=== PATIENT | male | born 1965 | race Caucasian/White ===

== ENCOUNTER → 2016-10-06 | Outpatient (CLI) | payer OTHER ==
--- NOTE | 2016-10-06 14:36 | XR ---
EXAMINATION TYPE: XR chest 2V DATE OF EXAM: 10/06/2016 CLINICAL HISTORY: COPD TECHNIQUE: Frontal and lateral views of the chest are obtained. COMPARISON: None FINDINGS: There is no focal air space opacity, pleural effusion, or pneumothorax seen. The cardiac silhouette size is within normal limits. The osseous structures are intact. IMPRESSION: No acute cardiopulmonary process.
== END ==
LOC: RADXRMAIN 14:15
PROVIDERS: ATTEND Family Medicine
DX: J44.9 Chronic obstructive pulmonary disease, unspecified (principal)
CPT/HCPCS: 71020

== ENCOUNTER 2018-01-30 17:56 | Emergency (ER) | payer OTHER ==
[2018-01-30 18:06] VITALS: BP 134/88; PULSE 89; RESP 18; TEMP 97.8
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
== END 2018-01-30 18:25 | disposition left against medical advice (07) ==
LOC: EC 17:56
DX: S00.81XA Abrasion of other part of head, initial encounter (principal); R40.2410 Glasgow coma scale score 13-15, unspecified time; M25.512 Pain in left shoulder; M25.552 Pain in left hip; Z53.29 Procedure and treatment not carried out because of patient's decision for other reasons; M19.90 Unspecified osteoarthritis, unspecified site; F17.200 Nicotine dependence, unspecified, uncomplicated; Z88.8 Allergy status to other drugs, medicaments and biological substances; V23.4XXA Motorcycle driver injured in collision with car, pick-up truck or van in traffic accident, initial encounter; Y92.410 Unspecified street and highway as the place of occurrence of the external cause
CPT/HCPCS: 99284

== ENCOUNTER 2018-02-13 13:22 | Observation (INO) | payer OTHER ==
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
[2018-02-13] MEDS ORDERED: SODIUM CHLORIDE 0.9% 1,000 ML with MVI, ADULT NO.4 WITH VIT K 10 ML, THIAMINE 100 MG, F... IV ONE ×4 (14:00)
[2018-02-13 14:04] LABS: Glucose,Whole Blood 188 mg/dL (75-99)
[2018-02-13 14:19] LABS: Basophils # (A) 0.1 k/uL (0-0.2); Basophils % (A) 1 %; Eosinophils # (A) 0.3 k/uL (0-0.7); Eosinophils % (A) 3 %; HCT 47.4 % (39.0-53.0); HGB 14.8 gm/dL (13.0-17.5); Lymphocytes # (A) 3.6 k/uL (1.0-4.8); Lymphocytes % (A) 33 %; MCH 30.2 pg (25.0-35.0); MCHC 31.3 g/dL (31.0-37.0); MCV 96.5 fL (80.0-100.0); Mean Platelet Volume 6.4; Monocytes # (A) 0.5 k/uL (0-1.0); Monocytes % (A) 5 %; Neutrophils # (A) 6.1 k/uL (1.3-7.7); Neutrophils % (A) 56 %; Platelet Count 533 k/uL (150-450); RBC 4.91 m/uL (4.30-5.90); RDW 13.1 % (11.5-15.5); WBC 10.9 k/uL (3.8-10.6)
[2018-02-13 14:33] LABS: ALT 22 U/L (21-72); AST 19 U/L (17-59); Alkaline Phosphatase 104 U/L (38-126); Amylase 34 U/L (30-110); Anion Gap 13 mmol/L; Blood Urea Nitrogen 6 mg/dL (9-20); Calcium 9.2 mg/dL (8.4-10.2); Carbon Dioxide 21 mmol/L (22-30); Chloride 108 mmol/L (98-107); Glucose 184 mg/dL (74-99); Lipase 60 U/L (23-300); Potassium 4.4 mmol/L (3.5-5.1); Sodium 142 mmol/L (137-145); Total Bilirubin 0.2 mg/dL (0.2-1.3); Total Protein 6.9 g/dL (6.3-8.2)
[2018-02-13 14:44] LABS: Alcohol 333 mg/dL
[2018-02-13] MEDS ORDERED: NALOXONE 0.4 MG/ML 1 ML VIAL IV PRN (15:01)
[2018-02-13] MEDS ORDERED: hydrALAZINE HCL 20 MG/ML 1 ML VIAL IVP PRN (16:23)
[2018-02-13] MEDS ORDERED: LORazepam 2 MG/ML INJ IV PRN ×6 (16:53→17:16)
[2018-02-13] MEDS ORDERED: THIAMINE 100 MG/ML 2 ML VIAL IM STA ×2 (16:53→17:16)
[2018-02-13] MEDS ORDERED: THIAMINE 100 MG TAB PO SCH (17:00)
[2018-02-13 17:13] VITALS: BMI 23.3
[2018-02-13 17:13] LABS: Glucose,Whole Blood 182 mg/dL (75-99)
[2018-02-13] MEDS: SODIUM CHLORIDE 0.9% 1,000 ML IV SCH (17:13)
[2018-02-13] MEDS: INSULIN ASPART 100 UNIT/ML 1 ML 10 ML VIAL SQ SCH ×2 (17:34→21:33)
[2018-02-13 20:45] LABS: Glucose,Whole Blood 194 mg/dL (75-99)
[2018-02-14 07:52] LABS: Glucose,Whole Blood 147 mg/dL (75-99)
[2018-02-14] MEDS: INSULIN ASPART 100 UNIT/ML 1 ML 10 ML VIAL SQ SCH ×4 (08:38→21:53)
[2018-02-14 09:04] LABS: Basophils # (A) 0.1 k/uL (0-0.2); Basophils % (A) 0 %; Eosinophils # (A) 0.3 k/uL (0-0.7); Eosinophils % (A) 2 %; HCT 45.6 % (39.0-53.0); HGB 14.5 gm/dL (13.0-17.5); Lymphocytes # (A) 2.2 k/uL (1.0-4.8); Lymphocytes % (A) 18 %; MCH 30.6 pg (25.0-35.0); MCHC 31.8 g/dL (31.0-37.0); MCV 96.5 fL (80.0-100.0); Mean Platelet Volume 6.6; Monocytes # (A) 0.7 k/uL (0-1.0); Monocytes % (A) 6 %; Neutrophils # (A) 8.6 k/uL (1.3-7.7); Neutrophils % (A) 72 %; Platelet Count 489 k/uL (150-450); RBC 4.73 m/uL (4.30-5.90); WBC 11.9 k/uL (3.8-10.6)
[2018-02-14 09:22] LABS: Anion Gap 9 mmol/L; Blood Urea Nitrogen 11 mg/dL (9-20); Calcium 9.3 mg/dL (8.4-10.2); Carbon Dioxide 24 mmol/L (22-30); Chloride 102 mmol/L (98-107); Glucose 270 mg/dL (74-99); Potassium 4.7 mmol/L (3.5-5.1); Sodium 135 mmol/L (137-145)
[2018-02-14 12:31] LABS: Glucose,Whole Blood 174 mg/dL (75-99)
[2018-02-14] MEDS: THIAMINE 100 MG TAB PO SCH ×2 (12:43→16:53)
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
[2018-02-14] MEDS: SODIUM CHLORIDE 0.9% 1,000 ML IV SCH (14:28)
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
[2018-02-14 17:46] LABS: Glucose,Whole Blood 176 mg/dL (75-99)
[2018-02-14 21:33] LABS: Glucose,Whole Blood 161 mg/dL (75-99)
[2018-02-15 07:19] LABS: Glucose,Whole Blood 157 mg/dL (75-99)
[2018-02-15] MEDS: INSULIN ASPART 100 UNIT/ML 1 ML 10 ML VIAL SQ SCH ×2 (08:34→13:48)
[2018-02-15 08:38] VITALS: BP 134/79; PULSE 67; RESP 16; TEMP 97.7
[2018-02-15 10:14] LABS: Basophils % (A) 0 %; Eosinophils # (A) 0.2 k/uL (0-0.7); Eosinophils % (A) 2 %; HCT 44.4 % (39.0-53.0); HGB 14.7 gm/dL (13.0-17.5); Lymphocytes # (A) 2.1 k/uL (1.0-4.8); Lymphocytes % (A) 19 %; MCH 31.1 pg (25.0-35.0); MCHC 33.2 g/dL (31.0-37.0); MCV 93.8 fL (80.0-100.0); Mean Platelet Volume 6.9; Monocytes # (A) 0.6 k/uL (0-1.0); Monocytes % (A) 6 %; Neutrophils # (A) 7.9 k/uL (1.3-7.7); Neutrophils % (A) 72 %; Platelet Count 448 k/uL (150-450); RBC 4.73 m/uL (4.30-5.90); RDW 12.9 % (11.5-15.5); WBC 11.1 k/uL (3.8-10.6)
[2018-02-15 10:46] LABS: Anion Gap 9 mmol/L; Blood Urea Nitrogen 9 mg/dL (9-20); Calcium 9.6 mg/dL (8.4-10.2); Carbon Dioxide 24 mmol/L (22-30); Chloride 101 mmol/L (98-107); Glucose 272 mg/dL (74-99); Potassium 4.7 mmol/L (3.5-5.1); Sodium 134 mmol/L (137-145)
[2018-02-15 10:51] LABS: Hemoglobin A1C 8.7 % (4.0-6.0)
[2018-02-15 13:15] LABS: Glucose,Whole Blood 209 mg/dL (75-99)
[2018-02-15] MEDS: THIAMINE 100 MG TAB PO SCH (13:49)
--- NOTE | 2018-02-15 16:54 | P.DS ---
Providers Date of admission: 02/13/18 15:02 Expected date of discharge: 02/15/18 Attending physician: MD Dr. New Reeder Primary care physician: Stated None Hospital Course: Final Diagnoses: -Alcohol intoxication -Hyponatremia, secondary to the above -Diabetes mellitus, uncontrolled-has been off of his meds, hemoglobin A1c 8.7 - Hospital course:This is a 53-year-old male with known history of alcoholism was brought in by police and EMS personnel after being found intoxicated. Patient is not actively withdrawing but remains very sleepy so most of the history is obtained from the chart. No trauma reported no fevers chills nausea vomiting sweats or other symptoms. Patient states he drank 33 beers today. He denies any street drugs or other complaints this time no trauma no fevers chills nausea vomiting sweats. Maintained on IV fluids-banana bag,CIWA protocol. No DTs. Significant clinical improvement. Repeat reports he has been off of his meds and dismissed from his prior PCP. Metformin resumed and patient has been set up with new PCP. Patient is being discharged home in a stable condition with guarded prognosis. EXAM: GENERAL: Alert and oriented 3, no acute distress CARDIOVASCULAR: S1, S2 muffled. No murmur RESPIRATION: Breath sounds diminished in the bases. No rhonchi or crackles. No bronchial breathing. ABDOMEN: Soft, nontender . No guarding. no masses palpable.no ascites Bowel sounds heard. NERVOUS SYSTEM: Cranial N 2-12 grossly normal. Moves all 4 limbs. No focal deficits. The impression and plan of care has been dictated as directed. : I performed a history and examination of this patient, discussed the same with the dictator. I agree with the dictator's note ,documented as a scribe. Any additional findings or plans will be noted. Time taken: 35 minutes Patient Condition at Discharge: Stable Plan - Discharge Summary New Discharge Prescriptions: New Folic Acid 1 mg PO DAILY #30 tablet Multivitamins, Thera [Multivitamin (formulary)] 1 tab PO DAILY #30 tablet Thiamine [Vitamin B-1] 100 mg PO DAILY #30 tab Omeprazole Magnesium [PriLOSEC OTC] 20 mg PO BID #60 tablet. metFORMIN HCL 1,000 mg PO BID #60 tab Continue Acetaminophen Tab [Tylenol] 1,000 mg PO Q6HR PRN PRN Reason: Pain Ibuprofen [Motrin Ib] 400 mg PO DAILY Discharge Medication List Acetaminophen Tab [Tylenol] 1,000 mg PO Q6HR PRN 01/30/18 [History] Ibuprofen [Motrin Ib] 400 mg PO DAILY 02/14/18 [History] Folic Acid 1 mg PO DAILY #30 tablet 02/15/18 [Rx] Multivitamins, Thera [Multivitamin (formulary)] 1 tab PO DAILY #30 tablet [Rx] Omeprazole Magnesium [PriLOSEC OTC] 20 mg PO BID #60 tablet. 02/15/18 [Rx] Thiamine [Vitamin B-1] 100 mg PO DAILY #30 tab 02/15/18 [Rx] metFORMIN HCL 1,000 mg PO BID #60 tab 02/15/18 [Rx] Follow up Appointment(s)/Referral(s): Yadi Gaytan MD [STAFF PHYSICIAN] - 02/23/18 1:30 pm (Please call office this week 02/15/18 to speak with medical office receptionist assistant about insurance coverage/ cost of visit.) Ambulatory/Diagnostic Orders: Basic Metabolic Panel [LAB.AMB] Time Frame: 3 Days, Location: None Selected Patient Instructions/Handouts: Type 2 Diabetes in Adults: New Diagnosis (DC) Activity/Diet/Wound Care/Special Instructions: HGBA1C 8.7 Diet: consist. carb OP DM education CLasses Ensure glucmeter, supplies Maintain log of accucheks achs, take to F/U visit with primary for further rec. no ETOH Discharge Disposition: HOME SELF-CARE
== END 2018-02-15 14:36 | disposition home or self-care (01) ==
LOC: EC 13:22 → 4MS4W 15:02
PROVIDERS: ADMIT Internal Medicine; ATTEND Internal Medicine
DX: F10.229 Alcohol dependence with intoxication, unspecified (principal); E87.1 Hypo-osmolality and hyponatremia; E11.65 Type 2 diabetes mellitus with hyperglycemia; I10 Essential (primary) hypertension; D72.829 Elevated white blood cell count, unspecified; D47.3 Essential (hemorrhagic) thrombocythemia; M19.90 Unspecified osteoarthritis, unspecified site; L40.9 Psoriasis, unspecified; F32.9 Major depressive disorder, single episode, unspecified; F17.200 Nicotine dependence, unspecified, uncomplicated; Z88.8 Allergy status to other drugs, medicaments and biological substances; Z80.1 Family history of malignant neoplasm of trachea, bronchus and lung; Z91.14 Patient's other noncompliance with medication regimen
CPT/HCPCS: 96366 ×2; 82075; 96365; 99285; 36415; 80053; 80048 ×2; 82140; 82150; 83690; 85025 ×3; 80320; 83036; G0378 ×3; J3411

== ENCOUNTER 2018-02-28 23:01 | Emergency (ER) | payer OTHER ==
[2018-02-28 23:24] VITALS: BP 172/92; PULSE 84; RESP 20; TEMP 98.2
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
== END 2018-03-01 00:05 | disposition home or self-care (01) ==
LOC: EC 23:01
DX: Z04.1 Encounter for examination and observation following transport accident (principal); Z02.83 Encounter for blood-alcohol and blood-drug test; F17.200 Nicotine dependence, unspecified, uncomplicated; Z88.8 Allergy status to other drugs, medicaments and biological substances; V89.2XXA Person injured in unspecified motor-vehicle accident, traffic, initial encounter; Y92.69 Other specified industrial and construction area as the place of occurrence of the external cause; Y99.0 Civilian activity done for income or pay
CPT/HCPCS: 99281

== ENCOUNTER 2018-06-14 10:09 | Emergency (ER) | payer OTHER ==
[2018-06-14] MEDS ORDERED: SODIUM CHLORIDE 0.9% 1,000 ML IV STA (10:45)
[2018-06-14] MEDS ORDERED: IPRATROPIUM-ALBUTEROL 3 ML NEB INHALATION STA (10:45)
--- NOTE | 2018-06-14 10:58 | ED ---
General Adult HPI - General Chief complaint: Upper Respiratory Infection Stated complaint: cough, congestion, vomiting Time Seen by Provider: 06/14/18 10:25 Source: patient, RN notes reviewed, old records reviewed Mode of arrival: ambulatory Limitations: no limitations - History of Present Illness Initial comments: 53-year-old male patient past medical history of prior alcohol abuse, Currently in remission, type 2 diabetes presents to ED with approximately 4 days of nonproductive cough. Patient has additionally had some rhinitis, sneezing. Patient complains waxing and waning fevers and chills. Patient has had some nausea without emesis. Patient has multiple sick contacts, states "everyone in my house has been sick since thursday". Patient is a tobacco user. Patient denies any chest pain or shortness of breath. Patient denies any abdominal pain. Systemic: Pt denies fatigue, myalgia, rash. Pt denies weakness, night sweats, weight loss. Neuro: Pt denies headache, visual disturbances, syncope or pre-syncope. HEENT: Pt denies ocular discharge or irritation, otalgia, rhinorrhea, pharyngitis or notable lymphadenopathy. Cardiopulmonary: Pt denies chest pain, SOB, heart palpitations, dyspnea on exertion. Abdominal/GI: Pt denies abdominal pain, n/v/d. : Pt denies dysuria, burning w/ urination, frequency/urgency. Denies new onset urinary or bowel incontinence. MSK: Pt denies myalgia, loss of strength or function in extremities. Neuro: Pt denies new onset weakness, paresthesias. - Related Data Home Medications Medication Instructions Recorded Confirmed Losartan [Cozaar] 50 mg PO DAILY 06/14/18 06/14/18 Previous Rx's Medication Instructions Recorded metFORMIN HCL 1,000 mg PO BID #60 tab 02/15/18 Oseltamivir [Tamiflu] 75 mg PO Q12HR 5 Days cap 06/14/18 Allergies Allergy/AdvReac Type Severity Reaction Status Date / Time lisinopril AdvReac Unknown Cough Verified 06/14/18 10:58 Review of Systems ROS Statement: Those systems with pertinent positive or pertinent negative responses have been documented in the HPI. ROS Other: All systems not noted in ROS Statement are negative. Past Medical History Past Medical History: Diabetes Mellitus, Hypertension, Osteoarthritis (OA), Skin Disorder Additional Past Medical History / Comment(s): PSORIASIS, BACK & NECK PAIN. History of Any Multi-Drug Resistant Organisms: None Reported Additional Past Surgical History / Comment(s): HAND SURGERY AND NERVE GRAFT TO THUMB, CORTISONE INJECTIONS HIP. Past Anesthesia/Blood Transfusion Reactions: No Reported Reaction Past Psychological History: Unable to Obtain, Depression Smoking Status: Current every day smoker Past Alcohol Use History: Abuse Past Drug Use History: None Reported - Past Family History Father Family Medical History: Cancer Additional Family Medical History / Comment(s): LUNG CANCER General Exam - General Exam Comments Initial Comments: Constitutional: NAD, AOX3, Pt has pleasant affect. HEENT: NC/AT, trachea midline, neck supple, no lymphadenopathy. Posterior pharynx non erythematous, without exudates. External ears appear normal, without discharge. Mucous membranes moist. Eyes PERRLA, EOM intact. There is no scleral icterus. No pallor noted. Cardiopulmonary: RRR, no murmurs, rubs or gallops, no JVD noted. Mild wheezing noted in RLL, other lung quintero clear. Lungs CTAB after breathing treatment. No peripheral edema. Abdominal exam: Abdomen soft and non-distended. Abdomen non-tender to palpation in all 4 quadrants. Bowel sounds active in LLQ. No hepatosplenomegaly. No ecchymosis Neuro: CN II-XII grossly intact. No nuchal rigidity. MSK: No posterior calf tenderness bilaterally, homans sign negative bilaterally. Posterior tibialis and radial pulse +2 bilaterally. Sensation intact in upper and lower extremities. Full active ROM in upper and lower extremities, 5/5 stregnth. Limitations: no limitations Course Vital Signs 06/14/18 06/14/18 06/14/18 10:16 11:30 11:40 Temperature 98.3 F Pulse Rate 103 H 100 101 H Respiratory 18 Rate Blood Pressure 151/90 O2 Sat by Pulse 97 Oximetry 06/14/18 12:30 Temperature 98.5 F Pulse Rate 80 Respiratory 19 Rate Blood Pressure 148/94 O2 Sat by Pulse 100 Oximetry Medical Decision Making - Medical Decision Making 53-year-old male patient past medical history of prior alcohol abuse, Currently in remission, type 2 diabetes presents to ED with approximately 4 days of nonproductive cough. Patient has additionally had some rhinitis, sneezing. Patient complains waxing and waning fevers and chills. Patient has had some nausea without emesis. Patient has multiple sick contacts, states "everyone in my house has been sick since thursday". Patient is a tobacco user. Patient denies any chest pain or shortness of breath. Patient denies any abdominal pain. Pt VSS, afebrile. Physical exam displayed Mild wheezing noted in RLL, other lung quintero clear. Lungs CTAB after breathing treatment. Laboratory investigations are non-impressive CBC. CMP revealed mild hyperglycemia, patient has a history of type 2 diabetes. Patient will monitor symptoms and take medication at home. Influenza A was positive. Chest x-ray displayed no acute cardiopulmonary process. Patient diagnosed with influenza. Discussion with patient, patient would like prescription for Tamiflu. Patient to follow up with primary care provider in 1-2 days. Patient to return immediately signs symptoms develop or if condition worsens in any way. Case discussed with Dr. Ruiz. - Lab Data Result diagrams: 06/14/18 11:26 06/14/18 11:26 Lab Results 06/14/18 06/14/18 06/14/18 Range/Units 11:26 11:26 11:26 WBC 7.2 (3.8-10.6) k/uL RBC 4.83 (4.30-5.90) m/uL Hgb 14.8 (13.0-17.5) gm/dL Hct 45.5 (39.0-53.0) % MCV 94.1 (80.0-100.0) fL MCH 30.7 (25.0-35.0) pg MCHC 32.6 (31.0-37.0) g/dL RDW 13.1 (11.5-15.5) % Plt Count 302 (150-450) k/uL Neutrophils % 55 % Lymphocytes % 31 % Monocytes % 8 % Eosinophils % 3 % Basophils % 1 % Neutrophils # 3.9 (1.3-7.7) k/uL Lymphocytes # 2.3 (1.0-4.8) k/uL Monocytes # 0.6 (0-1.0) k/uL Eosinophils # 0.2 (0-0.7) k/uL Basophils # 0.1 (0-0.2) k/uL Sodium 136 L (137-145) mmol/L Potassium 4.5 (3.5-5.1) mmol/L Chloride 107 (98-107) mmol/L Carbon Dioxide 23 (22-30) mmol/L Anion Gap 6 mmol/L BUN 7 L (9-20) mg/dL Creatinine 0.55 L (0.66-1.25) mg/dL Est GFR (CKD-EPI)AfAm >90 (>60 ml/min/1.73 sqM) Est GFR (CKD-EPI)NonAf >90 (>60 ml/min/1.73 sqM) Glucose 244 H (74-99) mg/dL Calcium 8.6 (8.4-10.2) mg/dL Influenza Type A RNA Detected H (Not Detectd) Influenza Type B (PCR) Not Detected (Not Detectd) Disposition Clinical Impression: Influenza A Disposition: HOME SELF-CARE Condition: Stable Instructions (If sedation given, give patient instructions): Influenza (ED) Additional Instructions: Patient to adhere to previously discussed treatment plan and will take medication(s) as directed. Patient to follow up with PCP in 1-2 days. Patient to return to ED if symptoms do not improve. Please take medications are prescribed. Please follow up with PCP in 1-2 days. Return to ED if symptoms worsen. Prescriptions: Oseltamivir [Tamiflu] 75 mg PO Q12HR 5 Days cap Is patient prescribed a controlled substance at d/c from ED?: No Referrals: Yadi Gaytan MD [Primary Care Provider] - 1-2 days
--- NOTE | 2018-06-14 11:36 | XR ---
EXAMINATION TYPE: XR chest 2V DATE OF EXAM: 06/14/2018 COMPARISON: 10/06/2016 HISTORY: Cough, congestion and vomiting TECHNIQUE: Frontal and lateral views of the chest are obtained. FINDINGS: There is no focal air space opacity, pleural effusion, or pneumothorax seen. Curvilinear density overlying the left medial hemithorax is unchanged from the prior 10/06/2016 and could represen t an accessory fissure. This is not well appreciated on the lateral view. The cardiac silhouette size is within normal limits. The osseous structures are intact. IMPRESSION: No acute cardiopulmonary process.
[2018-06-14 11:42] LABS: Basophils # (A) 0.1 k/uL (0-0.2); Basophils % (A) 1 %; Eosinophils # (A) 0.2 k/uL (0-0.7); Eosinophils % (A) 3 %; HCT 45.5 % (39.0-53.0); HGB 14.8 gm/dL (13.0-17.5); Lymphocytes # (A) 2.3 k/uL (1.0-4.8); Lymphocytes % (A) 31 %; MCH 30.7 pg (25.0-35.0); MCHC 32.6 g/dL (31.0-37.0); MCV 94.1 fL (80.0-100.0); Mean Platelet Volume 7.3; Monocytes # (A) 0.6 k/uL (0-1.0); Monocytes % (A) 8 %; Neutrophils # (A) 3.9 k/uL (1.3-7.7); Neutrophils % (A) 55 %; Platelet Count 302 k/uL (150-450); RBC 4.83 m/uL (4.30-5.90); RDW 13.1 % (11.5-15.5); WBC 7.2 k/uL (3.8-10.6)
[2018-06-14 12:01] LABS: Anion Gap 6 mmol/L; Blood Urea Nitrogen 7 mg/dL (9-20); Calcium 8.6 mg/dL (8.4-10.2); Carbon Dioxide 23 mmol/L (22-30); Chloride 107 mmol/L (98-107); Glucose 244 mg/dL (74-99); Potassium 4.5 mmol/L (3.5-5.1); Sodium 136 mmol/L (137-145)
[2018-06-14 12:30] VITALS: BP 148/94; PULSE 80; RESP 19; TEMP 98.5
== END 2018-06-14 12:49 | disposition home or self-care (01) ==
LOC: EC 10:09
DX: J10.1 Influenza due to other identified influenza virus with other respiratory manifestations (principal); F10.11 Alcohol abuse, in remission; E11.65 Type 2 diabetes mellitus with hyperglycemia; I10 Essential (primary) hypertension; F17.200 Nicotine dependence, unspecified, uncomplicated; Z88.8 Allergy status to other drugs, medicaments and biological substances; Z79.899 Other long term (current) drug therapy; Z80.1 Family history of malignant neoplasm of trachea, bronchus and lung
CPT/HCPCS: 36415; 71046; 80048; 85025; 87502; 94640; 99284

== ENCOUNTER 2019-03-20 21:36 | Emergency (ER) | payer OTHER ==
[2019-03-20 21:48] VITALS: TEMP 98.1
[2019-03-20 22:00] LABS: Glucose,Whole Blood 272 mg/dL (75-99)
[2019-03-20] MEDS ORDERED: MECLIZINE 25 MG TAB PO STA (22:00)
--- NOTE | 2019-03-20 22:03 | ED ---
General Adult HPI - General Chief complaint: Dizziness Stated complaint: dizziness, visual disturbance Time Seen by Provider: 03/20/19 22:00 Source: patient, RN notes reviewed Mode of arrival: ambulatory Limitations: no limitations - History of Present Illness Initial comments: This a 54-year-old male who presents emergency Department with a past medical history significant for diabetes and high blood pressure. Patient also is a smoker. Patient states starting yesterday he had a few episodes of dizziness which lasts between 3 and 4 seconds each time. Patient states that it occurred 5 times and he states he feels like he is to follow-up referrals for seconds and then it kind of subsides. Patient denies any chest pain difficult breathing shortness of breath per patient denies any palpitations. Patient denies any headache patient denies any numbness or weakness. Patient denies any coordination problems. Patient denies any recent fever chills or cough. Patient denies any abdominal pain patient denies nausea vomiting diarrhea. Patient states currently he is having no symptoms whatsoever patient did state earlier moving his head seemed to bring and on occasion. - Related Data Home Medications Medication Instructions Recorded Confirmed Losartan [Cozaar] 50 mg PO DAILY 06/14/18 06/14/18 Previous Rx's Medication Instructions Recorded metFORMIN HCL 1,000 mg PO BID #60 tab 02/15/18 Oseltamivir [Tamiflu] 75 mg PO Q12HR 5 Days cap 06/14/18 Meclizine [Antivert] 25 mg PO TID #20 tab 03/20/19 Allergies Allergy/AdvReac Type Severity Reaction Status Date / Time lisinopril AdvReac Unknown Cough Verified 03/20/19 21:48 Review of Systems ROS Statement: Those systems with pertinent positive or pertinent negative responses have been documented in the HPI. ROS Other: All systems not noted in ROS Statement are negative. Past Medical History Past Medical History: Diabetes Mellitus, Hypertension, Osteoarthritis (OA), Skin Disorder Additional Past Medical History / Comment(s): PSORIASIS, BACK & NECK PAIN. History of Any Multi-Drug Resistant Organisms: None Reported Additional Past Surgical History / Comment(s): HAND SURGERY AND NERVE GRAFT TO THUMB, CORTISONE INJECTIONS HIP. Past Anesthesia/Blood Transfusion Reactions: No Reported Reaction Past Psychological History: Unable to Obtain, Depression Smoking Status: Current every day smoker Past Alcohol Use History: Abuse Past Drug Use History: Marijuana - Past Family History Father Family Medical History: Cancer Additional Family Medical History / Comment(s): LUNG CANCER General Exam - General Exam Comments Initial Comments: GENERAL: Patient is well-developed and well-nourished. Patient is nontoxic and well- hydrated and is in no acute distress. ENT: Neck is soft and supple. No significant lymphadenopathy is noted. Oropharynx is clear. Moist mucous membranes. Neck has full range of motion without el iciting any pain. EYES: The sclera were anicteric and conjunctiva were pink and moist. Extraocular movements were intact and pupils were equal round and reactive to light. Eyelids were unremarkable. PULMONARY: Unlabored respirations. Good breath sounds bilaterally. No audible rales rhonchi or wheezing was noted. CARDIOVASCULAR: There is a regular rate and rhythm without any murmurs gallops or rubs. ABDOMEN: Soft and nontender with normal bowel sounds. No palpable organomegaly was no daniela. There is no palpable pulsatile mass. SKIN: Skin is clear with no lesions or rashes and otherwise unremarkable. NEUROLOGIC: Patient is alert and oriented x3. Cranial nerves II through XII are grossly intact. Motor and sensory are also intact. Normal speech, volume and content. Symmetrical smile. Finger to nose testing is normal bilaterally MUSCULOSKELETAL: Normal extremities with adequate strength and full range of motion. No lower extremity swelling or edema. No calf tenderness. LYMPHATICS: No significant lymphadenopathy is noted PSYCHIATRIC: Normal psychiatric evaluation. Limitations: no limitations Course Vital Signs 03/20/19 21:43 Temperature 98.1 F Pulse Rate 96 Respiratory 20 Rate Blood Pressure 167/90 O2 Sat by Pulse 97 Oximetry Medical Decision Making - Medical Decision Making EKG shows normal sinus rhythm at a rate of 94 bpm AZ interval 242 QRS is 88 QT interval 358 QTC is 447. Patient's EKG shows no ST segment elevation or depression. I went back into the room to reexamine the patient. Patient stated he was not dizzy and has not been dizzy since she's been emergency department. - Lab Data Result diagrams: 03/20/19 21:58 03/20/19 21:58 Lab Results 03/20/19 03/20/19 03/20/19 Range/Units 21:58 21:58 21:58 WBC 14.5 H (3.8-10.6) k/uL RBC 4.57 (4.30-5.90) m/uL Hgb 14.2 (13.0-17.5) gm/dL Hct 41.9 (39.0-53.0) % MCV 91.8 (80.0-100.0) fL MCH 31.1 (25.0-35.0) pg MCHC 33.8 (31.0-37.0) g/dL RDW 12.6 (11.5-15.5) % Plt Count 357 (150-450) k/uL Neutrophils % 60 % Lymphocytes % 30 % Monocytes % 5 % Eosinophils % 2 % Basophils % 0 % Neutrophils # 8.7 H (1.3-7.7) k/uL Lymphocytes # 4.4 (1.0-4.8) k/uL Monocytes # 0.8 (0-1.0) k/uL Eosinophils # 0.3 (0-0.7) k/uL Basophils # 0.1 (0-0.2) k/uL PT (9.0-12.0) sec INR (<1.2) APTT (22.0-30.0) sec Sodium 134 L (137-145) mmol/L Potassium 3.9 (3.5-5.1) mmol/L Chloride 101 (98-107) mmol/L Carbon Dioxide 26 (22-30) mmol/L Anion Gap 7 mmol/L BUN 11 (9-20) mg/dL Creatinine 0.65 L (0.66-1.25) mg/dL Est GFR (CKD-EPI)AfAm >90 (>60 ml/min/1.73 sqM) Est GFR (CKD-EPI)NonAf >90 (>60 ml/min/1.73 sqM) Glucose 278 H (74-99) mg/dL POC Glucose (mg/dL) 272 H (75-99) mg/dL POC Glu Roll Grinder Operator Román Daniel Calcium 8.6 (8.4-10.2) mg/dL Magnesium 1.8 (1.6-2.3) mg/dL Total Bilirubin 0.3 (0.2-1.3) mg/dL AST 23 (17-59) U/L ALT 21 (21-72) U/L Alkaline Phosphatase 74 (38-126) U/L Troponin I (0.000-0.034) ng/mL Total Protein 6.3 (6.3-8.2) g/dL Albumin 3.8 (3.5-5.0) g/dL 03/20/19 03/20/19 Range/Units 21:58 21:58 WBC (3.8-10.6) k/uL RBC (4.30-5.90) m/uL Hgb (13.0-17.5) gm/dL Hct (39.0-53.0) % MCV (80.0-100.0) fL MCH (25.0-35.0) pg MCHC (31.0-37.0) g/dL RDW (11.5-15.5) % Plt Count (150-450) k/uL Neutrophils % % Lymphocytes % % Monocytes % % Eosinophils % % Basophils % % Neutrophils # (1.3-7.7) k/uL Lymphocytes # (1.0-4.8) k/uL Monocytes # (0-1.0) k/uL Eosinophils # (0-0.7) k/uL Basophils # (0-0.2) k/uL PT 9.4 (9.0-12.0) sec INR 0.9 (<1.2) APTT 23.7 (22.0-30.0) sec Sodium (137-145) mmol/L Potassium (3.5-5.1) mmol/L Chloride (98-107) mmol/L Carbon Dioxide (22-30) mmol/L Anion Gap mmol/L BUN (9-20) mg/dL Creatinine (0.66-1.25) mg/dL Est GFR (CKD-EPI)AfAm (>60 ml/min/1.73 sqM) Est GFR (CKD-EPI)NonAf (>60 ml/min/1.73 sqM) Glucose (74-99) mg/dL POC Glucose (mg/dL) (75-99) mg/dL POC Glu Roll Grinder Operator ID Calcium (8.4-10.2) mg/dL Magnesium (1.6-2.3) mg/dL Total Bilirubin (0.2-1.3) mg/dL AST (17-59) U/L ALT (21-72) U/L Alkaline Phosphatase (38-126) U/L Troponin I <0.012 (0.000-0.034) ng/mL Total Protein (6.3-8.2) g/dL Albumin (3.5-5.0) g/dL Disposition Clinical Impression: Vertigo Disposition: HOME SELF-CARE Condition: Good Instructions (If sedation given, give patient instructions): Vertigo (ED) Prescriptions: Meclizine [Antivert] 25 mg PO TID #20 tab Is patient prescribed a controlled substance at d/c from ED?: No Referrals: Yadi Gaytan MD [Primary Care Provider] - 1-2 days Time of Disposition: 23:23
[2019-03-20 22:14] LABS: Basophils # (A) 0.1 k/uL (0-0.2); Basophils % (A) 0 %; Eosinophils # (A) 0.3 k/uL (0-0.7); Eosinophils % (A) 2 %; HCT 41.9 % (39.0-53.0); HGB 14.2 gm/dL (13.0-17.5); Lymphocytes # (A) 4.4 k/uL (1.0-4.8); Lymphocytes % (A) 30 %; MCH 31.1 pg (25.0-35.0); MCHC 33.8 g/dL (31.0-37.0); MCV 91.8 fL (80.0-100.0); Mean Platelet Volume 6.7; Monocytes # (A) 0.8 k/uL (0-1.0); Monocytes % (A) 5 %; Neutrophils # (A) 8.7 k/uL (1.3-7.7); Neutrophils % (A) 60 %; Platelet Count 357 k/uL (150-450); RBC 4.57 m/uL (4.30-5.90); RDW 12.6 % (11.5-15.5); WBC 14.5 k/uL (3.8-10.6)
[2019-03-20 22:22] LABS: ALT 21 U/L (21-72); AST 23 U/L (17-59); African American GFR (CKD) >90 (>60 ml/min/1.73 sqM); Albumin 3.8 g/dL (3.5-5.0); Alkaline Phosphatase 74 U/L (38-126); Anion Gap 7 mmol/L; Blood Urea Nitrogen 11 mg/dL (9-20); Calcium 8.6 mg/dL (8.4-10.2); Carbon Dioxide 26 mmol/L (22-30); Chloride 101 mmol/L (98-107); Glucose 278 mg/dL (74-99); INR 0.9 (<1.2); Magnesium 1.8 mg/dL (1.6-2.3); Non-African American GFR(CKD) >90 (>60 ml/min/1.73 sqM); Partial Thromboplastin Time 23.7 sec (22.0-30.0); Potassium 3.9 mmol/L (3.5-5.1); Prothrombin Time 9.4 sec (9.0-12.0); Sodium 134 mmol/L (137-145); Total Bilirubin 0.3 mg/dL (0.2-1.3); Total Protein 6.3 g/dL (6.3-8.2)
--- NOTE | 2019-03-20 22:27 | XR ---
EXAMINATION TYPE: XR chest 2V DATE OF EXAM: 03/20/2019 COMPARISON: 06/14/2018 HISTORY: Dizziness TECHNIQUE: Frontal and lateral views of the chest are obtained. FINDINGS: Heart and mediastinum are normal. Lungs are clear. Diaphragm is normal. Bony thorax appear s normal. Pulmonary vascularity is normal. IMPRESSION: Normal chest. No change.
[2019-03-20 23:43] VITALS: BP 155/86; PULSE 80; RESP 18
== END 2019-03-20 23:51 | disposition home or self-care (01) ==
LOC: EC 21:36
DX: R42 Dizziness and giddiness (principal); H53.9 Unspecified visual disturbance; I10 Essential (primary) hypertension; E11.9 Type 2 diabetes mellitus without complications; F17.200 Nicotine dependence, unspecified, uncomplicated; Z79.899 Other long term (current) drug therapy; Z88.8 Allergy status to other drugs, medicaments and biological substances
CPT/HCPCS: 36415; 71046; 80053; 83735; 84484; 85025; 85610; 85730; 93005; 99284

== ENCOUNTER 2019-04-03 18:21 | Inpatient (IN) | payer MEDICAID, OTHER ==
[2019-04-03 18:50] LABS: Glucose,Whole Blood 263 mg/dL (75-99)
[2019-04-03] MEDS ORDERED: metFORMIN 500 MG TAB PO STA (18:54)
--- NOTE | 2019-04-03 19:01 | ED ---
Psych HPI - General Chief Complaint: Psychiatric Symptoms Stated Complaint: suicidal Time Seen by Provider: 04/03/19 18:30 Source: patient Mode of arrival: ambulatory - History of Present Illness Initial Comments: 54-year-old male patient presents to the emergency department today for evaluation of suicidal ideation. Patient states that he has been having increasing thoughts of suicide over the last 2-3 days. Patient states he is very close to killing himself last night and was planning on cutting himself this evening until his friend was informed by his significant other and made him come to the hospital. Patient states he has a few plans that he would use to take his life. The patient denies history of suicide attempt. Patient states that he feels that he is self-destructive and constantly ruminating good things only happened to him and this makes him very upset. Patient states he does frequently drink alcohol. He denies any alcohol use today. Denies any use of street drugs. Patient states he recently lost his job. His significant other is in rehab for drug addiction and they will be unable to spend the holiday together. States that he previously was on depression medication about 4-5 years ago but stopped taking it. States he occasionally takes trazodone to help him sleep due to insomnia. Denies hallucinations. He does have a history of type 2 diabetes and has not been taking any medication for this. He denies any current physical symptoms or concerns. Patient denies any recent rash, fever, chills, shortness breath, chest pain, abdominal pain, nausea, vomiting, diarrhea, constipation, back pain, numbness, tingling, dizziness, weakness, hematuria, dysuria, urinary urgency, urinary frequency, headache, visual changes, or any other complaints. - Related Data Home Medications Medication Instructions Recorded Confirmed Losartan [Cozaar] 50 mg PO DAILY 06/14/18 06/14/18 Previous Rx's Medication Instructions Recorded metFORMIN HCL 1,000 mg PO BID #60 tab 02/15/18 Oseltamivir [Tamiflu] 75 mg PO Q12HR 5 Days cap 06/14/18 Meclizine [Antivert] 25 mg PO TID #20 tab 03/20/19 Allergies Allergy/AdvReac Type Severity Reaction Status Date / Time lisinopril AdvReac Unknown Cough Verified 04/03/19 18:29 Review of Systems ROS Statement: Those systems with pertinent positive or pertinent negative responses have been documented in the HPI. ROS Other: All systems not noted in ROS Statement are negative. Past Medical History Past Medical History: Diabetes Mellitus, Hypertension, Osteoarthritis (OA), Skin Disorder Additional Past Medical History / Comment(s): PSORIASIS, BACK & NECK PAIN. History of Any Multi-Drug Resistant Organisms: None Reported Additional Past Surgical History / Comment(s): HAND SURGERY AND NERVE GRAFT TO THUMB, CORTISONE INJECTIONS HIP. Past Anesthesia/Blood Transfusion Reactions: No Reported Reaction Past Psychological History: Unable to Obtain, Depression Smoking Status: Current every day smoker Past Alcohol Use History: Abuse Past Drug Use History: Marijuana - Past Family History Father Family Medical History: Cancer Additional Family Medical History / Comment(s): LUNG CANCER General Exam Limitations: no limitations General appearance: alert, in no apparent distress, other (This is a well- developed, well-nourished adult male patient in no acute distress. Vital signs upon presentation are temperature 98.1F, pulse 1:15, respirations 18, blood pressure 168/94, pulse ox 98% on room air.) Eye exam: Present: normal appearance, PERRL, EOMI. Absent: scleral icterus, conjunctival injection, periorbital swelling ENT exam: Present: normal exam, normal oropharynx, mucous membranes moist Respiratory exam: Present: normal lung sounds bilaterally. Absent: respiratory distress, wheezes, rales, rhonchi, stridor Cardiovascular Exam: Present: regular rate, normal rhythm, normal heart sounds. Absent: systolic murmur, diastolic murmur, rubs, gallop, clicks GI/Abdominal exam: Present: soft, normal bowel sounds. Absent: distended, tenderness, guarding, rebound, rigid Neurological exam: Present: alert, oriented X3, CN II-XII intact Psychiatric exam: Present: depressed, suicidal ideation. Absent: homicidal ideation Skin exam: Present: warm, dry, intact, normal color. Absent: rash Course Vital Signs 04/03/19 18:26 Temperature 98.1 F Pulse Rate 115 H Respiratory 18 Rate Blood Pressure 168/94 O2 Sat by Pulse 98 Oximetry Medical Decision Making - Medical Decision Making 54-year-old male patient presented to the emergency department today for evaluation of suicidal ideation. Physical examination is unremarkable. He was seen and evaluated by emergency psychiatric services. He'll be admitted to the hospital for mental health treatment. - Lab Data Lab Results 04/03/19 04/03/19 Range/Units 18:48 19:45 POC Glucose (mg/dL) 263 H (75-99) mg/dL POC Glu [employer] ID Rosanna Ko Urine Opiates Screen Not Detected (NotDetected) Ur Oxycodone Screen Not Detected (NotDetected) Urine Methadone Screen Not Detected (NotDetected) Ur Propoxyphene Screen Not Detected (NotDetected) Ur Barbiturates Screen Not Detected (NotDetected) U Tricyclic Antidepress Not Detected (NotDetected) Ur Phencyclidine Scrn Not Detected (NotDetected) Ur Amphetamines Screen Not Detected (NotDetected) U Methamphetamines Scrn Not Detected (NotDetected) U Benzodiazepines Scrn Not Detected (NotDetected) Urine Cocaine Screen Not Detected (NotDetected) U Marijuana (THC) Screen Not Detected (NotDetected) Disposition Clinical Impression: Suicidal ideation Disposition: TRANSFER TO PSYCH HOSP/UNIT Condition: Serious Referrals: Yadi Gaytan MD [Primary Care Provider] - 1-2 days - Out of Hospital Transfer - Req. Specs Out of Hospital Transfer - Requested Specifics: Psychiatric Non-ICU ([facility])
[2019-04-03] MEDS ORDERED: LORazepam 1 MG TAB PO STA (19:43)
[2019-04-03 20:13] LABS: Amphetamine Screen,Urine Not Detected (NotDetected); Barbiturate Screen,Urine Not Detected (NotDetected); Benzodiazepines Screen,Urine Not Detected (NotDetected); Cocaine Screen,Urine Not Detected (NotDetected); Methadone Screen, Urine Not Detected (NotDetected); Opiate Screen,Urine Not Detected (NotDetected); Oxycodone Screen, Urine Not Detected (NotDetected); Phencyclidine Screen,Urine Not Detected (NotDetected); Tricyclic Antidepressant,Urine Not Detected (NotDetected); Urn Cannabinoid Scrn Not Detected (NotDetected)
[2019-04-03] MEDS ORDERED: MAGNESIUM HYDROXIDE 2,400 MG/10 ML CUP PO PRN (20:33)
[2019-04-03] MEDS ORDERED: MAG HYDROX/AL HYDROX/SIMETH 30 ML CUP PO PRN (20:33)
[2019-04-03] MEDS ORDERED: ACETAMINOPHEN TAB 325 MG TAB PO PRN (20:33)
[2019-04-03] MEDS ORDERED: LORazepam 1 MG TAB PO PRN (20:33)
[2019-04-03] MEDS ORDERED: ZIPRASIDONE 20 MG VIAL IM PRN (20:33)
[2019-04-04 07:50] LABS: Glucose,Whole Blood 180 mg/dL (75-99)
[2019-04-04 07:53] LABS: Basophils # (A) 0.1 k/uL (0-0.2); Basophils % (A) 1 %; Eosinophils # (A) 0.2 k/uL (0-0.7); Eosinophils % (A) 2 %; HCT 43.1 % (39.0-53.0); HGB 14.3 gm/dL (13.0-17.5); Lymphocytes # (A) 2.7 k/uL (1.0-4.8); Lymphocytes % (A) 25 %; MCH 31.6 pg (25.0-35.0); MCHC 33.1 g/dL (31.0-37.0); MCV 95.3 fL (80.0-100.0); Mean Platelet Volume 7.9; Monocytes # (A) 0.6 k/uL (0-1.0); Monocytes % (A) 6 %; Neutrophils % (A) 65 %; Platelet Count 332 k/uL (150-450); RBC 4.52 m/uL (4.30-5.90); RDW 12.9 % (11.5-15.5); WBC 10.7 k/uL (3.8-10.6)
[2019-04-04 08:06] LABS: ALT 15 U/L (4-49); AST 21 U/L (17-59); African American GFR (CKD) >90 (>60 ml/min/1.73 sqM); Albumin 3.1 g/dL (3.5-5.0); Alkaline Phosphatase 55 U/L (38-126); Anion Gap 4 mmol/L; Bilirubin, Delta 0.1 mg/dL (0.0-0.2); Bilirubin,Unconjugated 0.4 mg/dL (0.0-1.1); Blood Urea Nitrogen 11 mg/dL (9-20); Calcium 8.8 mg/dL (8.4-10.2); Carbon Dioxide 28 mmol/L (22-30); Chloride 106 mmol/L (98-107); Cholesterol 154 mg/dL (<200); Glucose 182 mg/dL (74-99); HDL Cholesterol 81 mg/dL (40-60); LDL Cholesterol,Calculated 59 mg/dL (0-99); Non-African American GFR(CKD) >90 (>60 ml/min/1.73 sqM); Potassium 4.3 mmol/L (3.5-5.1); Sodium 138 mmol/L (137-145); Total Bilirubin 0.5 mg/dL (0.2-1.3); Total Protein 5.5 g/dL (6.3-8.2); Triglycerides 70 mg/dL (<150)
[2019-04-04] MEDS: NICOTINE 14MG/24HR PATCH TRANSDERM SCH (10:38)
[2019-04-04] MEDS: SERTRALINE 25 MG TAB PO SCH (11:27)
[2019-04-04] MEDS: GABAPENTIN 100 MG CAP PO SCH ×3 (11:27→22:27)
[2019-04-04 12:21] LABS: Hemoglobin A1C 9.2 % (4.0-6.0)
[2019-04-04 12:43] LABS: Glucose,Whole Blood 238 mg/dL (75-99)
--- NOTE | 2019-04-04 14:49 | P.CONS ---
History of Present Illness - History of Present Illness this is a pleasant 54 years old male with past medical history of diabetes m ellitus, hypertension, osteoarthritis, chronic neck and back pain, psoriasis, and adherence to therapy. Cigarette smoker,patient presents to the emergency room with signs symptoms of depression and suicidal ideation. Patient was admitted to the mental health units and medical consult was requested for medical management. She complains from chronic mild neck and back pain, he was mobile with no d ifficulty. He does not seem in distress. He denies chest pain or dyspnea. No change in urine or bowel habits. No nausea vomiting. No fever. He is tolerating diet well. Patient says that his diabetic but he stopped going to see his PCP because he did not get his trazodone dose he wanted of 150 mg and she gave him 100 mg at bedtime only, to help him sleep. Currently he is not on trazodone and he is on [place] instead patient says that he was taking metformin 1000 twice a day however he suffered that a few months ago because his doctor told him is not workingSo it was stopped as per patient,on admission his hemoglobin A1c is 9.2%.rest of labs including CBC, BMP and liver enzymes were unremarkable except for mild increase in the leukocytes increased at 10.7 K. Vitas looks stable also patient says that she supposed to take losartan 50 mg daily but not anymore. His blood pressure was 168/94 and currently 131/77 Review of Systems CONSTITUTIONAL: No fever, no malaise, no fatigue. HEENT: No recent visual problems or hearing problems. Denied any sore throat. CARDIOVASCULAR: No orthopnea, PND, no palpitations, no syncope. PULMONARY: No shortness of breath, no cough, no hemoptysis. GASTROINTESTINAL: No diarrhea, no nausea, no vomiting, no abdominal pain. Normoactive bowel sounds. NEUROLOGICAL: No headaches, no weakness, no numbness. HEMATOLOGICAL: Denies any bleeding or petechiae. GENITOURINARY: Denies any burning micturition, frequency, or urgency. MUSCULOSKELETAL/RHEUMATOLOGICAL: Denies any joint pain, swelling, or any muscle pain. ENDOCRINE: Denies any polyuria or polydipsia. Past Medical History Past Medical History: Diabetes Mellitus, Hypertension, Osteoarthritis (OA), Skin Disorder Additional Past Medical History / Comment(s): PSORIASIS, BACK & NECK PAIN. History of Any Multi-Drug Resistant Organisms: None Reported Additional Past Surgical History / Comment(s): HAND SURGERY AND NERVE GRAFT TO THUMB, CORTISONE INJECTIONS HIP. Past Anesthesia/Blood Transfusion Reactions: No Reported Reaction Past Psychological History: Unable to Obtain, Depression Smoking Status: Current every day smoker Past Alcohol Use History: Abuse Additional Past Alcohol Use History / Comment(s): SMOKES <1PPD, SMOKING FOR 35 YEARS. Patient states he binge drinks alcohol, he does not drink daily. Past Drug Use History: Marijuana - Past Family History Father Family Medical History: Cancer Additional Family Medical History / Comment(s): LUNG CANCER Medications and Allergies Home Medications Medication Instructions Recorded Confirmed Type Meclizine [Antivert] 25 mg PO TID #20 tab 03/20/19 04/04/19 Rx Allergies Allergy/AdvReac Type Severity Reaction Status Date / Time lisinopril AdvReac Unknown Cough Verified 04/03/19 18:29 Physical Exam Vitals: Vital Signs Temp Pulse Pulse Resp BP BP Pulse Ox 04/04/19 06:50 97.9 F 82 16 131/77 04/03/19 21:45 98 F 88 18 134/76 04/03/19 18:26 98.1 F 115 H 18 168/94 98 Intake and Output 04/03/19 04/04/19 04/04/19 22:59 06:59 14:59 Other: Weight 72.575 kg 72.5 kg GENERAL: The patient is alert and oriented x3, not in any acute distress. Well developed, well nourished. HEENT: Pupils are round and equally reacting to light. EOMI. No scleral icterus. No conjunctival pallor. Normocephalic, atraumatic. No pharyngeal erythema. No thyromegaly. CARDIOVASCULAR: S1 and S2 present. No murmurs, rubs, or gallops. PULMONARY: Chest is clear to auscultation, no wheezing or crackles. ABDOMEN: Soft, nontender, nondistended, normoactive bowel sounds. No palpable organomegaly. MUSCULOSKELETAL: No joint swelling or deformity. EXTREMITIES: No cyanosis, clubbing, or pedal edema. NEUROLOGICAL: Gross neurological examination did not reveal any focal deficits. SKIN: No rashes. No petechiae Results CBC & Chem 7: 04/04/19 07:24 04/04/19 07:24 Labs: Abnormal Lab Results - Last 24 Hours (Table) 04/03/19 04/04/19 04/04/19 Range/Units 18:48 07:24 07:24 WBC 10.7 H (3.8-10.6) k/uL Creatinine (0.66-1.25) mg/dL Glucose (74-99) mg/dL POC Glucose (mg/dL) 263 H (75-99) mg/dL Hemoglobin A1c 9.2 H (4.0-6.0) % Total Protein (6.3-8.2) g/dL Albumin (3.5-5.0) g/dL HDL Cholesterol (40-60) mg/dL 04/04/19 04/04/19 04/04/19 Range/Units 07:24 07:49 12:41 WBC (3.8-10.6) k/uL Creatinine 0.58 L (0.66-1.25) mg/dL Glucose 182 H (74-99) mg/dL POC Glucose (mg/dL) 180 H 238 H (75-99) mg/dL Hemoglobin A1c (4.0-6.0) % Total Protein 5.5 L (6.3-8.2) g/dL Albumin 3.1 L (3.5-5.0) g/dL HDL Cholesterol 81 H (40-60) mg/dL Assessment and Plan Assessment: diabetes mellitus, type II. With hyperglycemia Hypertension Nonadherence to therapy primary osteoarthritis with chronic neck and back pain, controlled History of psoriasis Nicotine dependence Plan: this is a pleasant 54 years old male who presented with depression and suicidal symptoms which are managed as per primary psychiatric team. We'll start the patient on metformin 1000 twice a day and continue with insulin sliding scale. Start Norvasc 5 mg daily. Her blood pressure and sugar. Continue with nicotine patch Labs and medication were reviewed.. Continue same treatment. Continue with symptomatic treatment. Resume home medication. Monitor lytes and vitals. DVT and GI prophylaxis. Further recommendations of the clinical course of the patient patient was instructed to follow up with his PCP in one week after discharge and he agrees Thank you for consulting us
--- NOTE | 2019-04-04 15:28 | P.HP ---
Psychiatric H&P - . 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 The patient has been admitted to our inpatient psychiatric services after been transferred from [facility] emergency room. Patient was initially brought to emergency department by his friend because the patient became suicidal and not feeling safe. The patient has been admitted on voluntary basis to our service. CHIEF COMPLAINT: "I cannot take it anymore." HISTORY OF PRESENT ILLNESS: Patient reports his depression started "long time ago", but the depression symptoms have been worsening over the last 2-3 month including feeling depressed for most of the time and most of the days, lost motivation and interests in doing any activities, feeling anxious most of the time, problem to go to sleep and maintaining sleep for most of the nights, and feeling hopeless, helpless, useless and worthless. Patient reports suicidal thoughts started 7-10 days ago and yesterday he wasn't feeling safe and is started to have plan to get himself to drunk and walk in front of traffic to end his life. Patient reports feeling distressed because he couldn't maintain his job, relapse it on drinking alcohol after 7 month of sobriety, cannot see his girlfriend, and this month is the anniversary of his father who 14 years ago. Patient explained that he cannot see his girlfriend because she is on probation and her forest fire control officer wouldn't allow her to stay with him because he has failed and is in his record, and her forest fire control officer mandated her to go for substance use disorder treatment in [place]. Patient reports his friend brought him to the hospital after he spoke to his girlfriend over the phone and told her about his suicidal thoughts so she called his friend who brought him to the ER. Patient denies psychotic symptoms including auditory/visual hallucinations, paranoid ideation, and no delusions could be elicited, but he reports history of paranoid ideation "sometimes feeling paranoid", and sometimes he hears his mother's voice talking to him not to do bad things as per his report. He denies any current or history of manic symptoms including a euphoric mood, grandiosity, lack need to sleep due to increased activities, bouts of severe unusual increased energy, or irrational behavior. Patient reports sometimes having nightmares but he couldn't relate that to any previous psychological trauma. He reports anxiety symptoms but not all the time and usually related to his feeling of hopelessness. Patient denies any history of suicidal attempts or self-injurious behavior. PAST PSYCHIATRIC HISTORY: Previous diagnoses: Depression Previous psychiatric hospitalizations: Denies previous hospitalizations. Previous suicide attempts: Denies any previous suicidal attempt but reports sometimes was drinking heavily wishing that he would drink himself to . Previous outpatient psychiatric treatment: Previous psychiatric treatment at [facility] to 5 years ago when he used to see psychiatrist and attend group therapy, and he was a started on psychiatric medication at that time but he didn't continue the medication because of side effects "caused me severe diarrhea". Patient reports he didn't receive any psychiatric medication for the last 4 years and he couldn't recall the name of his previous medication trials. SUBSTANCE ABUSE HISTORY: Nicotine: Smokes half-pack per day for more than 20 years. Alcohol: Reports history of heavy alcohol drinking, started at age 14. Patient was able to achieve sobriety for about 7 months but he relapses 2-3 months ago and since he relapsed he has been drinking 2-3 times weekly with average one fifth at the time. Reported last drink was 2 days ago. Reports history of multiple DUIs and severe alcohol intoxication. Denies history of alcohol withdrawal seizures or DTs. Admitted for severe negative impact of drinking alcohol on his life and his relationships. Reports previous experimental use of different drugs during his high school years including heroin, cocaine, and hallucinogens. Denies any history of IV drug use, and he reports last use of any street drugs was during high school. Reports history of regular use of marijuana but he completed 20 years ago except one relapse 2 weeks ago when he smoked "little bit". Social History: Patient was born in [facility] and raised up by his mother and stepfather. Reports no connection was his biological father. Housing: Currently is homeless, living in a usp. The patient is currently unemployed after he lost his shop few days ago. 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 Education: Patient reports attaining an educational level of high school, and he was planning to sign up for college classes. Children: Patient reports having 1 daughter who is 23-year-old. Legal history: Previous arrests and incarcerated because of drunk driving History of psychological trauma: Reports feeling psychologically traumatized when he found his mother on the floor 2- 3 years ago, but denies any history of abuse. FAMILY HISTORY: Psychiatric Illness: His mother and one of his aunts suffered from depression. Substance abuse: His uncle was alcoholic and his father side of the family have very extensive alcohol problems. Completed Suicides: one of his paternal uncle probably killed himself by been drunk and walked in front of traffic. Medical History: Diabetes Hypertension MENTAL STATUS EVALUATION: Appearance: Appears stated age, poorly groomed, average body built, and no specific features. Gait/ posture: Steady gait, normal arm swinging, no abnormal movements, with rel axed posture. Attitude and Behavior: cooperative, related to the interviewer in socially accepted manner, fair eye contact during course of interview. Motor Activity: Normal psychomotor activity. Speech: spontaneous, Normal rate, rhythm, and articulation. Normal volume. Not pressured. Language: Articulating, naming objects and repeat phrases. Mood: Depressed, anxious Affect: Restricted. Thought process: Linear. Association: Intact. Thought content: No delusions, Reports suicidal thoughts, Denies homicidal thoughts, Denies intentions, or plans. Perception: Denies auditory or visual hallucinations Alertness: No impairment. Concentration: Impaired Orientation: Alert and fully oriented to time, person, place and situation. Insight regarding psychiatric condition: fair Judgment regarding daily activities and social situation: fair Impulse control: fair Strengths: Stable general medical condition Support by his girlfriend Challenges: Poor social support Homeless unemployed limited access to psychiatric treatment Allergies Allergy/AdvReac Type Severity Reaction Status Date / Time lisinopril AdvReac Unknown Cough Verified 04/03/19 18:29 Vital Signs Temp 97.9 F 04/04/19 06:50 Pulse 82 04/04/19 06:50 Resp 16 04/04/19 06:50 BP 131/77 04/04/19 06:50 Pulse Ox 98 04/03/19 18:26 Intake & Output 04/03/19 04/04/19 04/04/19 18:59 06:59 18:59 Weight 72.575 kg 72.5 kg Review of Lab results: Laboratory Last Values WBC 10.7 k/uL (3.8-10.6) H 04/04/19 07:24 RBC 4.52 m/uL (4.30-5.90) 04/04/19 07:24 Hgb 14.3 gm/dL (13.0-17.5) 04/04/19 07:24 Hct 43.1 % (39.0-53.0) 04/04/19 07:24 MCV 95.3 fL (80.0-100.0) 04/04/19 07:24 MCH 31.6 pg (25.0-35.0) 04/04/19 07:24 MCHC 33.1 g/dL (31.0-37.0) 04/04/19 07:24 RDW 12.9 % (11.5-15.5) 04/04/19 07:24 Plt Count 332 k/uL (150-450) 04/04/19 07:24 Neutrophils % 65 % 04/04/19 07:24 Lymphocytes % 25 % 04/04/19 07:24 Monocytes % 6 % 04/04/19 07:24 Eosinophils % 2 % 04/04/19 07:24 Basophils % 1 % 04/04/19 07:24 Neutrophils # 7.0 k/uL (1.3-7.7) 04/04/19 07:24 Lymphocytes # 2.7 k/uL (1.0-4.8) 04/04/19 07:24 Monocytes # 0.6 k/uL (0-1.0) 04/04/19 07:24 Eosinophils # 0.2 k/uL (0-0.7) 04/04/19 07:24 Basophils # 0.1 k/uL (0-0.2) 04/04/19 07:24 Sodium 138 mmol/L (137-145) 04/04/19 07:24 Potassium 4.3 mmol/L (3.5-5.1) 04/04/19 07:24 Chloride 106 mmol/L (98-107) 04/04/19 07:24 Carbon Dioxide 28 mmol/L (22-30) 04/04/19 07:24 Anion Gap 4 mmol/L 04/04/19 07:24 BUN 11 mg/dL (9-20) 04/04/19 07:24 Creatinine 0.58 mg/dL (0.66-1.25) L 04/04/19 07:24 Est GFR (CKD-EPI)AfAm >90 (>60 ml/min/1.73 sqM) 04/04/19 07:24 Est GFR (CKD-EPI)NonAf >90 (>60 ml/min/1.73 sqM) 04/04/19 07:24 Glucose 182 mg/dL (74-99) H 04/04/19 07:24 POC Glucose (mg/dL) 238 mg/dL (75-99) H 04/04/19 12:41 POC Glu Offc Spec ID Elise Zelaya 04/04/19 12:[address] Glu mg/dL 217 04/04/19 07:24 Hemoglobin A1c 9.2 % (4.0-6.0) H 04/04/19 07:24 Calcium 8.8 mg/dL (8.4-10.2) 04/04/19 07:24 Total Bilirubin 0.5 mg/dL (0.2-1.3) 04/04/19 07:24 Conjugated Bilirubin 0.0 mg/dL (0.0-0.3) 04/04/19 07:24 Unconjugated Bilirubin 0.4 mg/dL (0.0-1.1) 04/04/19 07:24 Delta Bilirubin 0.1 mg/dL (0.0-0.2) 04/04/19 07:24 AST 21 U/L (17-59) 04/04/19 07:24 ALT 15 U/L (4-49) 04/04/19 07:24 Alkaline Phosphatase 55 U/L (38-126) 04/04/19 07:24 Total Protein 5.5 g/dL (6.3-8.2) L 04/04/19 07:24 Albumin 3.1 g/dL (3.5-5.0) L 04/04/19 07:24 Triglycerides 70 mg/dL (<150) 04/04/19 07:24 Cholesterol 154 mg/dL (<200) 04/04/19 07:24 LDL Cholesterol, Calc 59 mg/dL (0-99) 04/04/19 07:24 HDL Cholesterol 81 mg/dL (40-60) H 04/04/19 07:24 TSH 1.910 mIU/L (0.465-4.680) 04/04/19 07:24 Urine Opiates Screen Not Detected (NotDetected) 04/03/19 19:45 Ur Oxycodone Screen Not Detected (NotDetected) 04/03/19 19:45 Urine Methadone Screen Not Detected (NotDetected) 04/03/19 19:45 Ur Propoxyphene Screen Not Detected (NotDetected) 04/03/19 19:45 Ur Barbiturates Screen Not Detected (NotDetected) 04/03/19 19:45 U Tricyclic Antidepress Not Detected (NotDetected) 04/03/19 19:45 Ur Phencyclidine Scrn Not Detected (NotDetected) 04/03/19 19:45 Ur Amphetamines Screen Not Detected (NotDetected) 04/03/19 19:45 U Methamphetamines Scrn Not Detected (NotDetected) 04/03/19 19:45 U Benzodiazepines Scrn Not Detected (NotDetected) 04/03/19 19:45 Urine Cocaine Screen Not Detected (NotDetected) 04/03/19 19:45 U Marijuana (THC) Screen Not Detected (NotDetected) 04/03/19 19:45 Formulation/Summary: The patient has family history of mental illness and probably genetically predisposed to his psychiatric problem, considering positive family history of depression and alcohol use disorder. Other predisposing biological factors to current presentation could be relapsed on alcohol drinking. Current precipitating factors include: Not taking psychiatric medications , no access to treatment , and social stress as addressed in HPI. Perpetuating factors: Not able to see his girlfriend, lost his job Protective biological factors: Relationship with his girlfriend, willing to get better. Assessment: Major depressive disorder, recurrent, severe with anxious distress. Alcohol use disorder, severe in early partial remission TREATMENT PLAN/RECOMMENDATIONS: Medical Decision making: The patient presented with severe suicidal ideation and plan to end his life. The patient at high risk to hurt himself if he is not in the inpatient setting. The patient has psychiatric symptoms are not stable and he needs further management of psychiatric medications and further planning for discharge. Therefore, inpatient level of care is needed. Continue the patient inpatient for safety. Continue the patient under 15 minutes safe check for safety. Continue treatment of depression and monitor for alcohol withdrawal. Psych education regarding his diagnosis, and treatment option. The patient will also be provided with individual therapy, group therapy, substance abuse counseling, gain insight, and coping skills. Consider medical consultation if any acute medical issue arise. Medications: Start Zoloft 25 mg daily for depression and anxiety symptoms. Start Neurontin 200 mg 3 times a day for anxiety and post acute withdrawal syndrome. Start Remeron 15 mg at bedtime for depression/anxiety and Was insomnia. The patient will be assessed on daily basis for his depression, suicidal ideatio n, and will be discharged back to his outpatient mental health provider upon stabilization. EXPECTED LENGTH OF STAY: 5-7 days. 04/04/19 14:53
[2019-04-04] MEDS: LORazepam 1 MG TAB PO SCH ×2 (16:15→22:28)
[2019-04-04] MEDS: metFORMIN 500 MG TAB PO SCH (16:56)
[2019-04-04 18:08] LABS: Glucose,Whole Blood 309 mg/dL (75-99)
[2019-04-04] MEDS: INSULIN ASPART (NovoLOG) 100 UNIT/ML VIAL SQ SCH ×2 (18:14→22:25)
[2019-04-04 20:07] LABS: Glucose,Whole Blood 212 mg/dL (75-99)
[2019-04-04] MEDS ORDERED: MIRTAZAPINE 15 MG TAB PO SCH (21:00)
[2019-04-05 07:56] LABS: Glucose,Whole Blood 226 mg/dL (75-99)
[2019-04-05] MEDS: INSULIN ASPART (NovoLOG) 100 UNIT/ML VIAL SQ SCH ×4 (08:54→20:13)
[2019-04-05] MEDS: NICOTINE 14MG/24HR PATCH TRANSDERM SCH (08:55)
[2019-04-05] MEDS: GABAPENTIN 100 MG CAP PO SCH ×3 (08:56→21:24)
[2019-04-05] MEDS: SERTRALINE 25 MG TAB PO SCH (08:56)
[2019-04-05] MEDS: amLODIPine 5 MG TAB PO SCH (08:56)
[2019-04-05] MEDS: metFORMIN 500 MG TAB PO SCH ×2 (08:56→17:42)
[2019-04-05] MEDS: LORazepam 1 MG TAB PO SCH ×3 (08:57→21:25)
[2019-04-05 12:49] LABS: Glucose,Whole Blood 117 mg/dL (75-99)
[2019-04-05 13:19] VITALS: BMI 23.6
--- NOTE | 2019-04-05 14:25 | P.PN ---
Progress Note - Text Progress Note Date: 04/05/19 Chief complaint: "My sleep is not the best and still feel depressed" Subjective: The patient has been seen today as follow-up, chart reviewed, case discussed with the treatment team. Patient slept about 4 hours last night and still interrupted, but according to nursing report he slept 6 hours. Patient has been going to groups and other unit activities. Patient reports fair appetite. Patient reports his depression is slightly better and minimizes feeling suicidal but reports still has times feeling hopeless. He denies any alcohol withdrawal symptoms besides mild tremors and very mild GI upset. He denies any seizures, severe tremors or confusion. The patient is compliant with his medications and denies any adverse reactions. The patient denies any manic symptoms including sustained period of time with elevated or irritable mood, impulsive or irrational behavior, inflated self-esteem, or absence need to sleep due to increases goal-directed activities. The patient denies any auditory or visual hallucinations. Also the patient denies any paranoid ideation. Objective: Vitals has been reviewed. MENTAL STATUS EVALUATION: Appearance: Appears stated age, poorly groomed, average body built, and no specific features. Gait/ posture: Steady gait, normal arm swinging, no abnormal movements, with relaxed posture. Attitude and Behavior: cooperative, related to the interviewer in socially accepted manner, fair eye contact during course of interview. Motor Activity: Normal psychomotor activity. Speech: spontaneous, Normal rate, rhythm, and articulation. Normal volume. Not pressured. Language: Articulating, naming objects and repeat phrases. Mood: Depressed, anxious Affect: Restricted. Thought process: Linear. Association: Intact. Thought content: No delusions, Reports intermittent suicidal thoughts, Denies homicidal thoughts, Denies intentions, or plans. Perception: Denies auditory or visual hallucinations Alertness: No impairment. Concentration: Impaired Orientation: Alert and fully oriented to time, person, place and situation. Insight regarding psychiatric condition: fair Judgment regarding daily activities and social situation: fair Impulse control: fair Assessment: Major depressive disorder, recurrent, severe with anxious distress. Alcohol use disorder, severe in early partial remission Plan: Continue inpatient level of care due to need for further stabilization. Continue treatment of depression and monitor for Alcohol withdrawal symptoms. provide psychiatric education regarding his diagnosis Precautions: Continue 15 minutes check for safety. Consider medical consultation if any acute medical issues arise. Provide the patient individual, group therapy, substance use disorder counseling to give better insight and learn coping skills. Continue follow-up with the patient daily to monitor progress of his depression symptoms including suicidal thoughts. Medications: Increase Zoloft 50 mg daily for depression and anxiety symptoms. Continue Neurontin 200 mg 3 times a day for anxiety and post acute withdrawal syndrome. Increase Remeron 22.5 mg at bedtime for depression/anxiety and insomnia. Discharge patient to OUTPATIENT services upon a stabilization Prognosis: slight improvement Expected LOS: 3-5 days
[2019-04-05 17:53] LABS: Glucose,Whole Blood 254 mg/dL (75-99)
[2019-04-05 20:06] LABS: Glucose,Whole Blood 133 mg/dL (75-99)
[2019-04-05] MEDS: MIRTAZAPINE 15 MG TAB PO SCH (21:25)
[2019-04-06 07:58] LABS: Glucose,Whole Blood 171 mg/dL (75-99)
[2019-04-06] MEDS: metFORMIN 500 MG TAB PO SCH ×2 (08:05→18:01)
[2019-04-06] MEDS: INSULIN ASPART (NovoLOG) 100 UNIT/ML VIAL SQ SCH ×4 (08:26→20:39)
[2019-04-06] MEDS ORDERED: SERTRALINE 50 MG TAB PO SCH (09:00)
[2019-04-06] MEDS: GABAPENTIN 100 MG CAP PO SCH (09:29)
[2019-04-06] MEDS: amLODIPine 5 MG TAB PO SCH (09:29)
[2019-04-06] MEDS: LORazepam 1 MG TAB PO SCH ×3 (09:31→21:00)
[2019-04-06] MEDS: NICOTINE 14MG/24HR PATCH TRANSDERM SCH (10:29)
--- NOTE | 2019-04-06 12:23 | P.PN ---
Progress Note - Text Progress Note Date: 04/06/19 Chief complaint: "I feel more anxious today" Subjective: The patient has been seen today as follow-up, chart reviewed, case discussed with the treatment team. Patient slept about 6 hours last night and reports feeling better sleep last night. Patient has been going to groups and other unit activities. Patient reports fair appetite. Patient reports feeling more anxious with racing thoughts and always worried about his future. He reports still feeling depressed but anxiety is more overwhelming. Denies any current SI or feeling hopeless. He denies any withdrawal symptoms. Patient is taking his psychiatric medications and denies SEs. He denies any manic or psychotic symptoms. Objective: Vitals has been reviewed. MENTAL STATUS EVALUATION: Appearance: Appears stated age, poorly groomed, average body built, and no specific features. Gait/ posture: Steady gait, normal arm swinging, no abnormal movements, with relaxed posture. Attitude and Behavior: cooperative, related to the interviewer in socially accepted manner, fair eye contact during course of interview. Motor Activity: Normal psychomotor activity. Speech: spontaneous, Normal rate, rhythm, and articulation. Normal volume. Not pressured. Mood: Depressed, anxious Affect: Restricted. Thought process: Linear, goal-directed. Association: Intact. Thought content: No delusions, Denies suicidal thoughts, Denies homicidal thoughts, Denies intentions, or plans. Perception: Denies auditory or visual hallucinations Alertness: No impairment. Concentration: Impaired Orientation: Alert and fully oriented to time, person, place and situation. Insight regarding psychiatric condition: fair Judgment regarding daily activities and social situation: fair Impulse control: fair Assessment: Major depressive disorder, recurrent, severe with anxious distress. Alcohol use disorder, severe in early partial remission Plan: Continue inpatient level of care due to need for further stabilization. Continue treatment of depression and monitor for Alcohol withdrawal symptoms. provide psychiatric education regarding his diagnosis Precautions: Continue 15 minutes check for safety. Consider medical consultation if any acute medical issues arise. Provide the patient individual, group therapy, substance use disorder counseling to give better insight and learn coping skills. Continue follow-up with the patient daily to monitor progress of his depression symptoms including suicidal thoughts. Medications: Increase Zoloft 100 mg daily for depression and anxiety symptoms. Increase Neurontin 300 mg 3 times a day for anxiety and post acute withdrawal syndrome. Continue Remeron 22.5 mg at bedtime for depression/anxiety and insomnia. Start Melatonin 5 mg HS for insomnia Discharge patient to OUTPATIENT services upon a stabilization Prognosis: continued to feel depressed with increased anxiety. Expected LOS: 3-5 days
[2019-04-06 12:53] LABS: Glucose,Whole Blood 178 mg/dL (75-99)
[2019-04-06] MEDS: GABAPENTIN 300 MG CAP PO SCH ×2 (17:30→21:00)
[2019-04-06 17:37] LABS: Glucose,Whole Blood 223 mg/dL (75-99)
[2019-04-06 20:16] LABS: Glucose,Whole Blood 192 mg/dL (75-99)
[2019-04-06] MEDS: MIRTAZAPINE 15 MG TAB PO SCH (20:35)
[2019-04-06] MEDS: MELATONIN 5 MG TABLET PO SCH (20:35)
[2019-04-07 07:46] LABS: Glucose,Whole Blood 182 mg/dL (75-99)
[2019-04-07] MEDS: amLODIPine 5 MG TAB PO SCH (08:08)
[2019-04-07] MEDS: metFORMIN 500 MG TAB PO SCH ×2 (08:08→18:01)
[2019-04-07] MEDS: NICOTINE 14MG/24HR PATCH TRANSDERM SCH (08:08)
[2019-04-07] MEDS: GABAPENTIN 300 MG CAP PO SCH (08:08)
[2019-04-07] MEDS: LORazepam 1 MG TAB PO SCH ×3 (08:08→20:06)
[2019-04-07] MEDS: SERTRALINE 100 MG TAB PO SCH (08:09)
[2019-04-07] MEDS: INSULIN ASPART (NovoLOG) 100 UNIT/ML VIAL SQ SCH ×4 (08:09→20:07)
[2019-04-07 12:43] LABS: Glucose,Whole Blood 143 mg/dL (75-99)
--- NOTE | 2019-04-07 13:21 | P.PN ---
Progress Note - Text Progress Note Date: 04/07/19 Chief complaint: "My anxiety still high" Subjective: The patient has been seen today as follow-up, chart reviewed, case discussed with the treatment team. Patient slept continued to sleep about 6 hours last night, but reports interruption due to frequent urination which he attributes to prostate problem. He denies any appetite problems. Patient has been going to groups and other unit activities. He reports feeling improvement of depression and he denies feeling hopeless, worthless or suicidal. Reports is still have bouts of severe anxiety and still feeling tense with racing thoughts. He denies any severe mood swings, agitation, or homicidal ideation. He denies any manic or psychotic symptoms. Reports itching and the skin rashes over his elbows and knees which is related to psoriasis. Medical team evaluated the patient yesterday and they told the patient will prescribe the topical cortisone for his a skin rash. Objective: Vitals has been reviewed. MENTAL STATUS EVALUATION: Appearance: Appears stated age, poorly groomed, average body built, and no specific features. Gait/ posture: Steady gait, normal arm swinging, no abnormal movements, with relaxed posture. Attitude and Behavior: cooperative, related to the interviewer in socially accepted manner, fair eye contact during course of interview. Motor Activity: Normal psychomotor activity. Speech: spontaneous, Normal rate, rhythm, and articulation. Normal volume. Not pressured. Mood: Anxious Affect: Appropriate. Thought process: Linear, goal-directed. Association: Intact. Thought content: No delusions, Denies suicidal thoughts, Denies homicidal thoughts, Denies intentions, or plans. Perception: Denies auditory or visual hallucinations Alertness and Orientation: Alert and fully oriented to time, person, place and situation. Insight regarding psychiatric condition: fair Judgment regarding daily activities and social situation: fair Impulse control: fair Assessment: Major depressive disorder, recurrent, severe with anxious distress. Alcohol use disorder, severe in early partial remission Plan: Continue inpatient level of care due to need for further stabilization and discharge planning. Patient has been accepted to inpatient alcohol use disorder treatment-[place]- with intake scheduled tomorrow. provide psychiatric education regarding his diagnosis Precautions: Continue 15 minutes check for safety. Consider medical consultation if any acute medical issues arise. Discussed with nursing staff to call medical team regarding prescription for skin rash. Provide the patient individual, group therapy, substance use disorder counseling to give better insight and learn coping skills. Medications: Continue Zoloft 100 mg daily for depression and anxiety symptoms. Increase Neurontin 400 mg 3 times a day for anxiety and post acute withdrawal syndrome. Continue Remeron 22.5 mg at bedtime for depression/anxiety and insomnia. Continue Melatonin 5 mg HS for insomnia Discharge patient to OUTPATIENT services upon a stabilization Prognosis: Improving Expected LOS: 1-2 days
[2019-04-07] MEDS: GABAPENTIN 400 MG CAP PO SCH ×2 (15:13→20:06)
[2019-04-07] MEDS: HYDROCORTISONE 1% CREAM 30 GM TUBE TOPICAL SCH ×2 (16:27→20:06)
[2019-04-07] MEDS: TRIAMCINOLONE 0.1% CREAM 80 GM TUBE TOPICAL SCH ×2 (16:28→20:07)
[2019-04-07 17:35] LABS: Glucose,Whole Blood 268 mg/dL (75-99)
[2019-04-07 19:51] LABS: Glucose,Whole Blood 157 mg/dL (75-99)
[2019-04-07] MEDS: MELATONIN 5 MG TABLET PO SCH (20:06)
[2019-04-07] MEDS: MIRTAZAPINE 15 MG TAB PO SCH (20:07)
[2019-04-08 06:29] VITALS: BP 133/69; PULSE 69; RESP 16; TEMP 96.9
[2019-04-08 07:54] LABS: Glucose,Whole Blood 180 mg/dL (75-99)
[2019-04-08] MEDS: amLODIPine 5 MG TAB PO SCH (08:04)
[2019-04-08] MEDS: SERTRALINE 100 MG TAB PO SCH (08:04)
[2019-04-08] MEDS: NICOTINE 14MG/24HR PATCH TRANSDERM SCH (08:04)
[2019-04-08] MEDS: metFORMIN 500 MG TAB PO SCH (08:04)
[2019-04-08] MEDS: GABAPENTIN 400 MG CAP PO SCH (08:04)
[2019-04-08] MEDS: LORazepam 1 MG TAB PO SCH (08:04)
[2019-04-08] MEDS: INSULIN ASPART (NovoLOG) 100 UNIT/ML VIAL SQ SCH (08:05)
[2019-04-08] MEDS: HYDROCORTISONE 1% CREAM 30 GM TUBE TOPICAL SCH (08:05)
[2019-04-08] MEDS: TRIAMCINOLONE 0.1% CREAM 80 GM TUBE TOPICAL SCH (08:08)
--- NOTE | 2019-04-08 10:17 | P.DS ---
Providers Date of admission: 04/03/19 20:29 Expected date of discharge: 04/08/19 Attending physician: Reid Fitzgerald MD Consults: 04/03/19 20:33 Consult Physician Routine Consulting Provider: Julio Gupta Consult Reason/Comments: H & P and medical care, Diabetic medication Do you want consulting provider notified?: Yes Primary care physician: [facility] Course: Brief HPI: As per the HPI from initial psychiatric evaluation during this hospital stay: " Patient reports his depression started "long time ago", but the depression symptoms have been worsening over the last 2-3 month including feeling depressed for most of the time and most of the days, lost motivation and interests in doing any activities, feeling anxious most of the time, problem to go to sleep and maintaining sleep for most of the nights, and feeling hopeless, helpless, useless and worthless. Patient reports suicidal thoughts started 7-10 days ago and yesterday he wasn't feeling safe and is started to have plan to get himself to drunk and walk in front of traffic to end his life. Patient reports feeling distressed because he couldn't maintain his job, relapse it on drinking alcohol after 7 month of sobriety, cannot see his girlfriend, and this month is the anniversary of his father who 14 years ago. Patient explained that he cannot see his girlfriend because she is on probation and her youth probation officer wouldn't allow her to stay with him because he has failed and is in his record, and her youth probation officer mandated her to go for substance use disorder treatment in [place]. Patient reports his friend brought him to the hospital after he spoke to his girlfriend over the phone and told her about his suicidal thoughts so she called his friend who brought him to the ER. Patient denies psychotic symptoms including auditory/visual hallucinations, paranoid ideation, and no delusions could be elicited, but he reports history of paranoid ideation "sometimes feeling paranoid", and sometimes he hears his mother's voice talking to him not to do bad things as per his report. He denies any current or history of manic symptoms including a euphoric mood, grandiosity, lack need to sleep due to increased activities, bouts of severe unusual increased energy, or irrational behavior. Patient reports sometimes having nightmares but he couldn't relate that to any previous psychological trauma. He reports anxiety symptoms but not all the time and usually related to his feeling of hopelessness. Patient denies any history of suicidal attempts or self-injurious behavior. " Hospital Course: Patient didn't receive any psychiatric medications for at least 2 years prior to this admission. The patient was initiated on psychotropic medication Zoloft for depression and anxiety symptoms, Neurontin for anxiety and to help with neuropathic pain, and Remeron for depression/anxiety and to help with insomnia. Melatonin was added later to help with the sleep disturbances. The medication doses has been adjusted to optimize the stability of the psychiatric symptoms, and to avoid side effects. Patient tolerated the above medication/s very well, without side effects. The patient was admitted for a safe and supportive environment. A psychiatric, medical, and psychosocial evaluations were done on admission. The patient's hospital stay is unremarkable. Patient did not exhibit any aggression towards himself or others during this hospitalization, and there was no requirements for emergency medications or restraints. The patient attended groups to obtain coping skills and process stress. Patient was compliant with his medications. Patient got along with other peers and with staff. The objective signs of depression and anxiety have been improved. Patient denies any suicidal ideation, not made any hopelessness/helplessness statements for more than 3 days prior to discharge. Maximum hospitalization benefit was reached and subsequently discharge was planned, and patient is appropriate to continue treatment on an outpatient basis. On the day of discharge the patient was able to create an appropriate safety plan and denies any side effect of medications. Discussion was held about need to stop use of alcohol, including its effects on mood, interaction with psychiatric medications, and its role in events leading up to admission. Patient is in the contemplative stage of a change. Patient continued the medical management of his medical conditions. Non- psychiatric medications including Norvasc and metformin was maintained to manage hypertension and diabetes respectively. Also patient received topical cortisone for treatment ofpsoriatic skin rash. Patient was educated about smoking cessation and a prescription for nicotine replacement therapy was given at time of discharge. Assessment: Assessment at the day of discharge: The patient was seen at the day of discharge. Patient denies any sleep or appetite disturbances, denies feeling hopeless, worthless or helpless. Also, patient denies any other depressive or manic symptoms. Patient denies any psycho tic symptoms. Patient denies suicidal or homicidal thoughts, intention or plans. Nurses and therapist reported patient is psychiatrically stable, and agreed to discharge plan. Mental status examination on discharge: Appearance: The patient appears stated age, adequately groomed and dressed, no specific features. Gait/posture: Normal gait, Normal arm swinging: No abnormal movements. Attitude and behavior: engaged, cooperative, eye contact. Motor activity: Normal psychomotor activity Speech: Normal rate, tone. Mood: "anxious" Affect: Constricted Thought form: goal-directed, linear, coherent. Thought content: Non-delusional, denies suicidal thoughts, denies homicidal thoughts, denies intentions or plans. Perception: Denies any auditory or visual hallucinations Attention: No impairment. Patient was able to repeat serial 5. Orientation: Patient patient was fully oriented to time place person and situation. Insight: Patient has fair insight about his psychiatric disorder. Judgment: Patient has fair judgment about his psychiatric treatment. Discharge diagnoses: Major depressive disorder, recurrent, severe with anxious distress. Alcohol use disorder, severe in early partial remission Rule out generalized anxiety disorder. Rule out cannabis use disorder Health Concerns: Activity: As tolerated Diet: Diabetic Special Instructions: Labs to be completed after discharge: As clinically indicated by his outpatient psychiatrist and PCP. Discharge checklist for suicide and violence to determine stability: Safety plan was discussed with the patient. Patient denies any current suicidal/ homicidal or violent ideation/plan/ intent. Patient has ability to address stressors/emotions. Patient understands and is comfortable with discharge plan. Outpatient appointments is near [facility] Emergency number (911, crisis number) provided to the patient. Avoid the use of street drugs and alcohol. Take all medications as prescribed. When you are in need of refills please contact your medical provider and/or outpatient psychiatrist to have this done. Please go to scheduled outpatient appointment for aftercare. If symptoms return or become worse call the crisis line at and/or go to the nearest emergency room for an evaluation. Pertinent Studies: Laboratory Tests Range/Units 04/03/19 04/03/19 04/04/19 18:48 19:45 07:24 WBC (3.8-10.6) k/uL RBC (4.30-5.90) m/uL Hgb (13.0-17.5) gm/dL Hct (39.0-53.0) % MCV (80.0-100.0) fL MCH (25.0-35.0) pg MCHC (31.0-37.0) g/dL RDW (11.5-15.5) % Plt Count (150-450) k/uL Neutrophils % % Lymphocytes % % Monocytes % % Eosinophils % % Basophils % % Neutrophils # (1.3-7.7) k/uL Lymphocytes # (1.0-4.8) k/uL Monocytes # (0-1.0) k/uL Eosinophils # (0-0.7) k/uL Basophils # (0-0.2) k/uL Sodium (137-145) mmol/L Potassium (3.5-5.1) mmol/L Chloride (98-107) mmol/L Carbon Dioxide (22-30) mmol/L Anion Gap mmol/L BUN (9-20) mg/dL Creatinine (0.66-1.25) mg/dL Est GFR (CKD-EPI)AfAm (>60 ml/min/1.73 sqM) Est GFR (CKD-EPI)NonAf (>60 ml/min/1.73 sqM) Glucose (74-99) mg/dL POC Glucose (mg/dL) (75-99) mg/dL 263 H POC Glu Lead Etl Developer ANU Rosanna Ko Estimated Ave Glu mg/dL 217 Hemoglobin A1c (4.0-6.0) % 9.2 H Calcium (8.4-10.2) mg/dL Total Bilirubin (0.2-1.3) mg/dL Conjugated Bilirubin (0.0-0.3) mg/dL Unconjugated Bilirubin (0.0-1.1) mg/dL Delta Bilirubin (0.0-0.2) mg/dL AST (17-59) U/L ALT (4-49) U/L Alkaline Phosphatase (38-126) U/L Total Protein (6.3-8.2) g/dL Albumin (3.5-5.0) g/dL Triglycerides (<150) mg/dL Cholesterol (<200) mg/dL LDL Cholesterol, Calc (0-99) mg/dL HDL Cholesterol (40-60) mg/dL TSH (0.465-4.680) mIU/L Urine Opiates Screen (NotDetected) Not Detected Ur Oxycodone Screen (NotDetected) Not Detected Urine Methadone Screen (NotDetected) Not Detected Ur Propoxyphene Screen (NotDetected) Not Detected Ur Barbiturates Screen (NotDetected) Not Detected U Tricyclic Antidepress (NotDetected) Not Detected Ur Phencyclidine Scrn (NotDetected) Not Detected Ur Amphetamines Screen (NotDetected) Not Detected U Methamphetamines Scrn (NotDetected) Not Detected U Benzodiazepines Scrn (NotDetected) Not Detected Urine Cocaine Screen (NotDetected) Not Detected U Marijuana (THC) Screen (NotDetected) Not Detected Range/Units 04/04/19 04/04/19 04/04/19 07:24 07:24 07:49 WBC (3.8-10.6) k/uL 10.7 H RBC (4.30-5.90) m/uL 4.52 Hgb (13.0-17.5) gm/dL 14.3 Hct (39.0-53.0) % 43.1 MCV (80.0-100.0) fL 95.3 MCH (25.0-35.0) pg 31.6 MCHC (31.0-37.0) g/dL 33.1 RDW (11.5-15.5) % 12.9 Plt Count (150-450) k/uL 332 Neutrophils % % 65 Lymphocytes % % 25 Monocytes % % 6 Eosinophils % % 2 Basophils % % 1 Neutrophils # (1.3-7.7) k/uL 7.0 Lymphocytes # (1.0-4.8) k/uL 2.7 Monocytes # (0-1.0) k/uL 0.6 Eosinophils # (0-0.7) k/uL 0.2 Basophils # (0-0.2) k/uL 0.1 Sodium (137-145) mmol/L 138 Potassium (3.5-5.1) mmol/L 4.3 Chloride (98-107) mmol/L 106 Carbon Dioxide (22-30) mmol/L 28 Anion Gap mmol/L 4 BUN (9-20) mg/dL 11 Creatinine (0.66-1.25) mg/dL 0.58 L Est GFR (CKD-EPI)AfAm (>60 ml/min/1.73 sqM) >90 Est GFR (CKD-EPI)NonAf (>60 ml/min/1.73 sqM) >90 Glucose (74-99) mg/dL 182 H POC Glucose (mg/dL) (75-99) mg/dL 180 H POC Glu Lead Etl Developer ID Elise Zelaya Estimated [address] Glu mg/dL Hemoglobin A1c (4.0-6.0) % Calcium (8.4-10.2) mg/dL 8.8 Total Bilirubin (0.2-1.3) mg/dL 0.5 Conjugated Bilirubin (0.0-0.3) mg/dL 0.0 Unconjugated Bilirubin (0.0-1.1) mg/dL 0.4 Delta Bilirubin (0.0-0.2) mg/dL 0.1 AST (17-59) U/L 21 ALT (4-49) U/L 15 Alkaline Phosphatase (38-126) U/L 55 Total Protein (6.3-8.2) g/dL 5.5 L Albumin (3.5-5.0) g/dL 3.1 L Triglycerides (<150) mg/dL 70 Cholesterol (<200) mg/dL 154 LDL Cholesterol, Calc (0-99) mg/dL 59 HDL Cholesterol (40-60) mg/dL 81 H TSH (0.465-4.680) mIU/L 1.910 Urine Opiates Screen (NotDetected) Ur Oxycodone Screen (NotDetected) Urine Methadone Screen (NotDetected) Ur Propoxyphene Screen (NotDetected) Ur Barbiturates Screen (NotDetected) U Tricyclic Antidepress (NotDetected) Ur Phencyclidine Scrn (NotDetected) Ur Amphetamines Screen (NotDetected) U Methamphetamines Scrn (NotDetected) U Benzodiazepines Scrn (NotDetected) Urine Cocaine Screen (NotDetected) U Marijuana (THC) Screen (NotDetected) Range/Units 04/04/19 04/04/19 04/04/19 12:41 18:04 20:06 WBC (3.8-10.6) k/uL RBC (4.30-5.90) m/uL Hgb (13.0-17.5) gm/dL Hct (39.0-53.0) % MCV (80.0-100.0) fL MCH (25.0-35.0) pg MCHC (31.0-37.0) g/dL RDW (11.5-15.5) % Plt Count (150-450) k/uL Neutrophils % % Lymphocytes % % Monocytes % % Eosinophils % % Basophils % % Neutrophils # (1.3-7.7) k/uL Lymphocytes # (1.0-4.8) k/uL Monocytes # (0-1.0) k/uL Eosinophils # (0-0.7) k/uL Basophils # (0-0.2) k/uL Sodium (137-145) mmol/L Potassium (3.5-5.1) mmol/L Chloride (98-107) mmol/L Carbon Dioxide (22-30) mmol/L Anion Gap mmol/L BUN (9-20) mg/dL Creatinine (0.66-1.25) mg/dL Est GFR (CKD-EPI)AfAm (>60 ml/min/1.73 sqM) Est GFR (CKD-EPI)NonAf (>60 ml/min/1.73 sqM) Glucose (74-99) mg/dL POC Glucose (mg/dL) (75-99) mg/dL 238 H 309 H 212 H POC Glu Lead Etl Developer Elise Collins Joy [place], Linda [address]imated [address] Glu mg/dL Hemoglobin A1c (4.0-6.0) % Calcium (8.4-10.2) mg/dL Total Bilirubin (0.2-1.3) mg/dL Conjugated Bilirubin (0.0-0.3) mg/dL Unconjugated Bilirubin (0.0-1.1) mg/dL Delta Bilirubin (0.0-0.2) mg/dL AST (17-59) U/L ALT (4-49) U/L Alkaline Phosphatase (38-126) U/L Total Protein (6.3-8.2) g/dL Albumin (3.5-5.0) g/dL Triglycerides (<150) mg/dL Cholesterol (<200) mg/dL LDL Cholesterol, Calc (0-99) mg/dL HDL Cholesterol (40-60) mg/dL TSH (0.465-4.680) mIU/L Urine Opiates Screen (NotDetected) Ur Oxycodone Screen (NotDetected) Urine Methadone Screen (NotDetected) Ur Propoxyphene Screen (NotDetected) Ur Barbiturates Screen (NotDetected) U Tricyclic Antidepress (NotDetected) Ur Phencyclidine Scrn (NotDetected) Ur Amphetamines Screen (NotDetected) U Methamphetamines Scrn (NotDetected) U Benzodiazepines Scrn (NotDetected) Urine Cocaine Screen (NotDetected) U Marijuana (THC) Screen (NotDetected) Range/Units 04/05/19 04/05/19 04/05/19 07:49 12:47 17:38 WBC (3.8-10.6) k/uL RBC (4.30-5.90) m/uL Hgb (13.0-17.5) gm/dL Hct (39.0-53.0) % MCV (80.0-100.0) fL MCH (25.0-35.0) pg MCHC (31.0-37.0) g/dL RDW (11.5-15.5) % Plt Count (150-450) k/uL Neutrophils % % Lymphocytes % % Monocytes % % Eosinophils % % Basophils % % Neutrophils # (1.3-7.7) k/uL Lymphocytes # (1.0-4.8) k/uL Monocytes # (0-1.0) k/uL Eosinophils # (0-0.7) k/uL Basophils # (0-0.2) k/uL Sodium (137-145) mmol/L Potassium (3.5-5.1) mmol/L Chloride (98-107) mmol/L Carbon Dioxide (22-30) mmol/L Anion Gap mmol/L BUN (9-20) mg/dL Creatinine (0.66-1.25) mg/dL Est GFR (CKD-EPI)AfAm (>60 ml/min/1.73 sqM) Est GFR (CKD-EPI)NonAf (>60 ml/min/1.73 sqM) Glucose (74-99) mg/dL POC Glucose (mg/dL) (75-99) mg/dL 226 H 117 H 254 H POC Glu Lead Etl Developer ID Regine Bingham Roselyn, Regine Arnold [address] Glu mg/dL Hemoglobin A1c (4.0-6.0) % Calcium (8.4-10.2) mg/dL Total Bilirubin (0.2-1.3) mg/dL Conjugated Bilirubin (0.0-0.3) mg/dL Unconjugated Bilirubin (0.0-1.1) mg/dL Delta Bilirubin (0.0-0.2) mg/dL AST (17-59) U/L ALT (4-49) U/L Alkaline Phosphatase (38-126) U/L Total Protein (6.3-8.2) g/dL Albumin (3.5-5.0) g/dL Triglycerides (<150) mg/dL Cholesterol (<200) mg/dL LDL Cholesterol, Calc (0-99) mg/dL HDL Cholesterol (40-60) mg/dL TSH (0.465-4.680) mIU/L Urine Opiates Screen (NotDetected) Ur Oxycodone Screen (NotDetected) Urine Methadone Screen (NotDetected) Ur Propoxyphene Screen (NotDetected) Ur Barbiturates Screen (NotDetected) U Tricyclic Antidepress (NotDetected) Ur Phencyclidine Scrn (NotDetected) Ur Amphetamines Screen (NotDetected) U Methamphetamines Scrn (NotDetected) U Benzodiazepines Scrn (NotDetected) Urine Cocaine Screen (NotDetected) U Marijuana (THC) Screen (NotDetected) Range/Units 04/05/19 04/06/19 04/06/19 20:05 07:57 12:49 WBC (3.8-10.6) k/uL RBC (4.30-5.90) m/uL Hgb (13.0-17.5) gm/dL Hct (39.0-53.0) % MCV (80.0-100.0) fL MCH (25.0-35.0) pg MCHC (31.0-37.0) g/dL RDW (11.5-15.5) % Plt Count (150-450) k/uL Neutrophils % % Lymphocytes % % Monocytes % % Eosinophils % % Basophils % % Neutrophils # (1.3-7.7) k/uL Lymphocytes # (1.0-4.8) k/uL Monocytes # (0-1.0) k/uL Eosinophils # (0-0.7) k/uL Basophils # (0-0.2) k/uL Sodium (137-145) mmol/L Potassium (3.5-5.1) mmol/L Chloride (98-107) mmol/L Carbon Dioxide (22-30) mmol/L Anion Gap mmol/L BUN (9-20) mg/dL Creatinine (0.66-1.25) mg/dL Est GFR (CKD-EPI)AfAm (>60 ml/min/1.73 sqM) Est GFR (CKD-EPI)NonAf (>60 ml/min/1.73 sqM) Glucose (74-99) mg/dL POC Glucose (mg/dL) (75-99) mg/dL 133 H 171 H 178 H POC Glu Lead Etl Developer ANU Padilla, Leighton Lynn, Andree Ribera [address] Glu mg/dL Hemoglobin A1c (4.0-6.0) % Calcium (8.4-10.2) mg/dL Total Bilirubin (0.2-1.3) mg/dL Conjugated Bilirubin (0.0-0.3) mg/dL Unconjugated Bilirubin (0.0-1.1) mg/dL Delta Bilirubin (0.0-0.2) mg/dL AST (17-59) U/L ALT (4-49) U/L Alkaline Phosphatase (38-126) U/L Total Protein (6.3-8.2) g/dL Albumin (3.5-5.0) g/dL Triglycerides (<150) mg/dL Cholesterol (<200) mg/dL LDL Cholesterol, Calc (0-99) mg/dL HDL Cholesterol (40-60) mg/dL TSH (0.465-4.680) mIU/L Urine Opiates Screen (NotDetected) Ur Oxycodone Screen (NotDetected) Urine Methadone Screen (NotDetected) Ur Propoxyphene Screen (NotDetected) Ur Barbiturates Screen (NotDetected) U Tricyclic Antidepress (NotDetected) Ur Phencyclidine Scrn (NotDetected) Ur Amphetamines Screen (NotDetected) U Methamphetamines Scrn (NotDetected) U Benzodiazepines Scrn (NotDetected) Urine Cocaine Screen (NotDetected) U Marijuana (THC) Screen (NotDetected) Range/Units 04/06/19 04/06/19 04/07/19 17:34 20:15 07:44 WBC (3.8-10.6) k/uL RBC (4.30-5.90) m/uL Hgb (13.0-17.5) gm/dL Hct (39.0-53.0) % MCV (80.0-100.0) fL MCH (25.0-35.0) pg MCHC (31.0-37.0) g/dL RDW (11.5-15.5) % Plt Count (150-450) k/uL Neutrophils % % Lymphocytes % % Monocytes % % Eosinophils % % Basophils % % Neutrophils # (1.3-7.7) k/uL Lymphocytes # (1.0-4.8) k/uL Monocytes # (0-1.0) k/uL Eosinophils # (0-0.7) k/uL Basophils # (0-0.2) k/uL Sodium (137-145) mmol/L Potassium (3.5-5.1) mmol/L Chloride (98-107) mmol/L Carbon Dioxide (22-30) mmol/L Anion Gap mmol/L BUN (9-20) mg/dL Creatinine (0.66-1.25) mg/dL Est GFR (CKD-EPI)AfAm (>60 ml/min/1.73 sqM) Est GFR (CKD-EPI)NonAf (>60 ml/min/1.73 sqM) Glucose (74-99) mg/dL POC Glucose (mg/dL) (75-99) mg/dL 223 H 192 H 182 H POC Glu Lead Etl Developer Jennifer Fernandez Alynne Handley, [place] [address] Glu mg/dL Hemoglobin A1c (4.0-6.0) % Calcium (8.4-10.2) mg/dL Total Bilirubin (0.2-1.3) mg/dL Conjugated Bilirubin (0.0-0.3) mg/dL Unconjugated Bilirubin (0.0-1.1) mg/dL Delta Bilirubin (0.0-0.2) mg/dL AST (17-59) U/L ALT (4-49) U/L Alkaline Phosphatase (38-126) U/L Total Protein (6.3-8.2) g/dL Albumin (3.5-5.0) g/dL Triglycerides (<150) mg/dL Cholesterol (<200) mg/dL LDL Cholesterol, Calc (0-99) mg/dL HDL Cholesterol (40-60) mg/dL TSH (0.465-4.680) mIU/L Urine Opiates Screen (NotDetected) Ur Oxycodone Screen (NotDetected) Urine Methadone Screen (NotDetected) Ur Propoxyphene Screen (NotDetected) Ur Barbiturates Screen (NotDetected) U Tricyclic Antidepress (NotDetected) Ur Phencyclidine Scrn (NotDetected) Ur Amphetamines Screen (NotDetected) U Methamphetamines Scrn (NotDetected) U Benzodiazepines Scrn (NotDetected) Urine Cocaine Screen (NotDetected) U Marijuana (THC) Screen (NotDetected) Range/Units 04/07/19 04/07/19 04/07/19 12:41 17:31 19:49 WBC (3.8-10.6) k/uL RBC (4.30-5.90) m/uL Hgb (13.0-17.5) gm/dL Hct (39.0-53.0) % MCV (80.0-100.0) fL MCH (25.0-35.0) pg MCHC (31.0-37.0) g/dL RDW (11.5-15.5) % Plt Count (150-450) k/uL Neutrophils % % Lymphocytes % % Monocytes % % Eosinophils % % Basophils % % Neutrophils # (1.3-7.7) k/uL Lymphocytes # (1.0-4.8) k/uL Monocytes # (0-1.0) k/uL Eosinophils # (0-0.7) k/uL Basophils # (0-0.2) k/uL Sodium (137-145) mmol/L Potassium (3.5-5.1) mmol/L Chloride (98-107) mmol/L Carbon Dioxide (22-30) mmol/L Anion Gap mmol/L BUN (9-20) mg/dL Creatinine (0.66-1.25) mg/dL Est GFR (CKD-EPI)AfAm (>60 ml/min/1.73 sqM) Est GFR (CKD-EPI)NonAf (>60 ml/min/1.73 sqM) Glucose (74-99) mg/dL POC Glucose (mg/dL) (75-99) mg/dL 143 H 268 H 157 H POC Glu Lead Etl Developer Pily Love Cassidy Biland, Mercedes [address]imated [address] Glu mg/dL Hemoglobin A1c (4.0-6.0) % Calcium (8.4-10.2) mg/dL Total Bilirubin (0.2-1.3) mg/dL Conjugated Bilirubin (0.0-0.3) mg/dL Unconjugated Bilirubin (0.0-1.1) mg/dL Delta Bilirubin (0.0-0.2) mg/dL AST (17-59) U/L ALT (4-49) U/L Alkaline Phosphatase (38-126) U/L Total Protein (6.3-8.2) g/dL Albumin (3.5-5.0) g/dL Triglycerides (<150) mg/dL Cholesterol (<200) mg/dL LDL Cholesterol, Calc (0-99) mg/dL HDL Cholesterol (40-60) mg/dL TSH (0.465-4.680) mIU/L Urine Opiates Screen (NotDetected) Ur Oxycodone Screen (NotDetected) Urine Methadone Screen (NotDetected) Ur Propoxyphene Screen (NotDetected) Ur Barbiturates Screen (NotDetected) U Tricyclic Antidepress (NotDetected) Ur Phencyclidine Scrn (NotDetected) Ur Amphetamines Screen (NotDetected) U Methamphetamines Scrn (NotDetected) U Benzodiazepines Scrn (NotDetected) Urine Cocaine Screen (NotDetected) U Marijuana (THC) Screen (NotDetected) Range/Units 04/08/19 07:53 WBC (3.8-10.6) k/uL RBC (4.30-5.90) m/uL Hgb (13.0-17.5) gm/dL Hct (39.0-53.0) % MCV (80.0-100.0) fL MCH (25.0-35.0) pg MCHC (31.0-37.0) g/dL RDW (11.5-15.5) % Plt Count (150-450) k/uL Neutrophils % % Lymphocytes % % Monocytes % % Eosinophils % % Basophils % % Neutrophils # (1.3-7.7) k/uL Lymphocytes # (1.0-4.8) k/uL Monocytes # (0-1.0) k/uL Eosinophils # (0-0.7) k/uL Basophils # (0-0.2) k/uL Sodium (137-145) mmol/L Potassium (3.5-5.1) mmol/L Chloride (98-107) mmol/L Carbon Dioxide (22-30) mmol/L Anion Gap mmol/L BUN (9-20) mg/dL Creatinine (0.66-1.25) mg/dL Est GFR (CKD-EPI)AfAm (>60 ml/min/1.73 sqM) Est GFR (CKD-EPI)NonAf (>60 ml/min/1.73 sqM) Glucose (74-99) mg/dL POC Glucose (mg/dL) (75-99) mg/dL 180 H POC Glu Lead Etl Developer ID Aleyda Dempsey Estimated [address] Glu mg/dL Hemoglobin A1c (4.0-6.0) % Calcium (8.4-10.2) mg/dL Total Bilirubin (0.2-1.3) mg/dL Conjugated Bilirubin (0.0-0.3) mg/dL Unconjugated Bilirubin (0.0-1.1) mg/dL Delta Bilirubin (0.0-0.2) mg/dL AST (17-59) U/L ALT (4-49) U/L Alkaline Phosphatase (38-126) U/L Total Protein (6.3-8.2) g/dL Albumin (3.5-5.0) g/dL Triglycerides (<150) mg/dL Cholesterol (<200) mg/dL LDL Cholesterol, Calc (0-99) mg/dL HDL Cholesterol (40-60) mg/dL TSH (0.465-4.680) mIU/L Urine Opiates Screen (NotDetected) Ur Oxycodone Screen (NotDetected) Urine Methadone Screen (NotDetected) Ur Propoxyphene Screen (NotDetected) Ur Barbiturates Screen (NotDetected) U Tricyclic Antidepress (NotDetected) Ur Phencyclidine Scrn (NotDetected) Ur Amphetamines Screen (NotDetected) U Methamphetamines Scrn (NotDetected) U Benzodiazepines Scrn (NotDetected) Urine Cocaine Screen (NotDetected) U Marijuana (THC) Screen (NotDetected) Procedures: Plan: Patient will continue follow-up at-. As per discharge plan Continue the following medications: As per discharge plan Patient Condition at Discharge: Stable Patient will be discharge to inpatient substance use disorder treatment facility Patient Condition at Discharge: Stable Plan - Discharge Summary Discharge Rx Participant: No New Discharge Prescriptions: New metFORMIN HCL [Glucophage] 1,000 mg PO BID-W/MEALS 30 Days tab Nicotine 14Mg/24Hr Patch [Habitrol] 1 patch TRANSDERM DAILY 30 Days patch Hydrocortisone Cream [Hydrocortisone 1% Cream] 1 applic TOPICAL BID 30 Days applic Triamcinolone 0.1% Cream [Kenalog 0.1% Cream] 1 applic TOPICAL BID 30 Days applic Melatonin 5 mg PO HS #30 tablet Gabapentin [Neurontin] 400 mg PO TID 30 Days cap amLODIPine [Norvasc] 5 mg PO DAILY 30 Days tab Mirtazapine [Remeron] 22.5 mg PO HS 30 Days tab Sertraline [Zoloft] 100 mg PO DAILY 30 Days tab Discontinued Meclizine [Antivert] 25 mg PO TID #20 tab Discharge Medication List Gabapentin [Neurontin] 400 mg PO TID 30 Days cap 04/08/19 [Rx] Hydrocortisone Cream [Hydrocortisone 1% Cream] 1 applic TOPICAL BID 30 Days applic 04/08/19 [Rx] Melatonin 5 mg PO HS #30 tablet 04/08/19 [Rx] Mirtazapine [Remeron] 22.5 mg PO HS 30 Days tab 04/08/19 [Rx] Nicotine 14Mg/24Hr Patch [Habitrol] 1 patch TRANSDERM DAILY 30 Days patch 04/08/19 [Rx] Sertraline [Zoloft] 100 mg PO DAILY 30 Days tab 04/08/19 [Rx] Triamcinolone 0.1% Cream [Kenalog 0.1% Cream] 1 applic TOPICAL BID 30 Days applic 04/08/19 [Rx] amLODIPine [Norvasc] 5 mg PO DAILY 30 Days tab 04/08/19 [Rx] metFORMIN HCL [Glucophage] 1,000 mg PO BID-W/MEALS 30 Days tab 04/08/19 [Rx] Follow up Appointment(s)/Referral(s): [facility] [Outside] - 04/08/19 11:00 am (Intake) Yadi Gaytan MD [Primary Care Provider] - 1-2 days Patient Instructions/Handouts: How to Stop Smoking (DC), Alcohol Intoxication (DC), Help Prevent Suicide (DC) Activity/Diet/Wound Care/Special Instructions: Activity and diet as tolerated. Avoid the use of street drugs and alcohol. Take all medications as prescribed. When you are in need of refills on your medications please contact your medical provider and/or outpatient psychiatrist to have this done. Please go to scheduled outpatient appointment for aftercare treatment. If symptoms return or become worse, call the crisis line at and/or go to the nearest emergency room for evaluation. Discharge Disposition: DC/[facility]NS INTERMEDIATE CARE FAC
== END 2019-04-08 10:26 | DRG 885 ==
LOC: EC 18:21 → 3MHU 20:29
PROVIDERS: ADMIT Psychiatry & Neurology Psychiatry; ATTEND Psychiatry & Neurology Psychiatry
DX: F33.2 Major depressive disorder, recurrent severe without psychotic features (principal); R45.851 Suicidal ideations; E11.65 Type 2 diabetes mellitus with hyperglycemia; F10.20 Alcohol dependence, uncomplicated; F17.210 Nicotine dependence, cigarettes, uncomplicated; F41.9 Anxiety disorder, unspecified; F60.0 Paranoid personality disorder; G47.00 Insomnia, unspecified; G89.29 Other chronic pain; I10 Essential (primary) hypertension; L40.9 Psoriasis, unspecified; M19.91 Primary osteoarthritis, unspecified site; Z59.0 Homelessness; Z79.899 Other long term (current) drug therapy; Z80.1 Family history of malignant neoplasm of trachea, bronchus and lung; Z81.8 Family history of other mental and behavioral disorders; Z82.49 Family history of ischemic heart disease and other diseases of the circulatory system; Z83.3 Family history of diabetes mellitus
CPT/HCPCS: 36415; 80053; 80061; 80306; 82075; 82248; 83036; 84443; 85025; 99285

== ENCOUNTER 2019-05-08 10:36 | Inpatient (IN) | payer MEDICAID, OTHER ==
--- NOTE | 2019-05-08 11:04 | ED ---
General Adult HPI - General Chief complaint: Psychiatric Symptoms Stated complaint: Mental Health Time Seen by Provider: 05/08/19 10:41 Source: patient, RN notes reviewed Mode of arrival: ambulatory Limitations: no limitations - History of Present Illness Initial comments: 54-year-old male with a past medical history of hypertension, diabetes mellitus, heavy alcohol abuse, anxiety and depression presents to the emergency department for chief complaint of suicidal thoughts. Patient states he has had suicidal thoughts on and off for about one month with a worsened yesterday. Patient states he was admitted to the mental health unit about one month ago and was released from rehab about 9 days ago for alcohol. Patient states that he relapsed last night and drink $40 worth a liquor. Patient states he was feeling very suicidal and wanted to walk in front of traffic. Patient states this was all triggered about a month ago when he found out his brother was stating his ex-girlfriend. Patient currently taking Vivitrol and trying to quit drinking. Patient is noted to be slightly shaky. He denies symptoms of withdrawal. States he never has had symptoms of alcohol withdrawal before and that he is shaking because he is anxious. Patient has no other complaints at this time including shortness of breath, chest pain, abdominal pain, nausea or vomiting, headache, or visual changes. - Related Data Home Medications Medication Instructions Recorded Confirmed Mirtazapine [Remeron] 15 mg PO HS 05/08/19 05/08/19 metFORMIN HCL 1,000 mg PO BID 05/08/19 05/08/19 Previous Rx's Medication Instructions Recorded Gabapentin [Neurontin] 400 mg PO TID 30 Days cap 04/08/19 Hydrocortisone Cream 1 applic TOPICAL BID 30 Days 04/08/19 [Hydrocortisone 1% Cream] applic Nicotine 14Mg/24Hr Patch [Habitrol] 1 patch TRANSDERM DAILY 30 Days 04/08/19 patch Sertraline [Zoloft] 100 mg PO DAILY 30 Days tab 04/08/19 Triamcinolone 0.1% Cream [Kenalog 1 applic TOPICAL BID 30 Days 04/08/19 0.1% Cream] applic amLODIPine [Norvasc] 5 mg PO DAILY 30 Days tab 04/08/19 Allergies Allergy/AdvReac Type Severity Reaction Status Date / Time lisinopril AdvReac Unknown Cough Verified 05/08/19 15:10 Review of Systems ROS Statement: Those systems with pertinent positive or pertinent negative responses have been documented in the HPI. ROS Other: All systems not noted in ROS Statement are negative. Past Medical History Past Medical History: Diabetes Mellitus, Hypertension, Osteoarthritis (OA), Skin Disorder Additional Past Medical History / Comment(s): PSORIASIS, BACK & NECK PAIN. History of Any Multi-Drug Resistant Organisms: None Reported Additional Past Surgical History / Comment(s): HAND SURGERY AND NERVE GRAFT TO THUMB, CORTISONE INJECTIONS HIP. Past Anesthesia/Blood Transfusion Reactions: No Reported Reaction Past Psychological History: Anxiety, Depression Smoking Status: Current every day smoker Past Alcohol Use History: Abuse, Heavy Past Drug Use History: Marijuana - Past Family History Father Family Medical History: Cancer Additional Family Medical History / Comment(s): LUNG CANCER General Exam Limitations: no limitations General appearance: alert, in no apparent distress Head exam: Present: atraumatic, normocephalic, normal inspection Eye exam: Present: normal appearance, PERRL, EOMI. Absent: scleral icterus, c onjunctival injection, periorbital swelling ENT exam: Present: normal exam, mucous membranes moist Neck exam: Present: normal inspection, full ROM. Absent: tenderness, meningismus, lymphadenopathy Respiratory exam: Present: normal lung sounds bilaterally. Absent: respiratory distress, wheezes, rales, rhonchi, stridor Cardiovascular Exam: Present: regular rate, normal rhythm, normal heart sounds. Absent: systolic murmur, diastolic murmur, rubs, gallop, clicks Neurological exam: Present: alert, oriented X3, CN II-XII intact Psychiatric exam: Present: anxious Course Vital Signs 05/08/19 10:37 Temperature 98.3 F Pulse Rate 119 H Respiratory 20 Rate Blood Pressure 141/82 O2 Sat by Pulse 98 Oximetry Medical Decision Making - Medical Decision Making Patient was evaluated by EPS, recommending inpatient treatment. Patient did sign himself in. - Lab Data Lab Results 05/08/19 Range/Units 11:10 Urine Opiates Screen Not Detected (NotDetected) Ur Oxycodone Screen Not Detected (NotDetected) Urine Methadone Screen Not Detected (NotDetected) Ur Propoxyphene Screen Not Detected (NotDetected) Ur Barbiturates Screen Not Detected (NotDetected) U Tricyclic Antidepress Not Detected (NotDetected) Ur Phencyclidine Scrn Not Detected (NotDetected) Ur Amphetamines Screen Not Detected (NotDetected) U Methamphetamines Scrn Not Detected (NotDetected) U Benzodiazepines Scrn Not Detected (NotDetected) Urine Cocaine Screen Not Detected (NotDetected) U Marijuana (THC) Screen Not Detected (NotDetected) Disposition Clinical Impression: Suicidal thoughts Disposition: TRANSFER TO PSYCH HOSP/UNIT Condition: Fair Is patient prescribed a controlled substance at d/c from ED?: No
[2019-05-08 11:39] LABS: Amphetamine Screen,Urine Not Detected (NotDetected); Barbiturate Screen,Urine Not Detected (NotDetected); Benzodiazepines Screen,Urine Not Detected (NotDetected); Cocaine Screen,Urine Not Detected (NotDetected); Methadone Screen, Urine Not Detected (NotDetected); Opiate Screen,Urine Not Detected (NotDetected); Oxycodone Screen, Urine Not Detected (NotDetected); Phencyclidine Screen,Urine Not Detected (NotDetected); Tricyclic Antidepressant,Urine Not Detected (NotDetected); Urn Cannabinoid Scrn Not Detected (NotDetected)
[2019-05-08] MEDS ORDERED: LORazepam 1 MG TAB PO STA (13:11)
[2019-05-08] MEDS ORDERED: MAG HYDROX/AL HYDROX/SIMETH 30 ML CUP PO PRN (14:04)
[2019-05-08] MEDS ORDERED: ACETAMINOPHEN TAB 325 MG TAB PO PRN (14:04)
[2019-05-08] MEDS ORDERED: MAGNESIUM HYDROXIDE 2,400 MG/10 ML CUP PO PRN (14:04)
[2019-05-08 17:34] LABS: Glucose,Whole Blood 272 mg/dL (75-99)
[2019-05-08] MEDS: metFORMIN 500 MG TAB PO SCH (18:51)
[2019-05-08 20:09] LABS: Glucose,Whole Blood 244 mg/dL (75-99)
[2019-05-08] MEDS ORDERED: metFORMIN 500 MG TAB PO SCH (21:00)
[2019-05-08 23:08] LABS: Glucose,Whole Blood 207 mg/dL (75-99)
[2019-05-08] MEDS: INSULIN ASPART (NovoLOG) 100 UNIT/ML VIAL SQ SCH (23:08)
[2019-05-09] MEDS ORDERED: metFORMIN 500 MG TAB PO SCH (07:30)
[2019-05-09 08:03] LABS: Glucose,Whole Blood 248 mg/dL (75-99)
[2019-05-09] MEDS: metFORMIN 500 MG TAB PO SCH (08:16)
[2019-05-09] MEDS: INSULIN ASPART (NovoLOG) 100 UNIT/ML VIAL SQ SCH ×4 (08:16→20:20)
[2019-05-09] MEDS: NICOTINE 14MG/24HR PATCH TRANSDERM SCH (08:16)
[2019-05-09 08:20] LABS: Basophils # (A) 0.1 k/uL (0-0.2); Basophils % (A) 1 %; Eosinophils # (A) 0.5 k/uL (0-0.7); Eosinophils % (A) 4 %; HCT 45.7 % (39.0-53.0); HGB 14.6 gm/dL (13.0-17.5); Lymphocytes # (A) 3.7 k/uL (1.0-4.8); Lymphocytes % (A) 32 %; MCH 29.9 pg (25.0-35.0); MCV 93.5 fL (80.0-100.0); Mean Platelet Volume 7.7; Monocytes # (A) 0.6 k/uL (0-1.0); Monocytes % (A) 5 %; Neutrophils # (A) 6.6 k/uL (1.3-7.7); Neutrophils % (A) 57 %; Platelet Count 347 k/uL (150-450); RBC 4.89 m/uL (4.30-5.90); RDW 12.6 % (11.5-15.5); WBC 11.6 k/uL (3.8-10.6)
[2019-05-09 08:41] LABS: ALT 18 U/L (4-49); AST 25 U/L (17-59); African American GFR (CKD) >90 (>60 ml/min/1.73 sqM); Albumin 3.4 g/dL (3.5-5.0); Alkaline Phosphatase 60 U/L (38-126); Anion Gap 6 mmol/L; Blood Urea Nitrogen 11 mg/dL (9-20); Calcium 8.8 mg/dL (8.4-10.2); Carbon Dioxide 28 mmol/L (22-30); Chloride 102 mmol/L (98-107); Cholesterol 166 mg/dL (<200); Glucose 191 mg/dL (74-99); HDL Cholesterol 57 mg/dL (40-60); LDL Cholesterol,Calculated 88 mg/dL (0-99); Non-African American GFR(CKD) >90 (>60 ml/min/1.73 sqM); Potassium 4.5 mmol/L (3.5-5.1); Sodium 136 mmol/L (137-145); Total Bilirubin 0.7 mg/dL (0.2-1.3); Total Protein 5.8 g/dL (6.3-8.2); Triglycerides 107 mg/dL (<150)
[2019-05-09 12:49] LABS: Glucose,Whole Blood 165 mg/dL (75-99)
--- NOTE | 2019-05-09 14:21 | P.HP ---
Psychiatric H&P - . H&P Date: 05/09/19 History & Physical: Allergies Allergy/AdvReac Type Severity Reaction Status Date / Time lisinopril AdvReac Unknown Cough Verified 05/08/19 15:10 Vital Signs Temp 98.1 F 05/09/19 06:45 Pulse 75 05/09/19 06:45 Resp 18 05/09/19 06:45 BP 136/72 05/09/19 06:45 Pulse Ox 95 05/09/19 06:45 Intake & Output 05/08/19 05/09/19 05/09/19 18:59 06:59 18:59 Weight 73.8 kg Laboratory Last Values WBC 11.6 k/uL (3.8-10.6) H 05/09/19 07:21 RBC 4.89 m/uL (4.30-5.90) 05/09/19 07:21 Hgb 14.6 gm/dL (13.0-17.5) 05/09/19 07:21 Hct 45.7 % (39.0-53.0) 05/09/19 07:21 MCV 93.5 fL (80.0-100.0) 05/09/19 07:21 MCH 29.9 pg (25.0-35.0) 05/09/19 07:21 MCHC 32.0 g/dL (31.0-37.0) 05/09/19 07:21 RDW 12.6 % (11.5-15.5) 05/09/19 07:21 Plt Count 347 k/uL (150-450) 05/09/19 07:21 Neutrophils % 57 % 05/09/19 07:21 Lymphocytes % 32 % 05/09/19 07:21 Monocytes % 5 % 05/09/19 07:21 Eosinophils % 4 % 05/09/19 07:21 Basophils % 1 % 05/09/19 07:21 Neutrophils # 6.6 k/uL (1.3-7.7) 05/09/19 07:21 Lymphocytes # 3.7 k/uL (1.0-4.8) 05/09/19 07:21 Monocytes # 0.6 k/uL (0-1.0) 05/09/19 07:21 Eosinophils # 0.5 k/uL (0-0.7) 05/09/19 07:21 Basophils # 0.1 k/uL (0-0.2) 05/09/19 07:21 Sodium 136 mmol/L (137-145) L 05/09/19 07:21 Potassium 4.5 mmol/L (3.5-5.1) 05/09/19 07:21 Chloride 102 mmol/L (98-107) 05/09/19 07:21 Carbon Dioxide 28 mmol/L (22-30) 05/09/19 07:21 Anion Gap 6 mmol/L 05/09/19 07:21 BUN 11 mg/dL (9-20) 05/09/19 07:21 Creatinine 0.58 mg/dL (0.66-1.25) L 05/09/19 07:21 Est GFR (CKD-EPI)AfAm >90 (>60 ml/min/1.73 sqM) 05/09/19 07:21 Est GFR (CKD-EPI)NonAf >90 (>60 ml/min/1.73 sqM) 05/09/19 07:21 Glucose 191 mg/dL (74-99) H 05/09/19 07:21 POC Glucose (mg/dL) 165 mg/dL (75-99) H 05/09/19 12:46 POC Glu Tabber Pily Love 05/09/19 12:46 Calcium 8.8 mg/dL (8.4-10.2) 05/09/19 07:21 Total Bilirubin 0.7 mg/dL (0.2-1.3) 05/09/19 07:21 AST 25 U/L (17-59) 05/09/19 07:21 ALT 18 U/L (4-49) 05/09/19 07:21 Alkaline Phosphatase 60 U/L (38-126) 05/09/19 07:21 Total Protein 5.8 g/dL (6.3-8.2) L 05/09/19 07:21 Albumin 3.4 g/dL (3.5-5.0) L 05/09/19 07:21 Triglycerides 107 mg/dL (<150) 05/09/19 07:21 Cholesterol 166 mg/dL (<200) 05/09/19 07:21 LDL Cholesterol, Calc 88 mg/dL (0-99) 05/09/19 07:21 HDL Cholesterol 57 mg/dL (40-60) 05/09/19 07:21 TSH 1.710 mIU/L (0.465-4.680) 05/09/19 07:21 Urine Opiates Screen Not Detected (NotDetected) 05/08/19 11:10 Ur Oxycodone Screen Not Detected (NotDetected) 05/08/19 11:10 Urine Methadone Screen Not Detected (NotDetected) 05/08/19 11:10 Ur Propoxyphene Screen Not Detected (NotDetected) 05/08/19 11:10 Ur Barbiturates Screen Not Detected (NotDetected) 05/08/19 11:10 U Tricyclic Antidepress Not Detected (NotDetected) 05/08/19 11:10 Ur Phencyclidine Scrn Not Detected (NotDetected) 05/08/19 11:10 Ur Amphetamines Screen Not Detected (NotDetected) 05/08/19 11:10 U Methamphetamines Scrn Not Detected (NotDetected) 05/08/19 11:10 U Benzodiazepines Scrn Not Detected (NotDetected) 05/08/19 11:10 Urine Cocaine Screen Not Detected (NotDetected) 05/08/19 11:10 U Marijuana (THC) Screen Not Detected (NotDetected) 05/08/19 11:10 05/09/19 13:50 IDENTIFYING DATA: Patient is a 54-year-old male with a history of depression, single, has 1 daughter and is currently homeless HPI: Patient presented to the hospital with depression and suicidal ideations for the past month. Patient was recently discharged from the mental health unit approximately one month ago and was treated for depression. Patient went to rehab at [place] and was released approximately 9 days ago. He states that in his last week at rehab he began feeling more anxious and he thought it was because he was leaving rehab at that time however patient became more anxious after he left and also depressed. Patient was fixated on his brother being with his ex- and how he found out about it. He states that he partially relapsed back on alcohol prior to coming in the hospital and drank $40 worth of liquor and felt suicidal as he wanted to walk into traffic. Patient claims that he does not have any withdrawal symptoms at this time and denies ever having seizures or DTs in the past. Patient states that his anxiety has been progressive along with his depression. He states that the medications were not helping him including Zoloft and Remeron. He states that he has poor sleep and has been feeling irritable and frustrated. Patient denies any current suicidal or homicidal ideations intent or plan. At this time patient denies any auditory or visual hallucinations. Patient denies any flight of ideas racing thoughts and increased in goal directed behavior. Patient admits to using alcohol most recently drinking $40 worth of liquor prior to coming in the hospital and has been struggling with alcohol for several years and recently was released from rehab. He states that he does not use any other substances at this time. He claims to be a daily smoker. PAST PSYCHIATRIC HISTORY: Patient states that he has a history of depression and was previously on Remeron and Zoloft. Patient was recently discharged from the mental health unit one month ago. Patient claims that he was not able to follow-up with his outpatient psychiatrist. He denies any history of suicide attempts. PMH: Hypertension, diabetes mellitus, osteoarthritis, psoriasis ALLERGIES: as per EMR CHEMICAL DEPENDENCY HISTORY: as per HPI FAMILY PSYCHIATRIC/SUBSTANCE USE HISTORY: He states that on his mother's side there is significant mental health issues including one suicide in his distant relative. SOCIAL HISTORY: Patient is currently single has one daughter is currently homeless. 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 He states that he completed high school. MENTAL STATUS EXAM: General Appearance: Patient appears to be older than stated age is alert, irritable yet attempts to cooperate. Poor hygiene and grooming. Behavior: Patient is seated without any agitated behavior. Irritable at times. Speech: Patient's speech is fluent and nonpressured. Mood/Affect: Patient reports their mood is depressed and anxious, affect is congruent and constricted. Suicidality/Homicidality: Patient denies having any suicidal or homicidal ideation intent or plan. Perceptions: Patient denies any visual hallucinations and denies any auditory hallucinations Though content/process: There is no evidence of any delusional thought content and thought process is linear and goal-directed. Focused on his stressors Memory and concentration: AOX3, grossly intact for the purposes of this session. Can spell "WORLD" backwards Judgment and insight: poor STRENGTHS/WEAKNESSES: strength is that patient is resilient, weaknesses that patient is impulsive with poor insight. INTELLECT: average IMPRESSIONS: Major depressive disorder, recurrent, severe without psychotic features Anxiety disorder unspecified Alcohol abuse Nicotine dependence PLAN: -Patient is admitted under voluntary status to MHU for stabilization of psychiatric symptoms and safety. Patient signed adult voluntary form and medication consent and is placed in patient's chart. -Medications : Will start patient on Lexapro 5 mg daily for mood/anxiety. We'll also start patient on doxepin 10 mg daily at bedtime for sleep/mood. We'll start melatonin daily at bedtime for sleep. Vistaril every 6 hours when necessary for anxiety -Patient has received his vivitrol injection on 04/28/2019 and is due monthly. -Ativan PRN for agitation/aggression. -CIWA for alcohol withdrawal monitoring. -Patient was counselled on substance abuse and desired to cut back on use -Patient was informed of the risks, benefits and side effects of the medication and patient verbally consented to taking the medications. Patient signed med consent form and was placed in chart. -NRT - nicotine patch - on board for discharge planning 05/09/19 14:13 05/09/19 14:20
--- NOTE | 2019-05-09 14:43 | P.CONS ---
History of Present Illness - History of Present Illness This is a pleasant 53 years old male with past medical history of diabetes me llitus, psoriasis, depression and anxiety. Patient was admitted with signs symptoms of depression and anxiety to the mental health unit. Medical consult has been requested for medical management. Patient denies chest pain or dyspnea or nausea vomiting. He is tolerating diet well, he has some loose bowel movement. Patient says that his sugar was not controlled on metformin 1000 twice a day and at that rehab one time he was taking Amaryl and he wanted back, patient is counseled to increase the dose of metformin before starting mL and he agrees to proceed to 850 mg 3 times a day. Also was complaining from services at rash and both knees and elbows Review of Systems CONSTITUTIONAL: No fever, no malaise, no fatigue. HEENT: No recent visual problems or hearing problems. Denied any sore throat. CARDIOVASCULAR: No orthopnea, PND, no palpitations, no syncope. PULMONARY: No shortness of breath, no cough, no hemoptysis. GASTROINTESTINAL: No diarrhea, no nausea, no vomiting, no abdominal pain. Normoactive bowel sounds. NEUROLOGICAL: No headaches, no weakness, no numbness. HEMATOLOGICAL: Denies any bleeding or petechiae. GENITOURINARY: Denies any burning micturition, frequency, or urgency. MUSCULOSKELETAL/RHEUMATOLOGICAL: Denies any joint pain, swelling, or any muscle pain. ENDOCRINE: Denies any polyuria or polydipsia. Past Medical History Past Medical History: Diabetes Mellitus, Hypertension, Osteoarthritis (OA), Skin Disorder Additional Past Medical History / Comment(s): PSORIASIS, BACK & NECK PAIN. History of Any Multi-Drug Resistant Organisms: None Reported Additional Past Surgical History / Comment(s): HAND SURGERY AND NERVE GRAFT TO THUMB, CORTISONE INJECTIONS HIP. Past Anesthesia/Blood Transfusion Reactions: No Reported Reaction Past Psychological History: Anxiety, Depression Smoking Status: Current every day smoker Past Alcohol Use History: Abuse, Heavy Past Drug Use History: Marijuana - Past Family History Father Family Medical History: Cancer Additional Family Medical History / Comment(s): LUNG CANCER Medications and Allergies Home Medications Medication Instructions Recorded Confirmed Type Gabapentin [Neurontin] 400 mg PO TID 30 Days cap 04/08/19 05/08/19 Rx Hydrocortisone Cream 1 applic TOPICAL BID 30 Days 04/08/19 05/08/19 Rx [Hydrocortisone 1% Cream] applic Nicotine 14Mg/24Hr Patch [Habitrol] 1 patch TRANSDERM DAILY 30 Days 04/08/19 05/08/19 Rx patch Sertraline [Zoloft] 100 mg PO DAILY 30 Days tab 04/08/19 05/08/19 Rx Triamcinolone 0.1% Cream [Kenalog 1 applic TOPICAL BID 30 Days 04/08/19 05/08/19 Rx 0.1% Cream] applic amLODIPine [Norvasc] 5 mg PO DAILY 30 Days tab 04/08/19 05/08/19 Rx Mirtazapine [Remeron] 15 mg PO HS 05/08/19 05/08/19 History metFORMIN HCL 1,000 mg PO BID 05/08/19 05/08/19 History Allergies Allergy/AdvReac Type Severity Reaction Status Date / Time lisinopril AdvReac Unknown Cough Verified 05/08/19 15:10 Physical Exam Vitals: Vital Signs Temp Pulse Resp BP Pulse Ox 05/09/19 06:45 98.1 F 75 18 136/72 95 Intake and Output 05/08/19 05/09/19 05/09/19 22:59 06:59 14:59 Other: Weight 73.8 kg GENERAL: The patient is alert and oriented x3, not in any acute distress. Well developed, well nourished. HEENT: Pupils are round and equally reacting to light. EOMI. No scleral icterus. No conjunctival pallor. Normocephalic, atraumatic. No pharyngeal erythema. No thyromegaly. CARDIOVASCULAR: S1 and S2 present. No murmurs, rubs, or gallops. PULMONARY: Chest is clear to auscultation, no wheezing or crackles. ABDOMEN: Soft, nontender, nondistended, normoactive bowel sounds. No palpable organomegaly. MUSCULOSKELETAL: No joint swelling or deformity. EXTREMITIES: No cyanosis, clubbing, or pedal edema. Elbows and knees psoriasis rash NEUROLOGICAL: Gross neurological examination did not reveal any focal deficits. SKIN: No rashes. No petechiae Results CBC & Chem 7: 05/09/19 07:21 05/09/19 07:21 Labs: Abnormal Lab Results - Last 24 Hours (Table) 05/08/19 05/08/19 05/08/19 Range/Units 17:32 20:07 23:03 WBC (3.8-10.6) k/uL Sodium (137-145) mmol/L Creatinine (0.66-1.25) mg/dL Glucose (74-99) mg/dL POC Glucose (mg/dL) 272 H 244 H 207 H (75-99) mg/dL Total Protein (6.3-8.2) g/dL Albumin (3.5-5.0) g/dL 05/09/19 05/09/19 05/09/19 Range/Units 07:21 07:21 07:51 WBC 11.6 H (3.8-10.6) k/uL Sodium 136 L (137-145) mmol/L Creatinine 0.58 L (0.66-1.25) mg/dL Glucose 191 H (74-99) mg/dL POC Glucose (mg/dL) 248 H (75-99) mg/dL Total Protein 5.8 L (6.3-8.2) g/dL Albumin 3.4 L (3.5-5.0) g/dL 05/09/19 Range/Units 12:46 WBC (3.8-10.6) k/uL Sodium (137-145) mmol/L Creatinine (0.66-1.25) mg/dL Glucose (74-99) mg/dL POC Glucose (mg/dL) 165 H (75-99) mg/dL Total Protein (6.3-8.2) g/dL Albumin (3.5-5.0) g/dL Assessment and Plan Assessment: Diabetes mellitus, increase metformin 850 milligrams 3 times a day Psoriasis use triamcinolone cream Nicotine dependence, continue with nicotine patch Alcohol abuse, continue with Ativan as needed,thiamine Anxiety and depression, management as per primary psych team Patient was instructed to follow up with PCP Dr. neal in one week Thank you for consulting us
[2019-05-09] MEDS: metFORMIN 850 MG TAB PO SCH (15:49)
[2019-05-09] MEDS: TRIAMCINOLONE 0.1% CREAM 80 GM TUBE TOPICAL SCH ×2 (15:49→22:35)
[2019-05-09] MEDS: THIAMINE 100 MG TAB PO SCH (15:49)
[2019-05-09] MEDS: ESCITALOPRAM 5 MG TAB PO SCH (15:49)
[2019-05-09 17:08] LABS: Hemoglobin A1C 10.4 % (4.0-6.0)
[2019-05-09 17:22] LABS: Glucose,Whole Blood 307 mg/dL (75-99)
[2019-05-09 20:10] LABS: Glucose,Whole Blood 132 mg/dL (75-99)
[2019-05-09] MEDS ORDERED: DOXEPIN 10 MG CAP PO SCH (21:00)
[2019-05-09] MEDS ORDERED: MELATONIN 3 MG TABLET PO SCH (21:00)
[2019-05-09] MEDS ORDERED: INSULIN ASPART (NovoLOG) 100 UNIT/ML VIAL SQ SCH (22:30)
[2019-05-10 07:59] LABS: Glucose,Whole Blood 211 mg/dL (75-99)
[2019-05-10] MEDS: INSULIN ASPART (NovoLOG) 100 UNIT/ML VIAL SQ SCH ×4 (08:13→20:17)
[2019-05-10] MEDS: NICOTINE 14MG/24HR PATCH TRANSDERM SCH (08:37)
[2019-05-10] MEDS: ESCITALOPRAM 5 MG TAB PO SCH (08:37)
[2019-05-10] MEDS: metFORMIN 850 MG TAB PO SCH ×3 (08:37→18:05)
[2019-05-10] MEDS: THIAMINE 100 MG TAB PO SCH (08:37)
[2019-05-10] MEDS: TRIAMCINOLONE 0.1% CREAM 80 GM TUBE TOPICAL SCH ×3 (08:38→20:19)
--- NOTE | 2019-05-10 11:32 | P.PN ---
Progress Note - Text Progress Note Date: 05/10/19 Interval History: Patient was seen laying down on his bed in his room and was agreeable directable streets right in the office. Patient states that when he feels less irritable today however claims that he feels "exhausted" as she states that he did not get much sleep last night. Patient states that he went to sleep very late and was awoken to take his vitals early in the morning. Patient claims that he feels minor improvement in his mood however continues to feeling anxious during the da y. Patient states that he did not know the name of the medication task for for his anxiety and patient was reminded that he has Vistaril as a when necessary. Patient states that he did go to 2 groups yesterday and enjoyed them however has not content any groups today and was encouraged to do so. He states that his energy level today is poor. At this time patient denies any suicidal or homical ideations, intent or plan. Patient denies any auditory, visual hallucinations and denies any paranoia or delusions. Patient denies any side effects from the medications and has been compliant with meds. Mental Status Exam: General Appearance: Patient appears to be older than stated age is alert, irritability improving. Mildly improving hygiene and grooming. Behavior: Patient is seated without any agitated behavior. Less irritable today. Speech: Patient's speech is fluent and nonpressured. Mood/Affect: Patient reports their mood is depressed and anxious, mildly improving, affect is congruent and constricted. Suicidality/Homicidality: Patient denies having any suicidal or homicidal ideation intent or plan. Perceptions: Patient denies any visual hallucinations and denies any auditory hallucinations Though content/process: There is no evidence of any delusional thought content and thought process is linear and goal-directed. Focused on his poor sleep. Memory and concentration: AOX3, grossly intact for the purposes of this session. Judgment and insight: poor, mild improving Assessment Major depressive disorder, recurrent, severe without psychotic features Anxiety disorder unspecified Alcohol abuse Nicotine dependence Plan: -Patient continues to meet criteria for inpatient psychiatric admission for symptom stabilization and safety. Patient has signed adult voluntary form and medication consent and was placed in patient's chart. -Medications: Will increase Lexapro to 10 mg daily for mood/anxiety. We'll also increase doxepin to 20 mg daily at bedtime for sleep/mood. Will increase melatonin to 10 mg nightly for sleep. Vistaril every 6 hours when necessary for anxiety. -When necessary Ativan for agitation/aggression. Continue with CIWA for alcohol withdrawal monitoring. Vital signs reviewed. -Patient has received his vivitrol injection on 04/28/2019 and is due monthly. -NRT - nicotine patch -SW on board for discharge planning. Patient is currently homeless and states that he cannot go back to the alf where he was at.
[2019-05-10 12:52] LABS: Glucose,Whole Blood 151 mg/dL (75-99)
[2019-05-10] MEDS: LORazepam 1 MG TAB PO PRN (12:58)
[2019-05-10 16:01] VITALS: BMI 24.0
[2019-05-10 17:38] LABS: Glucose,Whole Blood 235 mg/dL (75-99)
[2019-05-10 19:54] LABS: Glucose,Whole Blood 129 mg/dL (75-99)
[2019-05-10] MEDS: DOXEPIN 10 MG CAP PO SCH (21:48)
[2019-05-10] MEDS: MELATONIN 5 MG TABLET PO SCH (21:48)
[2019-05-11 07:48] LABS: Glucose,Whole Blood 183 mg/dL (75-99)
[2019-05-11] MEDS: INSULIN ASPART (NovoLOG) 100 UNIT/ML VIAL SQ SCH ×4 (08:02→21:16)
[2019-05-11] MEDS: metFORMIN 850 MG TAB PO SCH ×3 (08:25→17:55)
[2019-05-11] MEDS: ESCITALOPRAM 10 MG TAB PO SCH (08:25)
[2019-05-11] MEDS: TRIAMCINOLONE 0.1% CREAM 80 GM TUBE TOPICAL SCH ×3 (08:25→21:19)
[2019-05-11] MEDS: NICOTINE 14MG/24HR PATCH TRANSDERM SCH (08:25)
[2019-05-11] MEDS: THIAMINE 100 MG TAB PO SCH (08:26)
[2019-05-11] MEDS: LORazepam 1 MG TAB PO PRN ×2 (08:28→17:59)
--- NOTE | 2019-05-11 11:24 | P.PN ---
Progress Note - Text Progress Note Date: 05/11/19 Interval History: Patient was seen wandering the hallways and was agreeable directable to speak to television script writer in the office. Patient states that he slept better last night and claims that he was reading a book and felt tired afterwards however keeps getting woken up for vitals. He states that he would like to continue the same medications at this time. He also claimed that he has been going to groups and trying to work on his coping skills and claims that "I even helped about other people in group". Patient spoke about having a positive experience at a sober house [facility] in the past and would like to go there and said of the half-way. He states that his mood has been gradually improving along with his anxiety. He claims to have improved energy today. He states that he needed to take Ativan yesterday for anxiety. At this time patient denies any suicidal or homical ideations, intent or plan. Patient denies any auditory, visual hallucinations and denies any paranoia or delusions. Patient denies any side effects from the medications and has been compliant with meds. Mental Status Exam: General Appearance: Patient appears to be older than stated age is alert, irritability improving. Mildly improving hygiene and grooming. Behavior: Patient is seated without any agitated behavior. Less irritable today. Speech: Patient's speech is fluent and nonpressured. Talkative. Mood/Affect: Patient reports their mood is mildly improving, affect is congruent and constricted. Suicidality/Homicidality: Patient denies having any suicidal or homicidal ideation intent or plan. Perceptions: Patient denies any visual hallucinations and denies any auditory hallucinations Though content/process: There is no evidence of any delusional thought content. Talkative/tangential Memory and concentration: AOX3, grossly intact for the purposes of this session. Judgment and insight: poor, mild improving Assessment Major depressive disorder, recurrent, severe without psychotic features Anxiety disorder unspecified Alcohol abuse Nicotine dependence Plan: -Patient continues to meet criteria for inpatient psychiatric admission for symptom stabilization and safety. Patient has signed adult voluntary form and medication consent and was placed in patient's chart. -Medications: Will continue with Lexapro to 10 mg daily for mood/anxiety. We'll also continue with doxepin to 20 mg daily at bedtime for sleep/mood. Will continue with melatonin to 10 mg nightly for sleep. Vistaril every 6 hours when necessary for anxiety. -When necessary Ativan for agitation/aggression. Vital signs reviewed. -Patient has received his vivitrol injection on 04/28/2019 and is due monthly. -NRT - nicotine patch -SW on board for discharge planning. Patient is currently homeless and claims that he would like to go to a sober house upon discharge.
[2019-05-11 12:45] LABS: Glucose,Whole Blood 124 mg/dL (75-99)
[2019-05-11 17:49] LABS: Glucose,Whole Blood 193 mg/dL (75-99)
[2019-05-11 20:12] LABS: Glucose,Whole Blood 167 mg/dL (75-99)
[2019-05-11] MEDS: MELATONIN 5 MG TABLET PO SCH (21:18)
[2019-05-11] MEDS: hydrOXYzine PAMOATE 25 MG CAP PO PRN (21:18)
[2019-05-11] MEDS: DOXEPIN 10 MG CAP PO SCH (21:19)
[2019-05-12 07:49] LABS: Glucose,Whole Blood 194 mg/dL (75-99)
[2019-05-12] MEDS: INSULIN ASPART (NovoLOG) 100 UNIT/ML VIAL SQ SCH ×4 (07:51→20:38)
[2019-05-12] MEDS: metFORMIN 850 MG TAB PO SCH ×3 (07:54→18:06)
[2019-05-12] MEDS: THIAMINE 100 MG TAB PO SCH (07:54)
[2019-05-12] MEDS: ESCITALOPRAM 10 MG TAB PO SCH (07:54)
[2019-05-12] MEDS: NICOTINE 14MG/24HR PATCH TRANSDERM SCH (09:00)
[2019-05-12] MEDS: TRIAMCINOLONE 0.1% CREAM 80 GM TUBE TOPICAL SCH ×3 (09:00→20:37)
[2019-05-12] MEDS: hydrOXYzine PAMOATE 25 MG CAP PO PRN (11:20)
--- NOTE | 2019-05-12 11:44 | P.PN ---
Progress Note - Text Progress Note Date: 05/12/19 Interval History: Patient was seen wandering the hallways after participating in group and was a greeable directable to speak to public relations writer in the office. Patient was more communicative with brighter today and states that his mood has been mildly improving. He also claimed that he slept "better last night" however continues to claim that he gets around 5-6 hours a night. He states that he keeps on getting woken up for vitals which she does not like however understand that he is in the hospital. He claims that the Lexapro and doxepin are helping him. He denies any side effects at this time. Patient claims that he is willing to go to the sober house after discharge and continue to work on his sobriety. He states that his anxiety is been mildly improving. He claims to have improving today energy. He states that he needed to take Ativan yesterday for anxiety. At this time patient denies any suicidal or homical ideations, intent or plan. Patient denies any auditory, visual hallucinations and denies any paranoia or delusions. Mental Status Exam: General Appearance: Patient appears to be older than stated age is alert, irritability improving. Mildly improving hygiene and grooming. Behavior: Patient is seated without any agitated behavior. Less irritable today, more cooperative. Speech: Patient's speech is fluent and nonpressured. Talkative. Mood/Affect: Patient reports their mood is mildly improving, affect is congruent Suicidality/Homicidality: Patient denies having any suicidal or homicidal ideation intent or plan. Perceptions: Patient denies any visual hallucinations and denies any auditory hallucinations Though content/process: There is no evidence of any delusional thought content. Talkative/tangential Memory and concentration: AOX3, grossly intact for the purposes of this session. Judgment and insight: poor, mild improving Assessment Major depressive disorder, recurrent, severe without psychotic features Anxiety disorder unspecified Alcohol abuse Nicotine dependence Plan: -Patient continues to meet criteria for inpatient psychiatric admission for symptom stabilization and safety. Patient has signed adult voluntary form and medication consent and was placed in patient's chart. -Medications: Will continue with Lexapro to 10 mg daily for mood/anxiety. We'll increase doxepin to 25 mg daily at bedtime for sleep/mood. Will continue with melatonin to 10 mg nightly for sleep. Vistaril every 6 hours when necessary for anxiety. -When necessary Ativan for agitation/aggression. Vital signs reviewed. -Patient has received his vivitrol injection on 04/28/2019 and is due monthly. -NRT - nicotine patch - on board for discharge planning. Patient is currently homeless and claims that he would like to go to a sober house upon discharge. marble worker arranging for discharge tomorrow to sober house or group home in the meantime before going to sober house. Patient is established with [facility].
[2019-05-12 12:37] LABS: Glucose,Whole Blood 181 mg/dL (75-99)
[2019-05-12 17:36] LABS: Glucose,Whole Blood 165 mg/dL (75-99)
[2019-05-12] MEDS: LORazepam 1 MG TAB PO PRN (18:59)
[2019-05-12 19:50] LABS: Glucose,Whole Blood 222 mg/dL (75-99)
[2019-05-12] MEDS ORDERED: DOXEPIN 25 MG CAP PO SCH (21:00)
[2019-05-12] MEDS: MELATONIN 5 MG TABLET PO SCH (22:00)
[2019-05-13 06:37] VITALS: BP 108/62; PULSE 68; RESP 14; TEMP 98.8
[2019-05-13 07:56] LABS: Glucose,Whole Blood 196 mg/dL (75-99)
[2019-05-13] MEDS: THIAMINE 100 MG TAB PO SCH (08:05)
[2019-05-13] MEDS: ESCITALOPRAM 10 MG TAB PO SCH (08:05)
[2019-05-13] MEDS: NICOTINE 14MG/24HR PATCH TRANSDERM SCH (08:06)
[2019-05-13] MEDS: metFORMIN 850 MG TAB PO SCH ×2 (08:06→13:01)
[2019-05-13] MEDS: TRIAMCINOLONE 0.1% CREAM 80 GM TUBE TOPICAL SCH (08:06)
[2019-05-13] MEDS: INSULIN ASPART (NovoLOG) 100 UNIT/ML VIAL SQ SCH ×2 (08:07→13:01)
[2019-05-13] MEDS: LORazepam 1 MG TAB PO PRN (09:38)
--- NOTE | 2019-05-13 10:14 | P.DS ---
Providers Date of admission: 05/08/19 14:01 Expected date of discharge: 05/13/19 Attending physician: Román Fofana MD Consults: 05/08/19 14:04 Consult Physician Routine Consulting Provider: Julio Gupta Consult Reason/Comments: medical management Do you want consulting provider notified?: Yes Primary care physician: Yadi Gaytan - Discharge Diagnosis(es) (1) Major depressive disorder, recurrent severe without psychotic features Current Visit: Yes Status: Acute Priority: High (2) Anxiety disorder Current Visit: Yes Status: Acute Priority: Medium (3) Alcohol abuse Current Visit: Yes Status: Acute Priority: Medium (4) Nicotine dependence Current Visit: Yes Status: Acute Priority: Low Hospital Course: Admission HPI: Patient is a 54-year-old male with a history of depression, single, has 1 daughter and is currently homeless. Patient presented to the hospital with depression and suicidal ideations for the past month. Patient was recently discharged from the mental health unit approximately one month ago and was treated for depression. Patient went to rehab at [place] and was released approximately 9 days ago. He states that in his last week at rehab he began feeling more anxious and he thought it was because he was leaving rehab at that time however patient became more anxious after he left and also depressed. Patient was fixated on his brother being with his ex- and how he found out about it. He states that he partially relapsed back on alcohol prior to coming in the hospital and drank $40 worth of liquor and felt suicidal as he wanted to walk into traffic. Patient claims that he does not have any withdrawal symptoms at this time and denies ever having seizures or DTs in the past. Patient states that his anxiety has been progressive along with his depression. He states that the medications were not helping him including Zoloft and Remeron. He states that he has poor sleep and has been feeling irritable and frustrated. Patient denies any current suicidal or homicidal ideations intent or plan. At this time patient denies any auditory or visual hallucinations. Patient denies any flight of ideas racing thoughts and increased in goal directed behavior. Patient admits to using alcohol most recently drinking $40 worth of liquor prior to coming in the hospital and has been struggling with alcohol for several years and recently was released from rehab. He states that he does not use any other substances at this time. He claims to be a daily smoker. Hospital course: Upon admission to the unit patient was initially depressed, anxious and suicidal. Patient was however directable and agreeable to commence treatment. Patient got along well with other patients on the unit and followed unit protocol. Patient was compliant with the medications and denied any side effects throughout hospital course. Patient was placed on CIDE protocol for alcohol withdrawal. Patient was started on Lexapro and titrated up to a dose of 10 mg daily for mood/anxiety. Patient was also started on doxepin and titrated up to a dose of 25 mg daily at bedtime for sleep/mood. Patient was also started on melatonin 10 mg nightly for sleep. Vistaril was also given patient when necessary for anxiety. Patient spoke of his stressors and engaged in therapy both group and individual. Patient was also seen by medical team for history and physical exam. Throughout the course of the hospitalization patient gradually improved with regards to mood, anxiety, irritability, sleep and became future oriented with improved insight and judgment. On the day of discharge patient denied any suicidal or homicidal ideations intent or plan denied any auditory or visual hallucinations. Patient endorsed wanting to live for his future and his family. The patient denied any access to guns or weapons. Patient denied any paranoia and did not endorse any delusions. Patient does have a significant history of substance abuse and was counseled on abstaining from all substances including alcohol and marijuana. Patient states that he is going to avoid alcohol and will be in the process of going to a sober house upon discharge. Patient was also counseled on the medications and need for regular compliance and was encouraged to follow-up with their outpatient appointment for mental health and also for primary care. Mental status exam: General Appearance: Patient appears to be stated age is alert, pleasant, and cooperative. Patient is in no acute distress and has improved hygiene and grooming. Improved eye contact. Behavior: Patient is calmly seated without any agitated behavior. Speech: Patient's speech is fluent and nonpressured. Mood/Affect: Patient reports their mood is "much better", affect is congruent and euthymic. Suicidality/Homicidality: Patient denies having any suicidal or homicidal ideation intent or plan. Perceptions: Patient denies any auditory or visual hallucinations. Though content/process: There is no evidence of any delusional thought content and thought process is linear and goal-directed. Focused on his sobriety and housing. Memory and concentration: AOX3, grossly intact for the purposes of this session. Can spell "WORLD" backwards correctly. Judgment and insight: improved, guarded prognosis Impression: Major depressive disorder, recurrent, severe, without psychotic features Anxiety disorder unspecified Alcohol abuse Nicotine dependence Plan: -Continue with discharge today as patient has improved and stabilized psychiatrically and is not currently an imminent threat to himself and/or others. -Continue medications: Lexapro 10 mg daily for mood/anxiety, doxepin 25 mg daily at bedtime for sleep/mood, melatonin 10 mg nightly for sleep and Vistaril twice a day when necessary for anxiety. -Patient is currently on vivitrol injection monthly and was last given his dose on 04/28/2019 and will be due next month for his Next dose. -Patient was counseled on the need for medication compliance and appropriate follow-up at mental health and also primary care for medical issues. Patient verbalized understanding and agreed. -Social work arranging for patient to go to a sober house in the near future and in the meantime patient is agreeable to go to a [facility]. Social work also to arrange for patients follow up appointments with [facility] for psychiatric care along with follow up with primary care provider. Patient claims that he will need a new primary care provider and will need to be set up with this prior to discharge. -Patient counseled on abstaining from recreational drugs and marijuana and alcohol. Was informed/educated on the adverse effects on their physical and mental health. Patient verbally agreed and understood. Patient was offered substance abuse treatment and elected to go back to living at a sober house in the near future. -Patient was instructed to return to the hospital or seek immediate medical care if their psychiatric or medical symptoms do worsen or reoccur. Allergies Allergy/AdvReac Type Severity Reaction Status Date / Time lisinopril AdvReac Unknown Cough Verified 05/08/19 15:10 Laboratory Results WBC 11.6 k/uL (3.8-10.6) H 05/09/19 07:21 RBC 4.89 m/uL (4.30-5.90) 05/09/19 07:21 Hgb 14.6 gm/dL (13.0-17.5) 05/09/19 07:21 Hct 45.7 % (39.0-53.0) 05/09/19 07:21 MCV 93.5 fL (80.0-100.0) 05/09/19 07:21 MCH 29.9 pg (25.0-35.0) 05/09/19 07:21 MCHC 32.0 g/dL (31.0-37.0) 05/09/19 07:21 RDW 12.6 % (11.5-15.5) 05/09/19 07:21 Plt Count 347 k/uL (150-450) 05/09/19 07:21 Neutrophils % 57 % 05/09/19 07:21 Lymphocytes % 32 % 05/09/19 07:21 Monocytes % 5 % 05/09/19 07:21 Eosinophils % 4 % 05/09/19 07:21 Basophils % 1 % 05/09/19 07:21 Neutrophils # 6.6 k/uL (1.3-7.7) 05/09/19 07:21 Lymphocytes # 3.7 k/uL (1.0-4.8) 05/09/19 07:21 Monocytes # 0.6 k/uL (0-1.0) 05/09/19 07:21 Eosinophils # 0.5 k/uL (0-0.7) 05/09/19 07:21 Basophils # 0.1 k/uL (0-0.2) 05/09/19 07:21 Sodium 136 mmol/L (137-145) L 05/09/19 07:21 Potassium 4.5 mmol/L (3.5-5.1) 05/09/19 07:21 Chloride 102 mmol/L (98-107) 05/09/19 07:21 Carbon Dioxide 28 mmol/L (22-30) 05/09/19 07:21 Anion Gap 6 mmol/L 05/09/19 07:21 BUN 11 mg/dL (9-20) 05/09/19 07:21 Creatinine 0.58 mg/dL (0.66-1.25) L 05/09/19 07:21 Est GFR (CKD-EPI)AfAm >90 (>60 ml/min/1.73 sqM) 05/09/19 07:21 Est GFR (CKD-EPI)NonAf >90 (>60 ml/min/1.73 sqM) 05/09/19 07:21 Glucose 191 mg/dL (74-99) H 05/09/19 07:21 POC Glucose (mg/dL) 196 mg/dL (75-99) H 05/13/19 07:53 POC Glu Photograph Editor ID Jamar Moreno 05/13/19 07:[address] Glu mg/dL 252 05/09/19 07:21 Hemoglobin A1c 10.4 % (4.0-6.0) H 05/09/19 07:21 Calcium 8.8 mg/dL (8.4-10.2) 05/09/19 07:21 Total Bilirubin 0.7 mg/dL (0.2-1.3) 05/09/19 07:21 AST 25 U/L (17-59) 05/09/19 07:21 ALT 18 U/L (4-49) 05/09/19 07:21 Alkaline Phosphatase 60 U/L (38-126) 05/09/19 07:21 Total Protein 5.8 g/dL (6.3-8.2) L 05/09/19 07:21 Albumin 3.4 g/dL (3.5-5.0) L 05/09/19 07:21 Triglycerides 107 mg/dL (<150) 05/09/19 07:21 Cholesterol 166 mg/dL (<200) 05/09/19 07:21 LDL Cholesterol, Calc 88 mg/dL (0-99) 05/09/19 07:21 HDL Cholesterol 57 mg/dL (40-60) 05/09/19 07:21 TSH 1.710 mIU/L (0.465-4.680) 05/09/19 07:21 Urine Opiates Screen Not Detected (NotDetected) 05/08/19 11:10 Ur Oxycodone Screen Not Detected (NotDetected) 05/08/19 11:10 Urine Methadone Screen Not Detected (NotDetected) 05/08/19 11:10 Ur Propoxyphene Screen Not Detected (NotDetected) 05/08/19 11:10 Ur Barbiturates Screen Not Detected (NotDetected) 05/08/19 11:10 U Tricyclic Antidepress Not Detected (NotDetected) 05/08/19 11:10 Ur Phencyclidine Scrn Not Detected (NotDetected) 05/08/19 11:10 Ur Amphetamines Screen Not Detected (NotDetected) 05/08/19 11:10 U Methamphetamines Scrn Not Detected (NotDetected) 05/08/19 11:10 U Benzodiazepines Scrn Not Detected (NotDetected) 05/08/19 11:10 Urine Cocaine Screen Not Detected (NotDetected) 05/08/19 11:10 U Marijuana (THC) Screen Not Detected (NotDetected) 05/08/19 11:10 Vital Signs Temp 98.8 F 05/13/19 06:12 Pulse 68 05/13/19 06:12 Resp 14 05/13/19 06:12 BP 108/62 05/13/19 06:12 Pulse Ox 96 05/12/19 06:59 Patient Condition at Discharge: Stable Plan - Discharge Summary Discharge Rx Participant: No New Discharge Prescriptions: New metFORMIN HCL [Glucophage] 850 mg PO AC-TID 28 Days tab Nicotine 14Mg/24Hr Patch [Habitrol] 1 patch TRANSDERM DAILY 14 Days patch Triamcinolone 0.1% Cream [Kenalog 0.1% Cream] 1 applic TOPICAL TID #2 applic Escitalopram [Lexapro] 10 mg PO DAILY 28 Days tab Melatonin 10 mg PO HS 28 Days tablet INSULIN ASPART (NovoLOG) [NovoLOG (formulary)] 0 unit SQ ACHS vial Doxepin [SINEquan] 25 mg PO HS 28 Days cap hydrOXYzine PAMOATE [Vistaril] 25 mg PO BID PRN 28 Days cap PRN Reason: Anxiety Thiamine [Vitamin B-1] 100 mg PO DAILY 28 Days tab Continue Hydrocortisone Cream [Hydrocortisone 1% Cream] 1 applic TOPICAL BID 30 Days applic Discontinued Nicotine 14Mg/24Hr Patch [Habitrol] 1 patch TRANSDERM DAILY 30 Days patch Triamcinolone 0.1% Cream [Kenalog 0.1% Cream] 1 applic TOPICAL BID 30 Days applic Gabapentin [Neurontin] 400 mg PO TID 30 Days cap amLODIPine [Norvasc] 5 mg PO DAILY 30 Days tab Sertraline [Zoloft] 100 mg PO DAILY 30 Days tab metFORMIN HCL 1,000 mg PO BID Mirtazapine [Remeron] 15 mg PO HS Discharge Medication List Hydrocortisone Cream [Hydrocortisone 1% Cream] 1 applic TOPICAL BID 30 Days applic 04/08/19 [Rx] Doxepin [SINEquan] 25 mg PO HS 28 Days cap 05/13/19 [Rx] Escitalopram [Lexapro] 10 mg PO DAILY 28 Days tab 05/13/19 [Rx] INSULIN ASPART (NovoLOG) [NovoLOG (formulary)] 0 unit SQ ACHS vial 05/13/19 [Rx] Melatonin 10 mg PO HS 28 Days tablet 05/13/19 [Rx] Nicotine 14Mg/24Hr Patch [Habitrol] 1 patch TRANSDERM DAILY 14 Days patch 05/13/19 [Rx] Thiamine [Vitamin B-1] 100 mg PO DAILY 28 Days tab 05/13/19 [Rx] Triamcinolone 0.1% Cream [Kenalog 0.1% Cream] 1 applic TOPICAL TID #2 applic 05/13/19 [Rx] hydrOXYzine PAMOATE [Vistaril] 25 mg PO BID PRN 28 Days cap 05/13/19 [Rx] metFORMIN HCL [Glucophage] 850 mg PO AC-TID 28 Days tab 05/13/19 [Rx] Follow up Appointment(s)/Referral(s): Yadi Gaytan MD [Primary Care Provider] - 1-2 days Patient Instructions/Handouts: Alcohol Intoxication (DC), Help Prevent Suicide (DC) Activity/Diet/Wound Care/Special Instructions: Activity and diet as tolerated. Avoid the use of street drugs and alcohol. Take all medications as prescribed. When you are in need of refills on your medications please contact your medical provider and/or outpatient psychiatrist to have this done. Please go to scheduled outpatient appointment for aftercare treatment. If symptoms return or become worse, call the crisis line at and/or go to the nearest emergency room for evaluation. Discharge Disposition: HOME SELF-CARE
[2019-05-13 12:48] LABS: Glucose,Whole Blood 145 mg/dL (75-99)
[2019-05-13] MEDS: hydrOXYzine PAMOATE 25 MG CAP PO PRN (13:01)
== END 2019-05-13 13:53 | disposition home or self-care (01) | DRG 885 ==
LOC: EC 10:36 → 3MHU 14:01
PROVIDERS: ADMIT Psychiatry & Neurology Psychiatry; ATTEND Psychiatry & Neurology Psychiatry
DX: F33.2 Major depressive disorder, recurrent severe without psychotic features (principal); R45.851 Suicidal ideations; F10.239 Alcohol dependence with withdrawal, unspecified; E11.9 Type 2 diabetes mellitus without complications; F41.9 Anxiety disorder, unspecified; I10 Essential (primary) hypertension; M19.90 Unspecified osteoarthritis, unspecified site; L40.9 Psoriasis, unspecified; F17.210 Nicotine dependence, cigarettes, uncomplicated; Z71.6 Tobacco abuse counseling; Z79.84 Long term (current) use of oral hypoglycemic drugs; Z79.899 Other long term (current) drug therapy; Z98.890 Other specified postprocedural states; Z88.8 Allergy status to other drugs, medicaments and biological substances; Z80.1 Family history of malignant neoplasm of trachea, bronchus and lung
CPT/HCPCS: 80053; 80061; 80306; 82075; 83036; 84443; 85025; 99285

== ENCOUNTER → 2020-06-18 | Outpatient (CLI) | payer OTHER | END | disposition home or self-care (01) | LOC: LABWHC1 09:40 | DX: Z53.9 Procedure and treatment not carried out, unspecified reason (principal) ==

== ENCOUNTER → 2021-01-15 | Outpatient (CLI) | payer OTHER ==
--- NOTE | 2021-01-15 15:42 | XR ---
EXAMINATION TYPE: XR cervical spine comp, XR lumbar spine 2 or 3V, XR thoracic spine 2V DATE OF EXAM: 01/15/2021 COMPARISON: Cervical and lumbar spine x-ray June 25, 2015. MRI cervical and lumbar spine July 15. Two-view chest x-ray March 20, 2019. HISTORY: Neck and back pain. TECHNIQUE: Frontal and lateral views of entire spine along with oblique and open mouth view cervical spine and crosstable lateral view of cervicothoracic junction are all performed. FINDINGS: There is stable slight grade 1 anterolisthesis C4 on C5. There is moderate to severe disc s pace narrowing and anterior spurring at C6-C7 level which is more prominent from prior. Oblique image s show uncovertebral facet spurring causing right-sided neural foraminal narrowing at C4-C5 level sim ilar to prior. There is mild/moderate calcified plaque right carotid bulb level redemonstrated. C1-C2 articulation satisfactory on the frontal view. Thoracic spine shows satisfactory alignment without evidence of acute fracture or dislocation. Verteb ral body heights and disc space heights are fairly well maintained. Visualized ribs are intact bilate rally. There are 5 lumbar type vertebra are redemonstrated with stable slight levoconvex curvature centered at L3 level. Vertebral body heights and disc space heights are maintained. Mild to moderate multileve l anterior and lateral spurring is redemonstrated. Overlying soft tissue is unremarkable. IMPRESSION: As above.
== END | disposition home or self-care (01) ==
LOC: RADXRMAIN 11:05
PROVIDERS: ATTEND Physician Assistant
DX: M43.12 Spondylolisthesis, cervical region (principal); M50.323 Other cervical disc degeneration at C6-C7 level; M99.71 Connective tissue and disc stenosis of intervertebral foramina of cervical region; M43.8X6 Other specified deforming dorsopathies, lumbar region
CPT/HCPCS: 72050; 72070; 72100

== ENCOUNTER 2022-05-07 14:55 | Inpatient (IN) | payer MEDICAID, OTHER ==
--- NOTE | 2022-05-07 15:50 | ED ---
General Adult HPI - General Chief complaint: Psychiatric Symptoms Stated complaint: EPS eval Time Seen by Provider: 05/07/22 15:16 Source: patient Mode of arrival: ambulatory - History of Present Illness Initial comments: Dictation was produced using [employer] dictation software. please excuse any grammatical, word or spelling errors. Chief Complaint: 57-year-old male presents to the emergency department requesting evaluation for depression and anxiety. History of Present Illness: Patient 57-year-old male who states he's been admitted to psych floor in the past. He states that for the last several days that he's been suffering from depression and anxiety. Patient denies any suicidal or homicidal ideation. No visual or auditory hallucinations. Patient of the medical place today. States that he is recently homeless. The ROS documented in this emergency department record has been reviewed and confirmed by me. Those systems with pertinent positive or negative responses have been documented in the HPI. All other systems are other negative and/or noncontributory. PHYSICAL EXAM: General Impression: Alert and oriented x3, not in acute distress HEENT: Normocephalic atraumatic, extra-ocular movements intact, pupils equal and reactive to light bilaterally, mucous membranes moist. Cardiovascular: Heart regular rate and rhythm Chest: Able to complete full sentences, no retractions, no tachypnea Musculoskeletal: no peripheral edema Motor: no focal deficits noted Neurological: CN II-XII grossly intact, no focal motor or sensory deficits noted Skin: Intact with no visualized rashes Psych: Normal affect and mood ED course: 57-year-old male presents emergency department requesting evaluation for depression and anxiety. As upon arrival are within acceptable limits. Physical examination is unremarkable. Patient clear for emergency psych service evaluation. Nursing notes and chart review was performed Patient evaluated by EPS was admitted patient to psych unit. Was pt. sent in by a medical professional or institution (, PA, FORENSIC ECONOMIST, urgent care, hospital, or retirement...) When possible be specific @ -No Did you speak to anyone other than the patient for history (EMS, parent, family, police, friend...)? What history was obtained from this source @ -No Did you review nursing and triage notes (agree or disagree)? Why? @ -I reviewed and agree with nursing and triage notes Were old charts reviewed (outside hosp., previous admission, EMS record, old EKG, old radiological studies, urgent care reports/EKG's, retirement records)? Report findings @ -No old charts were reviewed Differential Diagnosis (chest pain, altered mental status, abdominal pain women, abdominal pain men, vaginal bleeding, weakness, fever, dyspnea, syncope, headache, dizziness, GI bleed, back pain, seizure, CVA, palpatations, mental health)? @ -not applicable EKG interpreted by me (3pts min.). @ -None done X-rays interpreted by me (1pt min.). @ -None done CT interpreted by me (1pt min.). @ -None done U/S interpreted by me (1pt. min.). @ -None done What testing was considered but not performed or refused? (CT, X-rays, U/S, labs)? Why? @ -none What meds were considered but not given or refused? Why? @ -None Did you discuss the management of the patient with other professionals (professionals i.e. , PA, FORENSIC ECONOMIST, lab, RT, psych nurse, manager social services, anthropology and archeology instructor, teacher, hydrographical technical officer, housing case manager)? Give summary @ -EPS nurse Was smoking cessation discussed for >3mins.? @ -No Was critical care preformed (if so, how long)? @ -No Were there social determinants of health that impacted care today? How? (Homelessness, low income, unemployed, alcoholism, drug addiction, transportation, low edu. Level, literacy, decrease access to med. care, usp, rehab)? @ -Homeless Was there de-escalation of care discussed even if they declined (Discuss DNR or withdrawal of care, Hospice)? DNR status @ -No What co-morbidities impacted this encounter? (DM, HTN, Smoking, COPD, CAD, Cancer, CVA, ARF, Chemo, Hep., AIDS, mental health diagnosis, sleep apnea, morbid obesity)? @ -None Was patient admitted / discharged? Hospital course, mention meds given and route, prescriptions, significant lab abnormalities, going to OR and other pertinent info. @ -See above Undiagnosed new problem with uncertain prognosis? @ -No Drug Therapy requiring intensive monitoring for toxicity (Heparin, Nitro, Insulin, Cardizem)? @ -No Were any procedures done? @ -No Diagnosis/symptom? @ -Acute depression Acute, or Chronic, or Acute on Chronic? @ -See above Uncomplicated (without systemic symptoms) or Complicated (systemic symptoms)? @ -Uncomplicated Side effects of treatment? @ -No Exacerbation, Progression, or Severe Exacerbation? @ -No Poses a threat to life or bodily function? How? (Chest pain, USA, NV, pneumonia, PE, COPD, DKA, ARF, appy, cholecystitis, CVA, Diverticulitis, Homicidal, Suicidal, threat to staff... and all critical care pts) @ -No - Related Data Home Medications Medication Instructions Recorded Confirmed Atorvastatin [Lipitor] 10 mg PO HS 04/19/21 05/07/22 Cyclobenzaprine [Flexeril] 10 mg PO DAILY PRN 04/19/21 05/07/22 glipiZIDE [Glucotrol] 10 mg PO BID 04/19/21 05/07/22 traZODone HCL 150 mg PO HS 04/19/21 05/07/22 Albuterol Inhaler [Ventolin Hfa 1 puff INHALATION RT-Q4H PRN 05/07/22 05/07/22 Inhaler] Cholecalciferol [Vitamin D3 (125 125 mcg PO DAILY 05/07/22 05/07/22 Mcg = 5000 Iu)] Clobetasol Propionate [Temovate 1 applic TOPICAL BID 05/07/22 05/07/22 0.05% Cream] Losartan Potassium 100 mg PO DAILY 05/07/22 05/07/22 Meloxicam [Mobic] 7.5 mg PO DAILY 05/07/22 05/07/22 hydroCHLOROthiazide [Hydrodiuril] 12.5 mg PO DAILY 05/07/22 05/07/22 Allergies Allergy/AdvReac Type Severity Reaction Status Date / Time lisinopril AdvReac Unknown Cough Verified 05/07/22 16:45 Review of Systems ROS Statement: Those systems with pertinent positive or pertinent negative responses have been documented in the HPI. ROS Other: All systems not noted in ROS Statement are negative. Past Medical History Past Medical History: Diabetes Mellitus, Hypertension, Osteoarthritis (OA), Skin Disorder Additional Past Medical History / Comment(s): PSORIASIS, BACK & NECK PAIN. History of Any Multi-Drug Resistant Organisms: None Reported Additional Past Surgical History / Comment(s): HAND SURGERY AND NERVE GRAFT TO THUMB, CORTISONE INJECTIONS HIP. Past Anesthesia/Blood Transfusion Reactions: No Reported Reaction Past Psychological History: Anxiety, Depression Past Alcohol Use History: Abuse, Heavy Past Drug Use History: Marijuana - Past Family History Father Family Medical History: Cancer Additional Family Medical History / Comment(s): LUNG CANCER Course Vital Signs 05/07/22 15:03 Temperature 98.3 F Pulse Rate 106 H Respiratory 20 Rate Blood Pressure 161/98 O2 Sat by Pulse 97 Oximetry Disposition Clinical Impression: Depression Disposition: ADMITTED IP TO THIS HOSP Condition: Fair Referrals: [facility] [Primary Care Provider] - 1-2 days Decision Time: 17:27
[2022-05-07] MEDS ORDERED: HALOPERIDOL LACTATE 5 MG/ML 1 ML VIAL IM PRN (18:23)
[2022-05-07] MEDS ORDERED: MAG HYDROX/AL HYDROX/SIMETH 30 ML CUP PO PRN (18:23)
[2022-05-07] MEDS ORDERED: ACETAMINOPHEN TAB 325 MG TAB PO PRN (18:23)
[2022-05-07] MEDS ORDERED: LORazepam 1 MG TAB PO PRN (18:23)
[2022-05-07] MEDS ORDERED: LORazepam 2 MG/ML INJ IM PRN (18:28)
[2022-05-07] MEDS ORDERED: CYCLOBENZAPRINE 10 MG TAB PO PRN (18:29)
[2022-05-07] MEDS: CLOBETASOL PROP 0.05% CR 15GM TOPICAL SCH (20:10)
[2022-05-07] MEDS: glipiZIDE 10 MG TAB PO SCH (20:12)
[2022-05-07] MEDS: ATORVASTATIN 10 MG TAB PO SCH (20:12)
[2022-05-07 20:17] LABS: Glucose,Whole Blood 309 mg/dL (70-110)
[2022-05-07] MEDS: INSULIN ASPART (NovoLOG) 100 UNIT/ML VIAL SQ SCH (20:35)
[2022-05-07] MEDS: haloperidoL 5 MG TAB PO SCH (21:59)
[2022-05-07] MEDS: traZODone HCL 50 MG TAB PO SCH (21:59)
--- NOTE | 2022-05-08 03:32 | P.MDCNMH ---
History of Present Illness H&P Date: 05/07/22 Chief Complaint: medical eval 57 year old male with DM , hypertension patient coming in for evaluation due to depression and suicidal ideation patient denies any medical concerns , denies any fever, chills, chest pain , trouble breathing, nausea or vomiting, denies abd pain , changes in bowel or urinary habits admits to smoking , denies any alcohol or illicit drugs Review of Systems Pertinent positives as noted in HPI. All other systems were reviewed and are negative Past Medical History Past Medical History: Diabetes Mellitus, Hypertension, Osteoarthritis (OA), Skin Disorder Additional Past Medical History / Comment(s): PSORIASIS, BACK & NECK PAIN. History of Any Multi-Drug Resistant Organisms: None Reported Additional Past Surgical History / Comment(s): HAND SURGERY AND NERVE GRAFT TO THUMB, CORTISONE INJECTIONS HIP. Past Anesthesia/Blood Transfusion Reactions: No Reported Reaction Smoking Status: Current every day smoker - Past Family History Father Family Medical History: Cancer Additional Family Medical History / Comment(s): LUNG CANCER Medications and Allergies Home Medications Medication Instructions Recorded Confirmed Type Atorvastatin [Lipitor] 10 mg PO HS 04/19/21 05/07/22 History Cyclobenzaprine [Flexeril] 10 mg PO DAILY PRN 04/19/21 05/07/22 History glipiZIDE [Glucotrol] 10 mg PO BID 04/19/21 05/07/22 History traZODone HCL 150 mg PO HS 04/19/21 05/07/22 History Albuterol Inhaler [Ventolin Hfa 1 puff INHALATION RT-Q4H PRN 05/07/22 05/07/22 History Inhaler] Cholecalciferol [Vitamin D3 (125 125 mcg PO DAILY 05/07/22 05/07/22 History Mcg = 5000 Iu)] Clobetasol Propionate [Temovate 1 applic TOPICAL BID 05/07/22 05/07/22 History 0.05% Cream] Losartan Potassium 100 mg PO DAILY 05/07/22 05/07/22 History Meloxicam [Mobic] 7.5 mg PO DAILY 05/07/22 05/07/22 History hydroCHLOROthiazide [Hydrodiuril] 12.5 mg PO DAILY 05/07/22 05/07/22 History Allergies Allergy/AdvReac Type Severity Reaction Status Date / Time lisinopril AdvReac Unknown Cough Verified 05/07/22 19:04 Physical Exam Vitals: Vital Signs Temp Pulse Pulse Resp BP BP Pulse Ox 05/07/22 19:17 98.7 F 87 17 146/82 05/07/22 15:03 98.3 F 106 H 20 161/98 97 Intake and Output 05/07/22 05/07/22 05/08/22 14:59 22:59 06:59 Other: Weight 77.111 kg Constitutional: No acute distress, conversant, pleasant Eyes: Anicteric sclerae, moist conjunctiva, Pupils equal round reactive to light ENMT: NC/AT Oropharynx clear, no erythema, or exudates Neck: Supple, no masses, or JVD No carotid bruits No thyromegaly Lungs: Clear to auscultation Clear to percussion Normal respiratory effort, no accessory muscle use Cardiovascular: Heart regular in rate and rhythm, No murmurs, gallops, or rubs No peripheral edema Abdominal: Soft Nontender, no guarding, rebound or rigidity Abdomen moving with respiration Normoactive bowel sounds Skin: psoriasis over neck elbows , scalp Extremities: No digital cyanosis No clubbing Pedal pulses intact and symmetrical Radial pulses intact and symmetrical No calf tenderness Psychiatric: Alert and oriented to person, place and time Neuro Muscles Strength 5/5 in all 4 extremities Sensation to light touch grossly present throughout Cranial nerves II-XII grossly intact Cranial Nerve Examination - Cranial Nerves Cranial Nerve II- Optic: Intact Cranial Nerve III- Oculomotor: Intact Cranial Nerve IV- Trochlear: Intact Cranial Nerve V- Trigeminal: Intact Cranial Nerve - Abducens: Intact Cranial Nerve VII- Facial: Intact Cranial Nerve VIII- Auditory: Intact Cranial Nerve IX- Glossopharyngeal: Intact Cranial Nerve X- Vagus: Intact Cranial Nerve XI- Accessory: Intact Cranial Nerve XII- Hypoglossal: Intact Results Labs: Abnormal Lab Results - Last 24 Hours (Table) 05/07/22 Range/Units 20:14 POC Glucose (mg/dL) 309 H (70-110) mg/dL Assessment and Plan Assessment: depression , suicidal ideation management per psych DM , resume glipizide hypertension , resume lisinopril , HCTz stable from medical stand point tobacco smoking nicotine replacement therapy thank you for this consult
[2022-05-08 06:53] LABS: Basophils % (A) 1 %; Eosinophils # (A) 0.2 k/uL (0-0.7); Eosinophils % (A) 3 %; HCT 41.2 % (39.0-53.0); HGB 13.7 gm/dL (13.0-17.5); Lymphocytes # (A) 2.5 k/uL (1.0-4.8); Lymphocytes % (A) 34 %; MCH 31.8 pg (25.0-35.0); MCHC 33.2 g/dL (31.0-37.0); MCV 95.8 fL (80.0-100.0); Monocytes # (A) 0.5 k/uL (0-1.0); Monocytes % (A) 7 %; Neutrophils # (A) 3.8 k/uL (1.3-7.7); Neutrophils % (A) 54 %; Platelet Count 312 k/uL (150-450); RBC 4.31 m/uL (4.30-5.90); RDW 12.8 % (11.5-15.5); WBC 7.1 k/uL (3.8-10.6)
[2022-05-08 07:08] LABS: ALT 34 U/L (4-49); AST 47 U/L (17-59); African American GFR (CKD) >90 (>60 ml/min/1.73 sqM); Albumin 4.2 g/dL (3.5-5.0); Alkaline Phosphatase 65 U/L (38-126); Anion Gap 5 mmol/L; Blood Urea Nitrogen 8 mg/dL (9-20); Calcium 8.8 mg/dL (8.4-10.2); Carbon Dioxide 29 mmol/L (22-30); Chloride 100 mmol/L (98-107); Glucose 99 mg/dL (74-99); Non-African American GFR(CKD) >90 (>60 ml/min/1.73 sqM); Potassium 3.9 mmol/L (3.5-5.1); Sodium 134 mmol/L (137-145); Total Protein 6.8 g/dL (6.3-8.2)
[2022-05-08 07:49] LABS: Glucose,Whole Blood 121 mg/dL (70-110)
[2022-05-08] MEDS: hydroCHLOROthiazide 12.5 MG CAP PO SCH (08:32)
[2022-05-08] MEDS: glipiZIDE 10 MG TAB PO SCH ×2 (08:32→20:09)
[2022-05-08] MEDS: haloperidoL 5 MG TAB PO SCH (08:32)
[2022-05-08] MEDS: LOSARTAN 50 MG TAB PO SCH (08:32)
[2022-05-08] MEDS: CHOLECALCIFEROL 125 MCG (5000 IU) TABLET PO SCH (08:32)
[2022-05-08] MEDS: MELOXICAM 7.5 MG TAB PO SCH (08:32)
[2022-05-08] MEDS: INSULIN ASPART (NovoLOG) 100 UNIT/ML VIAL SQ SCH ×4 (08:34→20:16)
[2022-05-08 09:08] VITALS: BMI 25.1
[2022-05-08] MEDS ORDERED: haloperidoL 5 MG TAB PO PRN (10:35)
[2022-05-08] MEDS ORDERED: OLANZapine 2.5 MG TAB PO STA (10:43)
[2022-05-08] MEDS ORDERED: VENLAFAXINE HCL ER 75 MG CAP PO STA (10:44)
[2022-05-08] MEDS: NICOTINE 14MG/24HR PATCH TRANSDERM SCH (11:44)
[2022-05-08] MEDS: CLOBETASOL PROP 0.05% CR 15GM TOPICAL SCH ×2 (11:46→20:09)
--- NOTE | 2022-05-08 12:39 | P.HP ---
Psychiatric H&P - . H&P Date: 05/08/22 History & Physical: Allergies Allergy/AdvReac Type Severity Reaction Status Date / Time lisinopril AdvReac Unknown Cough Verified 05/07/22 19:04 Vital Signs Temp 98.7 F 05/08/22 06:45 Pulse 82 05/08/22 06:45 Resp 14 05/08/22 06:45 BP 136/70 05/08/22 06:45 Pulse Ox 97 05/07/22 15:03 FiO2 Intake & Output 05/07/22 05/08/22 05/08/22 18:59 06:59 18:59 Weight 77.111 kg 77.111 kg 77.111 kg Laboratory Last Values WBC 7.1 k/uL (3.8-10.6) 05/08/22 06:06 RBC 4.31 m/uL (4.30-5.90) 05/08/22 06:06 Hgb 13.7 gm/dL (13.0-17.5) 05/08/22 06:06 Hct 41.2 % (39.0-53.0) 05/08/22 06:06 MCV 95.8 fL (80.0-100.0) 05/08/22 06:06 MCH 31.8 pg (25.0-35.0) 05/08/22 06:06 MCHC 33.2 g/dL (31.0-37.0) 05/08/22 06:06 RDW 12.8 % (11.5-15.5) 05/08/22 06:06 Plt Count 312 k/uL (150-450) 05/08/22 06:06 MPV 8.0 05/08/22 06:06 Neutrophils % 54 % 05/08/22 06:06 Lymphocytes % 34 % 05/08/22 06:06 Monocytes % 7 % 05/08/22 06:06 Eosinophils % 3 % 05/08/22 06:06 Basophils % 1 % 05/08/22 06:06 Neutrophils # 3.8 k/uL (1.3-7.7) 05/08/22 06:06 Lymphocytes # 2.5 k/uL (1.0-4.8) 05/08/22 06:06 Monocytes # 0.5 k/uL (0-1.0) 05/08/22 06:06 Eosinophils # 0.2 k/uL (0-0.7) 05/08/22 06:06 Basophils # 0.0 k/uL (0-0.2) 05/08/22 06:06 Sodium 134 mmol/L (137-145) L 05/08/22 06:06 Potassium 3.9 mmol/L (3.5-5.1) 05/08/22 06:06 Chloride 100 mmol/L (98-107) 05/08/22 06:06 Carbon Dioxide 29 mmol/L (22-30) 05/08/22 06:06 Anion Gap 5 mmol/L 05/08/22 06:06 BUN 8 mg/dL (9-20) L 05/08/22 06:06 Creatinine 0.61 mg/dL (0.66-1.25) L 05/08/22 06:06 Est GFR (CKD-EPI)AfAm >90 (>60 ml/min/1.73 sqM) 05/08/22 06:06 Est GFR (CKD-EPI)NonAf >90 (>60 ml/min/1.73 sqM) 05/08/22 06:06 Glucose 99 mg/dL (74-99) 05/08/22 06:06 POC Glucose (mg/dL) 121 mg/dL (70-110) H 05/08/22 07:45 POC Glu Doggy Daycare Activities Director ID 05/08/22 07:[address] Glu mg/dL 188 05/08/22 06:06 Hemoglobin A1c 8.2 % (0.0-6.0) H 05/08/22 06:06 Calcium 8.8 mg/dL (8.4-10.2) 05/08/22 06:06 Total Bilirubin 1.0 mg/dL (0.2-1.3) 05/08/22 06:06 AST 47 U/L (17-59) 05/08/22 06:06 ALT 34 U/L (4-49) 05/08/22 06:06 Alkaline Phosphatase 65 U/L (38-126) 05/08/22 06:06 Total Protein 6.8 g/dL (6.3-8.2) 05/08/22 06:06 Albumin 4.2 g/dL (3.5-5.0) 05/08/22 06:06 TSH 3.210 mIU/L (0.465-4.680) 05/08/22 06:06 Coronavirus (PCR) Not Detected (Not Detectd) 05/07/22 17:09 05/08/22 12:39 IDENTIFYING DATA: Patient is a single, recently unemployed, 57-year-old male with significant history of depression, anxiety, and alcohol use disorder who presented to our hospital on 05/07/2022 for worsening depression and anxiety HPI: Patient presented to the hospital on 05/07/2022 on his own volition seeking help for his worsening depression and anxiety. The patient reported to the EPS nurse that he has been experiencing worsening panic attacks and has been feeling more and more suicidal. He was subsequently admitted to the psychiatric unit and signed adult formal voluntary. Upon admission on the psychiatric unit, the patient reports that he has been feeling increasing depressed and anxious for the past 8 months. He reports "I need to get right in my head again. I can only hold a job for 2-3 weeks because my anxiety and depression has been so bad." He reports that his girlfriend of 15 years has been in [place] for the past month taking care of her family. He also reports that the holiday season tends to be difficult time for himself as he has had numerous family members during the holidays including his dad, mother, and brother. In regards to psychiatric pathology, the patient reports that he has been experi encing "panic attacks." He reports that he would break out suddenly in a cold sweat, panic, begin hyperventilating, and have a general sense of unease. He reports that these started 8 months ago and occur in between 2-3 times in a day to 1 time per week. He expresses that this occurs even when he is out in public or alone and comfortable in his own home. In regards to depressive symptoms, the patient does report decreased mood, crying, decreased appetite with a 15 pound weight loss over the past 3 weeks, anhedonia, hopelessness, helplessness, and suicidal ideation. He however denies any intention or plan. He reports that he attempted suicide by stepping out on to traffic back in 2019 which resulted in inpatient psychiatric admission on this unit. The patient is not endorsing any significant symptoms of psychosis. He reports no auditory or visual hallucinations. He denies any paranoia or other delusions. The patient does endorse a significant history of hypomanic symptoms. He reports that he has been experiencing nonstop racing thoughts, intermittent excessive energy often going 3-4 days with no sleep, and severe mood lability. He however denies any episode lasting longer than 7 days and also reports no significant history of impulsive detrimental behavior. The patient was previously open with [facility] however has been off his medications aside from trazodone for almost a year. He reports that he was feeling better and decided to stop taking his psychiatric medications. He does have a history of heavy alcohol use however states that he stopped drinking heavily appro ximately 8 months ago. He states that he currently drinks 1-2 alcoholic beverages per day. He states that his last drink was a few days prior to this admission. He reports 1 pack per day with a [id number] history of tobacco. He denies any marijuana or illicit drug use. PAST PSYCHIATRIC HISTORY: Patient states that he was previously diagnosed with alcohol use disorder, depression, and anxiety\\. The patient recalls being previously prescribed Remeron, Vivitrol, Zoloft, doxepin, trazodone, and Seroquel. He was last hospitalized on the psychiatric unit in April 2019 and this is his third inpatient psychiatric admission. The patient has an appointment with his caseworker at [facility] however had not been following up for any outpatient care. He was last seen for medication review on 06/14/2019. He reports one prior suicide attempt back in . PMH: Past Medical History: Diabetes Mellitus, Hypertension, Osteoarthritis (OA), Skin Disorder Additional Past Medical History / Comment(s): PSORIASIS, BACK & NECK PAIN. History of Any Multi-Drug Resistant Organisms: None Reported Additional Past Surgical History / Comment(s): HAND SURGERY AND NERVE GRAFT TO THUMB, CORTISONE INJECTIONS HIP. Past Anesthesia/Blood Transfusion Reactions: No Reported Reaction Smoking Status: Current every day smoker ALLERGIES: Lisinopril CHEMICAL DEPENDENCY HISTORY: As per HPI FAMILY PSYCHIATRIC/SUBSTANCE USE HISTORY: The patient reports that his mother had panic attacks. That his maternal aunt attempted suicide. His brother was an alcoholic. SOCIAL HISTORY: Patient was born and raised in [place], [place]. He is single however has been dating his girlfriend Stephanie for 15 years. He also has a 28-year-old daughter from previous relationship. 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 He attended some college. He denies any legal issues, service, and although was raised [place] denies any current mu-ism. MENTAL STATUS EXAM: General Appearance: Patient appears to be stated age is alert, directable, and attempts to cooperate. Patient appears to have fair hygiene and grooming. Bald, castro, wearing glasses. Behavior: Patient is seated without any agitated behavior. Eye contact is appropriate. Speech: Patient's speech is fluent and nonpressured. Patient is hyperverbal and stammers a lot. Mood/Affect: Patient reports their mood is depressed and anxious, affect is congruent and nervous Suicidality/Homicidality: Patient denies having any homicidal ideation intent or plan. Patient reports passive suicidal thoughts. Perceptions: Patient denies any visual hallucinations and denies any auditory hallucinations Though content/process: There is no evidence of any delusional thought content and thought process is linear and goal-directed. Flight of ideas. Memory and concentration: AOX3, grossly intact for the purposes of this session. Can spell "WORLD" backwards Judgment and insight: Fair STRENGTHS/WEAKNESSES: strength is that patient is resilient. Weakness is that patient engages in heavy alcohol use. INTELLECT: average IMPRESSIONS: Bipolar 2 disorder, mixed episode Panic disorder without a phobia Generalized anxiety disorder Alcohol use disorder Tobacco use disorder PLAN: -Patient is admitted under voluntary status to MHU for stabilization of psychiatric symptoms and safety. Patient signed adult voluntary form and medication consent and is placed in patient's chart. -Medications : Will start patient on Effexor 75 mg by mouth daily for depression/anxiety/panic Zyprexa 2.5 mg in the morning and 5 mg at bedtime for mood stabilization Trazodone 150 mg by mouth at bedtime for insomnia -Ativan and Haldol PRN for agitation/aggression -Patient was counselled on substance abuse and desired to cut back on use -Patient was informed of the risks, benefits and side effects of the medication and patient verbally consented to taking the medications. Patient signed med consent form and was placed in chart. -Internal Medicine consult to perform medical evaluation and physical. -NRT - nicotine patch -SW on board for discharge planning. Encourage patient to participate in groups to work on coping skills. 05/08/22 12:39
[2022-05-08 12:46] LABS: Glucose,Whole Blood 254 mg/dL (70-110)
[2022-05-08 15:54] LABS: Chol/HDL Ratio 2.19 Ratio; LDL Cholesterol,Calculated 61.7 mg/dL (0.0-131.0); VLDL Calculation 17.74 mg/dL (5.00-40.00)
[2022-05-08 17:44] LABS: Glucose,Whole Blood 150 mg/dL (70-110)
[2022-05-08 20:06] LABS: Glucose,Whole Blood 241 mg/dL (70-110)
[2022-05-08] MEDS: ATORVASTATIN 10 MG TAB PO SCH (20:09)
[2022-05-08] MEDS: OLANZapine 5 MG TAB PO SCH (21:41)
[2022-05-08] MEDS: traZODone HCL 50 MG TAB PO SCH (21:41)
[2022-05-09 07:44] LABS: Glucose,Whole Blood 151 mg/dL (70-110)
[2022-05-09] MEDS: NICOTINE 14MG/24HR PATCH TRANSDERM SCH (08:01)
[2022-05-09] MEDS: INSULIN ASPART (NovoLOG) 100 UNIT/ML VIAL SQ SCH ×4 (08:05→20:07)
[2022-05-09] MEDS: LOSARTAN 50 MG TAB PO SCH (08:06)
[2022-05-09] MEDS: OLANZapine 5 MG TAB PO SCH ×2 (08:06→21:58)
[2022-05-09] MEDS: MELOXICAM 7.5 MG TAB PO SCH (08:06)
[2022-05-09] MEDS: VENLAFAXINE HCL ER 150 MG CAP PO SCH (08:06)
[2022-05-09] MEDS: hydroCHLOROthiazide 12.5 MG CAP PO SCH (08:07)
[2022-05-09] MEDS: CHOLECALCIFEROL 125 MCG (5000 IU) TABLET PO SCH (08:07)
[2022-05-09] MEDS: glipiZIDE 10 MG TAB PO SCH ×2 (08:07→20:08)
[2022-05-09] MEDS: CLOBETASOL PROP 0.05% CR 15GM TOPICAL SCH ×2 (08:08→20:09)
--- NOTE | 2022-05-09 11:14 | P.PN ---
Progress Note - Text Progress Note Date: 05/09/22 Interval History: Patient was seen resting in bed and was directable and agreeable to speak with commercial insurance underwriter in the office. Patient reports that he was able to sleep last night. He reports improved sleep and less racing thoughts. He has been adherent with his medications and reports no significant side effects. He states he continues to have suicidal ideation in the context of "I don't want to keep living with how I was feeling over the past 8 months." He denies any intention and/or plan. He reports no homicidal ideation, intention, and/or plan. He denies any auditory or visual hallucinations. He reports no paranoia or other delusions. Mental Status Exam: General Appearance: Patient appears to be stated age is alert, directable, and cooperative. Behavior: Patient is calmly seated without any agitated behavior. Speech: Patient's speech is fluent and nonpressured. Mood/Affect: Mood is improving mildly, affect is congruent and constricted. Suicidality/Homicidality: Patient endorses passive suicidal ideation. No intention or plan. He denies any homicidal ideation, intention, and/or plan. Perceptions: Patient denies any visual hallucinations and denies any auditory hallucinations Though content/process: There is no evidence of any delusional thought content and thought process is linear and goal-directed. Memory and concentration: AOX3, grossly intact for the purposes of this session Judgment and insight: Improving mildly Vital Signs Temp 98 F 05/09/22 07:07 Pulse 66 05/09/22 07:07 Resp 14 05/09/22 07:07 BP 122/58 05/09/22 07:07 Pulse Ox 97 05/07/22 15:03 FiO2 Intake & Output 05/08/22 05/09/22 05/09/22 18:59 06:59 18:59 Weight 77.111 kg Laboratory Results - Last 24 Hours 05/08/22 05/08/22 05/08/22 06:06 12:42 17:43 POC Glucose (mg/dL) 254 H 150 H POC Glu Senior Firmware Engineer ID Janet Zamora Triglycerides 88.70 Cholesterol 146.00 LDL Cholesterol, Calc 61.7 VLDL Cholesterol, Calc 17.74 HDL Cholesterol 66.60 H Cholesterol/HDL Ratio 2.19 05/08/22 05/09/22 20:05 07:42 POC Glucose (mg/dL) 241 H 151 H POC Glu Senior Firmware Engineer ID La Nena Knight Desiree Triglycerides Cholesterol LDL Cholesterol, Calc VLDL Cholesterol, Calc HDL Cholesterol Cholesterol/HDL Ratio Assessment Bipolar 2 disorder, mixed episode Panic disorder without a phobia Generalized anxiety disorder Alcohol use disorder Tobacco use disorder Plan: -Patient continues to meet criteria for inpatient psychiatric admission for symptom stabilization and safety. Patient has signed adult voluntary form and medication consent and was placed in patient's chart. -Medications: Increase Effexor to 150 mg by mouth daily for depression/anxiety/panic Increase Zyprexa to 5 mg twice daily for mood stabilization Trazodone 150 mg by mouth at bedtime for insomnia -When necessary Ativan and Haldol for agitation/aggression. -NRT - nicotine patch -SW on board for discharge planning. Encouraged the patient to participate in milieu.
[2022-05-09 12:40] LABS: Glucose,Whole Blood 153 mg/dL (70-110)
[2022-05-09 17:30] LABS: Glucose,Whole Blood 159 mg/dL (70-110)
[2022-05-09 19:44] LABS: Glucose,Whole Blood 229 mg/dL (70-110)
[2022-05-09] MEDS: ATORVASTATIN 10 MG TAB PO SCH (20:08)
[2022-05-09] MEDS: traZODone HCL 50 MG TAB PO SCH (21:58)
[2022-05-10 07:51] LABS: Glucose,Whole Blood 123 mg/dL (70-110)
[2022-05-10] MEDS: INSULIN ASPART (NovoLOG) 100 UNIT/ML VIAL SQ SCH ×4 (07:54→20:14)
[2022-05-10] MEDS: CLOBETASOL PROP 0.05% CR 15GM TOPICAL SCH ×2 (08:33→20:13)
[2022-05-10] MEDS: LOSARTAN 50 MG TAB PO SCH (08:34)
[2022-05-10] MEDS: VENLAFAXINE HCL ER 150 MG CAP PO SCH (08:34)
[2022-05-10] MEDS: OLANZapine 5 MG TAB PO SCH ×2 (08:34→22:01)
[2022-05-10] MEDS: MELOXICAM 7.5 MG TAB PO SCH (08:34)
[2022-05-10] MEDS: hydroCHLOROthiazide 12.5 MG CAP PO SCH (08:34)
[2022-05-10] MEDS: CHOLECALCIFEROL 125 MCG (5000 IU) TABLET PO SCH (08:35)
[2022-05-10] MEDS: glipiZIDE 10 MG TAB PO SCH ×2 (08:35→20:12)
[2022-05-10] MEDS: NICOTINE 14MG/24HR PATCH TRANSDERM SCH (08:48)
[2022-05-10] MEDS: ALBUTEROL INHALER 60 PUFF/8 GM INHALER (MHU) INHALATION PRN ×2 (09:06→22:00)
--- NOTE | 2022-05-10 10:30 | P.PN ---
Progress Note - Text Progress Note Date: 05/10/22 Interval History: Patient was seen resting in bed and was directable and agreeable to speak with advertising copy writer in the office. Patient reports that he was able to sleep well last night although the staff checking in on them woke him up briefly. He says he has been less anxious and notices thoughts to be racing less. He has been adherent with his medications and reports no significant side effects. He has passive suicidal ideation but is becoming future oriented with going to [facility] after discharge. He denies any intention and/or plan. He reports no homicidal ideation, intention, and/or plan. He denies any auditory or visual hallucinations. He reports no paranoia or other delusions. Mental Status Exam: General Appearance: Patient appears to be stated age is alert, directable, and cooperative. Behavior: Patient is calmly seated without any agitated behavior although is sli ghtly restless Speech: Patient's speech is fluent and nonpressured. Mood/Affect: Mood is improving mildly, affect is congruent and constricted. Suicidality/Homicidality: Patient endorses passive suicidal ideation. No intention or plan. He denies any homicidal ideation, intention, and/or plan. Perceptions: Patient denies any visual hallucinations and denies any auditory hallucinations Though content/process: There is no evidence of any delusional thought content and thought process is linear and goal-directed. Memory and concentration: AOX3, grossly intact for the purposes of this session Judgment and insight: Improving mildly AIMS = 0 Assessment Bipolar 2 disorder, mixed episode Panic disorder without a phobia Generalized anxiety disorder Alcohol use disorder Tobacco use disorder Plan: -Patient continues to meet criteria for inpatient psychiatric admission for symptom stabilization and safety. Patient has signed adult voluntary form and medication consent and was placed in patient's chart. -Medications: Continue Effexor 150 mg by mouth daily for depression/anxiety/panic Continue Zyprexa to 5 mg twice daily for mood stabilization Trazodone 150 mg by mouth at bedtime for insomnia -When necessary Ativan and Haldol for agitation/aggression. -NRT - nicotine patch -SW on board for discharge planning. Encouraged the patient to participate in milieu.
[2022-05-10 12:40] LABS: Glucose,Whole Blood 228 mg/dL (70-110)
[2022-05-10 17:47] LABS: Glucose,Whole Blood 182 mg/dL (70-110)
[2022-05-10 19:54] LABS: Glucose,Whole Blood 184 mg/dL (70-110)
[2022-05-10] MEDS: ATORVASTATIN 10 MG TAB PO SCH (20:12)
[2022-05-10] MEDS: traZODone HCL 50 MG TAB PO SCH (22:00)
[2022-05-11 07:07] VITALS: RESP 16; TEMP 98.2
[2022-05-11 07:47] LABS: Glucose,Whole Blood 144 mg/dL (70-110)
[2022-05-11] MEDS: INSULIN ASPART (NovoLOG) 100 UNIT/ML VIAL SQ SCH ×4 (07:54→20:01)
[2022-05-11] MEDS: VENLAFAXINE HCL ER 150 MG CAP PO SCH (08:40)
[2022-05-11] MEDS: hydroCHLOROthiazide 12.5 MG CAP PO SCH (08:40)
[2022-05-11] MEDS: OLANZapine 5 MG TAB PO SCH ×2 (08:41→21:58)
[2022-05-11] MEDS: glipiZIDE 10 MG TAB PO SCH ×2 (08:41→19:59)
[2022-05-11] MEDS: LOSARTAN 50 MG TAB PO SCH (08:41)
[2022-05-11] MEDS: CHOLECALCIFEROL 125 MCG (5000 IU) TABLET PO SCH (08:41)
[2022-05-11] MEDS: MELOXICAM 7.5 MG TAB PO SCH (08:41)
[2022-05-11] MEDS: ALBUTEROL INHALER 60 PUFF/8 GM INHALER (MHU) INHALATION PRN ×2 (08:42→21:59)
[2022-05-11 08:46] VITALS: BP 135/71; PULSE 77
[2022-05-11] MEDS: MAGNESIUM HYDROXIDE 2,400 MG/10 ML CUP PO PRN (08:56)
[2022-05-11] MEDS: CLOBETASOL PROP 0.05% CR 15GM TOPICAL SCH ×2 (09:27→20:00)
[2022-05-11] MEDS: NICOTINE 14MG/24HR PATCH TRANSDERM SCH (09:28)
[2022-05-11 12:43] LABS: Glucose,Whole Blood 180 mg/dL (70-110)
[2022-05-11] MEDS ORDERED: hydrOXYzine pamoate 25 MG CAP PO PRN (13:28)
[2022-05-11] MEDS ORDERED: hydrOXYzine HCL 50 MG/ML 1 ML VIAL IM PRN (13:28)
--- NOTE | 2022-05-11 13:32 | P.PN ---
Progress Note - Text Progress Note Date: 05/11/22 Interval History: Patient was seen resting in the halls and was directable and agreeable to speak with quality analyst/technical writer in his room. He states that his mood is "fair". Patient reports that he was able to sleep well last night although the staff checking in on them woke him up briefly. Although he reports that his anxiety has been listening, he states that he had a panic attack last night. He states that he tries to breathe when he has panic attack. Discussed medication would be helpful for panic and that he is also able to request Vistaril too. Recommend decrease caffeine intake. He has been adherent with his medications and reports no significant side effects. He has no passive suicidal ideation today and is becoming future oriented. He states that he was Vivitrol in the past and is agreeable to trying naltrexone today after SE/risks/benefits discussed. He denies any intention and/or plan. He reports no homicidal ideation, intention, and/or plan. He denies any auditory or visual hallucinations. He reports no paranoia or other delusions. Mental Status Exam: General Appearance: Patient appears to be stated age is alert, directable, and cooperative. Behavior: Patient is calmly seated without any agitated behavior although is slightly restless Speech: Patient's speech is fluent and nonpressured. Mood/Affect: Mood is improving, affect is congruent and constricted. Suicidality/Homicidality: Patient endorses passive suicidal ideation. No intention or plan. He denies any homicidal ideation, intention, and/or plan. Perceptions: Patient denies any visual hallucinations and denies any auditory hallucinations Though content/process: There is no evidence of any delusional thought content and thought process is linear and goal-directed. Memory and concentration: AOX3, grossly intact for the purposes of this session Judgment and insight: Improving mildly AIMS = 0 Assessment Bipolar 2 disorder, mixed episode Panic disorder without a phobia Generalized anxiety disorder Alcohol use disorder Tobacco use disorder Plan: -Patient continues to meet criteria for inpatient psychiatric admission for symptom stabilization and safety. Patient has signed adult voluntary form and medication consent and was placed in patient's chart. -Medications: Continue Effexor 150 mg by mouth daily for depression/anxiety/panic Continue Zyprexa to 5 mg twice daily for mood stabilization Trazodone 150 mg by mouth at bedtime for insomnia Start naltrexone 50 mg daily for alcohol craving -When necessary Vistaril and Haldol for agitation/aggression. -NRT - nicotine patch -SW on board for discharge planning. Encouraged the patient to participate in milieu.
[2022-05-11] MEDS: NALTREXONE HCL 50 MG TAB PO SCH (14:29)
[2022-05-11 17:40] LABS: Glucose,Whole Blood 108 mg/dL (70-110)
[2022-05-11 19:57] LABS: Glucose,Whole Blood 313 mg/dL (70-110)
[2022-05-11 19:58] LABS: Glucose,Whole Blood 323 mg/dL (70-110)
[2022-05-11] MEDS: ATORVASTATIN 10 MG TAB PO SCH (19:59)
[2022-05-11] MEDS: traZODone HCL 50 MG TAB PO SCH (21:58)
[2022-05-12] MEDS: INSULIN ASPART (NovoLOG) 100 UNIT/ML VIAL SQ SCH (07:52)
[2022-05-12 07:55] LABS: Glucose,Whole Blood 114 mg/dL (70-110)
[2022-05-12] MEDS: LOSARTAN 50 MG TAB PO SCH (08:38)
[2022-05-12] MEDS: hydroCHLOROthiazide 12.5 MG CAP PO SCH (08:38)
[2022-05-12] MEDS: MELOXICAM 7.5 MG TAB PO SCH (08:38)
[2022-05-12] MEDS: CHOLECALCIFEROL 125 MCG (5000 IU) TABLET PO SCH (08:38)
[2022-05-12] MEDS: NALTREXONE HCL 50 MG TAB PO SCH (08:39)
[2022-05-12] MEDS: OLANZapine 5 MG TAB PO SCH (08:39)
[2022-05-12] MEDS: glipiZIDE 10 MG TAB PO SCH (08:39)
[2022-05-12] MEDS: VENLAFAXINE HCL ER 150 MG CAP PO SCH (08:39)
[2022-05-12] MEDS: CLOBETASOL PROP 0.05% CR 15GM TOPICAL SCH (08:40)
[2022-05-12] MEDS: ALBUTEROL INHALER 60 PUFF/8 GM INHALER (MHU) INHALATION PRN (08:41)
[2022-05-12] MEDS: NICOTINE 14MG/24HR PATCH TRANSDERM SCH (08:41)
[2022-05-12] MEDS: MAGNESIUM HYDROXIDE 2,400 MG/10 ML CUP PO PRN (10:04)
--- NOTE | 2022-05-12 12:17 | P.DS ---
Providers Date of admission: 05/07/22 18:20 Expected date of discharge: 05/12/22 Attending physician: Scooby Diaz MD Consults: 05/07/22 18:23 Consult Physician Routine Consulting Provider: Chente Mahmood Consult Reason/Comments: medical management Do you want consulting provider notified?: Yes Primary care physician: [facility] Diagnosis(es) (1) Bipolar 2 disorder, major depressive episode Current Visit: Yes Status: Acute Priority: High (2) Panic disorder without agoraphobia Current Visit: Yes Status: Acute Priority: High (3) Generalized anxiety disorder Current Visit: Yes Status: Chronic Priority: Medium (4) Alcohol use disorder Current Visit: Yes Status: Chronic Priority: Medium (5) Tobacco use disorder Current Visit: Yes Status: Chronic Priority: Medium Hospital Course: Admission HPI: Patient is a single, recently unemployed, 57-year-old male with significant history of depression, anxiety, and alcohol use disorder who presented to our hospital on 05/07/2022 for worsening depression and anxiety Patient presented to the hospital on 05/07/2022 on his own volition seeking help for his worsening depression and anxiety. The patient reported to the EPS nurse that he has been experiencing worsening panic attacks and has been feeling more and more suicidal. He was subsequently admitted to the psychiatric unit and signed adult formal voluntary. Upon admission on the psychiatric unit, the patient reports that he has been feeling increasing depressed and anxious for the past 8 months. He reports "I need to get right in my head again. I can only hold a job for 2-3 weeks because my anxiety and depression has been so bad." He reports that his girlfriend of 15 years has been in [place] for the past month taking care of her family. He also reports that the holiday season tends to be difficult time for himself as he has had numerous family members during the holidays including his dad, mother, and brother. In regards to psychiatric pathology, the patient reports that he has been experiencing "panic attacks." He reports that he would break out suddenly in a cold sweat, panic, begin hyperventilating, and have a general sense of unease. He reports that these started 8 months ago and occur in between 2-3 times in a day to 1 time per week. He expresses that this occurs even when he is out in public or alone and comfortable in his own home. In regards to depressive sym ptoms, the patient does report decreased mood, crying, decreased appetite with a 15 pound weight loss over the past 3 weeks, anhedonia, hopelessness, helplessness, and suicidal ideation. He however denies any intention or plan. He reports that he attempted suicide by stepping out on to traffic back in 2019 which resulted in inpatient psychiatric admission on this unit. The patient is not endorsing any significant symptoms of psychosis. He reports no auditory or visual hallucinations. He denies any paranoia or other delusions. The patient does endorse a significant history of hypomanic symptoms. He reports that he has been experiencing nonstop racing thoughts, intermittent excessive energy often going 3-4 days with no sleep, and severe mood lability. He however denies any episode lasting longer than 7 days and also reports no significant history of impulsive detrimental behavior. The patient was previously open with [facility] however has been off his medications aside from trazodone for almost a year. He reports that he was feeling better and decided to stop taking his psychiatric medications. He does have a history of heavy alcohol use however states that he stopped drinking heavily approximately 8 months ago. He states that he currently drinks 1-2 alcoholic beverages per day. He states that his last drink was a few days prior to this admission. He reports 1 pack per day with a [id number] history of tobacco. He denies any marijuana or illicit drug use. Patient states that he was previously diagnosed with alcohol use disorder, depression, and anxiety\\. The patient recalls being previously prescribed Remeron, Vivitrol, Zoloft, doxepin, trazodone, and Seroquel. He was last hospitalized on the psychiatric unit in April 2019 and this is his third inpatient psychiatric admission. The patient has an appointment with his sample case porter at [facility] however had not been following up for any outpatient care. He was last seen for medication review on 06/14/2019. He reports one prior suicide attempt back in . Hospital course: Upon admission to the unit patient was initially presenting with elevated anxiety and suicidal ideation. Patient was however directable and agreeable to commence treatment. Patient got along well with other patients on the unit and followed unit protocol. Patient was compliant with the medications and denied any side effects throughout hospital course. Patient was started on Effexor and zyprexa after providing a history consistent with anxiety and bipolar 2 disorder. Patient spoke of his stressors and engaged in therapy both group and individual. Patient was also seen by medical team for history and physical exam. Throughout the course of the hospitalization patient gradually improved with regards to his mood and tolerance of medication titration. On the day of discharge the patient is not reporting any suicidal or homicidal ideation, intention, and/or plan. He is not reporting any auditory or visual hallucinati ons. He is not reporting any paranoia or other delusions. He has been in adherent with his medication and is not endorsing any significant side effect. He reports that the medications have been beneficial. He denies any access to firearms or other weapons. He remains future and goal oriented and even tolerated the news that he would be unable to return back to his previous home and would be going to a intermediate instead well. He was counseled at length on the importance of medication adherence and appropriate outpatient follow-up. Furthermore, the patient does have a significant history of substance abuse and was consequently comes in a small substances including alcohol, tobacco, marijuana, and illicit drugs. As the patient no longer met criteria for continued inpatient psychiatric hospitalization, he was subsequently discharged. Mental status exam: General Appearance: Patient appears to be stated age is alert, pleasant, and cooperative. Patient is in no acute distress and has fair hygiene and grooming Behavior: Patient is calmly seated without any agitated behavior. Speech: Patient's speech is fluent and nonpressured. Mood/Affect: Patient reports their mood is "feeling good", affect is congruent and euthymic and at times bright. Suicidality/Homicidality: Patient denies having any suicidal or homicidal ideation intent or plan. Perceptions: Patient denies any auditory or visual hallucinations. Though content/process: There is no evidence of any delusional thought content and thought process is linear and goal-directed. Future oriented. Memory and concentration: AOX3, grossly intact for the purposes of this session. Can spell "WORLD" backwards correctly. Judgment and insight: Improved with guarded prognosis Impression: Bipolar 2 disorder, depressive episode Panic disorder without agoraphobia Generalized anxiety disorder Alcohol use disorder Tobacco use disorder Plan: -Continue with discharge today as patient has improved and stabilized psychiatrically and is not currently an imminent threat to himself and/or others. Patient remain at chronically elevated risk due to his previous suicide attempts and current homelessness. Protective factors include his relationship with his girlfriend, support groups, and future in goal orientation. He has no access to firearms or other weapons. -Continue medications: Trazodone 150 mg by mouth at bedtime for insomnia Zyprexa 5 mg by mouth twice a day for mood stabilization Effexor XR 150 mg by mouth daily for depression/anxiety/panic disorder Naltrexone 50 mg by mouth daily for alcohol cessation Habitrol patches for nicotine cessation -Patient was counseled on the need for medication compliance and appropriate follow-up at mental health and also primary care for medical issues. Patient verbalized understanding and agreed. -Social work to arrange for and conduct family meeting to ensure safety upon discharge and answer any questions/concerns. Social work also to arrange for patients follow up appointments with [facility] for psychiatric care along with follow up with primary care provider. -Patient counseled on abstaining from recreational drugs and marijuana and alcohol. Was informed/educated on the adverse effects on their physical and mental health. Patient verbally agreed and understood. Patient was offered substance abuse treatment however declined at this time. -Patient was instructed to return to the hospital or seek immediate medical care if their psychiatric or medical symptoms do worsen or reoccur. -Psychoeducation and supportive therapy provided to patient. Risks and benefits of pharmacological treatment versus the risks and benefits of nontreatment weight and discussed. Informed consent discussion held. Common side effects of psychotropics discussed such as, but not limited to headache, GI disturbance, sexual dysfunction, movement disorders, sedation, and orthostatic hypotension. Life threatening and blackbox warnings of prescribed medications also discussed. Potential risks of operating a vehicle or heavy machinery discussed with patient at length. Advised on importance of compliance and a reliable and responsible manner. Patient advised to review FDA consumer labeling of all medications prior to taking. Patient verbalized understanding of potential risks, and agrees with current treatment plan. Patient advised to medically contact physician/emergency personnel if any acute changes in condition occur. Vital Signs Temp 98.2 F 05/11/22 06:44 Pulse 77 05/11/22 08:45 Resp 16 05/11/22 06:44 BP 135/71 05/11/22 08:45 Pulse Ox 98 05/10/22 06:00 FiO2 Intake & Output 05/11/22 05/12/22 05/12/22 18:59 06:59 18:59 Weight 73.6 kg Laboratory Results WBC 7.1 k/uL (3.8-10.6) 05/08/22 06:06 RBC 4.31 m/uL (4.30-5.90) 05/08/22 06:06 Hgb 13.7 gm/dL (13.0-17.5) 05/08/22 06:06 Hct 41.2 % (39.0-53.0) 05/08/22 06:06 MCV 95.8 fL (80.0-100.0) 05/08/22 06:06 MCH 31.8 pg (25.0-35.0) 05/08/22 06:06 MCHC 33.2 g/dL (31.0-37.0) 05/08/22 06:06 RDW 12.8 % (11.5-15.5) 05/08/22 06:06 Plt Count 312 k/uL (150-450) 05/08/22 06:06 MPV 8.0 05/08/22 06:06 Neutrophils % 54 % 05/08/22 06:06 Lymphocytes % 34 % 05/08/22 06:06 Monocytes % 7 % 05/08/22 06:06 Eosinophils % 3 % 05/08/22 06:06 Basophils % 1 % 05/08/22 06:06 Neutrophils # 3.8 k/uL (1.3-7.7) 05/08/22 06:06 Lymphocytes # 2.5 k/uL (1.0-4.8) 05/08/22 06:06 Monocytes # 0.5 k/uL (0-1.0) 05/08/22 06:06 Eosinophils # 0.2 k/uL (0-0.7) 05/08/22 06:06 Basophils # 0.0 k/uL (0-0.2) 05/08/22 06:06 Sodium 134 mmol/L (137-145) L 05/08/22 06:06 Potassium 3.9 mmol/L (3.5-5.1) 05/08/22 06:06 Chloride 100 mmol/L (98-107) 05/08/22 06:06 Carbon Dioxide 29 mmol/L (22-30) 05/08/22 06:06 Anion Gap 5 mmol/L 05/08/22 06:06 BUN 8 mg/dL (9-20) L 05/08/22 06:06 Creatinine 0.61 mg/dL (0.66-1.25) L 05/08/22 06:06 Est GFR (CKD-EPI)AfAm >90 (>60 ml/min/1.73 sqM) 05/08/22 06:06 Est GFR (CKD-EPI)NonAf >90 (>60 ml/min/1.73 sqM) 05/08/22 06:06 Glucose 99 mg/dL (74-99) 05/08/22 06:06 POC Glucose (mg/dL) 114 mg/dL (70-110) H 05/12/22 07:43 POC Glu Neck Fitter ID ZamoraLaurae 05/12/22 07:[address] Glu mg/dL 188 05/08/22 06:06 Hemoglobin A1c 8.2 % (0.0-6.0) H 05/08/22 06:06 Calcium 8.8 mg/dL (8.4-10.2) 05/08/22 06:06 Total Bilirubin 1.0 mg/dL (0.2-1.3) 05/08/22 06:06 AST 47 U/L (17-59) 05/08/22 06:06 ALT 34 U/L (4-49) 05/08/22 06:06 Alkaline Phosphatase 65 U/L (38-126) 05/08/22 06:06 Total Protein 6.8 g/dL (6.3-8.2) 05/08/22 06:06 Albumin 4.2 g/dL (3.5-5.0) 05/08/22 06:06 Triglycerides 88.70 mg/dL (0.00-149.00) 05/08/22 06:06 Cholesterol 146.00 mg/dL (0.00-200.00) 05/08/22 06:06 LDL Cholesterol, Calc 61.7 mg/dL (0.0-131.0) 05/08/22 06:06 VLDL Cholesterol, Calc 17.74 mg/dL (5.00-40.00) 05/08/22 06:06 HDL Cholesterol 66.60 mg/dL (40.00-60.00) H 05/08/22 06:06 Cholesterol/HDL Ratio 2.19 Ratio 05/08/22 06:06 TSH 3.210 mIU/L (0.465-4.680) 05/08/22 06:06 Coronavirus (PCR) Not Detected (Not Detectd) 05/07/22 17:09 Allergies Allergy/AdvReac Type Severity Reaction Status Date / Time lisinopril AdvReac Unknown Cough Verified 05/07/22 19:04 Patient Condition at Discharge: Stable Plan - Discharge Summary Discharge Rx Participant: No New Discharge Prescriptions: New traZODone HCL [Desyrel] 150 mg PO HS 30 Days #30 tab Naltrexone HCl [Revia] 50 mg PO DAILY 30 Days #30 tab OLANZapine [ZyPREXA] 5 mg PO BID 30 Days #30 tab Venlafaxine HCl ER [Effexor XR] 150 mg PO DAILY 30 Days #30 cap Nicotine 14Mg/24Hr Patch [Habitrol] 1 patch TRANSDERM DAILY 15 Days #15 patch Continue glipiZIDE [Glucotrol] 10 mg PO BID Losartan Potassium 100 mg PO DAILY Atorvastatin [Lipitor] 10 mg PO HS Cyclobenzaprine [Flexeril] 10 mg PO DAILY PRN PRN Reason: Muscle Spasm Meloxicam [Mobic] 7.5 mg PO DAILY Cholecalciferol [Vitamin D3 (125 Mcg = 5000 Iu)] 125 mcg PO DAILY hydroCHLOROthiazide [Hydrodiuril] 12.5 mg PO DAILY Clobetasol Propionate [Temovate 0.05% Cream] 1 applic TOPICAL BID Albuterol Inhaler [Ventolin Hfa Inhaler] 1 puff INHALATION RT-Q4H PRN PRN Reason: Shortness Of Breath Discontinued traZODone HCL 150 mg PO HS Discharge Medication List Atorvastatin [Lipitor] 10 mg PO HS 04/19/21 [History] Cyclobenzaprine [Flexeril] 10 mg PO DAILY PRN 04/19/21 [History] glipiZIDE [Glucotrol] 10 mg PO BID 04/19/21 [History] Albuterol Inhaler [Ventolin Hfa Inhaler] 1 puff INHALATION RT-Q4H PRN 05/07/22 [History] Cholecalciferol [Vitamin D3 (125 Mcg = 5000 Iu)] 125 mcg PO DAILY 05/07/22 [History] Clobetasol Propionate [Temovate 0.05% Cream] 1 applic TOPICAL BID 05/07/22 [History] Losartan Potassium 100 mg PO DAILY 05/07/22 [History] Meloxicam [Mobic] 7.5 mg PO DAILY 05/07/22 [History] hydroCHLOROthiazide [Hydrodiuril] 12.5 mg PO DAILY 05/07/22 [History] Naltrexone HCl [Revia] 50 mg PO DAILY 30 Days #30 tab 05/12/22 [Rx] Nicotine 14Mg/24Hr Patch [Habitrol] 1 patch TRANSDERM DAILY 15 Days #15 patch 05/12/22 [Rx] OLANZapine [ZyPREXA] 5 mg PO BID 30 Days #30 tab 05/12/22 [Rx] Venlafaxine HCl ER [Effexor XR] 150 mg PO DAILY 30 Days #30 cap 05/12/22 [Rx] traZODone HCL [Desyrel] 150 mg PO HS 30 Days #30 tab 05/12/22 [Rx] Follow up Appointment(s)/Referral(s): [facility] [Outside] - 05/16/22 9:00 am (05/16/2022 9:00AM - 10:00AM MAGGIE DOWD 05/23/2022 8:00AM - 9:30AM CHRISTOPHER SELLERS ) [facility] [Primary Care Provider] - 1-2 days Patient Instructions/Handouts: How to Stop Smoking (DC), Mood Disorders (DC), Depression (DC) Activity/Diet/Wound Care/Special Instructions: Avoid the use of street drugs and alcohol. Take all prescriptions as prescribed. When you are in need of refills on your medications, please contact your medical provider and/or outpatient psychiatrist to have this done. Please go to scheduled outpatient appointment for aftercare treatment. If symptoms return or become worse, call the crisis line at and/or go to the nearest emergency room for evaluation Discharge Disposition: HOME SELF-CARE
== END 2022-05-12 12:07 | disposition home or self-care (01) | DRG 885 ==
LOC: EC 14:55 → 3MHU 18:20
PROVIDERS: ADMIT Psychiatry & Neurology Psychiatry; ATTEND Psychiatry & Neurology Psychiatry
DX: F31.81 Bipolar II disorder (principal); F41.0 Panic disorder [episodic paroxysmal anxiety]; G47.00 Insomnia, unspecified; F41.1 Generalized anxiety disorder; I10 Essential (primary) hypertension; M19.90 Unspecified osteoarthritis, unspecified site; Z56.0 Unemployment, unspecified; Z71.89 Other specified counseling; Z59.00 Homelessness unspecified; T43.96XA Underdosing of unspecified psychotropic drug, initial encounter; Z91.128 Patient's intentional underdosing of medication regimen for other reason; Z79.1 Long term (current) use of non-steroidal anti-inflammatories (NSAID); Z79.899 Other long term (current) drug therapy; Z81.1 Family history of alcohol abuse and dependence; Z91.51 Personal history of suicidal behavior; Z81.8 Family history of other mental and behavioral disorders; Z20.822 Contact with and (suspected) exposure to COVID-19
CPT/HCPCS: 80053; 80061; 82075; 83036; 84443; 85025; 87635; 99285

== ENCOUNTER 2022-07-18 21:06 | Inpatient (IN) | payer MEDICAID, OTHER ==
--- NOTE | 2022-07-18 21:36 | ED ---
General Adult HPI - General Chief complaint: Psychiatric Symptoms Stated complaint: SUICIDAL Time Seen by Provider: 07/18/22 21:19 Source: patient Mode of arrival: ambulatory Limitations: no limitations - History of Present Illness Initial comments: Dictation was produced using [employer]yo dictation software. please excuse any grammatical, word or spelling errors. Chief Complaint: 57-year-old male presents with suicidal attempt History of Present Illness: 57-year-old male he is depressed because his girlfriend for 15 years left him [place] out of state. Since then he's been feeling depressed. Today he tried to commit suicide. He jumped in front of traffic however the vehicle press on his brakes. Patient does not have a plan. Denies any visual or auditory hallucinations. No homicidal ideations. Patient did have some occult today. He has no medical complaints. The ROS documented in this emergency department record has been reviewed and confirmed by me. Those systems with pertinent positive or negative responses have been documented in the HPI. All other systems are other negative and/or noncontributory. PHYSICAL EXAM: General Impression: Alert and oriented x3, not in acute distress HEENT: Normocephalic atraumatic, extra-ocular movements intact, pupils equal and reactive to light bilaterally, mucous membranes moist. Cardiovascular: Heart regular rate and rhythm Chest: Able to complete full sentences, no retractions, no tachypnea Musculoskeletal: , no peripheral edema Motor: no focal deficits noted Neurological: CN II-XII grossly intact, no focal motor or sensory deficits noted Skin: Intact with no visualized rashes Psych: Normal affect and mood ED course: 57-year-old male presents with suicidal temp suicidal ideation. Vital signs upon arrival are within acceptable limits. Alcohol test of 0.168. Pending sobriety for EPS evaluation. Nursing notes and chart review was performed Was pt. sent in by a medical professional or institution (, PA, WIND TURBINE MECHANIC, urgent care, hospital, or prison...) When possible be specific @ -No Did you speak to anyone other than the patient for history (EMS, parent, family, police, friend...)? What history was obtained from this source @ -No Did you review nursing and triage notes (agree or disagree)? Why? @ -I reviewed and agree with nursing and triage notes Were old charts reviewed (outside hosp., previous admission, EMS record, old EKG, old radiological studies, urgent care reports/EKG's, prison records)? Report findings @ -No old charts were reviewed Differential Diagnosis (chest pain, altered mental status, abdominal pain women, abdominal pain men, vaginal bleeding, musculoskeletal, weakness, fever, dyspnea, syncope, headache, dizziness, GI bleed, back pain, seizure, CVA, palpatations, mental health)? @ -Differential Mental Health: Depression, anxiety, bipolar, psychosis, schizophrenia, borderline personality, situational depression, adjustment disorder, behavioral disorder, brain tumor, malingering, substance abuse, encephalopathy, medication reaction, dementia, hypothyroidism, degenerative neurologic disorder, lupus.... This is not meant to be all-inclusive list EKG interpreted by me (3pts min.). @ -None done X-rays interpreted by me (1pt min.). @ -None done CT interpreted by me (1pt min.). @ -None done U/S interpreted by me (1pt. min.). @ -None done What testing was considered but not performed or refused? (CT, X-rays, U/S, labs)? Why? @ -None What meds were considered but not given or refused? Why? @ -None Did you discuss the management of the patient with other professionals (professionals i.e. , PA, W[employer] MECHANIC, lab, RT, psych nurse, social media intern, photograph enlarger, teacher, senior escrow officer, renal case manager)? Give summary @ -Emergency psych service nurse Was smoking cessation discussed for >3mins.? @ -No Was critical care preformed (if so, how long)? @ -No Were there social determinants of health that impacted care today? How? (Homelessness, low income, unemployed, alcoholism, drug addiction, transportation, low edu. Level, literacy, decrease access to med. care, [facility], rehab)? @ -No Was there de-escalation of care discussed even if they declined (Discuss DNR or withdrawal of care, Hospice)? DNR status @ -No What co-morbidities impacted this encounter? (DM, HTN, Smoking, COPD, CAD, Cancer, CVA, ARF, Chemo, Hep., AIDS, mental health diagnosis, sleep apnea, morbid obesity)? @ -None Was patient admitted / discharged? Hospital course, mention meds given and route, prescriptions, significant lab abnormalities, going to OR and other pertinent info. @ -57-year-old male presents emergency Department with suicidal ideation. Patient noted by EPS will admit patient to inpatient psych unit. Undiagnosed new problem with uncertain prognosis? @ -No Drug Therapy requiring intensive monitoring for toxicity (Heparin, Nitro, Insulin, Cardizem)? @ -No Were any procedures done? @ -No Diagnosis/symptom? Acute, or Chronic, or Acute on Chronic? Uncomplicated (without systemic symptoms) or Complicated (systemic symptoms)? @ -1. Suicidal attempt Side effects of treatment? @ -No Exacerbation, Progression, or Severe Exacerbation? @ -No Poses a threat to life or bodily function? How? (Chest pain, [place], [place], pneumonia, PE, COPD, DKA, ARF, appy, cholecystitis, CVA, Diverticulitis, Homicidal, Suicidal, threat to staff... and all critical care pts) @ -No - Related Data Home Medications Medication Instructions Recorded Confirmed Atorvastatin [Lipitor] 10 mg PO HS 04/19/21 07/19/22 Cyclobenzaprine [Flexeril] 10 mg PO DAILY PRN 04/19/21 07/19/22 glipiZIDE [Glucotrol] 10 mg PO BID 04/19/21 07/19/22 Albuterol Inhaler [Ventolin Hfa 1 puff INHALATION RT-Q4H PRN 05/07/22 07/19/22 Inhaler] Cholecalciferol [Vitamin D3 (125 125 mcg PO DAILY 05/07/22 07/19/22 Mcg = 5000 Iu)] Clobetasol Propionate [Temovate 1 applic TOPICAL BID 05/07/22 07/19/22 0.05% Cream] Losartan Potassium 100 mg PO DAILY 05/07/22 07/19/22 Meloxicam [Mobic] 7.5 mg PO DAILY 05/07/22 07/19/22 hydroCHLOROthiazide [Hydrodiuril] 12.5 mg PO DAILY 05/07/22 07/19/22 OLANZapine [ZyPREXA] 10 mg PO HS 07/18/22 07/19/22 traZODone HCL 150 mg PO HS 07/18/22 07/19/22 Previous Rx's Medication Instructions Recorded Naltrexone HCl [Revia] 50 mg PO DAILY 30 Days #30 tab 05/12/22 Venlafaxine HCl ER [Effexor XR] 150 mg PO DAILY 30 Days #30 cap 05/12/22 Allergies Allergy/AdvReac Type Severity Reaction Status Date / Time lisinopril AdvReac Unknown Cough Verified 07/19/22 05:52 Review of Systems ROS Statement: Those systems with pertinent positive or pertinent negative responses have been documented in the HPI. ROS Other: All systems not noted in ROS Statement are negative. Past Medical History Past Medical History: Diabetes Mellitus, Hypertension, Osteoarthritis (OA), Skin Disorder Additional Past Medical History / Comment(s): PSORIASIS, BACK & NECK PAIN. History of Any Multi-Drug Resistant Organisms: None Reported Additional Past Surgical History / Comment(s): HAND SURGERY AND NERVE GRAFT TO THUMB, CORTISONE INJECTIONS HIP. Past Anesthesia/Blood Transfusion Reactions: No Reported Reaction Past Psychological History: Anxiety, Depression Smoking Status: Current every day smoker Past Alcohol Use History: Occasional Past Drug Use History: None Reported - Past Family History Father Family Medical History: Cancer Additional Family Medical History / Comment(s): LUNG CANCER General Exam Limitations: no limitations Course Vital Signs 07/18/22 07/19/22 21:13 05:14 Pulse Rate 105 H 84 Respiratory 18 18 Rate Blood Pressure 180/102 146/72 O2 Sat by Pulse 98 97 Oximetry Medical Decision Making - Lab Data Lab Results 07/18/22 07/18/22 07/19/22 Range/Units 21:26 21:26 04:02 Urine Color Yellow Urine Appearance Clear (Clear) Urine pH 6.5 (5.0-8.0) Ur Specific [place] 1.015 (1.001-1.035) Urine Protein 1+ H (Negative) Urine Glucose (UA) Trace H (Negative) Urine Ketones Negative (Negative) Urine Blood Negative (Negative) Urine Nitrite Negative (Negative) Urine Bilirubin Negative (Negative) Urine Urobilinogen <2.0 (<2.0) mg/dL Ur Leukocyte Esterase Negative (Negative) Urine RBC <1 (0-5) /hpf Urine WBC 1 (0-5) /hpf Hyaline Casts 4 H (0-2) /lpf Urine Mucus Rare H (None) /hpf Urine Opiates Screen Not Detected (NotDetected) Ur Oxycodone Screen Not Detected (NotDetected) Urine Methadone Screen Not Detected (NotDetected) Ur Propoxyphene Screen Not Detected (NotDetected) Ur Barbiturates Screen Not Detected (NotDetected) U Tricyclic Antidepress Not Detected (NotDetected) Ur Phencyclidine Scrn Not Detected (NotDetected) Ur Amphetamines Screen Not Detected (NotDetected) U Methamphetamines Scrn Not Detected (NotDetected) U Benzodiazepines Scrn Not Detected (NotDetected) Urine Cocaine Screen Not Detected (NotDetected) U Marijuana (THC) Screen Not Detected (NotDetected) Coronavirus (PCR) Not Detected (Not Detectd) Disposition Clinical Impression: Attempted suicide Disposition: ADMITTED IP TO THIS [facility] Condition: Fair
[2022-07-19] MEDS ORDERED: MAG HYDROX/AL HYDROX/SIMETH 30 ML CUP PO PRN (04:55)
[2022-07-19] MEDS ORDERED: MAGNESIUM HYDROXIDE 2,400 MG/10 ML CUP PO PRN (04:55)
[2022-07-19 04:57] LABS: Amphetamine Screen,Urine Not Detected (NotDetected); Barbiturate Screen,Urine Not Detected (NotDetected); Benzodiazepines Screen,Urine Not Detected (NotDetected); Cocaine Screen,Urine Not Detected (NotDetected); Methadone Screen, Urine Not Detected (NotDetected); Opiate Screen,Urine Not Detected (NotDetected); Oxycodone Screen, Urine Not Detected (NotDetected); Phencyclidine Screen,Urine Not Detected (NotDetected); Tricyclic Antidepressant,Urine Not Detected (NotDetected); Urn Cannabinoid Scrn Not Detected (NotDetected)
[2022-07-19] MEDS ORDERED: LORazepam 2 MG/ML INJ IM PRN (04:59)
[2022-07-19] MEDS ORDERED: HALOPERIDOL LACTATE 5 MG/ML 1 ML VIAL IM PRN (05:01)
[2022-07-19] MEDS ORDERED: haloperidoL 5 MG TAB PO PRN (05:01)
[2022-07-19 05:11] LABS: Appearance,Urine Clear (Clear); Bilirubin,Urine Negative (Negative); Blood,Urine Negative (Negative); Color,Urine Yellow; Glucose,Urine (UA) Trace (Negative); Hyaline Casts,Urine 4 /lpf (0-2); Ketones,Urine Negative (Negative); Leukocyte Esterase,Urine Negative (Negative); Mucus,Urine Rare /hpf; Nitrite,Urine Negative (Negative); PH, Urine 6.5 (5.0-8.0); Protein,Urine 1+ (Negative); RBC,Urine <1 /hpf (0-5); Specific Gravity,Urine 1.015 (1.001-1.035); Urobilinogen,Urine <2.0 mg/dL (<2.0); WBC,Urine 1 /hpf (0-5)
[2022-07-19] MEDS: LORazepam 1 MG TAB PO PRN ×2 (05:36→21:53)
[2022-07-19] MEDS: glipiZIDE 10 MG TAB PO SCH ×2 (08:28→21:53)
[2022-07-19] MEDS: hydroCHLOROthiazide 12.5 MG CAP PO SCH (08:28)
[2022-07-19] MEDS: NICOTINE 14MG/24HR PATCH TRANSDERM SCH (08:32)
--- NOTE | 2022-07-19 09:56 | P.HP ---
Psychiatric H&P - . H&P Date: 07/19/22 History & Physical: Allergies Allergy/AdvReac Type Severity Reaction Status Date / Time lisinopril AdvReac Unknown Cough Verified 07/19/22 05:52 Vital Signs Temp 98.1 F 07/19/22 05:54 Pulse 90 07/19/22 05:54 Resp 15 07/19/22 05:54 BP 155/78 07/19/22 05:54 Pulse Ox 94 L 07/19/22 05:54 FiO2 Intake & Output 07/18/22 07/19/22 07/19/22 18:59 06:59 18:59 Weight 70.335 kg Laboratory Last Values Urine Color Yellow 07/18/22 21:26 Urine Appearance Clear (Clear) 07/18/22 21:26 Urine pH 6.5 (5.0-8.0) 07/18/22 21:26 Ur Specific [place] 1.015 (1.001-1.035) 07/18/22 21:26 Urine Protein 1+ (Negative) H 07/18/22 21:26 Urine Glucose (UA) Trace (Negative) H 07/18/22 21:26 Urine Ketones Negative (Negative) 07/18/22 21:26 Urine Blood Negative (Negative) 07/18/22 21:26 Urine Nitrite Negative (Negative) 07/18/22 21:26 Urine Bilirubin Negative (Negative) 07/18/22 21:26 Urine Urobilinogen <2.0 mg/dL (<2.0) 07/18/22 21:26 Ur Leukocyte Esterase Negative (Negative) 07/18/22 21:26 Urine RBC <1 /hpf (0-5) 07/18/22 21:26 Urine WBC 1 /hpf (0-5) 07/18/22 21:26 Hyaline Casts 4 /lpf (0-2) H 07/18/22 21:26 Urine Mucus Rare /hpf (None) H 07/18/22 21:26 Urine Opiates Screen Not Detected (NotDetected) 07/18/22 21:26 Ur Oxycodone Screen Not Detected (NotDetected) 07/18/22 21:26 Urine Methadone Screen Not Detected (NotDetected) 07/18/22 21:26 Ur Propoxyphene Screen Not Detected (NotDetected) 07/18/22 21:26 Ur Barbiturates Screen Not Detected (NotDetected) 07/18/22 21:26 U Tricyclic Antidepress Not Detected (NotDetected) 07/18/22 21:26 Ur Phencyclidine Scrn Not Detected (NotDetected) 07/18/22 21:26 Ur Amphetamines Screen Not Detected (NotDetected) 07/18/22 21:26 U Methamphetamines Scrn Not Detected (NotDetected) 07/18/22 21:26 U Benzodiazepines Scrn Not Detected (NotDetected) 07/18/22 21:26 Urine Cocaine Screen Not Detected (NotDetected) 07/18/22 21:26 U Marijuana (THC) Screen Not Detected (NotDetected) 07/18/22 21:26 Coronavirus (PCR) Not Detected (Not Detectd) 07/19/22 04:02 07/19/22 07:28 History of Present Illness: 57-year-old male he is depressed because his girlfriend for 15 years left him moved out of [facility] to [facility] and bought an apartment and seems to be settling in. Since then he's been feeling depressed. They're still good friends and he will talk to her and feel good for a while and then will hit him that she is not coming back and he will be depressed. Yesterday he tried to commit suicide. He jumped in front of traffic however the vehicle pressed on its brakes. Patient no longer a plan. Denies any visual or auditory hallucinations. No homicidal ideations. Medications: He has been taking 150 of Effexor and it seems to be helping in general on emotional over reactivity but he has a lot of trouble with focus and organizing his thoughts. When he gets to ruminating on a negative it just goes around around and he can't stop suggesting a norepinephrine deficiency. He is also on trazodone 150 mg and he says it does seem to work doesn't take it every night He was also taking Zyprexa 5 mg twice a day and have been told to move it all to the evening which she did he says that has helped a lot. Currently he is living in a jail. All of his things are in his friend's basement. 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 He has skills and action found a job about 2 weeks ago. So now that he is calm he says he can get a place to live continue his job, move his stuff back, hang out with his friend. He denies any clear history now or in the past of manic episodes although the depression fluctuates that seems to fluctuate according to triggers. Substance use: Says he does not use drugs but does use more alcohol than is cervantes. He says he doesn't get an abbreviated like he did when he was younger and he still drinks beer on a regular frequency. Past history: The patient is the oldest of 3 boys born to his parents have stayed together to dad of cancer at 64 and his mom at age 75. The middle brother drank himself to quite a while ago and his youngest brother is richardson and they don't have much contact. Marriage: The patient never been but he was in a 10 year relationship with a lady and they had a daughter together who is currently 28. The last time he talked her was 5 years ago at his mother's when she said we need to contact more and did so 4 months but then cut him off. He has been in the current relationship for about 15 years and he thought it was permanent. She says she loves them but she needs to get away to work on her own problems. 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 He is not on disability but has not had a steady job for a while. Medical: He has blood pressure and diabetes Mental status exam: Patient is tired he was up in the emergency room most of the night but he says he normally sleeps well. He says his appetite is fine. He was cooperative, good eye contact, decreased psychomotor activity from being tired, oriented to person place time and circumstances, denies and there is no evidence of psychosis delusions or illusions. Self-care is adequate. He says that this morning he is a little bit more hopeful but every time he gets to thinking about the permanent loss of his girlfriend he gets to feeling hopeless again. Assessment I think the patient is struggling with chronic depression and especially is low on norepinephrine. He needs to work on his social supports and put together a plan and increase in norepinephrine support by going up on the venlafaxine. Plan increase venlafaxine from 150-225. Continue trazodone at night Diagnosis: Major depression recurrent nonpsychotic 07/19/22 09:55
[2022-07-19 10:43] LABS: Basophils % (A) 1 %; Eosinophils # (A) 0.2 k/uL (0-0.7); Eosinophils % (A) 2 %; HCT 38.2 % (39.0-53.0); HGB 13.1 gm/dL (13.0-17.5); Lymphocytes # (A) 1.8 k/uL (1.0-4.8); Lymphocytes % (A) 25 %; MCH 33.7 pg (25.0-35.0); MCHC 34.2 g/dL (31.0-37.0); MCV 98.4 fL (80.0-100.0); Mean Platelet Volume 7.7; Monocytes # (A) 0.7 k/uL (0-1.0); Monocytes % (A) 10 %; Neutrophils # (A) 4.2 k/uL (1.3-7.7); Neutrophils % (A) 60 %; Platelet Count 345 k/uL (150-450); RBC 3.89 m/uL (4.30-5.90); RDW 13.6 % (11.5-15.5); WBC 7.1 k/uL (3.8-10.6)
[2022-07-19 11:03] LABS: ALT 54 U/L (4-49); AST 58 U/L (17-59); African American GFR (CKD) >90 (>60 ml/min/1.73 sqM); Albumin 4.2 g/dL (3.5-5.0); Alkaline Phosphatase 61 U/L (38-126); Anion Gap 8 mmol/L; Bilirubin, Delta 0.1 mg/dL (0.0-0.2); Bilirubin,Unconjugated 0.4 mg/dL (0.0-1.1); Blood Urea Nitrogen 11 mg/dL (9-20); Calcium 9.1 mg/dL (8.4-10.2); Carbon Dioxide 31 mmol/L (22-30); Chloride 98 mmol/L (98-107); Glucose 166 mg/dL (74-99); Non-African American GFR(CKD) >90 (>60 ml/min/1.73 sqM); Potassium 3.9 mmol/L (3.5-5.1); Sodium 137 mmol/L (137-145); Total Bilirubin 0.5 mg/dL (0.2-1.3); Total Protein 6.7 g/dL (6.3-8.2)
[2022-07-19] MEDS: VENLAFAXINE HCL ER 75 MG CAP PO SCH (12:26)
[2022-07-19] MEDS: LOSARTAN 50 MG TAB PO SCH (15:42)
[2022-07-19] MEDS: traZODone HCL 50 MG TAB PO SCH (21:52)
[2022-07-19] MEDS: OLANZapine 10 MG TAB PO SCH (21:53)
[2022-07-19] MEDS: ATORVASTATIN 10 MG TAB PO SCH (21:53)
[2022-07-19] MEDS: ACETAMINOPHEN TAB 325 MG TAB PO PRN (21:55)
[2022-07-19 22:56] LABS: Chol/HDL Ratio 2.18 Ratio; LDL Cholesterol,Calculated 69.6 mg/dL (0.0-131.0)
--- NOTE | 2022-07-20 05:19 | P.PN ---
Progress Note - Text Progress Note Date: 07/20/22 Attempted to see the patient in the mental health unit. Informed by the mental health unit RN that the patient was inappropriate for evaluation at that time.
[2022-07-20 07:58] LABS: Glucose,Whole Blood 133 mg/dL (70-110)
[2022-07-20 07:58] LABS: Glucose,Whole Blood 103 mg/dL (70-110)
[2022-07-20 07:58] LABS: Glucose,Whole Blood 163 mg/dL (70-110)
[2022-07-20 07:58] LABS: Glucose,Whole Blood 244 mg/dL (70-110)
[2022-07-20 07:58] LABS: Glucose,Whole Blood 255 mg/dL (70-110)
--- NOTE | 2022-07-20 08:16 | P.PN ---
Subjective Progress Note Date: 07/20/22 Principal diagnosis: Diagnoses: Major depression recurrent severe nonpsychotic Subjective: Patient said that he was able sleep last night on the Zyprexa plus trazodone he also tolerated the slight increase in Effexor from 150-225. He denies any suicidality still feels slowed down poor concentration but no irritability or anxiety. Objective: Patient is low energy, decreased eye contact, minimal self-care, denies and does not evidence any psychotic symptoms or delusions, is trying to participate in the program, has decreased psychomotor activity, appetite is adequate Assessment: I think the Effexor is working on a serotonin but not the norepinephrine hopefully the increase will help with that. The patient is able to remember his medications faithfully and he uses a pill dispenser side think Effexor is a fine medicine for him. Plan: No change in medication urge patient to go to groups participate and work on a plan for healthy living after discharge Objective - Vital Signs Vital signs: Vital Signs Temp 98.7 F 07/20/22 06:53 Pulse 61 07/20/22 06:53 Resp 14 07/20/22 06:53 BP 114/64 07/20/22 06:53 Pulse Ox 94 L 07/19/22 05:54 FiO2 - Labs CBC & Chem 7: 07/19/22 10:26 07/19/22 10:26 Labs: Abnormal Lab Results - Last 24 Hours (Table) 07/19/22 07/19/22 07/19/22 Range/Units 07:46 10:26 10:26 RBC 3.89 L (4.30-5.90) m/uL Hct 38.2 L (39.0-53.0) % Carbon Dioxide 31 H (22-30) mmol/L Creatinine 0.65 L (0.66-1.25) mg/dL Glucose 166 H (74-99) mg/dL POC Glucose (mg/dL) 244 H (70-110) mg/dL Hemoglobin A1c (0.0-6.0) % ALT 54 H (4-49) U/L HDL Cholesterol 77.40 H (40.00-60.00) mg/dL 07/19/22 07/19/22 07/19/22 Range/Units 10:26 17:43 20:07 RBC (4.30-5.90) m/uL Hct (39.0-53.0) % Carbon Dioxide (22-30) mmol/L Creatinine (0.66-1.25) mg/dL Glucose (74-99) mg/dL POC Glucose (mg/dL) 163 H 255 H (70-110) mg/dL Hemoglobin A1c 7.3 H (0.0-6.0) % ALT (4-49) U/L HDL Cholesterol (40.00-60.00) mg/dL 07/20/22 Range/Units 07:53 RBC (4.30-5.90) m/uL Hct (39.0-53.0) % Carbon Dioxide (22-30) mmol/L Creatinine (0.66-1.25) mg/dL Glucose (74-99) mg/dL POC Glucose (mg/dL) 133 H (70-110) mg/dL Hemoglobin A1c (0.0-6.0) % ALT (4-49) U/L HDL Cholesterol (40.00-60.00) mg/dL
[2022-07-20] MEDS: CHOLECALCIFEROL 125 MCG (5000 IU) TABLET PO SCH (08:41)
[2022-07-20] MEDS: glipiZIDE 10 MG TAB PO SCH ×2 (08:41→23:23)
[2022-07-20] MEDS: hydroCHLOROthiazide 12.5 MG CAP PO SCH (08:41)
[2022-07-20] MEDS: VENLAFAXINE HCL ER 75 MG CAP PO SCH (08:42)
[2022-07-20] MEDS: LOSARTAN 50 MG TAB PO SCH (08:42)
[2022-07-20] MEDS: NICOTINE 14MG/24HR PATCH TRANSDERM SCH (08:42)
[2022-07-20 12:38] LABS: Glucose,Whole Blood 171 mg/dL (70-110)
[2022-07-20 17:50] LABS: Glucose,Whole Blood 171 mg/dL (70-110)
[2022-07-20 19:51] LABS: Glucose,Whole Blood 295 mg/dL (70-110)
[2022-07-20] MEDS: INSULIN ASPART (NovoLOG) 100 UNIT/ML VIAL SQ SCH (20:43)
[2022-07-20] MEDS: ACETAMINOPHEN TAB 325 MG TAB PO PRN (21:27)
[2022-07-20] MEDS: OLANZapine 10 MG TAB PO SCH (23:22)
[2022-07-20] MEDS: traZODone HCL 50 MG TAB PO SCH (23:22)
[2022-07-20] MEDS: ATORVASTATIN 10 MG TAB PO SCH (23:23)
[2022-07-20] MEDS: LORazepam 1 MG TAB PO PRN (23:24)
--- NOTE | 2022-07-21 00:55 | P.CONS ---
History of Present Illness - Reason for Consult Consult date: 07/21/22 - History of Present Illness The patient is a 57-year-old male with a PMH of type II DM and hypertension who presents to the emergency room with complaints of depression and suicidal ideation. The patient was admitted to the [facility] he was seen and evaluated. The patient states that he recently broke up with his long-term girlfriend of 15 years which has been causing a lot of strain on his mental health. He reports attempting to walk out into traffic but that the stage driver was able to stop the car and avoid him. The patient reports chronic hip and lower back pain which is unchanged. The patient denied any additional physical complaints at the time of interview. He denied experiencing chest discomfort, shortness of breath, fever, chills, cough, nausea, vomiting, abdominal pain, diarrhea. The patient reports smoking less than one pack of cigarettes daily and being a social drinker. He denied substance use. Review of systems: Pertinent positives and negatives as discussed in HPI, a complete review of systems was performed and all other systems are negative. Physical examination: General: non toxic, no distress, appears at stated age, normal weight Derm: no unusual rashes/lesions, no unusual ecchymoses, warm, dry Head: atraumatic, normocephalic, symmetric Eyes: EOMI, no lid lag, anicteric sclera ENT: Nose and ears atraumatic, no thrush, no pharyngeal erythema Neck: trachea midline, supple Mouth: no lip lesion, mucus membranes moist Cardiovascular: S1S2 reg, no murmur, no edema Lungs: CTA bilateral, no rhonchi, no rales , no accessory muscle use Abdominal: soft, nontender to palpation, no guarding Ext: no gross muscle atrophy, no contractures, Neuro: No gross focal neuro deficits noted Psych: Alert, oriented, appropriate affect Assessment: Chronic conditions: Type II DM, hypertension Depression and suicidal ideation Imaging: None performed Data Review: Laboratory evaluation revealed with WBC count 7.1, hemoglobin 13.1, platelets 345, sodium 137, potassium 3.9, CO2 31, BUN 11, creatinine 0.65, glucose 166, hemoglobin A1c 7.3, TSH 1.28, and an unremarkable urine toxicology. Plan: Continue with the following home medications -Hydrochlorothiazide 12.5 mg by mouth daily -Glipizide 10 mg by mouth twice a day -Losartan 100 mg by mouth daily -Lipitor 10 mg by mouth daily at bedtime Defer management of depression and suicidal ideation to the primary psychiatry service Thank you for allowing us to participate in the care of this patient. We will follow peripherally. Do not hesitate to contact us with questions. Someone can be reached from the [facility] hospitalist group at all hours of the day at [phone]. Past Medical History Past Medical History: Diabetes Mellitus, Hypertension, Osteoarthritis (OA), Skin Disorder Additional Past Medical History / Comment(s): PSORIASIS, Back and bilat hip pain. Arthritis bilat hip. Bone spurs in spine. History of Any Multi-Drug Resistant Organisms: None Reported Additional Past Surgical History / Comment(s): HAND SURGERY AND NERVE GRAFT TO THUMB, CORTISONE INJECTIONS HIP. Past Anesthesia/Blood Transfusion Reactions: No Reported Reaction Past Psychological History: Anxiety, Depression Smoking Status: Current every day smoker Past Alcohol Use History: Occasional Additional Past Alcohol Use History / Comment(s): SMOKES <1PPD, SMOKING FOR 40 YEARS. Patient states he binge drinks alcohol, he does not drink daily. Past Drug Use History: None Reported - Past Family History Father Family Medical History: Cancer Additional Family Medical History / Comment(s): LUNG CANCER Medications and Allergies Home Medications Medication Instructions Recorded Confirmed Type Atorvastatin [Lipitor] 10 mg PO HS 04/19/21 07/19/22 History Cyclobenzaprine [Flexeril] 10 mg PO DAILY PRN 04/19/21 07/19/22 History glipiZIDE [Glucotrol] 10 mg PO BID 04/19/21 07/19/22 History Albuterol Inhaler [Ventolin Hfa 1 puff INHALATION RT-Q4H PRN 05/07/22 07/19/22 History Inhaler] Cholecalciferol [Vitamin D3 (125 125 mcg PO DAILY 05/07/22 07/19/22 History Mcg = 5000 Iu)] Clobetasol Propionate [Temovate 1 applic TOPICAL BID 05/07/22 07/19/22 History 0.05% Cream] Losartan Potassium 100 mg PO DAILY 05/07/22 07/19/22 History Meloxicam [Mobic] 7.5 mg PO DAILY 05/07/22 07/19/22 History hydroCHLOROthiazide [Hydrodiuril] 12.5 mg PO DAILY 05/07/22 07/19/22 History Naltrexone HCl [Revia] 50 mg PO DAILY 30 Days #30 tab 05/12/22 07/19/22 Rx Venlafaxine HCl ER [Effexor XR] 150 mg PO DAILY 30 Days #30 cap 05/12/22 07/19/22 Rx OLANZapine [ZyPREXA] 10 mg PO HS 07/18/22 07/19/22 History traZODone HCL 150 mg PO HS 07/18/22 07/19/22 History Allergies Allergy/AdvReac Type Severity Reaction Status Date / Time lisinopril AdvReac Unknown Cough Verified 07/19/22 05:52 Physical Exam Vitals: Vital Signs Temp Pulse Pulse Resp BP Pulse Ox 07/20/22 23:27 97.8 F 70 16 122/68 98 07/20/22 08:44 101 H 158/84 07/20/22 06:53 98.7 F 61 14 114/64 Intake and Output 07/20/22 07/20/22 07/21/22 14:59 22:59 06:59 Other: Weight 71 kg Results CBC & Chem 7: 07/19/22 10:26 07/19/22 10:26 Labs: Abnormal Lab Results - Last 24 Hours (Table) 07/19/22 07/19/22 07/19/22 Range/Units 07:46 17:43 20:07 POC Glucose (mg/dL) 244 H 163 H 255 H (70-110) mg/dL 07/20/22 07/20/22 07/20/22 Range/Units 07:53 12:36 17:49 POC Glucose (mg/dL) 133 H 171 H 171 H (70-110) mg/dL 07/20/22 Range/Units 19:50 POC Glucose (mg/dL) 295 H (70-110) mg/dL
[2022-07-21 07:42] LABS: Glucose,Whole Blood 113 mg/dL (70-110)
[2022-07-21] MEDS: hydroCHLOROthiazide 12.5 MG CAP PO SCH (08:16)
[2022-07-21] MEDS: VENLAFAXINE HCL ER 75 MG CAP PO SCH (08:16)
[2022-07-21] MEDS: LOSARTAN 50 MG TAB PO SCH (08:16)
[2022-07-21] MEDS: glipiZIDE 10 MG TAB PO SCH ×2 (08:17→23:10)
[2022-07-21] MEDS: CHOLECALCIFEROL 125 MCG (5000 IU) TABLET PO SCH (08:17)
[2022-07-21] MEDS: INSULIN ASPART (NovoLOG) 100 UNIT/ML VIAL SQ SCH ×4 (08:41→20:35)
[2022-07-21] MEDS: ALBUTEROL INHALER 60 PUFF/8 GM INHALER (MHU) INHALATION PRN (08:55)
[2022-07-21] MEDS: ACETAMINOPHEN TAB 325 MG TAB PO PRN (08:56)
--- NOTE | 2022-07-21 10:34 | P.PN ---
Progress Note - Text Progress Note Date: 07/21/22 S&O: Patient was seen in rounds. His chart indicates he has major depressive disorder. Apparently he has been feeling lonely and "depressed"since his girlfriend moved to [facility]. He does not have any family or friends in this area and thinks a lot about her. He is on Zyprexa 10 mg at bedtime, trazodone 150 mg at bedtime for sleep and his Effexor was increased to 225 mg a day by the weekend psychiatrist. He has knee pain, psoriasis, COPD and dyslipidemia and is on several medications. He said he has been taking trazodone for several years since he does not sleep well at night and that is the only thing that had helped him to sleep. He said he does not take it every night and takes it only when he cannot sleep for a few days. He said in spite of not sleeping for a few days he does not feel tired. This is a right ambulatory male with adequate hygiene. He is polite friendly cheerful and cooperative in spite of him telling that he is depressed. Speech is spontaneous and tends to be mildly pressured. 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 Denies hallucinations, delusional thinking, current suicide and homicide thoughts. His sensorium is clear. A&P: Does not appear to be having major depressive disorder. Most likely he has bipolar 1 disorder for which he would benefit from mood stabilizers and antidepressants are not recommended. He was counseled about it and was advised to think about it. Since he has diabetes changing Zyprexa to Seroquel seems to be a better option. He said Seroquel did not help him to sleep well in the past. He cannot be on lithium since he has psoriasis. He could take Depakote and he was asked to think about it. He'll then continue current medications and plans. Per his request Moby Jez for knee pain was ordered and Temovate cream was ordered for psoriasis.
[2022-07-21 12:42] LABS: Glucose,Whole Blood 178 mg/dL (70-110)
[2022-07-21 17:28] LABS: Glucose,Whole Blood 203 mg/dL (70-110)
[2022-07-21 20:08] LABS: Glucose,Whole Blood 164 mg/dL (70-110)
[2022-07-21] MEDS: CLOBETASOL PROP 0.05% CR 15GM TOPICAL SCH (23:09)
[2022-07-21] MEDS: ATORVASTATIN 10 MG TAB PO SCH (23:09)
[2022-07-21] MEDS: traZODone HCL 50 MG TAB PO SCH (23:10)
[2022-07-21] MEDS: OLANZapine 10 MG TAB PO SCH (23:10)
[2022-07-22 07:52] LABS: Glucose,Whole Blood 129 mg/dL (70-110)
[2022-07-22] MEDS: INSULIN ASPART (NovoLOG) 100 UNIT/ML VIAL SQ SCH ×4 (08:24→20:24)
[2022-07-22] MEDS: MELOXICAM 7.5 MG TAB PO SCH (08:26)
[2022-07-22] MEDS: VENLAFAXINE HCL ER 75 MG CAP PO SCH (08:26)
[2022-07-22] MEDS: LOSARTAN 50 MG TAB PO SCH (08:26)
[2022-07-22] MEDS: CLOBETASOL PROP 0.05% CR 15GM TOPICAL SCH ×2 (08:27→23:07)
[2022-07-22] MEDS: glipiZIDE 10 MG TAB PO SCH ×2 (08:27→23:06)
[2022-07-22] MEDS: CHOLECALCIFEROL 125 MCG (5000 IU) TABLET PO SCH (08:27)
[2022-07-22] MEDS: ALBUTEROL INHALER 60 PUFF/8 GM INHALER (MHU) INHALATION PRN ×3 (08:27→21:10)
[2022-07-22] MEDS: hydroCHLOROthiazide 12.5 MG CAP PO SCH (08:27)
--- NOTE | 2022-07-22 11:05 | P.PN ---
Progress Note - Text Progress Note Date: 07/22/22 S&O: Patient was seen in rounds. He is taking his medications and denies any adverse effects. He said he slept well last night. He uses the cream for psoriasis and they are less visible on his scalp today. He was counseled about his diagnosis and recommended treatment to include mood stabilizers and not antidepressants yesterday and was asked to think about it. Today he spontaneously brought the subject and said he would like to try the mood stabilizers. As was discussed yesterday it was agreed to start him on Depakote thousand milligrams at bedtime and discontinue his Effexor which is not really recommended for the treatment of bipolar disorder. He does not have any other issues. He goes to groups and socializes with his peers and staff. This is a right ambulatory male with adequate hygiene. He is polite and cooperative. He does not show any psychomotor agitation or retardation or hyperactivity. Continues to be talkative but mildly pressured speech and some flight of ideas. Mood seems to be mildly elated and affect is appropriate. Denies hallucinations delusional thinking suicide and homicide thoughts. Sensorium is clear. A&P: Discontinue Effexor continue Zyprexa start on Depakote thousand milligrams at bedtime for mood stabilization. Continue trazodone for sleep which he takes on a when necessary basis at home.
[2022-07-22 12:54] LABS: Glucose,Whole Blood 129 mg/dL (70-110)
[2022-07-22 18:23] LABS: Glucose,Whole Blood 200 mg/dL (70-110)
[2022-07-22 19:54] LABS: Glucose,Whole Blood 187 mg/dL (70-110)
[2022-07-22] MEDS ORDERED: DIVALPROEX ER 500 MG TAB.ER.24H PO SCH (21:00)
[2022-07-22] MEDS: traZODone HCL 50 MG TAB PO SCH (23:05)
[2022-07-22] MEDS: OLANZapine 10 MG TAB PO SCH (23:05)
[2022-07-22] MEDS: ATORVASTATIN 10 MG TAB PO SCH (23:05)
[2022-07-23 06:25] VITALS: BP 117/56; PULSE 79; RESP 15; TEMP 97.9
[2022-07-23 07:47] LABS: Glucose,Whole Blood 128 mg/dL (70-110)
[2022-07-23] MEDS: INSULIN ASPART (NovoLOG) 100 UNIT/ML VIAL SQ SCH ×3 (08:17→13:18)
[2022-07-23] MEDS: hydroCHLOROthiazide 12.5 MG CAP PO SCH (08:33)
[2022-07-23] MEDS: LOSARTAN 50 MG TAB PO SCH (08:33)
[2022-07-23] MEDS: CLOBETASOL PROP 0.05% CR 15GM TOPICAL SCH (08:34)
[2022-07-23] MEDS: glipiZIDE 10 MG TAB PO SCH (08:34)
[2022-07-23] MEDS: CHOLECALCIFEROL 125 MCG (5000 IU) TABLET PO SCH (08:34)
[2022-07-23] MEDS: MELOXICAM 7.5 MG TAB PO SCH (08:34)
[2022-07-23] MEDS: ALBUTEROL INHALER 60 PUFF/8 GM INHALER (MHU) INHALATION PRN (08:35)
--- NOTE | 2022-07-23 11:34 | P.DS ---
Providers Date of admission: 07/19/22 04:43 Expected date of discharge: 07/23/22 Attending physician: Román Fofana MD Consults: 07/19/22 04:55 Consult Physician Routine Consulting Provider: Chente Mahmood Consult Reason/Comments: For H & P for Medical Follow Up Do you want consulting provider notified?: Yes Primary care physician: [facility] Diagnosis(es) (1) Bipolar II disorder Current Visit: Yes Status: Acute (2) COPD (chronic obstructive pulmonary disease) Current Visit: Yes Status: Chronic Priority: Low (3) Hypertension Current Visit: Yes Status: Chronic Priority: Medium (4) Psoriasis Current Visit: Yes Status: Chronic Priority: Medium (5) Arthritis Current Visit: Yes Status: Chronic Priority: Low Hospital Course: Patient had his psychiatric H&P done by Dr. Brooks on 07/19/2022 and general physical examination done by Dr.Osama Brown on 07/21/2022. After psychiatric H&P he was diagnosed with major depression recurrent nonpsychotic by Dr. Brooks. He was started on Zyprexa 10 mg at bedtime trazodone 150 mg at bedtime and his Effexor was increased from 150-225 mg at bedtime. I examined him on 07/21/2022 when I did not see any evidence of major depressive disorder since he was friendly and talkative and had pressured speech and flight of ideas. In view of this bipolar 1 disorder was made and he was advised to stay only on mood stabilizers and not antidepressants. He was not quite receptive to this idea since he was diagnosed with depression for many years and has been taking antidepressants even though without much relief. He was asked to think about it and if he changes his mind to let me know. The next day he agreed to get his medications changed to more stabilizers and so he was started on Depakote 1000 mg at bedtime and his Zyprexa was continued and Effexor was counseled. He was taking trazodone at home only if he needed to sleep well at night. He was also complaining of knee pain and had psoriasis for which he was prescribed his home medication of morbic Temoate cream. His sobriety crashes started to fade away and he was comfortable with his knee pain. He was also attending his groups, socializing with peers and staff. His mood has been cheerful but has been able to focus on topics discussed better than when he came here. He said he has been basically quite a talkative person. He said his employer wants him to come back to work and is eager to go back to work since he has been feeling well. This was discussed by the treatment team and it was agreed to discharge him. Assessment: Currently patient is calm cooperative and does not have any psychomotor agitation or retardation. Speech is spontaneous and goal-directed. Mood is cheerful and affect is appropriate. Denies hallucinations delusional thinking suicide and homicidal thoughts. He wants to go back to work. His sensorium is clear. Pertinent Studies: He was advised to get his Depakote level done in an empty stomach in 10 days. Patient said he will get it done through his primary care doctor. Patient Condition at Discharge: Stable Plan - Discharge Summary Discharge Rx Participant: Yes New Discharge Prescriptions: New traZODone HCL [Desyrel] 150 mg PO HS tab Mag Hydrox/Al Hydrox/Simeth [Maalox] 30 ml PO Q4HR PRN ml PRN Reason: Gi Upset Magnesium Hydroxide [Milk of Magnesia Concentrate] 2,400 mg PO DAILY PRN ml PRN Reason: Constipation Clobetasol Propionate [Temovate 0.05% Cream] 1 applic TOPICAL BID each Acetaminophen Tab [Tylenol] 650 mg PO Q4HR PRN tab PRN Reason: Pain/Discomfort Divalproex ER [Depakote ER] 1,000 mg PO HS 30 Days #60 tab Meloxicam [Mobic] 15 mg PO DAILY 30 Days #30 tab INSULIN ASPART (NovoLOG) [NovoLOG (formulary)] 0 unit SQ ACHS each OLANZapine [ZyPREXA] 10 mg PO HS 30 Days #30 tab Continue glipiZIDE [Glucotrol] 10 mg PO BID Losartan Potassium 100 mg PO DAILY Naltrexone HCl [Revia] 50 mg PO DAILY 30 Days #30 tab traZODone HCL 150 mg PO HS Atorvastatin [Lipitor] 10 mg PO HS 30 Days #30 tab Albuterol Inhaler [Ventolin Hfa Inhaler] 1 puff INHALATION RT-Q4H PRN 30 Days #1 each PRN Reason: Shortness Of Breath Cholecalciferol [Vitamin D3 (125 Mcg = 5000 Iu)] 125 mcg PO DAILY 30 Days #30 tab Cyclobenzaprine [Flexeril] 10 mg PO DAILY PRN 30 Days #20 tab PRN Reason: Muscle Spasm hydroCHLOROthiazide [Hydrodiuril] 12.5 mg PO DAILY 30 Days #30 cap Discontinued OLANZapine [ZyPREXA] 10 mg PO HS Meloxicam [Mobic] 7.5 mg PO DAILY Clobetasol Propionate [Temovate 0.05% Cream] 1 applic TOPICAL BID Venlafaxine HCl ER [Effexor XR] 150 mg PO DAILY 30 Days #30 cap Discharge Medication List glipiZIDE [Glucotrol] 10 mg PO BID 04/19/21 [History] Losartan Potassium 100 mg PO DAILY 05/07/22 [History] Naltrexone HCl [Revia] 50 mg PO DAILY 30 Days #30 tab 05/12/22 [Rx] traZODone HCL 150 mg PO HS 07/18/22 [History] Acetaminophen Tab [Tylenol] 650 mg PO Q4HR PRN tab 07/23/22 [Rx] Albuterol Inhaler [Ventolin Hfa Inhaler] 1 puff INHALATION RT-Q4H PRN 30 Days #1 each 07/23/22 [Rx] Atorvastatin [Lipitor] 10 mg PO HS 30 Days #30 tab 07/23/22 [Rx] Cholecalciferol [Vitamin D3 (125 Mcg = 5000 Iu)] 125 mcg PO DAILY 30 Days #30 tab 07/23/22 [Rx] Clobetasol Propionate [Temovate 0.05% Cream] 1 applic TOPICAL BID each 07/23/22 [Rx] Cyclobenzaprine [Flexeril] 10 mg PO DAILY PRN 30 Days #20 tab 07/23/22 [Rx] Divalproex ER [Depakote ER] 1,000 mg PO HS 30 Days #60 tab 07/23/22 [Rx] INSULIN ASPART (NovoLOG) [NovoLOG (formulary)] 0 unit SQ ACHS each 07/23/22 [Rx] Mag Hydrox/Al Hydrox/Simeth [Maalox] 30 ml PO Q4HR PRN ml 07/23/22 [Rx] Magnesium Hydroxide [Milk of Magnesia Concentrate] 2,400 mg PO DAILY PRN ml 07/23/22 [Rx] Meloxicam [Mobic] 15 mg PO DAILY 30 Days #30 tab 07/23/22 [Rx] OLANZapine [ZyPREXA] 10 mg PO HS 30 Days #30 tab 07/23/22 [Rx] hydroCHLOROthiazide [Hydrodiuril] 12.5 mg PO DAILY 30 Days #30 cap 07/23/22 [Rx] traZODone HCL [Desyrel] 150 mg PO HS tab 07/23/22 [Rx] Follow up Appointment(s)/Referral(s): [facility] [Primary Care Provider] - 1-2 days Activity/Diet/Wound Care/Special Instructions: Avoid the use of street drugs and alcohol. Take all medications as prescribed. When you are in need of refills on your medications, please contact your medical provider and/or outpatient psychiatrist to have this done. Please go to scheduled outpatient appointments for aftercare treatment. If symptoms return or become worse, call the crisis line at and/or go to the nearest emergency room for evaluation.
[2022-07-23 12:46] LABS: Glucose,Whole Blood 142 mg/dL (70-110)
== END 2022-07-23 14:37 | disposition home or self-care (01) | DRG 753 ==
LOC: EC 21:06 → 3MHU 07-19 04:43
PROVIDERS: ADMIT Psychiatry & Neurology Psychiatry; ATTEND Psychiatry & Neurology Psychiatry
DX: F31.9 Bipolar disorder, unspecified (principal); E11.9 Type 2 diabetes mellitus without complications; J44.9 Chronic obstructive pulmonary disease, unspecified; I10 Essential (primary) hypertension; Z20.822 Contact with and (suspected) exposure to COVID-19; L40.9 Psoriasis, unspecified; E78.5 Hyperlipidemia, unspecified; G89.29 Other chronic pain; M25.559 Pain in unspecified hip; M54.50 Low back pain, unspecified; F17.210 Nicotine dependence, cigarettes, uncomplicated; M46.00 Spinal enthesopathy, site unspecified; M16.0 Bilateral primary osteoarthritis of hip; M25.569 Pain in unspecified knee; Z28.311 Partially vaccinated for COVID-19; Z88.8 Allergy status to other drugs, medicaments and biological substances; Z79.899 Other long term (current) drug therapy; Z79.1 Long term (current) use of non-steroidal anti-inflammatories (NSAID); Z79.84 Long term (current) use of oral hypoglycemic drugs; Z63.5 Disruption of family by separation and divorce
CPT/HCPCS: 80053; 80061; 80306; 81001; 82075; 82248; 83036; 84443; 85025; 87635; 99285

== ENCOUNTER 2022-08-12 21:36 | Inpatient (IN) | payer OTHER ==
[2022-08-12] MEDS ORDERED: NALOXONE 0.4 MG/ML 1 ML VIAL IV PRN (22:08)
[2022-08-12] MEDS ORDERED: ALPRAZolam 0.25 MG TAB PO PRN (22:08)
[2022-08-12] MEDS ORDERED: MELATONIN 3 MG TABLET PO PRN (22:08)
[2022-08-12] MEDS ORDERED: LORazepam 2 MG/ML INJ IV PRN ×3 (22:13)
[2022-08-12] MEDS ORDERED: traZODone HCL 50 MG TAB PO SCH (22:15)
[2022-08-12] MEDS ORDERED: DIVALPROEX ER 500 MG TAB.ER.24H PO SCH (22:15)
[2022-08-12 22:20] LABS: Glucose,Whole Blood 307 mg/dL (70-110)
[2022-08-12] MEDS: OSELTAMIVIR 75 MG CAP PO SCH (22:56)
[2022-08-12] MEDS: OLANZapine 10 MG TAB PO SCH (22:56)
[2022-08-12] MEDS: INSULIN ASPART (NovoLOG) 100 UNIT/ML VIAL SQ SCH (23:21)
[2022-08-13] MEDS: IBUPROFEN 400 MG TAB PO PRN ×2 (03:19→17:48)
--- NOTE | 2022-08-13 03:38 | P.HPIM ---
History of Present Illness H&P Date: 08/12/22 Chief Complaint: influenza B 57 year old male with DM , hypertension patient presented to the ED for psych evaluation due to suicidal ideation. upon evaluation by medical service , patient reported symptoms of URI with sore throat, dry cough, and nasal and chest congestion, denies any fever, chills, nausea vomiting, or abd pain . patient was tested for acute respiratory viral panel , and tested positive for influenza B. per mental health and Infection control policies , patient had to be transferred to the medical floor for further monitoring and treatment Review of Systems Pertinent positives as noted in HPI. All other systems were reviewed and are negative Past Medical History Past Medical History: Diabetes Mellitus, Hypertension, Osteoarthritis (OA), Skin Disorder Additional Past Medical History / Comment(s): PSORIASIS, Back and bilat hip pain. Arthritis bilat hip. Bone spurs in spine. History of Any Multi-Drug Resistant Organisms: None Reported Additional Past Surgical History / Comment(s): HAND SURGERY AND NERVE GRAFT TO THUMB, CORTISONE INJECTIONS HIP. Past Anesthesia/Blood Transfusion Reactions: No Reported Reaction Past Psychological History: Anxiety, Depression Smoking Status: Current every day smoker Past Alcohol Use History: Heavy Additional Past Alcohol Use History / Comment(s): SMOKES <1PPD, SMOKING FOR 40 YEARS. Patient states he binge drinks alcohol, he does not drink daily. Past Drug Use History: None Reported - Past Family History Father Family Medical History: Cancer Additional Family Medical History / Comment(s): LUNG CANCER Medications and Allergies Home Medications Medication Instructions Recorded Confirmed Type glipiZIDE [Glucotrol] 10 mg PO BID 04/19/21 08/12/22 History Losartan Potassium 100 mg PO DAILY 05/07/22 08/12/22 History Naltrexone HCl [Revia] 50 mg PO DAILY 30 Days #30 tab 05/12/22 08/12/22 Rx Acetaminophen Tab [Tylenol] 650 mg PO Q4HR PRN tab 07/23/22 08/12/22 Rx Albuterol Inhaler [Ventolin Hfa 1 puff INHALATION RT-Q4H PRN 30 07/23/22 08/12/22 Rx Inhaler] Days #1 each Atorvastatin [Lipitor] 10 mg PO HS 30 Days #30 tab 07/23/22 08/12/22 Rx Cholecalciferol [Vitamin D3 (125 125 mcg PO DAILY 30 Days #30 tab 07/23/22 08/12/22 Rx Mcg = 5000 Iu)] Clobetasol Propionate [Temovate 1 applic TOPICAL BID each 07/23/22 08/12/22 Rx 0.05% Cream] Cyclobenzaprine [Flexeril] 10 mg PO DAILY PRN 30 Days #20 tab 07/23/22 08/12/22 Rx Divalproex ER [Depakote ER] 1,000 mg PO HS 30 Days #60 tab 07/23/22 08/12/22 Rx Mag Hydrox/Al Hydrox/Simeth 30 ml PO Q4HR PRN ml 07/23/22 08/12/22 Rx [Maalox] Magnesium Hydroxide [Milk of 2,400 mg PO DAILY PRN ml 07/23/22 08/12/22 Rx Magnesia Concentrate] Meloxicam [Mobic] 15 mg PO DAILY 30 Days #30 tab 07/23/22 08/12/22 Rx OLANZapine [ZyPREXA] 10 mg PO HS 30 Days #30 tab 07/23/22 08/12/22 Rx hydroCHLOROthiazide [Hydrodiuril] 12.5 mg PO DAILY 30 Days #30 cap 07/23/22 08/12/22 Rx traZODone HCL [Desyrel] 150 mg PO HS tab 07/23/22 08/12/22 Rx Allergies Allergy/AdvReac Type Severity Reaction Status Date / Time lisinopril AdvReac Unknown Cough Verified 08/12/22 13:26 Physical Exam Vitals: Vital Signs Temp Pulse Resp BP Pulse Ox 08/12/22 22:10 98.4 F 102 H 17 125/83 98 Intake and Output 08/12/22 08/12/22 08/12/22 06:59 14:59 22:59 Other: Weight 71.8 kg Constitutional: No acute distress, cooperative Eyes: Anicteric sclerae, moist conjunctiva, Pupils equal round reactive to light ENMT: NC/AT Oropharynx clear, no erythema, or exudates Neck: Supple, no masses, or JVD No carotid bruits No thyromegaly Lungs: Clear to auscultation Clear to percussion Normal respiratory effort, no accessory muscle use Cardiovascular: Heart regular in rate and rhythm, No murmurs, gallops, or rubs No peripheral edema Abdominal: Soft No tenderness to deep palpation no guarding, rebound or rigidity Abdomen moving with respiration Normoactive bowel sounds Skin: Normal temperature, tone, texture, turgor Extremities: No digital cyanosis No clubbing Pedal pulses intact and symmetrical Radial pulses intact and symmetrical No calf tenderness Psychiatric: Alert and oriented to person, place and time Neuro Muscles Strength 5/5 in all 4 extremities Sensation to light touch grossly present throughout Cranial nerves II-XII grossly intact Lymphatics: no palpable cervical or supraclavicular lymph nodes Results Labs: Abnormal Lab Results - Last 24 Hours (Table) 08/12/22 Range/Units 22:18 POC Glucose (mg/dL) 307 H (70-110) mg/dL Thrombosis Risk Factor Assmnt - Choose All That Apply Any of the Below Risk Factors Present?: Yes Each Factor Represents 1 point: Age 41-60 years Thrombosis Risk Factor Assessment Total Risk Factor Score: 1 Thrombosis Risk Factor Assessment Level: Low Risk Assessment and Plan Assessment: 57 year old male with DM , hypertension , transferred from the psych unit due to influenza B positive I accepted the patient and transferred to the medical floor to satisfy mental health and infection control policies requiring droplet precautions. influenza B positive initiated on tamiflu 75 mg bid droplet precautions supportive care tylenol and ibuprofen for fever and pain as needed suicidal ideation suicide precautions psych evaluation DM insulin sliding scale hypertension hydrochlorothiazide losartan follow up blood work in AM full code DVT PPX lovenox 40 mg sc daily
[2022-08-13 06:42] LABS: Glucose,Whole Blood 186 mg/dL (70-110)
[2022-08-13] MEDS: INSULIN ASPART (NovoLOG) 100 UNIT/ML VIAL SQ SCH ×4 (06:51→21:58)
[2022-08-13] MEDS: ENOXAPARIN 40 MG/0.4 ML SYRINGE SQ SCH (07:40)
[2022-08-13] MEDS: OSELTAMIVIR 75 MG CAP PO SCH ×2 (07:41→20:14)
[2022-08-13] MEDS: THIAMINE 100 MG TAB PO SCH (07:41)
[2022-08-13] MEDS: LOSARTAN 50 MG TAB PO SCH (07:41)
[2022-08-13] MEDS: hydroCHLOROthiazide 12.5 MG CAP PO SCH (07:41)
[2022-08-13 08:28] VITALS: BMI 24.0
[2022-08-13] MEDS: ACETAMINOPHEN TAB 325 MG TAB PO PRN ×2 (08:29→20:23)
--- NOTE | 2022-08-13 10:38 | P.PN ---
Subjective Progress Note Date: 08/13/22 Patient doing well today. Still reports congestion and sore throat. Influenza B positive, started on tamiflu. BPs better controlled. Gen: awake, alert HEENT: normocephalic, atraumatic, good hearing acuity, moist mucous membranes Resp: good air exchange, breathing comfortably with no accessory muscle use CVS: good distal perfusion x 4, GI: soft, NTTP, ND : no SPT, no CVAT, knight catheter not present MSK: no pitting edema, no clubbing Neuro: non-focal, moving all extremities Psych: cooperative, euthymic [facility] Hospital Course: 57-year-old man with medical history of hypertension, hyperlipidemia, diabetes presented for mental health evaluation. Medicine was consulted by psychiatry service for medical evaluation clearance. In the MHU, patient was evaluated and found to be afebrile, 175/88, heart rate 89, 98% on room air. UA showed trace protein, otherwise unremarkable. Urine tox screen was negative. Covid was negative. Patient exhibited URI symptoms and had influenza screen done which was + for influenza B. He was transferred to the medical unit for contact/droplet precautions and further monitoring. He was started on tamiflu. Assessment: Influenza B Diabetes type 2 Hypertension Hyperlipidemia Plan: Today, patient is afebrile, 127/72, heart rate 80-99% on room air Blood glucose this morning was 186 Resume home glipizide 10 mg twice daily Add Mucinex 600 mg twice a day when necessary Add pseudoephedrine 30 mg daily when necessary Add Cepacol lozenges every 4 hours when necessary Add fluticasone 1 spray nasal daily when necessary Resume patient's losartan, hydrochlorothiazide Continue Tamiflu 75 mg twice a day Patient is full code Objective - Vital Signs Vital signs: Vital Signs Temp 98.2 F 08/13/22 08:16 Pulse 80 08/13/22 08:16 Resp 19 08/13/22 08:16 BP 127/72 08/13/22 08:16 Pulse Ox 99 08/13/22 08:16 FiO2 Intake & Output 08/12/22 08/13/22 08/13/22 18:59 06:59 18:59 Weight 71.8 kg 71.8 kg Other: Voiding Method Toilet - Labs Labs: Abnormal Lab Results - Last 24 Hours (Table) 08/12/22 08/13/22 Range/Units 22:18 06:41 POC Glucose (mg/dL) 307 H 186 H (70-110) mg/dL
[2022-08-13 10:58] LABS: Basophils # (A) 0.05 X 10*3/uL (0.00-0.10); Basophils % (A) 0.6 %; Eosinophils # (A) 0.32 X 10*3/uL (0.04-0.35); Eosinophils % (A) 3.7 %; Immature Grans, Automated 0.3 %; Lymphocytes # (A) 2.07 X 10*3/uL (0.90-5.00); Lymphocytes % (A) 23.8 %; MCHC 33.3 g/dL (32.0-37.0); MCV 96.1 fL (80.0-97.0); Mean Platelet Volume 10.6 fL (9.5-12.2); Monocytes # (A) 0.81 X 10*3/uL (0.20-1.00); Monocytes % (A) 9.3 %; NRBC Per 100 WBC 0 /100 WBCS (0.0-0.0); Neutrophils # (A) 5.42 X 10*3/uL (1.80-7.70); Neutrophils % (A) 62.3 %; Platelet Count 288 X 10*3/uL (140-440); RBC 4.06 X 10*6/uL (4.40-5.60)
[2022-08-13 11:15] LABS: Glucose,Whole Blood 199 mg/dL (70-110)
[2022-08-13] MEDS: ALBUTEROL NEBULIZED 2.5 MG/3 ML INHALATION PRN (12:01)
[2022-08-13] MEDS: BENZOCAINE/MENTHOL LOZENG 1 EACH LOZENGE MUCOUS MEM PRN ×3 (13:01→21:57)
--- NOTE | 2022-08-13 14:26 | P.CN ---
Psychiatric Consult - . Consult date: 08/13/22 Consult:: 08/13/22 14:26 IDENTIFYING DATA: This patient is a single, recently unemployed, 57-year-old male with significant history of bipolar disorder, anxiety, and alcohol use disorder who presented to our hospital on 08/12/2022 for depression and suicidal ideation. HISTORY OF PRESENT ILLNESS: Initially the patient was to be admitted to the psychiatric unit and however he did test positive for influenza be and therefore was transferred to the medical floor in order to isolate and prevent spread of the illness in the milieu. The patient presented to the hospital 08/12/2022, brought in on his own volition for worsening depression and suicidal ideation. The patient reports that he was convinced to come to the hospital by his ex-girlfriend after endorsing significant feelings of hopelessness, helplessness, and suicidal ideation with a plan to walk into traffic. 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 He states that he feels like he is unable to do anything right. The patient has previously attempted suicide by walking in front of traffic in July of this year as well as back in 2019. Aside from his depressive symptoms, the patient reports significant history of bipolar disorder. He does report a history of excessive energy often going 3 days with little to no sleep on multiple occasions. He reports a history of mood lability, irritability, racing thoughts, and impulsive behaviors. Further complicating the patient's mental health is his ongoing issues with substance use. The patient reports that prior to this admission, he was drinking up to 3 pints of vodka in the day. He reports these binge drinking episodes occur at least once per week. The patient does not endorse any significant history of auditory or visual hallucinations. He reports no paranoia or other delusions. The patient is currently homeless. He was last discharged from our psychiatric unit in July however has not followed up with [facility]. He does report that he has been adherent with his medications however feels like they have not provided him with any symptomatic relief. PAST PSYCHIATRIC HISTORY: Patient states that he was previously diagnosed with alcohol use disorder, bipolar disorder, and anxiety. The patient recalls being previously prescribed Remeron, Vivitrol, Zoloft, doxepin, trazodone, and Seroquel. He was most recently discharged on a regimen of Effexor, Zyprexa, trazodone, and Depakote. He was last hospitalized on the psychiatric unit in July 2022 and this is 6 inpatient psychiatric admission. The patient is open with [facility] however had not been following up for any outpatient care. He has had 2 prior attempts at suicide by walking into traffic. PAST MEDICAL HISTORY: Past Medical History: Diabetes Mellitus, Hypertension, Osteoarthritis (OA), Skin Disorder Additional Past Medical History / Comment(s): PSORIASIS, Back and bilat hip p ain. Arthritis bilat hip. Bone spurs in spine. History of Any Multi-Drug Resistant Organisms: None Reported Additional Past Surgical History / Comment(s): HAND SURGERY AND NERVE GRAFT TO THUMB, CORTISONE INJECTIONS HIP. Past Anesthesia/Blood Transfusion Reactions: No Reported Reaction Past Psychological History: Anxiety, Depression Smoking Status: Current every day smoker Past Alcohol Use History: Heavy Additional Past Alcohol Use History / Comment(s): SMOKES <1PPD, SMOKING FOR 40 YEARS. Patient states he binge drinks alcohol, he does not drink daily. Past Drug Use History: None Reported ALLERGIES: Lisinopril CHEMICAL DEPENDENCY HISTORY: Patient reports daily tobacco use. He reports rare marijuana use. He describes binge alcohol episodes at least once per week with approximately 3 pints of vodka ingested. FAMILY PSYCHIATRIC/SUBSTANCE USE HISTORY: The patient reports that his mother had panic attacks. The patient's maternal aunt attempted suicide. The patient' s brother is an alcoholic. 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 From previous admission - Patient was born and raised in [place], [place]. He is single however his ex-girlfriend recently relocated to [facility]. He has an adult daughter from a previous relationship. 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 He attended some college. He denies any legal issues, service, and although was raised Protestant denies any current zoroastrian. MENTAL STATUS EXAM: General Appearance: Patient appears to be stated age is alert, pleasant, and cooperative. Patient appears to have fair hygiene and grooming wearing hospital gown with fair eye contact. Wearing glasses. Bald. Behavior: Patient is seated upright in bed without any agitated behavior. Speech: Patient's speech is fluent and nonpressured. Mood/Affect: Patient reports their mood is "depressed", affect is congruent and dysphoric. Suicidality/Homicidality: Patient endorses suicidal ideation however denies any homicidal ideation. Perceptions: Patient denies any visual hallucinations and denies any auditory hallucinations Though content/process: There is no evidence of any delusional thought content and thought process is linear and goal-directed. Memory and concentration: AOX3, grossly intact for the purposes of this session. Can spell "WORLD" backwards Judgment and insight: Fair IMPRESSIONS: Bipolar 2 disorder, depressive episode Generalized anxiety disorder Alcohol use disorder Tobacco use disorder Influenza B PLAN: -At this time patient DOES meet criteria for inpatient psychiatric admission. The patient is currently suicidal. -Delirium precautions recommended with patient including - avoiding use of narcotics and OUTBOUND SUPERVISOR sedatives, limit anticholinergic medications when possible, frequent re-orientation, minimize use of restraints, open window shades during the day and close them at night -Would recommend the following medication changes/additions: Increase Depakote to 1500 mg by mouth at bedtime for mood stabilization Increase trazodone to 200 mg by mouth at bedtime for insomnia Continue Zyprexa 10 mg by mouth at bedtime for mood stabilization -Continue 1:1 sitter for safety -Cannot leave AMA at this time. Patient will need a petition and certification if attempting to leave AMA. -Will continue to follow along -When medically stable, patient is eligible for transfer to a psych bed when available. Vital Signs Temp 98.7 F 08/13/22 13:15 Pulse 91 08/13/22 13:15 Resp 19 08/13/22 13:15 BP 138/73 08/13/22 13:15 Pulse Ox 99 08/13/22 13:15 FiO2 Intake & Output 08/12/22 08/13/22 08/13/22 18:59 06:59 18:59 Intake Total 236 Balance 236 Weight 71.8 kg 71.8 kg Intake: Oral 236 Other: Voiding Method Toilet Laboratory Results WBC 8.70 X 10*3/uL (4.50-10.00) 08/13/22 07:30 RBC 4.06 X 10*6/uL (4.40-5.60) L 08/13/22 07:30 Hgb 13.0 g/dL (13.0-17.0) 08/13/22 07:30 Hct 39.0 % (39.6-50.0) L 08/13/22 07:30 MCV 96.1 fL (80.0-97.0) 08/13/22 07:30 MCH 32.0 pg (27.0-32.0) 08/13/22 07:30 MCHC 33.3 g/dL (32.0-37.0) 08/13/22 07:30 RDW 13.0 % (11.5-14.5) 08/13/22 07:30 Plt Count 288 X 10*3/uL (140-440) 08/13/22 07:30 MPV 10.6 fL (9.5-12.2) 08/13/22 07:30 Immature Gran % (Auto) 0.3 % 08/13/22 07:30 Absolute Nucleated RBC 0 X 10*3/uL (0.00-0.00) 08/13/22 07:30 Neutrophils % 62.3 % 08/13/22 07:30 Lymphocytes % 23.8 % 08/13/22 07:30 Monocytes % 9.3 % 08/13/22 07:30 Eosinophils % 3.7 % 08/13/22 07:30 Basophils % 0.6 % 08/13/22 07:30 Immature Gran # 0.03 X 10*3/uL (0.00-0.04) 08/13/22 07:30 Neutrophils # 5.42 X 10*3/uL (1.80-7.70) 08/13/22 07:30 Lymphocytes # 2.07 X 10*3/uL (0.90-5.00) 08/13/22 07:30 Monocytes # 0.81 X 10*3/uL (0.20-1.00) 08/13/22 07:30 Eosinophils # 0.32 X 10*3/uL (0.04-0.35) 08/13/22 07:30 Basophils # 0.05 X 10*3/uL (0.00-0.10) 08/13/22 07:30 NRBC/100 WBC Diff 0 /100 WBCS (0.0-0.0) 08/13/22 07:30 POC Glucose (mg/dL) 199 mg/dL (70-110) H 08/13/22 11:14 POC Glu Dehydration Plant Operator Lobo Perla 08/13/22 11:14 08/13/22 14:26
[2022-08-13 15:50] LABS: African American GFR (CKD) 115.7 (60.0-200.0); Albumin 4.3 g/dL (3.8-4.9); Albumin/Globulin Ratio 1.79 (1.60-3.17); Anion Gap 13.9 mmol/L (10.00-18.00); BUN/Creat Ratio 13.88 Ratio (12.00-20.00); Blood Urea Nitrogen 11.1 mg/dL (9.0-27.0); Calcium 9.4 mg/dL (8.7-10.3); Carbon Dioxide 27.1 mmol/L (20.0-27.5); Globulin 2.4 g/dL (1.6-3.3); Non-African American GFR(CKD) 99.9 (60.0-200.0); Potassium 3.4 mmol/L (3.5-5.5); Total Bilirubin 0.5 mg/dL (0.30-1.20); Total Protein 6.7 g/dL (6.2-8.2)
[2022-08-13 16:45] LABS: Glucose,Whole Blood 266 mg/dL (70-110)
[2022-08-13] MEDS: DIVALPROEX ER 500 MG TAB.ER.24H PO SCH (20:13)
[2022-08-13] MEDS: ATORVASTATIN 10 MG TAB PO SCH (20:13)
[2022-08-13] MEDS: OLANZapine 10 MG TAB PO SCH (20:14)
[2022-08-13 21:34] LABS: Glucose,Whole Blood 206 mg/dL (70-110)
[2022-08-13] MEDS: traZODone HCL 100 MG TAB PO SCH ×2 (22:39→23:00)
[2022-08-14] MEDS: PSEUDOEPHEDRINE 30 MG TAB PO PRN ×3 (01:14→20:43)
[2022-08-14 06:37] LABS: Glucose,Whole Blood 174 mg/dL (70-110)
[2022-08-14] MEDS: INSULIN ASPART (NovoLOG) 100 UNIT/ML VIAL SQ SCH ×4 (06:57→20:40)
[2022-08-14] MEDS: ACETAMINOPHEN TAB 325 MG TAB PO PRN ×2 (07:00→20:40)
[2022-08-14] MEDS: BENZOCAINE/MENTHOL LOZENG 1 EACH LOZENGE MUCOUS MEM PRN (07:00)
[2022-08-14] MEDS: LOSARTAN 50 MG TAB PO SCH (08:33)
[2022-08-14] MEDS: OSELTAMIVIR 75 MG CAP PO SCH ×2 (08:33→20:40)
[2022-08-14] MEDS: ENOXAPARIN 40 MG/0.4 ML SYRINGE SQ SCH (08:33)
[2022-08-14] MEDS: hydroCHLOROthiazide 12.5 MG CAP PO SCH (08:33)
[2022-08-14] MEDS: THIAMINE 100 MG TAB PO SCH (08:33)
--- NOTE | 2022-08-14 11:16 | P.PN ---
Subjective Progress Note Date: 08/14/22 Patient doing well today. Ongoing congestion, sore throat. This is day 2 5 of Tamiflu Gen: awake, alert HEENT: normocephalic, atraumatic, good hearing acuity, moist mucous membranes Resp: good air exchange, breathing comfortably with no accessory muscle use CVS: good distal perfusion x 4, GI: soft, NTTP, ND : no SPT, no CVAT, knight catheter not present MSK: no pitting edema, no clubbing Neuro: non-focal, moving all extremities Psych: cooperative, euthymic [facility] Hospital Course: 57-year-old man with medical history of hypertension, hyperlipidemia, diabetes presented for mental health evaluation. Medicine was consulted by psychiatry service for medical evaluation clearance. In the MHU, patient was evaluated and found to be afebrile, 175/88, heart rate 89, 98% on room air. UA showed trace protein, otherwise unremarkable. Urine tox screen was negative. Covid was negative. Patient exhibited URI symptoms and had influenza screen done which was + for influenza B. He was transferred to the medical unit for contact/droplet precautions and further monitoring. He was started on tamiflu. Assessment: Influenza B Diabetes type 2 Hypertension Hyperlipidemia Plan: Today, patient is afebrile, 127/72, heart rate 80-99% on room air Blood glucose this morning was 186 Resume home glipizide 10 mg twice daily Add Mucinex 600 mg twice a day when necessary Add pseudoephedrine 30 mg daily when necessary Add Cepacol lozenges every 4 hours when necessary Add fluticasone 1 spray nasal daily when necessary Resume patient's losartan, hydrochlorothiazide Continue Tamiflu 75 mg twice a day, day 2 Patient is full code Objective - Vital Signs Vital signs: Vital Signs Temp 97.8 F 08/14/22 07:48 Pulse 96 08/14/22 07:48 Resp 18 08/14/22 08:30 BP 127/79 08/14/22 07:48 Pulse Ox 99 08/14/22 07:48 FiO2 Intake & Output 08/13/22 08/14/22 08/14/22 18:59 06:59 18:59 Intake Total 354 Balance 354 Weight 71.8 kg Intake: Oral 354 Other: Voiding Method Toilet Toilet # Voids 2 3 - Labs CBC & Chem 7: 08/13/22 07:30 08/13/22 07:30 Labs: Abnormal Lab Results - Last 24 Hours (Table) 08/13/22 08/13/22 08/13/22 Range/Units 07:30 16:43 21:33 Potassium 3.4 L (3.5-5.5) mmol/L Glucose 125 H (70-110) mg/dL POC Glucose (mg/dL) 266 H 206 H (70-110) mg/dL AST 39 H (14-35) U/L 08/14/22 Range/Units 06:36 Potassium (3.5-5.5) mmol/L Glucose (70-110) mg/dL POC Glucose (mg/dL) 174 H (70-110) mg/dL AST (14-35) U/L
[2022-08-14 11:51] LABS: Glucose,Whole Blood 235 mg/dL (70-110)
[2022-08-14] MEDS: FLUTICASONE 50MCG/SPRAY NASAL 16GM EA NOSTRIL PRN (12:37)
[2022-08-14] MEDS: ALBUTEROL NEBULIZED 2.5 MG/3 ML INHALATION PRN (16:16)
[2022-08-14 17:11] LABS: Glucose,Whole Blood 121 mg/dL (70-110)
[2022-08-14 19:20] LABS: Glucose,Whole Blood 319 mg/dL (70-110)
[2022-08-14 19:20] LABS: Glucose,Whole Blood 281 mg/dL (70-110)
[2022-08-14] MEDS: DIVALPROEX ER 500 MG TAB.ER.24H PO SCH (20:39)
[2022-08-14] MEDS: ATORVASTATIN 10 MG TAB PO SCH (20:40)
[2022-08-14] MEDS: OLANZapine 10 MG TAB PO SCH (20:40)
[2022-08-14] MEDS: traZODone HCL 100 MG TAB PO SCH (23:43)
[2022-08-15 06:15] LABS: Glucose,Whole Blood 163 mg/dL (70-110)
[2022-08-15] MEDS: INSULIN ASPART (NovoLOG) 100 UNIT/ML VIAL SQ SCH ×4 (06:43→21:22)
[2022-08-15] MEDS: ENOXAPARIN 40 MG/0.4 ML SYRINGE SQ SCH (09:00)
[2022-08-15] MEDS: THIAMINE 100 MG TAB PO SCH (09:00)
[2022-08-15] MEDS: OSELTAMIVIR 75 MG CAP PO SCH ×2 (09:00→21:22)
[2022-08-15] MEDS: LOSARTAN 50 MG TAB PO SCH (09:00)
[2022-08-15] MEDS: hydroCHLOROthiazide 12.5 MG CAP PO SCH (09:01)
[2022-08-15 11:18] LABS: Glucose,Whole Blood 228 mg/dL (70-110)
--- NOTE | 2022-08-15 13:32 | P.PN ---
Progress Note - Text Progress Note Date: 08/15/22 Interval History: Patient was seen resting in bed and was directable and agreeable to speak with selling underwriter in his room. Currently, the patient continues to endorse suicidal ideation however is denying any intention or plan. He is not reporting any homicidal ideation, intention, and/or plan. He reports no auditory or visual hallucinations. He denies any paranoia or other delusions. He does report that his general medical health appears to be improving. He does express a desire to move around more. He has been adherent with his medication and is not endorsing any significant side effects at this time. He is not reporting any racing thoughts, irritability, or impulsive behaviors. He does report sleep continues to be difficult. Mental Status Exam: General Appearance: Patient appears to be stated age is alert, directable, and cooperative. Behavior: Patient is calmly seated without any agitated behavior. Speech: Patient's speech is fluent and nonpressured. Mood/Affect: Mood is improving mildly, affect is congruent and constricted. Suicidality/Homicidality: Patient continues to endorse suicidal ideation. No homicidal ideation. Perceptions: Patient denies any visual hallucinations and denies any auditory hallucinations Though content/process: There is no evidence of any delusional thought content and thought process is linear and goal-directed. Memory and concentration: AOX3, grossly intact for the purposes of this session Judgment and insight: Improving mildly Vital Signs Temp 97.8 F 08/15/22 07:21 Pulse 96 08/15/22 07:21 Resp 16 08/15/22 07:21 BP 138/79 08/15/22 07:21 Pulse Ox 96 08/15/22 07:21 FiO2 Intake & Output 08/14/22 08/15/22 08/15/22 18:59 06:59 18:59 Intake Total 118 Balance 118 Intake: Oral 118 Other: Voiding Method Toilet # Voids 2 2 # Bowel Movements 1 Laboratory Results - Last 24 Hours 08/14/22 08/14/22 08/14/22 17:10 19:16 19:18 POC Glucose (mg/dL) 121 H 319 H 281 H POC Glu Fish Straightener Harmony Marie, Christine Montoya 08/15/22 08/15/22 06:13 11:11 POC Glucose (mg/dL) 163 H 228 H POC Glu Fish Straightener ID Christine Cunningham Taylor Assessment Bipolar 2 disorder, depressive episode Generalized anxiety disorder Alcohol use disorder Tobacco use disorder Influenza B Plan: -At this time patient DOES meet criteria for inpatient psychiatric admission. The patient is currently suicidal. -Delirium precautions recommended with patient including - avoiding use of narcotics and SOFTWARE DEVELOPER CONSULTANT sedatives, limit anticholinergic medications when possible, frequent re-orientation, minimize use of restraints, open window shades during the day and close them at night -Would recommend the following medication changes/additions: Continue Depakote 1500 mg by mouth at bedtime for mood stabilization - Depakote level ordered for tomorrow. Increase trazodone to 300 mg by mouth at bedtime for insomnia Continue Zyprexa 10 mg by mouth at bedtime for mood stabilization -Continue 1:1 sitter for safety -Cannot leave AMA at this time. Patient will need a petition and certification if attempting to leave AMA. -Will continue to follow along -When medically stable, patient is eligible for transfer to a psych bed when available.
[2022-08-15] MEDS: FLUTICASONE 50MCG/SPRAY NASAL 16GM EA NOSTRIL PRN (13:59)
--- NOTE | 2022-08-15 14:19 | P.PN ---
Subjective Progress Note Date: 08/15/22 Patient doing well today. Ongoing congestion, sore throat. This is day 3 of 5 of Tamiflu Gen: awake, alert HEENT: normocephalic, atraumatic, good hearing acuity, moist mucous membranes Resp: good air exchange, breathing comfortably with no accessory muscle use CVS: good distal perfusion x 4, GI: soft, NTTP, ND : no SPT, no CVAT, knight catheter not present MSK: no pitting edema, no clubbing Neuro: non-focal, moving all extremities Psych: cooperative, euthymic [facility] Hospital Course: 57-year-old man with medical history of hypertension, hyperlipidemia, diabetes presented for mental health evaluation. Medicine was consulted by psychiatry service for medical evaluation clearance. In the MHU, patient was evaluated and found to be afebrile, 175/88, heart rate 89, 98% on room air. UA showed trace protein, otherwise unremarkable. Urine tox screen was negative. Covid was negative. Patient exhibited URI symptoms and had influenza screen done which was + for influenza B. He was transferred to the medical unit for contact/droplet precautions and further monitoring. He was started on tamiflu. Assessment: Influenza B Diabetes type 2 Hypertension Hyperlipidemia Plan: Today, patient is afebrile, 138/79, heart rate 96, 96% on room air Blood glucose in the last 24 hours has ranged between 163 and 228 Resume home glipizide 10 mg twice daily Add Mucinex 600 mg twice a day when necessary Add pseudoephedrine 30 mg daily when necessary Add Cepacol lozenges every 4 hours when necessary Add fluticasone 1 spray nasal daily when necessary Resume patient's losartan, hydrochlorothiazide Continue Tamiflu 75 mg twice a day, day 3 Patient is full code Objective - Vital Signs Vital signs: Vital Signs Temp 97.8 F 08/15/22 07:21 Pulse 96 08/15/22 07:21 Resp 16 08/15/22 07:21 BP 138/79 08/15/22 07:21 Pulse Ox 96 08/15/22 07:21 FiO2 Intake & Output 08/14/22 08/15/22 08/15/22 18:59 06:59 18:59 Intake Total 118 Balance 118 Intake: Oral 118 Other: Voiding Method Toilet # Voids 2 2 # Bowel Movements 1 - Labs CBC & Chem 7: 08/13/22 07:30 08/13/22 07:30 Labs: Abnormal Lab Results - Last 24 Hours (Table) 08/14/22 08/14/22 08/14/22 Range/Units 17:10 19:16 19:18 POC Glucose (mg/dL) 121 H 319 H 281 H (70-110) mg/dL 08/15/22 08/15/22 Range/Units 06:13 11:11 POC Glucose (mg/dL) 163 H 228 H (70-110) mg/dL
[2022-08-15 17:09] LABS: Glucose,Whole Blood 201 mg/dL (70-110)
[2022-08-15 20:50] LABS: Glucose,Whole Blood 235 mg/dL (70-110)
[2022-08-15] MEDS: traZODone HCL 100 MG TAB PO SCH (21:21)
[2022-08-15] MEDS: DIVALPROEX ER 500 MG TAB.ER.24H PO SCH (21:21)
[2022-08-15] MEDS: ATORVASTATIN 10 MG TAB PO SCH (21:21)
[2022-08-15] MEDS: OLANZapine 10 MG TAB PO SCH (21:22)
[2022-08-16 06:11] LABS: Glucose,Whole Blood 139 mg/dL (70-110)
[2022-08-16] MEDS: INSULIN ASPART (NovoLOG) 100 UNIT/ML VIAL SQ SCH ×4 (06:14→20:20)
--- NOTE | 2022-08-16 08:55 | P.PN ---
Subjective Progress Note Date: 08/16/22 Patient doing well today. Ongoing congestion, sore throat. This is day 4 of 5 of Tamiflu. Complaining of shoulder pain. Gen: awake, alert HEENT: normocephalic, atraumatic, good hearing acuity, moist mucous membranes Resp: good air exchange, breathing comfortably with no accessory muscle use CVS: good distal perfusion x 4, GI: soft, NTTP, ND : no SPT, no CVAT, knight catheter not present MSK: no pitting edema, no clubbing Neuro: non-focal, moving all extremities Psych: cooperative, euthymic mood Hospital Course: 57-year-old man with medical history of hypertension, hyperlipidemia, diabetes presented for mental health evaluation. Medicine was consulted by psychiatry service for medical evaluation clearance. In the MHU, patient was evaluated and found to be afebrile, 175/88, heart rate 89, 98% on room air. UA showed trace protein, otherwise unremarkable. Urine tox screen was negative. Covid was negative. Patient exhibited URI symptoms and had influenza screen done which was + for influenza B. He was transferred to the medical unit for contact/droplet precautions and further monitoring. He was started on tamiflu. Assessment: Influenza B Diabetes type 2 Hypertension Hyperlipidemia Plan: Today, patient is afebrile, 118/72, 86, 98% on room air Blood glucose in the last 24 hours has ranged between 139 and 228 Ordered shoulder XR of right Resume home glipizide 10 mg twice daily Add Mucinex 600 mg twice a day when necessary Add pseudoephedrine 30 mg daily when necessary Add Cepacol lozenges every 4 hours when necessary Add fluticasone 1 spray nasal daily when necessary Resume patient's losartan, hydrochlorothiazide Continue Tamiflu 75 mg twice a day, day 3 of Patient is full code Objective - Vital Signs Vital signs: Vital Signs Temp 97.6 F 08/16/22 07:13 Pulse 86 08/16/22 07:13 Resp 17 08/16/22 07:13 BP 118/72 08/16/22 07:13 Pulse Ox 98 08/16/22 07:13 FiO2 Intake & Output 08/15/22 08/16/22 08/16/22 18:59 06:59 18:59 Intake Total 720 Balance 720 Intake: Oral 720 Other: # Voids 4 2 - Labs CBC & Chem 7: 08/13/22 07:30 08/13/22 07:30 Labs: Abnormal Lab Results - Last 24 Hours (Table) 08/15/22 08/15/22 08/15/22 Range/Units 11:11 17:08 20:49 POC Glucose (mg/dL) 228 H 201 H 235 H (70-110) mg/dL 08/16/22 Range/Units 06:10 POC Glucose (mg/dL) 139 H (70-110) mg/dL
[2022-08-16] MEDS: THIAMINE 100 MG TAB PO SCH (09:52)
[2022-08-16] MEDS: hydroCHLOROthiazide 12.5 MG CAP PO SCH (09:52)
[2022-08-16] MEDS: LOSARTAN 50 MG TAB PO SCH (09:52)
[2022-08-16] MEDS: ENOXAPARIN 40 MG/0.4 ML SYRINGE SQ SCH (09:52)
[2022-08-16] MEDS: OSELTAMIVIR 75 MG CAP PO SCH ×2 (09:52→20:19)
--- NOTE | 2022-08-16 10:23 | XR ---
EXAMINATION TYPE: XR shoulder complete RT DATE OF EXAM: 08/16/2022 10:19 AM INDICATION: Patient age:Male; 57 years old; Reason for study: shoulder pain; COMPARISON: None TECHNIQUE: The right shoulder was examined in AP, internally rotated and scapular Y projections. FINDINGS: No evidence of acute osseous pathology, joint dislocation, or soft tissue swelling. The remaining por tions of the visualized chest are unremarkable. IMPRESSION: No acute osseous pathology.
[2022-08-16 10:58] LABS: Glucose,Whole Blood 413 mg/dL (70-110)
[2022-08-16] MEDS ORDERED: INSULIN ASPART (NovoLOG) 100 UNIT/ML VIAL SQ ONE (12:00)
[2022-08-16] MEDS ORDERED: INSULIN ASPART (NovoLOG) 100 UNIT/ML VIAL SQ SCH (12:30)
--- NOTE | 2022-08-16 15:33 | P.PN ---
Progress Note - Text Progress Note Date: 08/16/22 Interval History: Patient was seen resting in bed and was directable and agreeable to speak with life underwriter in his room. He reports doing well on current medication regimen and denies any concerns. Currently, the patient continues to endorse suicidal ideation however is denying any intention or plan. He is not reporting any homicidal ideation, intention, and/or plan. He reports no auditory or visual hallucinations. He denies any paranoia or other delusions. He does report that his general medical health appears to be improving. He does express a desire to move around more. He has been adherent with his medication and is not endorsing any significant side effects at this time. He is not reporting any racing thoughts, irritability, or impulsive behaviors. He says he sleeps well but is sometimes woken up for having vitals taken at night. He says he is able to follow asleep afterwards quickly. Mental Status Exam: General Appearance: Patient appears to be stated age is alert, directable, and cooperative. Behavior: Patient is calmly seated without any agitated behavior. Poor eye contact Speech: Patient's speech is fluent and nonpressured. Mood/Affect: Mood is sad, affect is congruent and constricted. Suicidality/Homicidality: Patient continues to endorse suicidal ideation. No homicidal ideation. Perceptions: Patient denies any visual hallucinations and denies any auditory hallucinations Though content/process: There is no evidence of any delusional thought content and thought process is linear and goal-directed. Memory and concentration: AOX3, grossly intact for the purposes of this session Judgment and insight: Improving mildly Vital Signs Temp 98.2 F 08/16/22 14:00 Pulse 105 H 08/16/22 14:00 Resp 17 08/16/22 14:00 BP 114/66 08/16/22 14:00 Pulse Ox 96 08/16/22 14:00 FiO2 Intake & Output 08/15/22 08/16/22 08/16/22 18:59 06:59 18:59 Intake Total 720 Balance 720 Intake: Oral 720 Other: # Voids 4 2 Assessment Bipolar 2 disorder, depressive episode Generalized anxiety disorder Alcohol use disorder Tobacco use disorder Influenza B Plan: -At this time patient DOES meet criteria for inpatient psychiatric admission. The patient is currently suicidal. -Delirium precautions recommended with patient including - avoiding use of narcotics and COOK SHIP sedatives, limit anticholinergic medications when possible, frequent re-orientation, minimize use of restraints, open window shades during the day and close them at night -Would recommend the following medication changes/additions: Continue Depakote 1500 mg by mouth at bedtime for mood stabilization - Depakote level collected and pending. Continue trazodone 300 mg by mouth at bedtime for insomnia Continue Zyprexa 10 mg by mouth at bedtime for mood stabilization -Continue 1:1 sitter for safety -Cannot leave AMA at this time. Patient will need active petition and first certificate to be completed by primary team. -Will continue to follow along -When medically stable, patient is eligible for transfer to a psych bed when available.
[2022-08-16] MEDS ORDERED: MINERAL OIL-WHITE PETROLATUM 120 GM JAR TOPICAL PRN (15:56)
[2022-08-16 16:39] LABS: Glucose,Whole Blood 123 mg/dL (70-110)
[2022-08-16] MEDS: ALBUTEROL NEBULIZED 2.5 MG/3 ML INHALATION PRN (16:48)
[2022-08-16] MEDS: guaiFENesin 600 MG TABLET.ER PO PRN (18:42)
[2022-08-16] MEDS: ACETAMINOPHEN TAB 325 MG TAB PO PRN (18:46)
[2022-08-16 20:16] LABS: Glucose,Whole Blood 394 mg/dL (70-110)
[2022-08-16] MEDS: OLANZapine 10 MG TAB PO SCH (20:19)
[2022-08-16] MEDS: DIVALPROEX ER 500 MG TAB.ER.24H PO SCH (20:19)
[2022-08-16] MEDS: ATORVASTATIN 10 MG TAB PO SCH (20:20)
[2022-08-16] MEDS: BENZOCAINE/MENTHOL LOZENG 1 EACH LOZENGE MUCOUS MEM PRN (20:26)
[2022-08-16] MEDS: traZODone HCL 100 MG TAB PO SCH ×2 (23:39→23:46)
[2022-08-17 06:17] LABS: Glucose,Whole Blood 212 mg/dL (70-110)
[2022-08-17] MEDS: INSULIN ASPART (NovoLOG) 100 UNIT/ML VIAL SQ SCH ×4 (06:31→22:18)
[2022-08-17] MEDS: ENOXAPARIN 40 MG/0.4 ML SYRINGE SQ SCH (10:09)
[2022-08-17] MEDS: THIAMINE 100 MG TAB PO SCH (10:09)
[2022-08-17] MEDS: OSELTAMIVIR 75 MG CAP PO SCH (10:09)
[2022-08-17] MEDS: LOSARTAN 50 MG TAB PO SCH (10:09)
[2022-08-17] MEDS: hydroCHLOROthiazide 12.5 MG CAP PO SCH (10:09)
[2022-08-17] MEDS: ACETAMINOPHEN TAB 325 MG TAB PO PRN ×2 (10:16→17:10)
[2022-08-17] MEDS: guaiFENesin 600 MG TABLET.ER PO PRN ×2 (10:16→22:17)
[2022-08-17 11:14] LABS: Glucose,Whole Blood 248 mg/dL (70-110)
[2022-08-17] MEDS: FLUTICASONE 50MCG/SPRAY NASAL 16GM EA NOSTRIL PRN (11:50)
[2022-08-17] MEDS: ALBUTEROL NEBULIZED 2.5 MG/3 ML INHALATION PRN ×2 (12:02→20:27)
--- NOTE | 2022-08-17 13:25 | P.PN ---
Subjective Progress Note Date: 08/17/22 Patient doing well today. Tamiflu completed today. Gen: awake, alert HEENT: normocephalic, atraumatic, good hearing acuity, moist mucous membranes Resp: good air exchange, breathing comfortably with no accessory muscle use CVS: good distal perfusion x 4, GI: soft, NTTP, ND : no SPT, no CVAT, knight catheter not present MSK: no pitting edema, no clubbing Neuro: non-focal, moving all extremities Psych: cooperative, euthymic mood Hospital Course: 57-year-old man with medical history of hypertension, hyperlipidemia, diabetes presented for mental health evaluation. Medicine was consulted by psychiatry service for medical evaluation clearance. In the MHU, patient was evaluated and found to be afebrile, 175/88, heart rate 89, 98% on room air. UA showed trace protein, otherwise unremarkable. Urine tox screen was negative. Covid was negative. Patient exhibited URI symptoms and had influenza screen done which was + for influenza B. He was transferred to the medical unit for contact/droplet precautions and further monitoring. He was started on tamiflu. Assessment: Influenza B Diabetes type 2 Hypertension Hyperlipidemia Plan: Today, patient is afebrile, 112/69, heart rate 71, 98% on room air Blood glucose in the last 24 hours has ranged between 123 and 413 Shoulder XR of right did not show any acute dislocation, fracture, pathology Resume home glipizide 10 mg twice daily Added sliding scale insulin for meals Add Mucinex 600 mg twice a day when necessary Add pseudoephedrine 30 mg daily when necessary Add Cepacol lozenges every 4 hours when necessary Add fluticasone 1 spray nasal daily when necessary Resume patient's losartan, hydrochlorothiazide Continue Tamiflu 75 mg twice a day, day 3 of 5 Patient is full code Objective - Vital Signs Vital signs: Vital Signs Temp 97.6 F 08/17/22 07:26 Pulse 96 08/17/22 12:14 Resp 16 08/17/22 07:26 BP 112/69 08/17/22 07:26 Pulse Ox 98 08/17/22 07:26 FiO2 Intake & Output 08/16/22 08/17/22 08/17/22 18:59 06:59 18:59 Other: Voiding Method Toilet # Voids 6 2 # Bowel Movements 2 - Labs CBC & Chem 7: 08/13/22 07:30 08/13/22 07:30 Labs: Abnormal Lab Results - Last 24 Hours (Table) 08/16/22 08/16/22 08/17/22 Range/Units 16:38 20:10 06:16 POC Glucose (mg/dL) 123 H 394 H 212 H (70-110) mg/dL 08/17/22 Range/Units 11:13 POC Glucose (mg/dL) 248 H (70-110) mg/dL
--- NOTE | 2022-08-17 14:01 | P.PN ---
Progress Note - Text Progress Note Date: 08/17/22 Interval History: Patient was seen resting in bed and was directable and agreeable to speak with typewriter repairer in his room. He reports doing well on current medication regimen and denies any concerns. Patient describes that he is worried about where he might be going to after being discharged from the hospital. He states that he does not have any family members with whom he is close. He describes contentious relationships in his life. Patient is also not future oriented however claims that he is not experiencing suicidal ideation currently. However, patient does report having suicidal ideation with plan to jump in front of traffic in the past 24 hours. He is not reporting any homicidal ideation, intention, and/or plan. He reports no auditory or visual hallucinations. He denies any paranoia or other delusions. He does report that his general medical health appears to be improving. He has been adherent with his medication and is not endorsing any significant side effects at this time. He is not reporting any racing thoughts, irritability, or impulsive behaviors. He reports that his sleep has improved last night and denies any concerns with this. Mental Status Exam: General Appearance: Patient appears to be stated age is alert, directable, and cooperative. Behavior: Patient is calmly seated without any agitated behavior. Fair eye contact, improving Speech: Patient's speech is fluent and nonpressured. Slightly hyperverbal Mood/Affect: Mood is "better", affect is congruent and constricted. Suicidality/Homicidality: Patient denies currrent suicidal ideation but endorses it recently. No homicidal ideation. Perceptions: Patient denies any visual hallucinations and denies any auditory hallucinations Though content/process: There is no evidence of any delusional thought content and thought process is linear and goal-directed. Memory and concentration: AOX3, grossly intact for the purposes of this session Judgment and insight: Improving mildly Assessment Bipolar 2 disorder, depressive episode Generalized anxiety disorder Alcohol use disorder Tobacco use disorder Influenza B Plan: -At this time patient DOES meet criteria for inpatient psychiatric admission. The patient is currently suicidal. -Delirium precautions recommended with patient including - avoiding use of narcotics and [employer] sedatives, limit anticholinergic medications when possible, frequent re-orientation, minimize use of restraints, open window shades during the day and close them at night -Would recommend the following medication changes/additions: Continue Depakote 1500 mg by mouth at bedtime for mood stabilization - Depakote level collected and pending. Continue trazodone 300 mg by mouth at bedtime for insomnia Continue Zyprexa 10 mg by mouth at bedtime for mood stabilization -Continue 1:1 sitter for safety -Cannot leave AMA at this time. Patient will need active petition and first certificate to be completed by primary team. -Will continue to follow along -When medically stable, patient is eligible for transfer to a psych bed when available. If patient continues to improve tomorrow, may not require inpatient psychiatric hospitalization
[2022-08-17 17:04] LABS: Glucose,Whole Blood 311 mg/dL (70-110)
[2022-08-17 21:08] LABS: Glucose,Whole Blood 159 mg/dL (70-110)
[2022-08-17] MEDS: DIVALPROEX ER 500 MG TAB.ER.24H PO SCH (22:17)
[2022-08-17] MEDS: ATORVASTATIN 10 MG TAB PO SCH (22:17)
[2022-08-17] MEDS: OLANZapine 10 MG TAB PO SCH (22:17)
[2022-08-17] MEDS: traZODone HCL 100 MG TAB PO SCH (22:18)
[2022-08-18 05:30] LABS: Glucose,Whole Blood 218 mg/dL (70-110)
[2022-08-18] MEDS: INSULIN ASPART (NovoLOG) 100 UNIT/ML VIAL SQ SCH ×4 (06:20→21:04)
[2022-08-18] MEDS: ALBUTEROL NEBULIZED 2.5 MG/3 ML INHALATION PRN ×2 (08:07→20:21)
[2022-08-18] MEDS: hydroCHLOROthiazide 12.5 MG CAP PO SCH (08:54)
[2022-08-18] MEDS: ENOXAPARIN 40 MG/0.4 ML SYRINGE SQ SCH (08:54)
[2022-08-18] MEDS: THIAMINE 100 MG TAB PO SCH (08:54)
[2022-08-18] MEDS: LOSARTAN 50 MG TAB PO SCH (08:54)
[2022-08-18] MEDS: FLUTICASONE 50MCG/SPRAY NASAL 16GM EA NOSTRIL PRN (09:03)
[2022-08-18] MEDS: guaiFENesin 600 MG TABLET.ER PO PRN (09:18)
[2022-08-18 11:25] LABS: Glucose,Whole Blood 288 mg/dL (70-110)
--- NOTE | 2022-08-18 13:37 | P.PN ---
Progress Note - Text Progress Note Date: 08/18/22 Interval History: Patient was seen resting in bed and was directable and agreeable to speak with telegraphic typewriter installer in his room. Patient reports that he is doing well. He is currently denying any suicidal or homicidal ideation, intention, and/or plan. He reports that his general medical health is also improving. He states that he was able to speak with his ex-girlfriend and things have been going well. He is future and goal oriented and is looking at alternatives in regards to housing. He is even considering moving out of state. He reports no significant symptoms of nesha or hypomania and is denying any racing thoughts, mood lability, or excessive energy. He reports no auditory or visual hallucinations. He denies any paranoia or other delusions. He denies any access to firearms or other weapons. The patient is able to properly safety plan. He expresses a strong de sire to live for himself and for his loved ones. He is agreeable to discharge today. Mental Status Exam: General Appearance: Patient appears to be stated age is alert, directable, and cooperative. Behavior: Patient is calmly seated without any agitated behavior. Fair eye contact, improving Speech: Patient's speech is fluent and nonpressured. Slightly hyperverbal Mood/Affect: Mood is "feeling pretty good", affect is congruent and euthymic to bright. Suicidality/Homicidality: Patient reports no suicidal or homicidal ideation. Perceptions: Patient denies any visual hallucinations and denies any auditory hallucinations Though content/process: There is no evidence of any delusional thought content and thought process is linear and goal-directed. Memory and concentration: AOX3, grossly intact for the purposes of this session Judgment and insight: Improved Vital Signs Temp 97.9 F 08/18/22 07:24 Pulse 76 08/18/22 08:17 Resp 17 08/18/22 07:24 BP 121/66 08/18/22 07:24 Pulse Ox 99 08/18/22 07:24 FiO2 Intake & Output 08/17/22 08/18/22 08/18/22 18:59 06:59 18:59 Intake Total 600 Balance 600 Intake: Oral 600 Other: Voiding Method Toilet Toilet # Voids 1 4 # Bowel Movements 1 Laboratory Results WBC 8.70 X 10*3/uL (4.50-10.00) 08/13/22 07:30 RBC 4.06 X 10*6/uL (4.40-5.60) L 08/13/22 07:30 Hgb 13.0 g/dL (13.0-17.0) 08/13/22 07:30 Hct 39.0 % (39.6-50.0) L 08/13/22 07:30 MCV 96.1 fL (80.0-97.0) 08/13/22 07:30 MCH 32.0 pg (27.0-32.0) 08/13/22 07:30 MCHC 33.3 g/dL (32.0-37.0) 08/13/22 07:30 RDW 13.0 % (11.5-14.5) 08/13/22 07:30 Plt Count 288 X 10*3/uL (140-440) 08/13/22 07:30 MPV 10.6 fL (9.5-12.2) 08/13/22 07:30 Immature Gran % (Auto) 0.3 % 08/13/22 07:30 Absolute Nucleated RBC 0 X 10*3/uL (0.00-0.00) 08/13/22 07:30 Neutrophils % 62.3 % 08/13/22 07:30 Lymphocytes % 23.8 % 08/13/22 07:30 Monocytes % 9.3 % 08/13/22 07:30 Eosinophils % 3.7 % 08/13/22 07:30 Basophils % 0.6 % 08/13/22 07:30 Immature Gran # 0.03 X 10*3/uL (0.00-0.04) 08/13/22 07:30 Neutrophils # 5.42 X 10*3/uL (1.80-7.70) 08/13/22 07:30 Lymphocytes # 2.07 X 10*3/uL (0.90-5.00) 08/13/22 07:30 Monocytes # 0.81 X 10*3/uL (0.20-1.00) 08/13/22 07:30 Eosinophils # 0.32 X 10*3/uL (0.04-0.35) 08/13/22 07:30 Basophils # 0.05 X 10*3/uL (0.00-0.10) 08/13/22 07:30 NRBC/100 WBC Diff 0 /100 WBCS (0.0-0.0) 08/13/22 07:30 Sodium 139 mmol/L (135-145) 08/13/22 07:30 Potassium 3.4 mmol/L (3.5-5.5) L 08/13/22 07:30 Chloride 98 mmol/L (96-109) 08/13/22 07:30 Carbon Dioxide 27.1 mmol/L (20.0-27.5) 08/13/22 07:30 Anion Gap 13.90 mmol/L (10.00-18.00) 08/13/22 07:30 BUN 11.1 mg/dL (9.0-27.0) 08/13/22 07:30 Creatinine 0.8 mg/dL (0.6-1.5) 08/13/22 07:30 Est GFR (CKD-EPI)AfAm 115.7 (60.0-200.0) 08/13/22 07:30 Est GFR (CKD-EPI)NonAf 99.9 (60.0-200.0) 08/13/22 07:30 BUN/Creatinine Ratio 13.88 Ratio (12.00-20.00) 08/13/22 07:30 Glucose 125 mg/dL (70-110) H 08/13/22 07:30 POC Glucose (mg/dL) 288 mg/dL (70-110) H 08/18/22 11:24 POC Glu [employer] Program Specialist ID Deacon, [employer] 08/18/22 11:24 Calcium 9.4 mg/dL (8.7-10.3) 08/13/22 07:30 Total Bilirubin 0.50 mg/dL (0.30-1.20) 08/13/22 07:30 AST 39 U/L (14-35) H 08/13/22 07:30 ALT 32 U/L (10-49) 08/13/22 07:30 Alkaline Phosphatase 83 U/L (41-126) 08/13/22 07:30 Total Protein 6.7 g/dL (6.2-8.2) 08/13/22 07:30 Albumin 4.3 g/dL (3.8-4.9) 08/13/22 07:30 Globulin 2.4 g/dL (1.6-3.3) 08/13/22 07:30 Albumin/Globulin Ratio 1.79 g/dL (1.60-3.17) 08/13/22 07:30 Assessment Bipolar 2 disorder, depressive episode Generalized anxiety disorder Alcohol use disorder Tobacco use disorder Influenza B Plan: -At this time patient DOES NOT meet criteria for inpatient psychiatric admission. The patient is not expressing a desire to harm himself or others. He is future and goal oriented. He will remain at chronically elevated risk due to prior suicide attempts and his current homelessness. -Recommend patient is given his belongings so that he may have his cell phone to contact friends and family in terms of housing. -Would recommend the following medication changes/additions: Continue Depakote 1500 mg by mouth at bedtime for mood stabilization - Depakote level pending. If abnormal provider will contact patient with instructions. Continue trazodone 300 mg by mouth at bedtime for insomnia Continue Zyprexa 10 mg by mouth at bedtime for mood stabilization -Discontinue patient safety sitter. Patient does not require a sitter at this time. -Patient is cleared psychiatrically for discharge. -Case management/social work to establish aftercare appointments for this patient prior to discharge. Patient follows with [facility].
[2022-08-18 16:45] LABS: Glucose,Whole Blood 238 mg/dL (70-110)
--- NOTE | 2022-08-18 17:36 | P.PN ---
Subjective Progress Note Date: 08/18/22 Hospital course: Patient is a very pleasant 57-year-old male with a past medical history of hypertension, hyperlipidemia, and diabetes mellitus. He presented to the emergency department on 08/12/22 for mental health evaluation secondary to depression and reports of suicidal ideations. Patient was initially admitted under psychiatry name, however patient exhibited upper respiratory infection symptoms and influenza B test was positive. Patient started on Tamiflu and transferred to medical unit and placed on contact/droplet precautions. Physical exam: Vital signs reviewed and stable. General: Nontoxic, no distress and appears stated age. Derm: Skin warm and dry, normal coloration for ethnicity. Head: Atraumatic, normocephalic and symmetric. Eyes: EOMs intact, no lid lag, and anicteric sclera Mouth: no lip lesions, mucus membranes moist Cardiovascular: regular rate and rhythm with normal S1S2, no murmur, positive posterior tibial pulses bilaterally, and cap refill < 2 seconds. Lungs: Respirations even, regular, and unlabored on room air. Lungs CTA bilaterally, no rhonchi, no rales, no wheezing, and no accessory muscle usage. Abdominal: soft, nontender to palpation, no guarding, no appreciable organomegaly Ext: ROM intact. No gross muscle atrophy, no edema, no contractures Neuro: Speech clear, face symmetrical and CN II-XII grossly intact with no noted focal neuro deficits Psych: Alert and oriented to person, place, time, and situation. Appropriate and pleasant affect. Assessment and Plan of Care: Influenza B Diabetes mellitus type 2 with hyperglycemia Hypertension Hyperlipidemia -Patient completed a 5 day course of Tamiflu on 08/17/22. -Patient continues with mild nasal congestion otherwise denies having any complaints. Patient to continue Mucinex 600 mg twice daily along with fluticasone nasal spray 2 sprays per nares daily. -Vital signs reviewed and stable. Morning blood pressure 121/66, heart rate 68, respiratory rate 17, and SpO2 of 99% on room air with temperature of 97.9F. Patient to continue with antihypertensive medication regimen with losartan 100 mg daily and hydrochlorothiazide 12.5 mg daily. -Recommending continuation of atorvastatin 10 mg nightly for treatment of hyperlipidemia along with continued encouragement on heart healthy diet. -Morning glucose 125. Blood glucose levels have ranged from 125-311 over the past 24 hours. Order placed to resume glipizide 10 mg by mouth twice daily and continuation of glycemic protocol with NovoLog sliding scale. Depression with Suicidal ideations -Sitter remains at bedside. Maintain suicide precautions. -Psychiatry following and reviewed documentation in chart. CODE STATUS: Full code DVT prophylaxis: Lovenox Discussed with: Patient and RN Anticipated discharge date: 24-[address]: Patient to remain in contact/droplet precautions for an additional 24 hours to total 7 days and isn't medically stable for discharge to psychiatric unit. Patient was seen independently by Nurse Pracitioner. This document was prepared using [employer] dictation software. Please allow for errors in supervisor remelt, while rare they do occur. Objective - Vital Signs Vital signs: Vital Signs Temp 97.9 F 08/18/22 07:24 Pulse 68 08/18/22 07:24 Resp 17 08/18/22 07:24 BP 121/66 08/18/22 07:24 Pulse Ox 99 08/18/22 07:24 FiO2 Intake & Output 08/17/22 08/18/22 08/18/22 18:59 06:59 18:59 Intake Total 600 Balance 600 Intake: Oral 600 Other: Voiding Method Toilet # Voids 1 4 # Bowel Movements 1 - Labs CBC & Chem 7: 08/13/22 07:30 08/13/22 07:30 Labs: Abnormal Lab Results - Last 24 Hours (Table) 08/17/22 08/17/22 08/17/22 Range/Units 11:13 17:02 21:06 POC Glucose (mg/dL) 248 H 311 H 159 H (70-110) mg/dL 08/18/22 Range/Units 05:29 POC Glucose (mg/dL) 218 H (70-110) mg/dL Assessment and Plan Assessment: Ronan Kent NP rendered care for this patient independently, reviewed the findings and plan as documented in the note above. I did not physically speak with our examined the patient on this date.
[2022-08-18 19:24] LABS: Glucose,Whole Blood 355 mg/dL (70-110)
[2022-08-18] MEDS: DIVALPROEX ER 500 MG TAB.ER.24H PO SCH (21:04)
[2022-08-18] MEDS: OLANZapine 10 MG TAB PO SCH (21:04)
[2022-08-18] MEDS: ATORVASTATIN 10 MG TAB PO SCH (21:04)
[2022-08-18] MEDS: glipiZIDE 10 MG TAB PO SCH (21:04)
[2022-08-18] MEDS: traZODone HCL 100 MG TAB PO SCH (23:34)
[2022-08-19 01:59] VITALS: RESP 16
[2022-08-19 06:03] LABS: Glucose,Whole Blood 214 mg/dL (70-110)
[2022-08-19] MEDS: INSULIN ASPART (NovoLOG) 100 UNIT/ML VIAL SQ SCH ×2 (06:31→12:55)
[2022-08-19 08:13] VITALS: BP 122/73; PULSE 74; TEMP 97.4
[2022-08-19] MEDS: glipiZIDE 10 MG TAB PO SCH (08:36)
[2022-08-19] MEDS: LOSARTAN 50 MG TAB PO SCH (08:36)
[2022-08-19] MEDS: ENOXAPARIN 40 MG/0.4 ML SYRINGE SQ SCH (08:36)
[2022-08-19] MEDS: THIAMINE 100 MG TAB PO SCH (08:36)
[2022-08-19] MEDS: hydroCHLOROthiazide 12.5 MG CAP PO SCH (08:36)
[2022-08-19] MEDS: guaiFENesin 600 MG TABLET.ER PO PRN (08:53)
[2022-08-19] MEDS: FLUTICASONE 50MCG/SPRAY NASAL 16GM EA NOSTRIL PRN (08:53)
[2022-08-19 12:02] LABS: Glucose,Whole Blood 229 mg/dL (70-110)
--- NOTE | 2022-08-19 16:24 | P.DS ---
Providers Date of admission: 08/12/22 21:51 Expected date of discharge: 08/19/22 Attending physician: Michelle Ji MD Consults: 08/12/22 22:11 Consult Physician Routine Consulting Provider: Román Fofana Consult Reason/Comments: suicidal Do you want consulting provider notified?: Yes Primary care physician: Stated None Hospital Course: Discharge Diagnosis: Influenza B. Patient completed a 5 day course of Tamiflu on 08/17/22. Diabetes mellitus type 2 with hyperglycemia. Hyperglycemia likely secondary to recent infection. Patient to resume home glipizide 10 mg twice daily and encouraged to monitor blood glucose levels twice daily and document findings and daily log/sternal to bring with him to next doctor's appointment. Patient declined additional diabetic medications at this time. Hypertension. Vital signs stable in current blood pressure medication regimen. Patient to continue with losartan 100 mg daily and hydrochlorothiazide 12.5 mg daily. Blood pressure 122/73 with heart rate of 74 upon discharge. Hyperlipidemia. . Patient encouraged to continue heart healthy and carb consistent diet and continue daily home medication regimen with atorvastatin 10 mg nightly. Depression with Suicidal ideations. Patient was evaluated by psychiatrist clearing patient from inpatient psychiatry perspective stating patient may be discharged home and follow-up outpatient for continued mental health. Psychiatrist did make medication changes and Depakote was increased to 1500 mg nightly, trazodone increased to 300 mg nightly, and psychiatry recommending patient continue with daily medication dose of Zyprexa 10 mg nightly. Hospital Course: Patient is a very pleasant 57-year-old male with a past medical history of hypertension, hyperlipidemia, and diabetes mellitus. He presented to the emergency department on 08/12/22 for mental health evaluation secondary to depression and reports of suicidal ideations. Patient was initially admitted under psychiatry name, however patient exhibited upper respiratory infection symptoms and influenza B test was positive. Patient started on Tamiflu and transferred to medical unit and placed on contact/droplet precautions. He completed a 5 day course of Tamiflu on 08/17/22. Patient was evaluated by psychiatrist and medication changes were made. Patient denies having suicidal or homicidal ideations. His Depakote was increased to 1500 mg nightly, trazodone also increased to 300 mg nightly, and patient to continue with Zyprexa 10 mg nightly. Medically, patient is stable at this time and has been cleared by psychiatrist stating no need for inpatient hospitalization. Patient provided with community resources and outpatient counseling available to him. Patient denied having any questions, needs, concerns, or complaints at this time. Medically patient stable for discharge home. Patient encouraged to follow up outpatient with [facility] in 1-2 days and was seen age for continued outpatient mental health treatment. Physical exam: Vital signs reviewed and stable. General: Nontoxic, no distress and appears stated age. Derm: Skin warm and dry, normal coloration for ethnicity. Head: Atraumatic, normocephalic and symmetric. Eyes: EOMs intact, no lid lag, and anicteric sclera Mouth: no lip lesions, mucus membranes moist Cardiovascular: regular rate and rhythm with normal S1S2, no murmur, positive posterior tibial pulses bilaterally, and cap refill < 2 seconds. Lungs: Respirations even, regular, and unlabored on room air. Lungs CTA bilaterally, no rhonchi, no rales, no wheezing, and no accessory muscle usage. Abdominal: soft, nontender to palpation, no guarding, no appreciable organomegaly Ext: ROM intact. No gross muscle atrophy, no edema, no contractures Neuro: Speech clear, face symmetrical and CN II-XII grossly intact with no noted focal neuro deficits Psych: Alert and oriented to person, place, time, and situation. Appropriate and pleasant affect. A total of 31 minutes of time were spent preparing this complex discharge summary. Pt was discharged on 08/29/22 at 9:44 AM Patient was seen independently by Nurse Practitioner. This document was prepared using [employer] dictation software. Please allow for errors in sawsmith while rare they do occur. Patient Condition at Discharge: Stable Plan - Discharge Summary New Discharge Prescriptions: New Divalproex ER [Depakote ER] 1,500 mg PO HS 30 Days #90 tab traZODone HCL [Desyrel] 300 mg PO HS 30 Days #90 tab OLANZapine [ZyPREXA] 10 mg PO HS 30 Days #30 tab Continue glipiZIDE [Glucotrol] 10 mg PO BID Losartan Potassium 100 mg PO DAILY Naltrexone HCl [Revia] 50 mg PO DAILY 30 Days #30 tab Mag Hydrox/Al Hydrox/Simeth [Maalox] 30 ml PO Q4HR PRN ml PRN Reason: Gi Upset Magnesium Hydroxide [Milk of Magnesia Concentrate] 2,400 mg PO DAILY PRN ml PRN Reason: Constipation Clobetasol Propionate [Temovate 0.05% Cream] 1 applic TOPICAL BID each Acetaminophen Tab [Tylenol] 650 mg PO Q4HR PRN tab PRN Reason: Pain/Discomfort Atorvastatin [Lipitor] 10 mg PO HS 30 Days #30 tab Albuterol Inhaler [Ventolin Hfa Inhaler] 1 puff INHALATION RT-Q4H PRN 30 Days #1 each PRN Reason: Shortness Of Breath Cholecalciferol [Vitamin D3 (125 Mcg = 5000 Iu)] 125 mcg PO DAILY 30 Days #30 tab Meloxicam [Mobic] 15 mg PO DAILY 30 Days #30 tab Cyclobenzaprine [Flexeril] 10 mg PO DAILY PRN 30 Days #20 tab PRN Reason: Muscle Spasm hydroCHLOROthiazide [Hydrodiuril] 12.5 mg PO DAILY 30 Days #30 cap Discontinued traZODone HCL [Desyrel] 150 mg PO HS tab Divalproex ER [Depakote ER] 1,000 mg PO HS 30 Days #60 tab OLANZapine [ZyPREXA] 10 mg PO HS 30 Days #30 tab Discharge Medication List glipiZIDE [Glucotrol] 10 mg PO BID 04/19/21 [History] Losartan Potassium 100 mg PO DAILY 05/07/22 [History] Naltrexone HCl [Revia] 50 mg PO DAILY 30 Days #30 tab 05/12/22 [Rx] Acetaminophen Tab [Tylenol] 650 mg PO Q4HR PRN tab 07/23/22 [Rx] Albuterol Inhaler [Ventolin Hfa Inhaler] 1 puff INHALATION RT-Q4H PRN 30 Days #1 each 07/23/22 [Rx] Atorvastatin [Lipitor] 10 mg PO HS 30 Days #30 tab 07/23/22 [Rx] Cholecalciferol [Vitamin D3 (125 Mcg = 5000 Iu)] 125 mcg PO DAILY 30 Days #30 tab 07/23/22 [Rx] Clobetasol Propionate [Temovate 0.05% Cream] 1 applic TOPICAL BID each 07/23/22 [Rx] Cyclobenzaprine [Flexeril] 10 mg PO DAILY PRN 30 Days #20 tab 07/23/22 [Rx] Mag Hydrox/Al Hydrox/Simeth [Maalox] 30 ml PO Q4HR PRN ml 07/23/22 [Rx] Magnesium Hydroxide [Milk of Magnesia Concentrate] 2,400 mg PO DAILY PRN ml 07/23/22 [Rx] Meloxicam [Mobic] 15 mg PO DAILY 30 Days #30 tab 07/23/22 [Rx] hydroCHLOROthiazide [Hydrodiuril] 12.5 mg PO DAILY 30 Days #30 cap 07/23/22 [Rx] Divalproex ER [Depakote ER] 1,500 mg PO HS 30 Days #90 tab 08/18/22 [Rx] OLANZapine [ZyPREXA] 10 mg PO HS 30 Days #30 tab 08/18/22 [Rx] traZODone HCL [Desyrel] 300 mg PO HS 30 Days #90 tab 08/18/22 [Rx] Follow up Appointment(s)/Referral(s): [facility] [NON-STAFF] - 1-2 Days Activity/Diet/Wound Care/Special Instructions: Activity: As tolerated. Take breaks as needed. Diet: Heart healthy and carb consistent diet. Avoid salts, or foods with hidden salts such as canned or boxed foods and frozen dinners. Extra salt makes your heart work harder and traps the fluid in your body for longer. Special Instructions: Take all of your medications as directed and remember to keep all of your doctor's appointments and follow-up as needed. Thank you for allowing us to participate in your care, it was truly a pleasure having you for our patient!!! Discharge/Stand Alone Forms: Who Do I Call?, Community Resources, Outpatient Co unseling Discharge Disposition: HOME SELF-CARE
== END 2022-08-19 13:30 | disposition home or self-care (01) | DRG 113 ==
LOC: 4SSUR 21:50 → INTOOBSV 21:50 → OBSVTOIN 21:51
PROVIDERS: ADMIT Internal Medicine; ATTEND Internal Medicine
DX: J10.1 Influenza due to other identified influenza virus with other respiratory manifestations (principal); R45.851 Suicidal ideations; I10 Essential (primary) hypertension; E11.9 Type 2 diabetes mellitus without complications; L40.9 Psoriasis, unspecified; M19.90 Unspecified osteoarthritis, unspecified site; F41.1 Generalized anxiety disorder; F31.81 Bipolar II disorder; M46.00 Spinal enthesopathy, site unspecified; F10.10 Alcohol abuse, uncomplicated; F17.200 Nicotine dependence, unspecified, uncomplicated; E78.5 Hyperlipidemia, unspecified; Z79.1 Long term (current) use of non-steroidal anti-inflammatories (NSAID); Z79.84 Long term (current) use of oral hypoglycemic drugs; Z79.899 Other long term (current) drug therapy; Z88.8 Allergy status to other drugs, medicaments and biological substances; M25.552 Pain in left hip; M25.551 Pain in right hip
CPT/HCPCS: 80053; 80165; 85025; 94640

== ENCOUNTER 2022-08-31 12:59 | Inpatient (IN) | payer MEDICAID, OTHER ==
--- NOTE | 2022-08-31 13:56 | ED ---
Alcohol HPI - General Source: patient, EMS, RN notes reviewed Mode of arrival: EMS Limitations: altered mental status <Jb Ludwig - Last Filed: 09/03/22 06:44> <Shae Walter - Last Filed: 09/03/22 07:11> - General Chief Complaint: Alcohol Stated Complaint: ETOH Time Seen by Provider: 08/31/22 13:01 - History of Present Illness Initial Comments: 57-year-old male presents emergency Department with chief complaint of depression, alcohol intoxication, suicidal ideation. Patient reportedly stated that he wanted jumping in front of traffic. He denies this now. Patient admits to several alcoholic drink today. Patient states he drinks regularly irregular as a physical complaints denies any current illicit drug use. Patient had recent mental health admission. (Jb Ludwig) - Related Data Home Medications Medication Instructions Recorded Confirmed glipiZIDE [Glucotrol] 10 mg PO BID 04/19/21 08/31/22 Losartan Potassium 100 mg PO DAILY 05/07/22 08/31/22 Previous Rx's Medication Instructions Recorded Naltrexone HCl [Revia] 50 mg PO DAILY 30 Days #30 tab 05/12/22 Acetaminophen Tab [Tylenol] 650 mg PO Q4HR PRN tab 07/23/22 Albuterol Inhaler [Ventolin Hfa 1 puff INHALATION RT-Q4H PRN 30 07/23/22 Inhaler] Days #1 each Atorvastatin [Lipitor] 10 mg PO HS 30 Days #30 tab 07/23/22 Cholecalciferol [Vitamin D3 (125 125 mcg PO DAILY 30 Days #30 tab 07/23/22 Mcg = 5000 Iu)] Clobetasol Propionate [Temovate 1 applic TOPICAL BID each 07/23/22 0.05% Cream] Cyclobenzaprine [Flexeril] 10 mg PO DAILY PRN 30 Days #20 tab 07/23/22 Mag Hydrox/Al Hydrox/Simeth 30 ml PO Q4HR PRN ml 07/23/22 [Maalox] Magnesium Hydroxide [Milk of 2,400 mg PO DAILY PRN ml 07/23/22 Magnesia Concentrate] Meloxicam [Mobic] 15 mg PO DAILY 30 Days #30 tab 07/23/22 hydroCHLOROthiazide [Hydrodiuril] 12.5 mg PO DAILY 30 Days #30 cap 07/23/22 Divalproex ER [Depakote ER] 1,500 mg PO HS 30 Days #90 tab 08/18/22 OLANZapine [ZyPREXA] 10 mg PO HS 30 Days #30 tab 08/18/22 traZODone HCL [Desyrel] 300 mg PO HS 30 Days #90 tab 08/18/22 Allergies Allergy/AdvReac Type Severity Reaction Status Date / Time lisinopril AdvReac Unknown Cough Verified 08/31/22 14:47 Review of Systems ROS Other: All systems not noted in ROS Statement are negative. <Jb Ludwig - Last Filed: 09/03/22 06:44> ROS Other: All systems not noted in ROS Statement are negative. <Shae Walter - Last Filed: 09/03/22 07:11> ROS Statement: Those systems with pertinent positive or pertinent negative responses have been documented in the HPI. Past Medical History Past Medical History: Diabetes Mellitus, Hypertension, Osteoarthritis (OA), Skin Disorder Additional Past Medical History / Comment(s): PSORIASIS, Back and bilat hip pain. Arthritis bilat hip. Bone spurs in spine. History of Any Multi-Drug Resistant Organisms: None Reported Additional Past Surgical History / Comment(s): HAND SURGERY AND NERVE GRAFT TO THUMB, CORTISONE INJECTIONS HIP. Past Anesthesia/Blood Transfusion Reactions: No Reported Reaction Past Psychological History: Anxiety, Depression Smoking Status: Current every day smoker Past Alcohol Use History: Abuse, Heavy Past Drug Use History: None Reported - Past Family History Father Family Medical History: Cancer Additional Family Medical History / Comment(s): LUNG CANCER <Jb Ludwig - Last Filed: 09/03/22 06:44> General Exam Limitations: altered mental status General appearance: alert, in no apparent distress Head exam: Present: atraumatic, normocephalic, normal inspection Eye exam: Present: normal appearance, PERRL, EOMI. Absent: scleral icterus, conjunctival injection, periorbital swelling ENT exam: Present: normal exam, normal oropharynx, mucous membranes moist Neck exam: Present: normal inspection, full ROM. Absent: tenderness, meningismus, lymphadenopathy Respiratory exam: Present: normal lung sounds bilaterally. Absent: respiratory distress, wheezes, rales, rhonchi, stridor Cardiovascular Exam: Present: regular rate, normal rhythm, normal heart sounds. Absent: systolic murmur, diastolic murmur, rubs, gallop, clicks Neurological exam: Present: alert Psychiatric exam: Present: depressed Skin exam: Present: warm, dry, intact, normal color. Absent: rash <Jb Ludwig - Last Filed: 09/03/22 06:44> Course Vital Signs 08/31/22 09/01/22 09/01/22 13:06 07:40 21:31 Temperature 97.8 F 98.3 F 98.0 F Pulse Rate 81 73 82 Respiratory 18 18 17 Rate Blood Pressure 107/73 159/71 127/79 O2 Sat by Pulse 96 97 98 Oximetry Medical Decision Making - Lab Data Result diagrams: 09/01/22 02:00 09/01/22 02:00 <Jb Ludwig - Last Filed: 09/03/22 06:44> - Lab Data Result diagrams: 09/01/22 02:00 09/01/22 02:00 <Shae Walter - Last Filed: 09/03/22 07:11> - Medical Decision Making Was pt. sent in by a medical professional or institution (RALF Medrano, CORRECTIONS OFFICER, urgent care, hospital, or half-way...) When possible be specific @ -[No] Did you speak to anyone other than the patient for history (EMS, parent, family, police, friend...)? What history was obtained from this source @ -[EMS who brought patient in for evaluation providing significant history] Did you review nursing and triage notes (agree or disagree)? Why? @ -[I reviewed and agree with nursing and triage notes] Were old charts reviewed (outside hosp., previous admission, EMS record, old EKG, old radiological studies, urgent care reports/EKG's, half-way records)? Report findings @ -[No old charts were reviewed] Differential Diagnosis (chest pain, altered mental status, abdominal pain women, abdominal pain men, vaginal bleeding, weakness, fever, dyspnea, syncope, headache, dizziness, GI bleed, back pain, seizure, CVA, palpatations, mental health, musculoskeletal)? @ -[Alcohol abuse, alcohol intoxication, depression, suicidal ideation] EKG interpreted by me (3pts min.). @ -[None] X-rays interpreted by me (1pt min.). @ -[None done] CT interpreted by me (1pt min.). @ -[None done] U/S interpreted by me (1pt. min.). @ -[None done] What testing was considered but not performed or refused? (CT, X-rays, U/S, labs)? Why? @ -[None] What meds were considered but not given or refused? Why? @ -[None] Did you discuss the management of the patient with other professionals (professionals i.e. , PA, CORRECTIONS OFFICER, lab, RT, psych nurse, protective services social worker, spinner hydraulic, teacher, professional security officer, continuous pillowcase cutter)? Give summary @ -[EPS evaluation recommend patient be admitted] Was smoking cessation discussed for >3mins.? @ -[No] Was critical care preformed (if so, how long)? @ -[No] Were there social determinants of health that impacted care today? How? (Homelessness, low income, unemployed, alcoholism, drug addiction, transportation, low edu. Level, literacy, decrease access to med. care, fci, r ehab)? @ -[No] Was there de-escalation of care discussed even if they declined (Discuss DNR or withdrawal of care, Hospice)? DNR status @ -[No] What co-morbidities impacted this encounter? (DM, HTN, Smoking, COPD, CAD, Cance r, CVA, ARF, Chemo, Hep., AIDS, mental health diagnosis, sleep apnea, morbid obesity)? @ -[Alcohol abuse] Was patient admitted / discharged? Hospital course, mention meds given and route, prescriptions, significant lab abnormalities, going to OR and other pertinent info. @ -[Patient is currently acutely alcohol intoxicated, patient is depressed, having suicidal ideation patient is pending EPS evaluation when sober patient's case signed out] Undiagnosed new problem with uncertain prognosis? @ -[No] Drug Therapy requiring intensive monitoring for toxicity (Heparin, Nitro, Insulin, Cardizem)? @ -[No] Were any procedures done? @ -[No] Diagnosis/symptom? @ -[Alcohol intoxication, depression, suicidal ideation] Acute, or Chronic, or Acute on Chronic? @ -[Acute] Uncomplicated (without systemic symptoms) or Complicated (systemic symptoms)? @ -[Uncomplicated] Side effects of treatment? @ -[No] Exacerbation, Progression, or Severe Exacerbation? @ -[No] Poses a threat to life or bodily function? How? (Chest pain, USA, ME, pneumonia, PE, COPD, DKA, ARF, appy, cholecystitis, CVA, Diverticulitis, Homicidal, Suicidal, threat to staff... and all critical care pts) @ -[Exacerbation of suicidal] (Jb Ludwig) - Lab Data Lab Results 08/31/22 08/31/22 09/01/22 Range/Units 13:54 20:33 01:46 WBC (3.8-10.6) k/uL RBC (4.30-5.90) m/uL Hgb (13.0-17.5) gm/dL Hct (39.0-53.0) % MCV (80.0-100.0) fL MCH (25.0-35.0) pg MCHC (31.0-37.0) g/dL RDW (11.5-15.5) % Plt Count (150-450) k/uL MPV Neutrophils % % Lymphocytes % % Monocytes % % Eosinophils % % Basophils % % Neutrophils # (1.3-7.7) k/uL Lymphocytes # (1.0-4.8) k/uL Monocytes # (0-1.0) k/uL Eosinophils # (0-0.7) k/uL Basophils # (0-0.2) k/uL Sodium (137-145) mmol/L Potassium (3.5-5.1) mmol/L Chloride (98-107) mmol/L Carbon Dioxide (22-30) mmol/L Anion Gap mmol/L BUN (9-20) mg/dL Creatinine (0.66-1.25) mg/dL Est GFR (CKD-EPI)AfAm (>60 ml/min/1.73 sqM) Est GFR (CKD-EPI)NonAf (>60 ml/min/1.73 sqM) Glucose (74-99) mg/dL Calcium (8.4-10.2) mg/dL Total Bilirubin (0.2-1.3) mg/dL AST (17-59) U/L ALT (4-49) U/L Alkaline Phosphatase (38-126) U/L Total Protein (6.3-8.2) g/dL Albumin (3.5-5.0) g/dL Urine Color Light Yellow Urine Appearance Clear (Clear) Urine pH 5.5 (5.0-8.0) Ur Specific [place] 1.030 (1.001-1.035) Urine Protein Negative (Negative) Urine Glucose (UA) 4+ H (Negative) Urine Ketones Negative (Negative) Urine Blood Negative (Negative) Urine Nitrite Negative (Negative) Urine Bilirubin Negative (Negative) Urine Urobilinogen <2.0 (<2.0) mg/dL Ur Leukocyte Esterase Negative (Negative) Urine Opiates Screen Not Detected (NotDetected) Ur Oxycodone Screen Not Detected (NotDetected) Urine Methadone Screen Not Detected (NotDetected) Ur Propoxyphene Screen Not Detected (NotDetected) Ur Barbiturates Screen Not Detected (NotDetected) U Tricyclic Antidepress Not Detected (NotDetected) Ur Phencyclidine Scrn Not Detected (NotDetected) Ur Amphetamines Screen Not Detected (NotDetected) U Methamphetamines Scrn Not Detected (NotDetected) U Benzodiazepines Scrn Not Detected (NotDetected) Urine Cocaine Screen Not Detected (NotDetected) U Marijuana (THC) Screen Not Detected (NotDetected) Coronavirus (PCR) Not Detected (Not Detectd) 09/01/22 09/01/22 Range/Units 02:00 02:00 WBC 7.9 (3.8-10.6) k/uL RBC 3.64 L (4.30-5.90) m/uL Hgb 11.9 L (13.0-17.5) gm/dL Hct 35.5 L (39.0-53.0) % MCV 97.6 (80.0-100.0) fL MCH 32.8 (25.0-35.0) pg MCHC 33.6 (31.0-37.0) g/dL RDW 13.9 (11.5-15.5) % Plt Count 372 (150-450) k/uL MPV 8.1 Neutrophils % 48 % Lymphocytes % 40 % Monocytes % 6 % Eosinophils % 3 % Basophils % 1 % Neutrophils # 3.7 (1.3-7.7) k/uL Lymphocytes # 3.2 (1.0-4.8) k/uL Monocytes # 0.4 (0-1.0) k/uL Eosinophils # 0.3 (0-0.7) k/uL Basophils # 0.0 (0-0.2) k/uL Sodium 133 L (137-145) mmol/L Potassium 3.6 (3.5-5.1) mmol/L Chloride 99 (98-107) mmol/L Carbon Dioxide 25 (22-30) mmol/L Anion Gap 9 mmol/L BUN 8 L (9-20) mg/dL Creatinine 0.56 L (0.66-1.25) mg/dL Est GFR (CKD-EPI)AfAm >90 (>60 ml/min/1.73 sqM) Est GFR (CKD-EPI)NonAf >90 (>60 ml/min/1.73 sqM) Glucose 176 H (74-99) mg/dL Calcium 8.3 L (8.4-10.2) mg/dL Total Bilirubin 0.3 (0.2-1.3) mg/dL AST 25 (17-59) U/L ALT 23 (4-49) U/L Alkaline Phosphatase 54 (38-126) U/L Total Protein 6.2 L (6.3-8.2) g/dL Albumin 3.8 (3.5-5.0) g/dL Urine Color Urine Appearance (Clear) Urine pH (5.0-8.0) Ur Specific [place] (1.001-1.035) Urine Protein (Negative) Urine Glucose (UA) (Negative) Urine Ketones (Negative) Urine Blood (Negative) Urine Nitrite (Negative) Urine Bilirubin (Negative) Urine Urobilinogen (<2.0) mg/dL Ur Leukocyte Esterase (Negative) Urine Opiates Screen (NotDetected) Ur Oxycodone Screen (NotDetected) Urine Methadone Screen (NotDetected) Ur Propoxyphene Screen (NotDetected) Ur Barbiturates Screen (NotDetected) U Tricyclic Antidepress (NotDetected) Ur Phencyclidine Scrn (NotDetected) Ur Amphetamines Screen (NotDetected) U Methamphetamines Scrn (NotDetected) U Benzodiazepines Scrn (NotDetected) Urine Cocaine Screen (NotDetected) U Marijuana (THC) Screen (NotDetected) Coronavirus (PCR) (Not Detectd) Disposition <Jb Ludwig - Last Filed: 09/03/22 06:44> <Shae Walter - Last Filed: 09/03/22 07:11> Clinical Impression: Depression, Alcohol abuse, Alcoholic intoxication, Suicidal ideation Disposition: TRANSFER TO PSYCH HOSP/UNIT Condition: Stable
[2022-08-31 21:29] LABS: Amphetamine Screen,Urine Not Detected (NotDetected); Barbiturate Screen,Urine Not Detected (NotDetected); Benzodiazepines Screen,Urine Not Detected (NotDetected); Cocaine Screen,Urine Not Detected (NotDetected); Methadone Screen, Urine Not Detected (NotDetected); Opiate Screen,Urine Not Detected (NotDetected); Oxycodone Screen, Urine Not Detected (NotDetected); Phencyclidine Screen,Urine Not Detected (NotDetected); Tricyclic Antidepressant,Urine Not Detected (NotDetected); Urn Cannabinoid Scrn Not Detected (NotDetected)
[2022-09-01 02:05] LABS: Appearance,Urine Clear (Clear); Bilirubin,Urine Negative (Negative); Blood,Urine Negative (Negative); Color,Urine Light Yellow; Glucose,Urine (UA) 4+ (Negative); Ketones,Urine Negative (Negative); Leukocyte Esterase,Urine Negative (Negative); Nitrite,Urine Negative (Negative); PH, Urine 5.5 (5.0-8.0); Protein,Urine Negative (Negative); Urobilinogen,Urine <2.0 mg/dL (<2.0)
[2022-09-01 02:27] LABS: Basophils % (A) 1 %; Eosinophils # (A) 0.3 k/uL (0-0.7); Eosinophils % (A) 3 %; HCT 35.5 % (39.0-53.0); HGB 11.9 gm/dL (13.0-17.5); Lymphocytes # (A) 3.2 k/uL (1.0-4.8); Lymphocytes % (A) 40 %; MCH 32.8 pg (25.0-35.0); MCHC 33.6 g/dL (31.0-37.0); MCV 97.6 fL (80.0-100.0); Mean Platelet Volume 8.1; Monocytes # (A) 0.4 k/uL (0-1.0); Monocytes % (A) 6 %; Neutrophils # (A) 3.7 k/uL (1.3-7.7); Neutrophils % (A) 48 %; Platelet Count 372 k/uL (150-450); RBC 3.64 m/uL (4.30-5.90); RDW 13.9 % (11.5-15.5); WBC 7.9 k/uL (3.8-10.6)
[2022-09-01 02:36] LABS: ALT 23 U/L (4-49); AST 25 U/L (17-59); African American GFR (CKD) >90 (>60 ml/min/1.73 sqM); Albumin 3.8 g/dL (3.5-5.0); Alkaline Phosphatase 54 U/L (38-126); Anion Gap 9 mmol/L; Blood Urea Nitrogen 8 mg/dL (9-20); Calcium 8.3 mg/dL (8.4-10.2); Carbon Dioxide 25 mmol/L (22-30); Chloride 99 mmol/L (98-107); Glucose 176 mg/dL (74-99); Non-African American GFR(CKD) >90 (>60 ml/min/1.73 sqM); Potassium 3.6 mmol/L (3.5-5.1); Sodium 133 mmol/L (137-145); Total Bilirubin 0.3 mg/dL (0.2-1.3); Total Protein 6.2 g/dL (6.3-8.2)
[2022-09-01] MEDS ORDERED: ACETAMINOPHEN TAB 500 MG TAB PO STA (20:15)
[2022-09-01] MEDS ORDERED: ACETAMINOPHEN TAB 325 MG TAB PO PRN (21:27)
[2022-09-01] MEDS ORDERED: MAGNESIUM HYDROXIDE 2,400 MG/10 ML CUP PO PRN (21:27)
[2022-09-01] MEDS ORDERED: CYCLOBENZAPRINE 10 MG TAB PO PRN (21:27)
[2022-09-01] MEDS ORDERED: MAG HYDROX/AL HYDROX/SIMETH 30 ML CUP PO PRN (21:27)
[2022-09-01] MEDS ORDERED: IBUPROFEN 600 MG TAB PO PRN (21:28)
[2022-09-01] MEDS ORDERED: OLANZapine 10 MG VIAL IM PRN (21:28)
[2022-09-01] MEDS ORDERED: OLANZapine 5 MG TAB PO PRN (21:28)
[2022-09-01] MEDS ORDERED: LORazepam 1 MG TAB PO PRN ×2 (21:28)
[2022-09-01] MEDS: ATORVASTATIN 10 MG TAB PO SCH (21:53)
[2022-09-01] MEDS: OLANZapine 10 MG TAB PO SCH (21:53)
[2022-09-01] MEDS: DIVALPROEX ER 500 MG TAB.ER.24H PO SCH (21:53)
[2022-09-01] MEDS: LOSARTAN 50 MG TAB PO SCH (22:14)
[2022-09-01] MEDS: traZODone HCL 100 MG TAB PO SCH (23:06)
[2022-09-02 07:47] LABS: Glucose,Whole Blood 244 mg/dL (70-110)
[2022-09-02] MEDS: LOSARTAN 50 MG TAB PO SCH (08:44)
[2022-09-02] MEDS: glipiZIDE 10 MG TAB PO SCH ×2 (08:44→21:02)
[2022-09-02] MEDS: hydroCHLOROthiazide 12.5 MG CAP PO SCH (08:44)
[2022-09-02] MEDS: CHOLECALCIFEROL 125 MCG (5000 IU) TABLET PO SCH (08:44)
[2022-09-02] MEDS: NALTREXONE HCL 50 MG TAB PO SCH (08:45)
[2022-09-02] MEDS: MELOXICAM 7.5 MG TAB PO SCH (08:45)
[2022-09-02] MEDS ORDERED: LOSARTAN 50 MG TAB PO SCH (09:00)
--- NOTE | 2022-09-02 12:01 | P.HP ---
Psychiatric H&P - . H&P Date: 09/02/22 History & Physical: Allergies Allergy/AdvReac Type Severity Reaction Status Date / Time lisinopril AdvReac Unknown Cough Verified 08/31/22 14:47 Vital Signs Temp 98.1 F 09/02/22 06:52 Pulse 92 09/02/22 08:47 Resp 16 09/02/22 06:52 BP 107/69 09/02/22 08:47 Pulse Ox 99 09/01/22 21:56 FiO2 Intake & Output 09/01/22 09/02/22 09/02/22 18:59 06:59 18:59 Weight 74.559 kg Laboratory Last Values WBC 7.9 k/uL (3.8-10.6) 09/01/22 02:00 RBC 3.64 m/uL (4.30-5.90) L 09/01/22 02:00 Hgb 11.9 gm/dL (13.0-17.5) L 09/01/22 02:00 Hct 35.5 % (39.0-53.0) L 09/01/22 02:00 MCV 97.6 fL (80.0-100.0) 09/01/22 02:00 MCH 32.8 pg (25.0-35.0) 09/01/22 02:00 MCHC 33.6 g/dL (31.0-37.0) 09/01/22 02:00 RDW 13.9 % (11.5-15.5) 09/01/22 02:00 Plt Count 372 k/uL (150-450) 09/01/22 02:00 MPV 8.1 09/01/22 02:00 Neutrophils % 48 % 09/01/22 02:00 Lymphocytes % 40 % 09/01/22 02:00 Monocytes % 6 % 09/01/22 02:00 Eosinophils % 3 % 09/01/22 02:00 Basophils % 1 % 09/01/22 02:00 Neutrophils # 3.7 k/uL (1.3-7.7) 09/01/22 02:00 Lymphocytes # 3.2 k/uL (1.0-4.8) 09/01/22 02:00 Monocytes # 0.4 k/uL (0-1.0) 09/01/22 02:00 Eosinophils # 0.3 k/uL (0-0.7) 09/01/22 02:00 Basophils # 0.0 k/uL (0-0.2) 09/01/22 02:00 Sodium 133 mmol/L (137-145) L 09/01/22 02:00 Potassium 3.6 mmol/L (3.5-5.1) 09/01/22 02:00 Chloride 99 mmol/L (98-107) 09/01/22 02:00 Carbon Dioxide 25 mmol/L (22-30) 09/01/22 02:00 Anion Gap 9 mmol/L 09/01/22 02:00 BUN 8 mg/dL (9-20) L 09/01/22 02:00 Creatinine 0.56 mg/dL (0.66-1.25) L 09/01/22 02:00 Est GFR (CKD-EPI)AfAm >90 (>60 ml/min/1.73 sqM) 09/01/22 02:00 Est GFR (CKD-EPI)NonAf >90 (>60 ml/min/1.73 sqM) 09/01/22 02:00 Glucose 176 mg/dL (74-99) H 09/01/22 02:00 POC Glucose (mg/dL) 244 mg/dL (70-110) H 09/02/22 07:45 POC Glu Plaster Patternmaker ID Aelyda Bautista 09/02/22 07:45 Calcium 8.3 mg/dL (8.4-10.2) L 09/01/22 02:00 Total Bilirubin 0.3 mg/dL (0.2-1.3) 09/01/22 02:00 AST 25 U/L (17-59) 09/01/22 02:00 ALT 23 U/L (4-49) 09/01/22 02:00 Alkaline Phosphatase 54 U/L (38-126) 09/01/22 02:00 Total Protein 6.2 g/dL (6.3-8.2) L 09/01/22 02:00 Albumin 3.8 g/dL (3.5-5.0) 09/01/22 02:00 Urine Color Light Yellow 09/01/22 01:46 Urine Appearance Clear (Clear) 09/01/22 01:46 Urine pH 5.5 (5.0-8.0) 09/01/22 01:46 Ur Specific [place] 1.030 (1.001-1.035) 09/01/22 01:46 Urine Protein Negative (Negative) 09/01/22 01:46 Urine Glucose (UA) 4+ (Negative) H 09/01/22 01:46 Urine Ketones Negative (Negative) 09/01/22 01:46 Urine Blood Negative (Negative) 09/01/22 01:46 Urine Nitrite Negative (Negative) 09/01/22 01:46 Urine Bilirubin Negative (Negative) 09/01/22 01:46 Urine Urobilinogen <2.0 mg/dL (<2.0) 09/01/22 01:46 Ur Leukocyte Esterase Negative (Negative) 09/01/22 01:46 Urine Opiates Screen Not Detected (NotDetected) 08/31/22 20:33 Ur Oxycodone Screen Not Detected (NotDetected) 08/31/22 20:33 Urine Methadone Screen Not Detected (NotDetected) 08/31/22 20:33 Ur Propoxyphene Screen Not Detected (NotDetected) 08/31/22 20:33 Ur Barbiturates Screen Not Detected (NotDetected) 08/31/22 20:33 U Tricyclic Antidepress Not Detected (NotDetected) 08/31/22 20:33 Ur Phencyclidine Scrn Not Detected (NotDetected) 08/31/22 20:33 Ur Amphetamines Screen Not Detected (NotDetected) 08/31/22 20:33 U Methamphetamines Scrn Not Detected (NotDetected) 08/31/22 20:33 U Benzodiazepines Scrn Not Detected (NotDetected) 08/31/22 20:33 Urine Cocaine Screen Not Detected (NotDetected) 08/31/22 20:33 U Marijuana (THC) Screen Not Detected (NotDetected) 08/31/22 20:33 Coronavirus (PCR) Not Detected (Not Detectd) 08/31/22 13:54 09/02/22 12:01 IDENTIFYING DATA: Patient is a single, unemployed, 57-year-old male with significant history of bipolar disorder, anxiety, alcohol use disorder, who presents for hospital on 08/31/2022, brought in by EMS for suicidal ideation. HPI: Patient presented to the hospital on 08/31/2022 for acute alcohol intoxication and suicidal ideation. Patient reportedly stated that he had a plan to drink himself to and walk out into traffic. He reported to the ED provider that he he was sick of living in sick and tired of living like this and not wanting to go on. BAT was 0.187. The patient was subsequent admitted onto the psychiatric unit. On evaluation this morning, the patient is not endorsing any suicidal or homicidal ideation, intention, and/or plan at this time. He reports that he does not recall making those statements but absolutely believes that he would say something like that when he is intoxicated. The patient reports that the last thing he remembers from the events of yesterday was drinking at the bar with his sarah. He is currently endorsing no significant symptoms of depression or nesha. He does report at baseline he is depressed and struggling with alcohol use disorder. He is however stating that he is planning to go to [facility] ([place], [place]) upon discharge. He states that he was able to get in contact with them in order to help him maintain sobriety and eventually housing. He reports that he has trialed [place] numerous times however felt that it was never enough. PAST PSYCHIATRIC HISTORY: Patient has previous diagnoses of alcohol use disorder, bipolar disorder, and anxiety. The patient recalls being previously prescribed Remeron, Vivitrol, Zoloft, doxepin, trazodone, and Seroquel. He was most recently discharged on a regimen of Zyprexa, trazodone, and Depakote. He was last hospitalized on 08/13/2022 however he was treated on the medical floor due to him having influenza at the time. He has been nonadherent with outpatient care. He has had 2 prior attempts at suicide by walking into traffic. PMH: Past Medical History: Diabetes Mellitus, Hypertension, Osteoarthritis (OA), Skin Disorder Additional Past Medical History / Comment(s): PSORIASIS, Back and bilat hip pain. Arthritis bilat hip. Bone spurs in spine. History of Any Multi-Drug Resistant Organisms: None Reported Additional Past Surgical History / Comment(s): HAND SURGERY AND NERVE GRAFT TO THUMB, CORTISONE INJECTIONS HIP. Past Anesthesia/Blood Transfusion Reactions: No Reported Reaction Past Psychological History: Anxiety, Depression Smoking Status: Current every day smoker Past Alcohol Use History: Abuse, Heavy Past Drug Use History: None Reported ALLERGIES: Lisinopril CHEMICAL DEPENDENCY HISTORY: Patient reports daily tobacco use. He reports rare marijuana use. He describes binge alcohol episodes at least once per week with approximately 3 pints of vodka ingested. He is unable to quantify how much she was drinking prior to this admission. FAMILY PSYCHIATRIC/SUBSTANCE USE HISTORY: The patient reports that his mother had panic attacks. The patient's maternal aunt attempted suicide. The pat ient's brother is an alcoholic. SOCIAL HISTORY: Patient reports no significant changes to his social history aside from that he is living with 2 friends at this time. 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 From his previous admission - Patient was born and raised in [place], [place]. He is single however his ex- girlfriend recently relocated to [facility]. He has an adult daughter from a previous relationship. He attended some college. He denies any legal issues, service, and although was raised Buddhist denies any current latter-day. MENTAL STATUS EXAM: General Appearance: Patient appears to be stated age is alert, directable, and attempts to cooperate. Patient appears to have fair hygiene and grooming. Balding, bearded, glasses. Behavior: Patient is seated without any agitated behavior. Normal psychomotor activity. Speech: Patient's speech is fluent and nonpressured. Mood/Affect: Patient reports their mood is " feeling much better", affect is congruent and bright Suicidality/Homicidality: Patient is currently denying any suicidal or homicidal ideation. Perceptions: Patient denies any visual hallucinations and denies any auditory h allucinations Though content/process: There is no evidence of any delusional thought content and thought process is linear and goal-directed. Memory and concentration: AOX3, grossly intact for the purposes of this session. Can spell "WORLD" backwards Judgment and insight: Fair STRENGTHS/WEAKNESSES: strength is that patient is resilient. Weakness is that patient engages in heavy alcohol use, has unstable housing, and is inconsistent with outpatient treatment. INTELLECT: average IMPRESSIONS: Bipolar 2 disorder, depressive episode - likely exacerbated and precipitated by alcohol Generalized anxiety disorder Alcohol use disorder Tobacco use disorder PLAN: -Patient is admitted under voluntary status to MHU for stabilization of psychiatric symptoms and safety. Patient signed adult voluntary form and medication consent and is placed in patient's chart. -Medications : Will start patient on Depakote 1500 mg by mouth at bedtime for mood stabilization ReVia 51 g daily for alcohol cessation Zyprexa 10 mg by mouth at bedtime for mood stabilization Trazodone 300 mg by mouth at bedtime for insomnia -Ativan and Zyprexa PRN for agitation/aggression -CIWA protocol with Ativan PRN for ETOH withdrawal -Patient was counselled on substance abuse and desired to cut back on use -Patient was informed of the risks, benefits and side effects of the medication and patient verbally consented to taking the medications. Patient signed med consent form and was placed in chart. -Internal Medicine consult to perform medical evaluation and physical. -NRT - nicotine patch -SW on board for discharge planning. Encourage patient to participate in groups to work on coping skills. -We are working towards having the patient go to [facility] on discharge. 09/02/22 12:01
[2022-09-02 12:50] LABS: Glucose,Whole Blood 160 mg/dL (70-110)
[2022-09-02 18:00] LABS: Glucose,Whole Blood 216 mg/dL (70-110)
[2022-09-02 20:27] LABS: Glucose,Whole Blood 258 mg/dL (70-110)
[2022-09-02] MEDS: ATORVASTATIN 10 MG TAB PO SCH (21:02)
[2022-09-02] MEDS: OLANZapine 10 MG TAB PO SCH (21:02)
[2022-09-02] MEDS: DIVALPROEX ER 500 MG TAB.ER.24H PO SCH (21:02)
[2022-09-02] MEDS: ALBUTEROL INHALER 60 PUFF/8 GM INHALER (MHU) INHALATION PRN (21:03)
[2022-09-02] MEDS: traZODone HCL 100 MG TAB PO SCH (23:05)
--- NOTE | 2022-09-03 05:26 | P.CONS ---
History of Present Illness - Reason for Consult Consult date: 09/03/22 - History of Present Illness The patient is a 57-year-old male with a PMH of hypertension, hyperlipidemia, type II DM, EtOH abuse who presented to the emergency room with complaints of depression and suicidal ideation. The patient was admitted to the mental health unit where he was seen and evaluated. The patient reports that he is looking forward to going to a facility for his long-term alcohol use. He denied any physical complaints at the time of interview. He reports compliance with his home medications. He denied experiencing chest discomfort, shortness of breath, fever, chills, cough, nausea, vomiting, abdominal pain, diarrhea. He reports smoking three quarters of a pack of cigarettes daily. He denied additional substance use. Review of systems: Pertinent positives and negatives as discussed in HPI, a complete review of systems was performed and all other systems are negative. Physical examination: General: non toxic, no distress, appears at stated age, normal weight Derm: no unusual rashes/lesions, no unusual ecchymoses, warm, dry Head: atraumatic, normocephalic, symmetric Eyes: EOMI, no lid lag, anicteric sclera ENT: Nose and ears atraumatic, no thrush, no pharyngeal erythema Neck: trachea midline, supple Mouth: no lip lesion, mucus membranes moist Cardiovascular: S1S2 reg, no murmur, no edema Lungs: CTA bilateral, no rhonchi, no rales , no accessory muscle use Abdominal: soft, nontender to palpation, no guarding Ext: no gross muscle atrophy, no contractures, Neuro: No gross focal neuro deficits noted Psych: Alert, oriented, appropriate affect Assessment: Chronic conditions: Hypertension, hyperlipidemia, type II DM EtOH abuse Depression and suicidal ideation Imaging: None performed Data Review: Laboratory evaluation was reviewed with sodium 133, BUN 8, creatinine 0.56, g lucose 176, calcium 8.3, UA unremarkable. Plan: Advised patient on importance of cessation from alcohol use Continue the following home medications: -Depakote 1500 mg by mouth daily at bedtime ER -Hydrochlorothiazide 12.5 mg by mouth daily -Lipitor 10 mg by mouth daily at bedtime -Losartan 100 mg by mouth daily -Glipizide 10 mg by mouth twice a day Thank you for allowing us to participate in the care of this patient. We will follow peripherally. Do not hesitate to contact us with questions. Someone can be reached from the [facility] hospitalist group at all hours of the day at [phone]. Past Medical History Past Medical History: Diabetes Mellitus, Hypertension, Osteoarthritis (OA), Skin Disorder Additional Past Medical History / Comment(s): PSORIASIS, Back and bilat hip pain. Arthritis bilat hip. Bone spurs in spine. History of Any Multi-Drug Resistant Organisms: None Reported Additional Past Surgical History / Comment(s): HAND SURGERY AND NERVE GRAFT TO THUMB, CORTISONE INJECTIONS HIP. Past Anesthesia/Blood Transfusion Reactions: No Reported Reaction Past Psychological History: Anxiety, Depression Smoking Status: Current every day smoker Past Alcohol Use History: Abuse, Heavy Additional Past Alcohol Use History / Comment(s): SMOKES <1PPD, SMOKING FOR 40 YEARS. Patient states he binge drinks alcohol, he does not drink daily. Past Drug Use History: None Reported - Past Family History Father Family Medical History: Cancer Additional Family Medical History / Comment(s): LUNG CANCER Medications and Allergies Home Medications Medication Instructions Recorded Confirmed Type glipiZIDE [Glucotrol] 10 mg PO BID 04/19/21 08/31/22 History Losartan Potassium 100 mg PO DAILY 05/07/22 08/31/22 History Acetaminophen Tab [Tylenol] 650 mg PO Q4HR PRN tab 07/23/22 08/31/22 Rx Albuterol Inhaler [Ventolin Hfa 1 puff INHALATION RT-Q4H PRN 30 07/23/22 08/31/22 Rx Inhaler] Days #1 each Atorvastatin [Lipitor] 10 mg PO HS 30 Days #30 tab 07/23/22 08/31/22 Rx Cholecalciferol [Vitamin D3 (125 125 mcg PO DAILY 30 Days #30 tab 07/23/2208/12 Rx Mcg = 5000 Iu)] Clobetasol Propionate [Temovate 1 applic TOPICAL BID each 07/23/22 08/31/22 Rx 0.05% Cream] Cyclobenzaprine [Flexeril] 10 mg PO DAILY PRN 30 Days #20 tab 07/23/22 08/31/22 Rx Mag Hydrox/Al Hydrox/Simeth 30 ml PO Q4HR PRN ml 07/23/22 08/31/22 Rx [Maalox] Magnesium Hydroxide [Milk of 2,400 mg PO DAILY PRN ml 07/23/22 08/31/22 Rx Magnesia Concentrate] Divalproex ER [Depakote ER] 1,500 mg PO HS 30 Days #30 tab 09/03/22 Rx Meloxicam [Mobic] 15 mg PO DAILY 30 Days #30 tab 09/03/22 Rx Naltrexone HCl [Revia] 50 mg PO DAILY 30 Days #30 tab 09/03/22 Rx OLANZapine [ZyPREXA] 10 mg PO HS 30 Days #30 tab 09/03/22 Rx hydroCHLOROthiazide [Hydrodiuril] 12.5 mg PO DAILY 30 Days #30 cap 09/03/22 Rx traZODone HCL [Desyrel] 200 mg PO HS 30 Days #60 tab 09/03/22 Rx Allergies Allergy/AdvReac Type Severity Reaction Status Date / Time lisinopril AdvReac Unknown Cough Verified 08/31/22 14:47 Physical Exam Vitals: Vital Signs Temp Pulse Resp BP 09/02/22 08:47 92 107/69 09/02/22 06:52 98.1 F 63 16 115/55 Results CBC & Chem 7: 09/01/22 02:00 09/01/22 02:00 Labs: Abnormal Lab Results - Last 24 Hours (Table) 09/02/22 09/02/22 09/02/22 Range/Units 07:45 12:48 17:57 POC Glucose (mg/dL) 244 H 160 H 216 H (70-110) mg/dL 09/02/22 Range/Units 20:26 POC Glucose (mg/dL) 258 H (70-110) mg/dL
[2022-09-03 07:44] LABS: Glucose,Whole Blood 256 mg/dL (70-110)
[2022-09-03] MEDS: ALBUTEROL INHALER 60 PUFF/8 GM INHALER (MHU) INHALATION PRN ×2 (08:36→21:10)
[2022-09-03] MEDS: MELOXICAM 7.5 MG TAB PO SCH (08:36)
[2022-09-03] MEDS: NALTREXONE HCL 50 MG TAB PO SCH (08:38)
[2022-09-03] MEDS: glipiZIDE 10 MG TAB PO SCH ×2 (08:38→21:09)
[2022-09-03] MEDS: hydroCHLOROthiazide 12.5 MG CAP PO SCH (08:38)
[2022-09-03] MEDS: LOSARTAN 50 MG TAB PO SCH (08:38)
[2022-09-03] MEDS: CHOLECALCIFEROL 125 MCG (5000 IU) TABLET PO SCH (08:38)
[2022-09-03] MEDS ORDERED: DEXTROSE 50% SYRINGE 50 ML IVP PRN ×2 (11:27)
--- NOTE | 2022-09-03 12:08 | P.PN ---
Progress Note - Text Progress Note Date: 09/03/22 Interval History: Patient was seen resting in bed and was directable and agreeable to speak with technical writer and editor in his room. Currently, the patient is not reporting any suicidal or homicidal ideation, intention, and/or plan. He is not reporting any concerns regarding withdrawal. He remains future and goal oriented. He is denying any auditory or visual hallucinations. He reports no paranoia or other delusions. He has been adherent with his medication however reports oversedation with trazodone. He reports no issues regarding his sleep or his appetite. He reports some medical issues or concerns at this time. Mental Status Exam: General Appearance: Patient appears to be stated age is alert, directable, and cooperative. Behavior: Patient is calmly seated without any agitated behavior. Speech: Patient's speech is fluent and nonpressured. Mood/Affect: Mood is improving mildly, affect is congruent and constricted. Suicidality/Homicidality: Patient denies having any suicidal or homicidal ideation intent or plan. Perceptions: Patient denies any visual hallucinations and denies any auditory hallucinations Though content/process: There is no evidence of any delusional thought content and thought process is linear and goal-directed. Memory and concentration: AOX3, grossly intact for the purposes of this session Judgment and insight: Improving mildly Vital Signs Temp 96.4 F L 09/03/22 08:39 Pulse 80 09/03/22 08:39 Resp 16 09/02/22 06:52 BP 128/87 09/03/22 08:39 Pulse Ox 100 09/03/22 08:39 FiO2 Laboratory Results - Last 24 Hours 09/02/22 09/02/22 09/02/22 12:48 17:57 20:26 POC Glucose (mg/dL) 160 H 216 H 258 H POC Glu Shaker Plate Operator ID Jamar Moreno Garrett Hopkins, Jessica 09/03/22 07:38 POC Glucose (mg/dL) 256 H POC Glu Shaker Plate Operator ID Janet Zamora Bipolar 2 disorder, depressive episode - likely exacerbated and precipitated by alcohol Generalized anxiety disorder Alcohol use disorder Tobacco use disorder Plan: -Patient continues to meet criteria for inpatient psychiatric admission for symptom stabilization and safety. Patient has signed adult voluntary form and medication consent and was placed in patient's chart. -Medications: Depakote 1500 mg by mouth at bedtime for mood stabilization ReVia 50 mg daily for alcohol cessation Zyprexa 10 mg by mouth at bedtime for mood stabilization Decrease trazodone to 200 mg by mouth at bedtime for insomnia -When necessary Ativan and Zyprexa for agitation/aggression. -NRT - nicotine patch -SW on board for discharge planning. Encouraged the patient to participate in milieu.
[2022-09-03 12:56] LABS: Glucose,Whole Blood 180 mg/dL (70-110)
[2022-09-03] MEDS: INSULIN ASPART (NovoLOG) 100 UNIT/ML VIAL SQ SCH ×3 (13:04→21:10)
[2022-09-03] MEDS: CLOBETASOL PROP 0.05% CR 15GM TOPICAL SCH ×2 (14:31→21:10)
[2022-09-03 17:38] LABS: Glucose,Whole Blood 188 mg/dL (70-110)
[2022-09-03 20:17] LABS: Glucose,Whole Blood 192 mg/dL (70-110)
[2022-09-03] MEDS ORDERED: CLOTRIMAZOLE 1% CREAM 30 GM TUBE TOPICAL SCH (21:00)
[2022-09-03] MEDS ORDERED: traZODone HCL 100 MG TAB PO SCH (21:00)
[2022-09-03] MEDS: ATORVASTATIN 10 MG TAB PO SCH (21:09)
[2022-09-03] MEDS: OLANZapine 10 MG TAB PO SCH (21:09)
[2022-09-03] MEDS: DIVALPROEX ER 500 MG TAB.ER.24H PO SCH (21:09)
[2022-09-03 21:15] VITALS: RESP 18
[2022-09-04 05:52] VITALS: TEMP 97.8
[2022-09-04 07:54] LABS: Glucose,Whole Blood 174 mg/dL (70-110)
[2022-09-04] MEDS: NALTREXONE HCL 50 MG TAB PO SCH (08:35)
[2022-09-04] MEDS: MELOXICAM 7.5 MG TAB PO SCH (08:35)
[2022-09-04] MEDS: LOSARTAN 50 MG TAB PO SCH (08:36)
[2022-09-04] MEDS: hydroCHLOROthiazide 12.5 MG CAP PO SCH (08:36)
[2022-09-04] MEDS: CHOLECALCIFEROL 125 MCG (5000 IU) TABLET PO SCH (08:36)
[2022-09-04] MEDS: glipiZIDE 10 MG TAB PO SCH (08:36)
[2022-09-04] MEDS: INSULIN ASPART (NovoLOG) 100 UNIT/ML VIAL SQ SCH (08:37)
[2022-09-04] MEDS: ALBUTEROL INHALER 60 PUFF/8 GM INHALER (MHU) INHALATION PRN (08:39)
[2022-09-04 08:41] VITALS: BP 122/76; PULSE 91
[2022-09-04] MEDS: CLOBETASOL PROP 0.05% CR 15GM TOPICAL SCH (09:40)
--- NOTE | 2022-09-04 11:44 | P.DS ---
Providers Date of admission: 09/01/22 21:19 Expected date of discharge: 09/04/22 Attending physician: Scooby Diaz MD Consults: 09/01/22 21:28 Consult Physician Routine Consulting Provider: Chente Mahmood Consult Reason/Comments: H&P and medical Do you want consulting provider notified?: Yes Primary care physician: Stated None - Discharge Diagnosis(es) (1) Bipolar 2 disorder, major depressive episode Status: Acute Priority: High (2) Alcohol use disorder Status: Chronic Priority: Medium (3) Generalized anxiety disorder Status: Chronic Priority: Medium (4) Tobacco use disorder Status: Chronic Priority: Medium Hospital Course: Admission HPI: Patient is a single, unemployed, 57-year-old male with significant history of bipolar disorder, anxiety, alcohol use disorder, who presents for hospital on 08/31/2022, brought in by EMS for suicidal ideation. Patient presented to the hospital on 08/31/2022 for acute alcohol intoxication and suicidal ideation. Patient reportedly stated that he had a plan to drink himself to and walk out into traffic. He reported to the ED provider that he he was sick of living in sick and tired of living like this and not wanting to go on. BAT was 0.187. The patient was subsequent admitted onto the [facility] h[facility] unit. On evaluation this morning, the patient is not endorsing any suicidal or homicidal ideation, intention, and/or plan at this time. He reports that he does not recall making those statements but absolutely believes that he would say something like that when he is intoxicated. The patient reports that the last thing he remembers from the events of yesterday was drinking at the bar with his sarah. He is currently endorsing no significant symptoms of depression or nesha. He does report at baseline he is depressed and struggling with alcohol use disorder. He is however stating that he is planning to go to [facility] upon discharge. He states that he was able to get in contact with them in order to help him maintain sobriety and eventually housing. He reports that he has trialed [place] numerous times however felt that it was never enough. Patient has previous diagnoses of alcohol use disorder, bipolar disorder, and anxiety. The patient recalls being previously prescribed Remeron, Vivitrol, Zoloft, doxepin, trazodone, and Seroquel. He was most recently discharged on a regimen of Zyprexa, trazodone, and Depakote. He was last hospitalized on 2022 however he was treated on the medical floor due to him having influenza at the time. He has been nonadherent with outpatient care. He has had 2 prior attempts at suicide by walking into traffic. Hospital course: Upon admission to the unit patient was initially presenting as future and goal oriented with a strong desire to go to [facility]. Patient was however directable and agreeable to commence treatment. Patient got along well with other patients on the unit and followed unit protocol. Patient was compliant with the medications and denied any side effects throughout hospital course. Patient was started on Depakote for mood stabilization, ReVia for alcohol cessation, Zyprexa for mood stabilization, trazodone for insomnia. Patient spoke of his stressors and engaged in therapy both group and individual. Patient was also seen by medical team for history and physical exam. The patient's trazodone was decreased due to oversedation. Throughout the course of the hospitalization patient gradually improved with regards to mood and anxiety. His sleep improved. On the day of discharge patient denied any suicidal or homicidal ideation, intention, and/or plan. He reported no auditory visual hallucinations. Patient endorsed wanting to live for his health and family. The patient denied any access to guns or weapons. Patient denied any paranoia and did not endorse any delusions. Patient does have a significant history of substance abuse and was counseled on abstaining from all substances including tobacco, alcohol, and marijuana. Patient will be going to the [facility] in [place]. Patient was also counseled on the medications and need for regular compliance and was encouraged to follow-up with their outpatient appointment for mental health and also for primary care. Prior to discharge a family meeting will be arranged by social service liaison to answer any questions and ensure safety upon discharge. Mental status exam: General Appearance: Patient appears to be stated age is alert, pleasant, and cooperative. Patient is in no acute distress and has fair hygiene and grooming Behavior: Patient is calmly seated without any agitated behavior. Speech: Patient's speech is fluent and nonpressured. Mood/Affect: Patient reports their mood is "much better", affect is congruent and euthymic. Suicidality/Homicidality: Patient denies having any suicidal or homicidal ideation intent or plan. Perceptions: Patient denies any auditory or visual hallucinations. Though content/process: There is no evidence of any delusional thought content and thought process is linear and goal-directed. Patient is future and goal oriented. Memory and concentration: AOX3, grossly intact for the purposes of this session. Can spell "WORLD" backwards correctly. Judgment and insight: Improved with guarded prognosis Impression: Bipolar 2 disorder, depressive episode Generalized anxiety disorder Alcohol use disorder Tobacco use disorder Plan: -Continue with discharge today as patient has improved and stabilized psychiatrically and is not currently an imminent threat to himself and/or others. Patient will remain at chronically elevated risk for harm to self and/or others due to his homeless, alcohol use disorder, and gender and age demographic. -Continue medications: Depakote ER 1500 mg at bedtime for mood stabilization Trazodone 200 mg at bedtime for insomnia Revia for alcohol cessation Zyprexa 10 mg at bedtime for mood stabilization -Patient was counseled on the need for medication compliance and appropriate follow-up at mental health and also primary care for medical issues. Patient verbalized understanding and agreed. -Social work to arrange for and conduct family meeting to ensure safety upon discharge and answer any questions/concerns. Social work also to arrange for patients follow up appointments with the [facility] for psychiatric care along with follow up with primary care provider. -Patient counseled on abstaining from recreational drugs and marijuana and alcohol. Was informed/educated on the adverse effects on their physical and mental health. Patient verbally agreed and understood. Patient will be going to the [facility]. -Patient was instructed to return to the hospital or seek immediate medical care if their psychiatric or medical symptoms do worsen or reoccur. -Psychoeducation and supportive therapy provided to patient. Risks and benefits of pharmacological treatment versus the risks and benefits of nontreatment weighed and discussed. Informed consent discussion held. Common side effects of psychotropics discussed such as, but not limited to headache, GI disturbance, sexual dysfunction, movement disorders, sedation, and orthostatic hypotension. Life threatening and blackbox warnings of prescribed medications also discussed. Potential risks of operating a vehicle or heavy machinery discussed with patient at length. Advised on importance of compliance and a reliable and res ponsible manner. Patient advised to review FDA consumer labeling of all medications prior to taking. Patient verbalized understanding of potential risks, and agrees with current treatment plan. Patient advised to medically contact physician/emergency personnel if any acute changes in condition occur. Vital Signs Temp 97.8 F 09/04/22 05:52 Pulse 91 09/04/22 08:40 Resp 18 09/04/22 05:52 BP 122/76 09/04/22 08:40 Pulse Ox 98 09/04/22 05:52 FiO2 Laboratory Results WBC 7.9 k/uL (3.8-10.6) 09/01/22 02:00 RBC 3.64 m/uL (4.30-5.90) L 09/01/22 02:00 Hgb 11.9 gm/dL (13.0-17.5) L 09/01/22 02:00 Hct 35.5 % (39.0-53.0) L 09/01/22 02:00 MCV 97.6 fL (80.0-100.0) 09/01/22 02:00 MCH 32.8 pg (25.0-35.0) 09/01/22 02:00 MCHC 33.6 g/dL (31.0-37.0) 09/01/22 02:00 RDW 13.9 % (11.5-15.5) 09/01/22 02:00 Plt Count 372 k/uL (150-450) 09/01/22 02:00 MPV 8.1 09/01/22 02:00 Neutrophils % 48 % 09/01/22 02:00 Lymphocytes % 40 % 09/01/22 02:00 Monocytes % 6 % 09/01/22 02:00 Eosinophils % 3 % 09/01/22 02:00 Basophils % 1 % 09/01/22 02:00 Neutrophils # 3.7 k/uL (1.3-7.7) 09/01/22 02:00 Lymphocytes # 3.2 k/uL (1.0-4.8) 09/01/22 02:00 Monocytes # 0.4 k/uL (0-1.0) 09/01/22 02:00 Eosinophils # 0.3 k/uL (0-0.7) 09/01/22 02:00 Basophils # 0.0 k/uL (0-0.2) 09/01/22 02:00 Sodium 133 mmol/L (137-145) L 09/01/22 02:00 Potassium 3.6 mmol/L (3.5-5.1) 09/01/22 02:00 Chloride 99 mmol/L (98-107) 09/01/22 02:00 Carbon Dioxide 25 mmol/L (22-30) 09/01/22 02:00 Anion Gap 9 mmol/L 09/01/22 02:00 BUN 8 mg/dL (9-20) L 09/01/22 02:00 Creatinine 0.56 mg/dL (0.66-1.25) L 09/01/22 02:00 Est GFR (CKD-EPI)AfAm >90 (>60 ml/min/1.73 sqM) 09/01/22 02:00 Est GFR (CKD-EPI)NonAf >90 (>60 ml/min/1.73 sqM) 09/01/22 02:00 Glucose 176 mg/dL (74-99) H 09/01/22 02:00 POC Glucose (mg/dL) 174 mg/dL (70-110) H 09/04/22 07:51 POC Glu Steam Drier Operator ANU Adilene Camara 09/04/22 07:[address] Glu mg/dL 173 09/01/22 02:00 Hemoglobin A1c 7.7 % (0.0-6.0) H 09/01/22 02:00 Calcium 8.3 mg/dL (8.4-10.2) L 09/01/22 02:00 Total Bilirubin 0.3 mg/dL (0.2-1.3) 09/01/22 02:00 AST 25 U/L (17-59) 09/01/22 02:00 ALT 23 U/L (4-49) 09/01/22 02:00 Alkaline Phosphatase 54 U/L (38-126) 09/01/22 02:00 Total Protein 6.2 g/dL (6.3-8.2) L 09/01/22 02:00 Albumin 3.8 g/dL (3.5-5.0) 09/01/22 02:00 Urine Color Light Yellow 09/01/22 01:46 Urine Appearance Clear (Clear) 09/01/22 01:46 Urine pH 5.5 (5.0-8.0) 09/01/22 01:46 Ur Specific [place] 1.030 (1.001-1.035) 09/01/22 01:46 Urine Protein Negative (Negative) 09/01/22 01:46 Urine Glucose (UA) 4+ (Negative) H 09/01/22 01:46 Urine Ketones Negative (Negative) 09/01/22 01:46 Urine Blood Negative (Negative) 09/01/22 01:46 Urine Nitrite Negative (Negative) 09/01/22 01:46 Urine Bilirubin Negative (Negative) 09/01/22 01:46 Urine Urobilinogen <2.0 mg/dL (<2.0) 09/01/22 01:46 Ur Leukocyte Esterase Negative (Negative) 09/01/22 01:46 Urine Opiates Screen Not Detected (NotDetected) 08/31/22 20:33 Ur Oxycodone Screen Not Detected (NotDetected) 08/31/22 20:33 Urine Methadone Screen Not Detected (NotDetected) 08/31/22 20:33 Ur Propoxyphene Screen Not Detected (NotDetected) 08/31/22 20:33 Ur Barbiturates Screen Not Detected (NotDetected) 08/31/22 20:33 Valproic Acid 73.7 ug/mL 09/03/22 12:33 U Tricyclic Antidepress Not Detected (NotDetected) 08/31/22 20:33 Ur Phencyclidine Scrn Not Detected (NotDetected) 08/31/22 20:33 Ur Amphetamines Screen Not Detected (NotDetected) 08/31/22 20:33 U Methamphetamines Scrn Not Detected (NotDetected) 08/31/22 20:33 U Benzodiazepines Scrn Not Detected (NotDetected) 08/31/22 20:33 Urine Cocaine Screen Not Detected (NotDetected) 08/31/22 20:33 U Marijuana (THC) Screen Not Detected (NotDetected) 08/31/22 20:33 Coronavirus (PCR) Not Detected (Not Detectd) 08/31/22 13:54 Allergies Allergy/AdvReac Type Severity Reaction Status Date / Time lisinopril AdvReac Unknown Cough Verified 08/31/22 14:47 Patient Condition at Discharge: Stable Plan - Discharge Summary Discharge Rx Participant: Yes New Discharge Prescriptions: New Divalproex ER [Depakote ER] 1,500 mg PO HS 30 Days #30 tab Meloxicam [Mobic] 15 mg PO DAILY 30 Days #30 tab traZODone HCL [Desyrel] 200 mg PO HS 30 Days #60 tab hydroCHLOROthiazide [Hydrodiuril] 12.5 mg PO DAILY 30 Days #30 cap Naltrexone HCl [Revia] 50 mg PO DAILY 30 Days #30 tab OLANZapine [ZyPREXA] 10 mg PO HS 30 Days #30 tab Continue glipiZIDE [Glucotrol] 10 mg PO BID Losartan Potassium 100 mg PO DAILY Mag Hydrox/Al Hydrox/Simeth [Maalox] 30 ml PO Q4HR PRN ml PRN Reason: Gi Upset Magnesium Hydroxide [Milk of Magnesia Concentrate] 2,400 mg PO DAILY PRN ml PRN Reason: Constipation Clobetasol Propionate [Temovate 0.05% Cream] 1 applic TOPICAL BID each Acetaminophen Tab [Tylenol] 650 mg PO Q4HR PRN tab PRN Reason: Pain/Discomfort Atorvastatin [Lipitor] 10 mg PO HS 30 Days #30 tab Albuterol Inhaler [Ventolin Hfa Inhaler] 1 puff INHALATION RT-Q4H PRN 30 Days #1 each PRN Reason: Shortness Of Breath Cholecalciferol [Vitamin D3 (125 Mcg = 5000 Iu)] 125 mcg PO DAILY 30 Days #30 tab Cyclobenzaprine [Flexeril] 10 mg PO DAILY PRN 30 Days #20 tab PRN Reason: Muscle Spasm Discontinued Naltrexone HCl [Revia] 50 mg PO DAILY 30 Days #30 tab Divalproex ER [Depakote ER] 1,500 mg PO HS 30 Days #90 tab Meloxicam [Mobic] 15 mg PO DAILY 30 Days #30 tab hydroCHLOROthiazide [Hydrodiuril] 12.5 mg PO DAILY 30 Days #30 cap traZODone HCL [Desyrel] 300 mg PO HS 30 Days #90 tab OLANZapine [ZyPREXA] 10 mg PO HS 30 Days #30 tab Discharge Medication List glipiZIDE [Glucotrol] 10 mg PO BID 04/19/21 [History] Losartan Potassium 100 mg PO DAILY 05/07/22 [History] Acetaminophen Tab [Tylenol] 650 mg PO Q4HR PRN tab 07/23/22 [Rx] Albuterol Inhaler [Ventolin Hfa Inhaler] 1 puff INHALATION RT-Q4H PRN 30 Days #1 each 07/23/22 [Rx] Atorvastatin [Lipitor] 10 mg PO HS 30 Days #30 tab 07/23/22 [Rx] Cholecalciferol [Vitamin D3 (125 Mcg = 5000 Iu)] 125 mcg PO DAILY 30 Days #30 tab 07/23/22 [Rx] Clobetasol Propionate [Temovate 0.05% Cream] 1 applic TOPICAL BID each 07/23/22 [Rx] Cyclobenzaprine [Flexeril] 10 mg PO DAILY PRN 30 Days #20 tab 07/23/22 [Rx] Mag Hydrox/Al Hydrox/Simeth [Maalox] 30 ml PO Q4HR PRN ml 07/23/22 [Rx] Magnesium Hydroxide [Milk of Magnesia Concentrate] 2,400 mg PO DAILY PRN ml 07/23/22 [Rx] Divalproex ER [Depakote ER] 1,500 mg PO HS 30 Days #30 tab 09/03/22 [Rx] Meloxicam [Mobic] 15 mg PO DAILY 30 Days #30 tab 09/03/22 [Rx] Naltrexone HCl [Revia] 50 mg PO DAILY 30 Days #30 tab 09/03/22 [Rx] OLANZapine [ZyPREXA] 10 mg PO HS 30 Days #30 tab 09/03/22 [Rx] hydroCHLOROthiazide [Hydrodiuril] 12.5 mg PO DAILY 30 Days #30 cap 09/03/22 [Rx] traZODone HCL [Desyrel] 200 mg PO HS 30 Days #60 tab 09/03/22 [Rx] Follow up Appointment(s)/Referral(s): [facility] [place] [Other] [facility] Patient Instructions/Handouts: How to Stop Smoking (ED), Bipolar Disorder (DC), Generalized Anxiety Disorder (ED), Abuse of Alcohol (ED) Activity/Diet/Wound Care/Special Instructions: Avoid the use of street drugs and alcohol. Take all medications as prescribed. When you are in need of refills on your medications, please contact your medical provider and/or outpatient psychiatrist to have this done. Please go to scheduled outpatient appointments for aftercare treatment. If symptoms return or become worse, call the crisis line at and/or go to the nearest emergency room for evaluation. Discharge Disposition: HOME SELF-CARE
== END 2022-09-04 10:55 | disposition home or self-care (01) | DRG 753 ==
LOC: EC 12:59 → 3MHU 09-01 21:19
PROVIDERS: ADMIT Psychiatry & Neurology Psychiatry; ATTEND Psychiatry & Neurology Psychiatry
DX: F31.81 Bipolar II disorder (principal); F41.1 Generalized anxiety disorder; E78.5 Hyperlipidemia, unspecified; F10.229 Alcohol dependence with intoxication, unspecified; Z20.822 Contact with and (suspected) exposure to COVID-19; F17.210 Nicotine dependence, cigarettes, uncomplicated; G47.00 Insomnia, unspecified; L40.9 Psoriasis, unspecified; M16.0 Bilateral primary osteoarthritis of hip; I10 Essential (primary) hypertension; R45.851 Suicidal ideations; Z63.72 Alcoholism and drug addiction in family; Z79.84 Long term (current) use of oral hypoglycemic drugs; Z79.1 Long term (current) use of non-steroidal anti-inflammatories (NSAID); Z79.899 Other long term (current) drug therapy; Z88.8 Allergy status to other drugs, medicaments and biological substances; Z71.41 Alcohol abuse counseling and surveillance of alcoholic
CPT/HCPCS: 36415; 80053; 80164; 80306; 81003; 82075; 83036; 85025; 87635; 99285

== ENCOUNTER 2024-04-08 20:27 | Inpatient (IN) | payer OTHER ==
--- NOTE | 2024-04-08 21:35 | ED ---
Psych HPI - General Source: patient, EMS, RN notes reviewed Mode of arrival: EMS Limitations: no limitations - History of Present Illness Onset/Timin -: days(s) Associated Psychiatric Symptoms: visual hallucinations History of same: No <Charly Leyva - Last Filed: 04/08/24 21:33> <John Gonzalez - Last Filed: 04/13/24 09:36> - General Chief Complaint: Psychiatric Symptoms Stated Complaint: hallucinations Time Seen by Provider: 04/08/24 20:41 - History of Present Illness Initial Comments: Quick note: This is a 59-year-old male with history of alcoholism and DM presenting via EMS with visual hallucinations since yesterday. Patient states this is never happened before, calling the police twice for suspected people in the house with no discovery and having conversations with unknown people that are not really there. Patient denies distant body auditory hallucinations. Endorses slightly increased use of daily alcohol use, usually 6-8 beers per day or slightly more than a pint of vodka per day. Denies suicidal/homicidal ideations, fever, chills, chest pain, dyspnea, abdominal pain, urinary symptoms. (Charly Leyva) - Related Data Previous Rx's Medication Instructions Recorded Acetaminophen Tab [Tylenol] 650 mg PO Q6HR PRN tab 04/11/24 Mag Hydrox/Al Hydrox/Simeth 15 ml PO Q6HR PRN ml 04/11/24 [Maalox] Multivitamins, Thera [Multivitamin] 1 tab PO DAILY #30 tablet 04/11/24 Thiamine [Vitamin B-1] 100 mg PO DAILY #30 tab 04/11/24 chlordiazePOXIDE HCl [Librium] 25 mg PO TID #6 cap 04/11/24 metFORMIN HCL 500 mg PO BID #60 tablet 04/11/24 Allergies Allergy/AdvReac Type Severity Reaction Status Date / Time lisinopril AdvReac Unknown Cough Verified 04/09/24 09:17 Review of Systems ROS Other: All systems not noted in ROS Statement are negative. <Charly Leyva - Last Filed: 04/08/24 21:33> ROS Other: All systems not noted in ROS Statement are negative. <John Gonzalez - Last Filed: 04/13/24 09:36> ROS Statement: Those systems with pertinent positive or pertinent negative responses have been documented in the HPI. Past Medical History Past Medical History: Diabetes Mellitus, Hypertension, Osteoarthritis (OA), Skin Disorder Additional Past Medical History / Comment(s): PSORIASIS, Back and bilat hip pain. Arthritis bilat hip. Bone spurs in spine. History of Any Multi-Drug Resistant Organisms: None Reported Additional Past Surgical History / Comment(s): HAND SURGERY AND NERVE GRAFT TO THUMB, CORTISONE INJECTIONS HIP. Past Anesthesia/Blood Transfusion Reactions: No Reported Reaction Past Psychological History: Anxiety, Depression Smoking Status: Current every day smoker Past Alcohol Use History: Abuse, Heavy Past Drug Use History: None Reported - Past Family History Father Family Medical History: Cancer Additional Family Medical History / Comment(s): LUNG CANCER <Charly Leyva - Last Filed: 04/08/24 21:33> General Exam <Charly Leyva - Last Filed: 04/08/24 21:33> Limitations: no limitations General appearance: alert, anxious Head exam: Present: atraumatic, normocephalic Eye exam: Present: normal appearance, PERRL, EOMI. Absent: scleral icterus, conjunctival injection ENT exam: Present: mucous membranes dry Neck exam: Present: normal inspection, full ROM Respiratory exam: Present: normal lung sounds bilaterally. Absent: respiratory distress, wheezes, rales, rhonchi, stridor, accessory muscle use Cardiovascular Exam: Present: normal rhythm, tachycardia, normal heart sounds. Absent: systolic murmur, diastolic murmur, rubs, gallop GI/Abdominal exam: Present: soft. Absent: distended, tenderness, guarding, rebound, rigid, mass Extremities exam: Present: normal inspection, normal capillary refill. Absent: pedal edema, calf tenderness Back exam: Present: normal inspection. Absent: CVA tenderness (R), CVA tenderness (L) Neurological exam: Present: alert Psychiatric exam: Present: anxious. Absent: depressed, agitated, flat affect, manic, homicidal ideation, suicidal ideation Skin exam: Present: warm, dry, intact, normal color. Absent: rash <John Gonzalez - Last Filed: 04/13/24 09:36> - General Exam Comments Initial Comments: Visual Physical Exam Vital signs reviewed General: Well-appearing, nontoxic, no acute distress. Patient seated in wheelchair Head: Normocephalic, atraumatic Eyes: PERRLA, EOMI ENT: Airway patent Chest: Nonlabored breathing Skin: No visual rash, normal skin tone Neuro: Alert and oriented 3 Musculoskeletal: No gross abnormalities (Charly Leyva) Course Vital Signs 04/08/24 04/09/24 04/09/24 20:33 03:30 10:07 Temperature 98.8 F 97.8 F Pulse Rate 129 H 102 H 101 H Respiratory 18 16 17 Rate Blood Pressure 161/96 120/76 138/99 O2 Sat by Pulse 98 98 97 Oximetry 04/09/24 04/09/24 17:19 18:56 Temperature 98.1 F Pulse Rate 106 H 92 Respiratory 18 17 Rate Blood Pressure 128/88 139/81 O2 Sat by Pulse 97 99 Oximetry Medical Decision Making <Charly Leyva - Last Filed: 04/08/24 21:33> - Lab Data Result diagrams: 04/10/24 04:03 04/10/24 04:03 - EKG Data -: EKG Interpreted by [facility] EKG shows normal: sinus rhythm, axis ( normal), intervals (Normal), QRS complexes ( normal), ST-T waves ( normal) Rate: tachycardia (Rate 119 bpm) <John Gonzalez - Last Filed: 04/13/24 09:36> - Medical Decision Making I completed the quick note portion of this chart signed BETH Benson (Charly Leyva) Was pt. sent in by a medical professional or institution (RALF Medrano, FAMILY LITERACY COORDINATOR, urgent c are, hospital, or intermediate...) When possible be specific @ -[No] Did you speak to anyone other than the patient for history (EMS, parent, family, police, friend...)? What history was obtained from this source @ -[No] Did you review nursing and triage notes (agree or disagree)? Why? @ -[I reviewed and agree with nursing and triage notes] Were old charts reviewed (outside hosp., previous admission, EMS record, old EKG, old radiological studies, urgent care reports/EKG's, intermediate records)? Report findings @ -[No old charts were reviewed] Differential Diagnosis (chest pain, altered mental status, abdominal pain women, abdominal pain men, vaginal bleeding, weakness, fever, dyspnea, syncope, headache, dizziness, GI bleed, back pain, seizure, CVA, palpatations, mental health, musculoskeletal)? @ -[Differential Mental Health Depression, anxiety, bipolar, psychosis, schizophrenia, borderline personality, situational depression, adjustment disorder, behavioral disorder, brain tumor, malingering, substance abuse, encephalopathy, medication reaction, dementia, hypothyroidism, degenerative neurologic disorder, lupus.... This is not meant to be all-inclusive list EKG interpreted by me (3pts min.). @ -[I interpreted as above] X-rays interpreted by me (1pt min.). @ -[None done] CT interpreted by me (1pt min.). @ -[None done] U/S interpreted by me (1pt. min.). @ -[None done] What testing was considered but not performed or refused? (CT, X-rays, U/S, labs)? Why? @ -[None] What meds were considered but not given or refused? Why? @ -[None] Did you discuss the management of the patient with other professionals (professionals i.e. , PA, FAMILY LITERACY COORDINATOR, lab, RT, psych nurse, social service agency director, pharmacy technician program director, teacher, navigation officer, telephonic nurse case manager)? Give summary @ -[No] Was smoking cessation discussed for >3mins.? @ -[No] Was critical care preformed (if so, how long)? @ -[No] Were there social determinants of health that impacted care today? How? (Homelessness, low income, unemployed, alcoholism, drug addiction, transportation, low edu. Level, literacy, decrease access to med. care, [place] [facility], rehab)? @ -[No] Was there de-escalation of care discussed even if they declined (Discuss DNR or withdrawal of care, Hospice)? DNR status @ -[No] What co-morbidities impacted this encounter? (DM, HTN, Smoking, COPD, CAD, Cancer, CVA, ARF, Chemo, Hep., AIDS, mental health diagnosis, sleep apnea, morbid obesity)? @ -[None] Was patient admitted / discharged? Hospital course, mention meds given and route, prescriptions, significant lab abnormalities, going to OR and other pertinent info. @ -[Patient is a 59-year-old man presenting with signs and symptoms consistent with alcohol withdrawal. The patient is significantly hypertensive. Started on benzodiazepines and will admit to control symptoms Undiagnosed new problem with uncertain prognosis? @ -[No] Drug Therapy requiring intensive monitoring for toxicity (Heparin, Nitro, Insulin, Cardizem)? @ -[No] Were any procedures done? @ -[No] Diagnosis/symptom? @ -[Acute alcohol withdrawal Acute, or Chronic, or Acute on Chronic? @ -[Acute Uncomplicated (without systemic symptoms) or Complicated (systemic symptoms)? @ -[Uncomplicated Side effects of treatment? @ -[No] Exacerbation, Progression, or Severe Exacerbation? @ -[No] Poses a threat to life or bodily function? How? (Chest pain, [place], VA, pneumonia, PE, COPD, DKA, ARF, appy, cholecystitis, CVA, Diverticulitis, Homicidal, Suicidal, threat to staff... and all critical care pts) @ -[Yes there is significant morbidity and mortality associated with DTs SUPERVISORY NOTE: I personally interviewed the patient, reviewed documentation and results, performed physical exam and MDM in its entirety, constituting majority of visit (John Gonzalez) - Lab Data Lab Results 04/08/24 04/08/24 04/08/24 Range/Units 22:00 22:00 22:00 WBC 8.6 (3.8-10.6) k/uL RBC 4.38 (4.30-5.90) m/uL Hgb 15.4 (13.0-17.5) gm/dL Hct 45.6 (39.0-53.0) % MCV 104.1 H (80.0-100.0) fL MCH 35.3 H (25.0-35.0) pg MCHC 33.9 (31.0-37.0) g/dL RDW 13.5 (11.5-15.5) % Plt Count 165 (150-450) k/uL MPV 9.7 Neutrophils % 68 % Lymphocytes % 22 % Monocytes % 7 % Eosinophils % 1 % Basophils % 1 % Neutrophils # 5.9 (1.3-7.7) k/uL Lymphocytes # 1.9 (1.0-4.8) k/uL Monocytes # 0.6 (0-1.0) k/uL Eosinophils # 0.1 (0-0.7) k/uL Basophils # 0.1 (0-0.2) k/uL Macrocytosis Slight Sodium 131 L (137-145) mmol/L Potassium 4.3 (3.5-5.1) mmol/L Chloride 93 L (98-107) mmol/L Carbon Dioxide 22 (22-30) mmol/L Anion Gap 16 mmol/L BUN 20 (9-20) mg/dL Creatinine 1.00 (0.66-1.25) mg/dL Est GFR (CKD-EPI)AfAm >90 (>60 ml/min/1.73 sqM) Est GFR (CKD-EPI)NonAf 83 (>60 ml/min/1.73 sqM) Glucose 275 H (74-99) mg/dL Estimated Ave Glu mg/dL 131 mg/dL Hemoglobin A1c 6.2 H (<=6.0) % Calcium 10.4 H (8.4-10.2) mg/dL Total Bilirubin 1.8 H (0.2-1.3) mg/dL Serum Alcohol <10 mg/dL Disposition <Charly Leyva - Last Filed: 04/08/24 21:33> Is patient prescribed a controlled substance at d/c from ED?: No <John Gonzalez - Last Filed: 04/13/24 09:36> Clinical Impression: Hypertension, Alcohol withdrawal Disposition: ADMITTED IP TO THIS HOSP Condition: Fair
[2024-04-08] MEDS ORDERED: LORazepam 2 MG/ML INJ IV PRN (22:14)
[2024-04-08 22:18] LABS: Basophils # (A) 0.1 k/uL (0-0.2); Basophils % (A) 1 %; Eosinophils # (A) 0.1 k/uL (0-0.7); Eosinophils % (A) 1 %; HCT 45.6 % (39.0-53.0); HGB 15.4 gm/dL (13.0-17.5); Lymphocytes # (A) 1.9 k/uL (1.0-4.8); Lymphocytes % (A) 22 %; MCH 35.3 pg (25.0-35.0); MCHC 33.9 g/dL (31.0-37.0); MCV 104.1 fL (80.0-100.0); Macrocytosis Slight; Mean Platelet Volume 9.7; Monocytes # (A) 0.6 k/uL (0-1.0); Monocytes % (A) 7 %; Neutrophils # (A) 5.9 k/uL (1.3-7.7); Neutrophils % (A) 68 %; Platelet Count 165 k/uL (150-450); RBC 4.38 m/uL (4.30-5.90); RDW 13.5 % (11.5-15.5); WBC 8.6 k/uL (3.8-10.6)
[2024-04-08 22:30] LABS: African American GFR (CKD) >90 (>60 ml/min/1.73 sqM); Alcohol <10 mg/dL; Anion Gap 16 mmol/L; Blood Urea Nitrogen 20 mg/dL (9-20); Calcium 10.4 mg/dL (8.4-10.2); Carbon Dioxide 22 mmol/L (22-30); Chloride 93 mmol/L (98-107); Glucose 275 mg/dL (74-99); Non-African American GFR(CKD) 83 (>60 ml/min/1.73 sqM); Potassium 4.3 mmol/L (3.5-5.1); Sodium 131 mmol/L (137-145)
[2024-04-08] MEDS: SODIUM CHLORIDE 0.9% 1,000 ML IV ONE (22:48)
[2024-04-08] MEDS: SODIUM CHLORIDE 0.9% 1,000 ML IV STA (22:48)
[2024-04-08] MEDS: LORazepam 2 MG/ML INJ IV STA (22:48)
[2024-04-08] MEDS: THIAMINE 100 MG/ML 2 ML VIAL IM STA (22:51)
[2024-04-08 23:08] LABS: Total Bilirubin 1.8 mg/dL (0.2-1.3)
[2024-04-08] MEDS ORDERED: MAG HYDROX/AL HYDROX/SIMETH 30 ML CUP PO PRN (23:46)
[2024-04-08] MEDS ORDERED: ACETAMINOPHEN TAB 325 MG TAB PO PRN (23:46)
[2024-04-08] MEDS ORDERED: NALOXONE 0.4 MG/ML 1 ML VIAL IV PRN (23:46)
[2024-04-08] MEDS ORDERED: DEXTROSE 50% SYRINGE 50 ML IVP PRN ×2 (23:49)
[2024-04-09 00:42] LABS: Glucose,Whole Blood 272 mg/dL (70-110)
--- NOTE | 2024-04-09 01:21 | CT ---
EXAM: CT Head Without Intravenous Contrast CLINICAL HISTORY: ITS.REASON CT Reason: mental status changes TECHNIQUE: Axial computed tomography images of the head/brain without intravenous contrast. CTDI is 49.2 mGy and DLP is 1139.4 mGy-cm. This CT exam was performed using one or more of the following dose reduction techniques: automated exposure control, adjustment of the mA and/or kV according to patient size, and/or use of iterative reconstruction technique. COMPARISON: No relevant prior studies available. FINDINGS: Brain: No hemorrhage or mass effect. Ventricles: No hydrocephalus. Bones/joints: Unremarkable. Soft tissues: Unremarkable. Sinuses: No air fluid level. Mastoid air cells: Clear. IMPRESSION: No acute hemorrhage, hydrocephalus, or mass effect.
[2024-04-09] MEDS: FAMOTIDINE 20 MG TAB PO SCH (10:03)
[2024-04-09] MEDS: THIAMINE 100 MG TAB PO SCH (10:03)
[2024-04-09 10:06] LABS: Glucose,Whole Blood 180 mg/dL (70-110)
[2024-04-09] MEDS: chlordiazePOXIDE 25 MG CAP PO PRN (10:29)
[2024-04-09] MEDS: INSULIN ASPART (NovoLOG) 100 UNIT/ML VIAL SQ SCH (10:29)
[2024-04-09 11:49] LABS: Amphetamine Screen,Urine Detected (NotDetected); Barbiturate Screen,Urine Not Detected (NotDetected); Benzodiazepines Screen,Urine Detected (NotDetected); Cocaine Screen,Urine Not Detected (NotDetected); Methadone Screen, Urine Not Detected (NotDetected); Opiate Screen,Urine Not Detected (NotDetected); Oxycodone Screen, Urine Not Detected (NotDetected); Phencyclidine Screen,Urine Not Detected (NotDetected); Tricyclic Antidepressant,Urine Not Detected (NotDetected); Urn Cannabinoid Scrn Not Detected (NotDetected)
[2024-04-09 12:13] LABS: Glucose,Whole Blood 250 mg/dL (70-110)
[2024-04-09 16:48] LABS: Glucose,Whole Blood 144 mg/dL (70-110)
--- NOTE | 2024-04-09 17:22 | XR ---
EXAMINATION TYPE: XR chest 1V portable DATE OF EXAM: 04/09/2024 4:59 PM COMPARISON: 03/20/2019 CLINICAL INDICATION: Male, 59 years old with history of chf; , high blood pressure, hallucinations, h istory of alcohol abuse TECHNIQUE: XR chest 1V portable Frontal view of the chest. FINDINGS: Lungs/Pleura: There is no evidence of pleural effusion, focal consolidation, or pneumothorax. Pulmonary vascularity: Unremarkable. Heart/mediastinum: Cardiomediastinal silhouette is unremarkable. Musculoskeletal: No acute osseous pathology. IMPRESSION: No evidence for congestive heart failure. No acute cardiopulmonary disease/process. [facility], , 04/09/2024 5:20 PM
[2024-04-09] MEDS: INSULIN DETEMIR (LEVEMIR) 100 UNIT/ML SYR SQ SCH (18:32)
[2024-04-09] MEDS ORDERED: INSULIN DETEMIR (LEVEMIR) 100 UNIT/ML SYR SQ SCH (21:00)
[2024-04-09 21:21] LABS: Glucose,Whole Blood 210 mg/dL (70-110)
[2024-04-09] MEDS: LORazepam 2 MG/ML INJ IV PRN (21:38)
[2024-04-10 06:31] LABS: Glucose,Whole Blood 176 mg/dL (70-110)
[2024-04-10 09:50] LABS: Basophils # (A) 0.05 X 10*3/uL (0.00-0.10); Basophils % (A) 0.7 %; Eosinophils # (A) 0.15 X 10*3/uL (0.04-0.35); Eosinophils % (A) 2.1 %; HCT 34.6 % (39.6-50.0); HGB 11.6 g/dL (13.0-17.0); Lymphocytes # (A) 2.68 X 10*3/uL (0.90-5.00); Lymphocytes % (A) 37.7 %; MCH 34.4 pg (27.0-32.0); MCHC 33.5 g/dL (32.0-37.0); MCV 102.7 FL (80.0-97.0); Monocytes # (A) 0.58 X 10*3/uL (0.20-1.00); Monocytes % (A) 8.2 %; NRBC Per 100 WBC 0 X 10*3/uL (0.00-0.01); Neutrophils # (A) 3.62 X 10*3/uL (1.80-7.70); Platelet Count 121 X 10*3/uL (140-440); RBC 3.37 X 10*6/uL (4.40-5.60); RDW 12.9 % (11.5-14.5)
[2024-04-10 09:59] LABS: BUN/Creat Ratio 24.71 Ratio (12.00-20.00); Blood Urea Nitrogen 17.3 mg/dL (9.0-27.0); Calcium 8.7 mg/dL (8.7-10.3); Carbon Dioxide 25.1 mmol/L (21.6-31.8); Chloride 99 mmol/L (96-109); Glucose 179 mg/dL (70-110); Potassium 3.6 mmol/L (3.5-5.5); Sodium 135 mmol/L (135-145)
[2024-04-10 11:33] LABS: Glucose,Whole Blood 223 mg/dL (70-110)
[2024-04-10] MEDS: LORazepam 2 MG/ML INJ IV PRN (12:20)
[2024-04-10 17:03] LABS: Glucose,Whole Blood 227 mg/dL (70-110)
[2024-04-10 20:50] LABS: Glucose,Whole Blood 282 mg/dL (70-110)
[2024-04-10] MEDS: INSULIN DETEMIR (LEVEMIR) 100 UNIT/ML SYR SQ SCH (21:54)
[2024-04-11 06:36] LABS: Glucose,Whole Blood 111 mg/dL (70-110)
[2024-04-11 07:17] VITALS: RESP 18; TEMP 98
--- NOTE | 2024-04-11 09:09 | HP ---
HISTORY AND PHYSICAL CHIEF COMPLAINT: Hallucinations. HISTORY OF PRESENT ILLNESS: This is a 59-year-old gentleman with a past history of significant alcohol content, admitted with visual hallucinations. The casket liner were called and the patient was suspecting other people in the house and the patient treatment. There is no history of fever, rigors, chills at this time. The blood glucose is elevated. Urine drug screen is positive for amphetamines and benzodiazepines. PAST MEDICAL HISTORY: History of diabetes, hypertension, history of DJD, anxiety, depression, alcohol abuse. Rest of the history and chart is also reviewed. HOME MEDICATIONS: Reviewed and include none. ALLERGIES: Lisinopril. FAMILY HISTORY: History of lung cancer in the family. SOCIAL HISTORY: History of alcohol abuse. REVIEW OF SYSTEMS: 14-point review of systems is negative except as mentioned earlier. PHYSICAL EXAMINATION: VITAL SIGNS: Pulse is 101, blood pressure 130/99, respirations 17. HEENT: Conjunctivae normal. NECK: No carotid bruit. CARDIOVASCULAR: S1, S2 muffled. RESPIRATION: Breath sounds diminished at the bases. Scattered rhonchi and crackles. ABDOMEN: Soft, nontender. LEGS: No edema. No swelling. NERVOUS SYSTEM: No focal deficit. LABORATORY DATA: Reviewed. ASSESSMENT: 1. Hallucinations, most likely delirium tremens. 2. History of ethanol. 3. Diabetes mellitus, type 2 uncontrolled. 4. Hypertension. 5. History of psoriasis. 6. Anxiety, depression. RECOMMENDATIONS: This is a 59-year-old gentleman, who presented with multiple complex medical issues. We will monitor the patient closely. Continue current medications, symptomatic treatment. Otherwise, I will initiate small dose of Lantus to control the blood sugars. Otherwise, guarded prognosis because of multiple complex medical issues. Further recommendations to follow. See orders for further details. MMODL / IJN: [id number] / MTDD
--- NOTE | 2024-04-11 09:10 | PN ---
PROGRESS NOTE DATE OF SERVICE: 04/10/2024 SUBJECTIVE: This is a 59-year-old gentleman who was admitted with alcohol withdrawal symptoms and is being closely monitored. The patient has no hallucinations. PHYSICAL EXAMINATION: VITAL SIGNS: Pulse 76, blood pressure n, respirations 16. CHEST: Clear. CARDIOVASCULAR: S1, S2. ABDOMEN: Soft. NERVOUS SYSTEM: Diffuse tremors. LABORATORY DATA: Accu-Cheks noted. ASSESSMENT: 1. Acute alcohol withdrawal and delirium tremens. 2. Diabetes mellitus, type 2. 4. Degenerative joint disease. RECOMMENDATIONS: I recommend to continue current symptomatic treatment. The patient is on Lantus 10 units b.i.d. I would increase the dose to 15 units b.i.d. Continue to monitor DT precautions. Prognosis guarded. Further recommendations to follow. NINOSKA / TEDDYN: [id number] / MTDD
[2024-04-11 11:29] LABS: Glucose,Whole Blood 240 mg/dL (70-110)
--- NOTE | 2024-04-11 13:29 | P.CN ---
Psychiatric Consult - . Consult date: 04/11/24 Consult:: 04/11/24 13:20 IDENTIFYING DATA: This patient is a 59-year-old male, on disability and living alone REASON FOR REFERRAL: Psychiatry was consulted for hallucinations HISTORY OF PRESENT ILLNESS: The patient presented to the hospital visual hallucinations for a day. Patient reportedly was drinking a pint of vodka per day have been calling the police due to fearing people were in his house. Patient seen and evaluated on the unit. He admits to chronic issues with drinking since a teenager however has became more of an issue for the last 25 years. He states he has gone to rehab several times before however did not find it helpful and is not interested in going at the moment. Patient states experiencing both auditory and visual hallucinations in addition to paranoia that led to him contacting the police due to fear of someone breaking in. Since being hospitalized and no longer using, he denies any auditory or visual hallucinations. He states never experiencing hallucinations before while drinking and of note patient's UDS was positive for amphetamines to which patient declined ever taking. He admits to using cannabis occasionally and was adamant he did not take any drugs recently other than alcohol so he was unsure how to his urine become positive for stimulants. Patient does appear precontemplative in regards to his alcohol use. He denied any cravings. At this time patient denies any suicidal or homical ideations, intent or plan. Patient denies any auditory, visual hallucinations and denies any paranoia or delusions. Patients admits to using nicotine, smoking 1.5 PPD. PAST PSYCHIATRIC HISTORY: Patient has a a history of bipolar disorder, alcohol use disorder. Patient denies being on any psychiatric medications. Patient was recently inpatient back in 2022. Patient denies any psychiatric outpatient follow-up. Patient denies any history of suicide attempts in the past. PAST MEDICAL HISTORY: Diabetes mellitus, hypertension, OA, psoriasis. ALLERGIES: as per EMR. CHEMICAL DEPENDENCY HISTORY: as per HPI. FAMILY PSYCHIATRIC/SUBSTANCE USE HISTORY: Patient states maternal aunt attempted suicide and that his brother abuses alcohol SOCIAL HISTORY: Patient was born and raised in [place]. He lives independently and has 1 child. He completed some college. He is on disability. MENTAL STATUS EXAM: General Appearance: Patient appears to be stated age is alert, pleasant, and collection coordinator perative. Patient appears to have fair hygiene and grooming wearing hospital gown with fair eye contact. Behavior: Patient is calmly sitting in bed without any agitated behavior. Speech: Patient's speech is fluent and nonpressured. Mood/Affect: Patient reports their mood is "better", affect is congruent Suicidality/Homicidality: Patient denies having any suicidal or homicidal ideation intent or plan. Perceptions: Patient denies any visual hallucinations and denies any auditory hallucinations Though content/process: There is no evidence of any delusional thought content and thought process is linear and goal-directed. Memory and concentration: AOX3, grossly intact for the purposes of this session. Can spell "WORLD" backwards Judgment and insight: Mildly improving IMPRESSIONS: Psychosis, unspecified, likely substance-induced Alcohol use disorder, severe in withdrawal Nicotine dependence History of bipolar disorder PLAN: -At this time patient DOES NOT meet criteria for inpatient psychiatric admission. -Would recommend the following medication changes/additions: Will not start any medications at this time as symptoms have resolved and were likely related to substances, patient to follow-up with outpatient provider for further adjustments -CIWA protocol with PRN Ativan for alcohol withdrawal. Continue to monitor vital signs. -printed circuit board reworker to provide patient with outpatient mental health/psychiatry resources for appropriate follow up upon discharge -Corporate Communications Manager spoke with patient about substance abuse and the harmful effects on medical and mental health, patient verbally understood and agreed. -printed circuit board reworker to provide patient substance use treatment resources including AA/NA meetings in the community. -Psychiatry will sign off at this time -Please contact with any questions.
[2024-04-11 14:15] VITALS: BP 158/80; PULSE 79
--- NOTE | 2024-04-12 13:35 | P.DS ---
Providers Date of admission: 04/08/24 23:46 Expected date of discharge: 04/11/24 Attending physician: Julio Gupta Consults: 04/08/24 23:46 Consult Physician Routine Consulting Provider: Psychiatry - [facility] Psychiatry Consult Reason/Comments: hallucinations Do you want consulting provider notified?: Already Contacted Primary care physician: Stated None Hospital Course: Final diagnosis Hallucinations, most likely delirium tremens History of ethanol with concerns of acute alcohol withdrawal Diabetes mellitus, type II uncontrolled with hyperglycemia Hypertension History of psoriasis History of anxiety, depression GI prophylaxis DVT prophylaxis Full code Discharge disposition Patient is being discharged in a stable condition with guarded prognosis to home. Patient will follow-up with primary care provider in the outpatient setting upon discharge. Patient is to continue with Librium taper and recommend outpatient follow-up with inpatient alcohol rehab as well as [facility] as scheduled. Total time taken is greater than 35 minutes. Hospital course This is a 59-year-old male who was recently admitted with hallucinations likely delirium tremens from acute alcohol withdrawal being maintained on CIWA protocol along with Librium. Patient will continue a Librium taper on discharge and also has been instructed to follow-up with primary care provider to establish along with [facility] and strongly encourage inpatient alcohol rehab on discharge. Patient has been evaluated by psychiatry and does not meet inpatient criteria. Please refer to other consultation notes for further HPI. Currently no reports of chest pain, shortness of breath, or palpitations. Patient is afebrile. No reports of nausea or vomiting and patient is tolerating diet. Patient will be discharged h ome today. Guarded prognosis given patient's continued alcohol abuse Physical exam: Gen: This is a 59-year-old male who is awake, alert oriented x 3, well- developed, elderly appearing HEENT: Head is atraumatic, normocephalic. Pupils equal, round. Sclerae is anicteric. NECK: Supple. No JVD. No lymphadenopathy. No thyromegaly. LUNGS: Diminished breath sounds bilaterally otherwise clear to auscultation. No wheezes or rhonchi. No intercostal retractions. HEART: Regular rate and rhythm. No murmur. ABDOMEN: Soft. Bowel sounds are present. No masses. No tenderness. EXTREMITIES: No pedal edema. No calf tenderness. NEUROLOGICAL: Patient is awake, alert and oriented x3. Cranial nerves 2 through 12 are grossly intact. Please refer to medication reconciliation sheet for a list of medications. The impression and plan of care has been dictated by Yolanda Hill, Nurse Practitioner as directed. Dr. Alonso MD I have performed a history and examination and MDM of this patient, discussed the same with the dictator, and agree with the dictator's assessment and plan as written ,documented as a scribe. Based on total visit time, I have performed more than 50% of the visit. Patient Condition at Discharge: Fair Plan - Discharge Summary Discharge Rx Participant: Yes New Discharge Prescriptions: New Mag Hydrox/Al Hydrox/Simeth [Maalox] 15 ml PO Q6HR PRN ml PRN Reason: Indigestion chlordiazePOXIDE HCl [Librium] 25 mg PO TID #6 cap metFORMIN HCL 500 mg PO BID #60 tablet Multivitamins, Thera [Multivitamin] 1 tab PO DAILY #30 tablet Acetaminophen Tab [Tylenol] 650 mg PO Q6HR PRN tab PRN Reason: Mild Pain Or Fever > 100.5 Thiamine [Vitamin B-1] 100 mg PO DAILY #30 tab Discharge Medication List Acetaminophen Tab [Tylenol] 650 mg PO Q6HR PRN tab 04/11/24 [Rx] Mag Hydrox/Al Hydrox/Simeth [Maalox] 15 ml PO Q6HR PRN ml 04/11/24 [Rx] Multivitamins, Thera [Multivitamin] 1 tab PO DAILY #30 tablet 04/11/24 [Rx] Thiamine [Vitamin B-1] 100 mg PO DAILY #30 tab 04/11/24 [Rx] chlordiazePOXIDE HCl [Librium] 25 mg PO TID #6 cap 04/11/24 [Rx] metFORMIN HCL 500 mg PO BID #60 tablet 04/11/24 [Rx] Follow up Appointment(s)/Referral(s): [facility] [NON-STAFF] - As Needed Yadi Gaytan MD [STAFF PHYSICIAN] - 05/03/24 10:30 am () Activity/Diet/Wound Care/Special Instructions: Activity limited until follow-up Follow-up and establish with primary care provider Follow-up with inpatient alcohol rehab Continue to avoid alcohol use and exposure Continue Librium taper on discharge Monitor blood sugars and keep a diary of all readings for primary care follow-up Follow diabetic diet Discharge/Stand Alone Forms: AA Meetings [place], [facility] Shelters, Outpatient Counseling, Inp Substance Abuse Facilities, Area PCPs Discharge Disposition: HOME SELF-CARE
== END 2024-04-11 16:00 | disposition home or self-care (01) | DRG 775 ==
LOC: EC 20:27 → 4SSUR 23:46
PROVIDERS: ADMIT Hospitalist; ATTEND Hospitalist
DX: F10.231 Alcohol dependence with withdrawal delirium (principal); E11.65 Type 2 diabetes mellitus with hyperglycemia; I10 Essential (primary) hypertension; L40.9 Psoriasis, unspecified; F31.9 Bipolar disorder, unspecified; F41.9 Anxiety disorder, unspecified; M19.90 Unspecified osteoarthritis, unspecified site; F17.210 Nicotine dependence, cigarettes, uncomplicated; F22 Delusional disorders; F19.959 Other psychoactive substance use, unspecified with psychoactive substance-induced psychotic disorder, unspecified; Z79.84 Long term (current) use of oral hypoglycemic drugs
CPT/HCPCS: 36415; 70450; 71045; 80048; 80306; 80320; 82075; 82247; 83036; 85025; 87636; 93005; 96361; 96374; 99285

== ENCOUNTER 2024-07-08 12:19 | Observation (INO) | payer MEDICARE, OTHER ==
[2024-07-08 13:40] LABS: Appearance,Urine Clear (Clear); Bilirubin,Urine Negative (Negative); Blood,Urine Negative (Negative); Color,Urine Light Yellow; Glucose,Urine (UA) 2+ (Negative); Ketones,Urine Negative (Negative); Leukocyte Esterase,Urine Negative (Negative); Nitrite,Urine Negative (Negative); Protein,Urine Trace (Negative); Specific Gravity,Urine 1.009 (1.001-1.035); Urobilinogen,Urine <2.0 mg/dL (<2.0)
[2024-07-08] MEDS: SODIUM CHLORIDE 0.9% 1,000 ML IV STA (14:31)
[2024-07-08] MEDS: ONDANSETRON 4 MG/2 ML VIAL IVP STA (14:31)
[2024-07-08] MEDS: FAMOTIDINE 20 MG/2 ML VIAL IV STA (14:31)
--- NOTE | 2024-07-08 15:03 | ED ---
Psych HPI - General Source: EMS Mode of arrival: EMS <Shae Walter - Last Filed: 07/08/24 15:19> <Madeline Whitaker - Last Filed: 07/09/24 16:17> - General Chief Complaint: Psychiatric Symptoms Stated Complaint: ETOH Time Seen by Provider: 07/08/24 12:45 - History of Present Illness Initial Comments: 59-year-old male with past medical history of depression, heavy alcohol abuse who presents emergency department after EMS was called to his home for a well check. They found him in bed and he states he has been there for 2 weeks. He has not been taking his medications. There was scattered alcohol containers all around the bed. He does admit that he drinks 1/5 of vodka daily as well as multiple beers. States that he is suicidal. Has several plans to commit suicide. Admits to some epigastric discomfort. Denies any nausea or vomiting currently but did have nausea and vomiting a couple of weeks ago. States has had multiple falls because of his intoxication. Does admit hitting his head. He denies any shortness of breath. No abdominal pain. No hematemesis. No black or bloody bowel movements. No other alleviating, precipitating or modifying factors (Shae Walter) - Related Data Home Medications Medication Instructions Recorded Confirmed No Known Home Medications 07/08/24 07/08/24 Allergies Allergy/AdvReac Type Severity Reaction Status Date / Time lisinopril AdvReac Unknown Cough Verified 07/08/24 15:44 Review of Systems ROS Other: All systems not noted in ROS Statement are negative. <Shae Walter - Last Filed: 07/08/24 15:19> ROS Other: All systems not noted in ROS Statement are negative. <Madeline Whitaker - Last Filed: 07/09/24 16:17> ROS Statement: Those systems with pertinent positive or pertinent negative responses have been documented in the HPI. Past Medical History Past Medical History: Asthma, Diabetes Mellitus, Hypertension, Osteoarthritis (OA), Skin Disorder Additional Past Medical History / Comment(s): PSORIASIS, Back and bilat hip pain. Arthritis bilat hip. Bone spurs in spine. History of Any Multi-Drug Resistant Organisms: None Reported Additional Past Surgical History / Comment(s): HAND SURGERY AND NERVE GRAFT TO THUMB, CORTISONE INJECTIONS HIP. Past Anesthesia/Blood Transfusion Reactions: No Reported Reaction Past Psychological History: Anxiety, Bipolar, Depression Smoking Status: Current every day smoker Past Alcohol Use History: Abuse, Heavy Past Drug Use History: None Reported - Past Family History Father Family Medical History: Cancer Additional Family Medical History / Comment(s): LUNG CANCER <Shae Walter Last Filed: 07/08/24 15:19> General Exam Limitations: no limitations General appearance: alert, in no apparent distress Head exam: Present: atraumatic, normocephalic, normal inspection Eye exam: Present: normal appearance, PERRL, EOMI. Absent: scleral icterus, conjunctival injection, periorbital swelling ENT exam: Present: normal exam, mucous membranes moist Neck exam: Present: normal inspection. Absent: tenderness, meningismus, lymphadenopathy Respiratory exam: Present: normal lung sounds bilaterally. Absent: respiratory distress, wheezes, rales, rhonchi, stridor Cardiovascular Exam: Present: regular rate, normal rhythm, normal heart sounds. Absent: systolic murmur, diastolic murmur, rubs, gallop, clicks GI/Abdominal exam: Present: soft, normal bowel sounds. Absent: distended, tenderness, guarding, rebound, rigid Extremities exam: Present: normal inspection, full ROM, normal capillary refill. Absent: tenderness, pedal edema, joint swelling, calf tenderness Back exam: Present: normal inspection Neurological exam: Present: alert, oriented X3, CN II-XII intact Psychiatric exam: Present: normal affect, normal mood Skin exam: Present: warm, dry, intact, normal color. Absent: rash <Shae Walter - Last Filed: 07/08/24 15:19> Course Vital Signs 07/08/24 07/08/24 07/08/24 12:41 19:51 22:46 Temperature 98.4 F Pulse Rate 94 98 115 H Respiratory 18 18 Rate Blood Pressure 139/84 110/62 106/69 O2 Sat by Pulse 98 97 97 Oximetry 07/09/24 07/09/24 07/09/24 02:12 06:47 07:22 Temperature Pulse Rate 99 90 93 Respiratory 16 18 20 Rate Blood Pressure 122/69 120/76 120/76 O2 Sat by Pulse 97 96 95 Oximetry 07/09/24 07/09/24 07/09/24 08:54 11:00 12:00 Temperature Pulse Rate 98 90 75 Respiratory 20 20 20 Rate Blood Pressure 120/76 120/76 130/60 O2 Sat by Pulse 96 96 98 Oximetry 07/09/24 07/09/24 12:47 15:21 Temperature Pulse Rate 95 97 Respiratory 16 20 Rate Blood Pressure 125/68 126/87 O2 Sat by Pulse 98 98 Oximetry Medical Decision Making <Shae Walter - Last Filed: 07/08/24 15:19> - Lab Data Result diagrams: 07/09/24 06:25 07/09/24 06:25 <Madeline Whitaker - Last Filed: 07/09/24 16:17> - Medical Decision Making Was pt. sent in by a medical professional or institution (, PA, NCR OPERATOR, urgent c are, hospital, or intermediate...) When possible be specific @ -[No] Did you speak to anyone other than the patient for history (EMS, parent, family, police, friend...)? What history was obtained from this source @ -[No] Did you review nursing and triage notes (agree or disagree)? Why? @ -[I reviewed and agree with nursing and triage notes] Were old charts reviewed (outside hosp., previous admission, EMS record, old EKG, old radiological studies, urgent care reports/EKG's, intermediate records)? Report findings @ -[No old charts were reviewed] Differential Diagnosis (chest pain, altered mental status, abdominal pain women, abdominal pain men, vaginal bleeding, weakness, fever, dyspnea, syncope, headache, dizziness, GI bleed, back pain, seizure, CVA, palpatations, mental health, musculoskeletal)? @ -[not applicable] EKG interpreted by me (3pts min.). @ -Yes and demonstrates sinus rhythm with a rate of 99. TN interval 140. QRS 85. QTc of 405. No acute ST segment elevations or depressions X-rays interpreted by me (1pt min.). @ -[None done] CT interpreted by me (1pt min.). @ -[None done] U/S interpreted by me (1pt. min.). @ -[None done] What testing was considered but not performed or refused? (CT, X-rays, U/S, labs)? Why? @ -[None] What meds were considered but not given or refused? Why? @ -[None] Did you discuss the management of the patient with other professionals (professionals i.e. Dr., PA, NCR OPERATOR, lab, RT, psych nurse, social media intern, gps field data collector, teacher, special weapons and tactics officer, employment case manager)? Give summary @ -[No] Was smoking cessation discussed for >3mins.? @ -[No] Was critical care preformed (if so, how long)? @ -[No] Were there social determinants of health that impacted care today? How? (Homelessness, low income, unemployed, alcoholism, drug addiction, ratliff sportation, low edu. Level, literacy, decrease access to med. care, group home, rehab)? @ -[No] Was there de-escalation of care discussed even if they declined (Discuss DNR or withdrawal of care, Hospice)? DNR status @ -[No] What co-morbidities impacted this encounter? (DM, HTN, Smoking, COPD, CAD, Canc er, CVA, ARF, Chemo, Hep., AIDS, mental health diagnosis, sleep apnea, morbid obesity)? @ -[None] Was patient admitted / discharged? Hospital course, mention meds given and route, prescriptions, significant lab abnormalities, going to OR and other pertinent info. @ -[hospital course] Undiagnosed new problem with uncertain prognosis? @ -[No] Drug Therapy requiring intensive monitoring for toxicity (Heparin, Nitro, Insulin, Cardizem)? @ -[No] Were any procedures done? @ -[No] Diagnosis/symptom? @ -[default] Acute, or Chronic, or Acute on Chronic? @ -[default] Uncomplicated (without systemic symptoms) or Complicated (systemic symptoms)? @ -[default] Side effects of treatment? @ -[No] Exacerbation, Progression, or Severe Exacerbation? @ -[No] Poses a threat to life or bodily function? How? (Chest pain, [place], [place], pneumonia, PE, COPD, DKA, ARF, appy, cholecystitis, CVA, Diverticulitis, Homicidal, Suicidal, threat to staff... and all critical care pts) @ -[No] (Shae Walter) Patient was signed out to myself pending completion of blood work. He is a 59-y ear-old gentleman past medical history of alcoholism who was brought in today after a well check was called for the patient and he was found by police in his home where he had been in bed for 2 weeks.Reviewed labs, CBC overall unremarkable, CMP remarkable for potassium 3.2, sodium 135, glucose 222, magnesium 1.2 troponin unremarkable blood alcohol 235. CT brain showed no acute process. Replacement magnesium and potassium ordered. Plan for admission for debility and hypomagnesemia. Case was discussed with Virgilio IVERSON kindly accepted patient for admission. [facility] orders were placed as well. Undiagnosed new problem with uncertain prognosis? @ -[No] Drug Therapy requiring intensive monitoring for toxicity (Heparin, Nitro, Insulin, Cardizem)? @ -[No] Were any procedures done? @ -[No] Diagnosis/symptom? @ -hypomagnesemia, hypokalemia, debility Acute, or Chronic, or Acute on Chronic? acute Uncomplicated (without systemic symptoms) or Complicated (systemic symptoms)? @complicated Side effects of treatment? @ -[No] Exacerbation, Progression, or Severe Exacerbation? @ -[No] Poses a threat to life or bodily function? How? (Chest pain, [place], [place], pneumonia, PE, COPD, DKA, ARF, appy, cholecystitis, CVA, Diverticulitis, Homicidal, Suicidal, threat to staff... and all critical care pts) @ -yes if left untreated could lead to lethal arrhythmia and (Madeline Whitaker) - Lab Data Lab Results 07/08/24 07/08/24 07/08/24 Range/Units 12:36 15:19 15:19 WBC 5.5 (3.8-10.6) k/uL RBC 3.91 L (4.30-5.90) m/uL Hgb 13.0 (13.0-17.5) gm/dL Hct 39.1 (39.0-53.0) % MCV 100.0 (80.0-100.0) fL MCH 33.3 (25.0-35.0) pg MCHC 33.3 (31.0-37.0) g/dL RDW 15.2 (11.5-15.5) % Plt Count 275 (150-450) k/uL MPV 8.0 Neutrophils % 43 % Lymphocytes % 46 % Monocytes % 6 % Eosinophils % 3 % Basophils % 0 % Neutrophils # 2.4 (1.3-7.7) k/uL Lymphocytes # 2.5 (1.0-4.8) k/uL Monocytes # 0.3 (0-1.0) k/uL Eosinophils # 0.1 (0-0.7) k/uL Basophils # 0.0 (0-0.2) k/uL Macrocytosis Slight PT 10.9 (10.0-12.5) sec INR 1.0 (<1.2) APTT 23.2 (22.0-30.0) sec Sodium (137-145) mmol/L Potassium (3.5-5.1) mmol/L Chloride (98-107) mmol/L Carbon Dioxide (22-30) mmol/L Anion Gap mmol/L BUN (9-20) mg/dL Creatinine (0.66-1.25) mg/dL Est GFR (CKD-EPI)AfAm (>60 ml/min/1.73 sqM) Est GFR (CKD-EPI)NonAf (>60 ml/min/1.73 sqM) Glucose (74-99) mg/dL Calcium (8.4-10.2) mg/dL Magnesium (1.6-2.3) mg/dL Total Bilirubin (0.2-1.3) mg/dL AST (17-59) U/L ALT (4-49) U/L Alkaline Phosphatase (38-126) U/L Creatine Kinase (55-170) U/L Troponin I (0.000-0.034) ng/mL Total Protein (6.3-8.2) g/dL Albumin (3.5-5.0) g/dL Lipase (23-300) U/L Urine Color Light Yellow Urine Appearance Clear (Clear) Urine pH 6.0 (5.0-8.0) Ur Specific [place] 1.009 (1.001-1.035) Urine Protein Trace H (Negative) Urine Glucose (UA) 2+ H (Negative) Urine Ketones Negative (Negative) Urine Blood Negative (Negative) Urine Nitrite Negative (Negative) Urine Bilirubin Negative (Negative) Urine Urobilinogen <2.0 (<2.0) mg/dL Ur Leukocyte Esterase Negative (Negative) Serum Alcohol mg/dL 07/08/24 07/08/24 Range/Units 15:19 15:19 WBC (3.8-10.6) k/uL RBC (4.30-5.90) m/uL Hgb (13.0-17.5) gm/dL Hct (39.0-53.0) % MCV (80.0-100.0) fL MCH (25.0-35.0) pg MCHC (31.0-37.0) g/dL RDW (11.5-15.5) % Plt Count (150-450) k/uL MPV Neutrophils % % Lymphocytes % % Monocytes % % Eosinophils % % Basophils % % Neutrophils # (1.3-7.7) k/uL Lymphocytes # (1.0-4.8) k/uL Monocytes # (0-1.0) k/uL Eosinophils # (0-0.7) k/uL Basophils # (0-0.2) k/uL Macrocytosis PT (10.0-12.5) sec INR (<1.2) APTT (22.0-30.0) sec Sodium 135 L (137-145) mmol/L Potassium 3.2 L (3.5-5.1) mmol/L Chloride 101 (98-107) mmol/L Carbon Dioxide 22 (22-30) mmol/L Anion Gap 12 mmol/L BUN 3 L (9-20) mg/dL Creatinine 0.44 L (0.66-1.25) mg/dL Est GFR (CKD-EPI)AfAm >90 (>60 ml/min/1.73 sqM) Est GFR (CKD-EPI)NonAf >90 (>60 ml/min/1.73 sqM) Glucose 222 H (74-99) mg/dL Calcium 7.5 L (8.4-10.2) mg/dL Magnesium 1.2 L (1.6-2.3) mg/dL Total Bilirubin 0.4 (0.2-1.3) mg/dL AST 35 (17-59) U/L ALT 17 (4-49) U/L Alkaline Phosphatase 86 (38-126) U/L Creatine Kinase 32 L (55-170) U/L Troponin I <0.012 (0.000-0.034) ng/mL Total Protein 5.0 L (6.3-8.2) g/dL Albumin 2.8 L (3.5-5.0) g/dL Lipase 157 (23-300) U/L Urine Color Urine Appearance (Clear) Urine pH (5.0-8.0) Ur Specific [place] (1.001-1.035) Urine Protein (Negative) Urine Glucose (UA) (Negative) Urine Ketones (Negative) Urine Blood (Negative) Urine Nitrite (Negative) Urine Bilirubin (Negative) Urine Urobilinogen (<2.0) mg/dL Ur Leukocyte Esterase (Negative) Serum Alcohol 235 H* mg/dL Disposition <Shae Walter - Last Filed: 07/08/24 15:19> <Madeline Whitaker - Last Filed: 07/09/24 16:17> Clinical Impression: Hypomagnesemia Disposition: ADMITTED IP TO THIS HOSP Condition: Stable
[2024-07-08 15:30] LABS: Basophils % (A) 0 %; Eosinophils # (A) 0.1 k/uL (0-0.7); Eosinophils % (A) 3 %; HCT 39.1 % (39.0-53.0); Lymphocytes # (A) 2.5 k/uL (1.0-4.8); Lymphocytes % (A) 46 %; MCH 33.3 pg (25.0-35.0); MCHC 33.3 g/dL (31.0-37.0); Macrocytosis Slight; Monocytes # (A) 0.3 k/uL (0-1.0); Monocytes % (A) 6 %; Neutrophils # (A) 2.4 k/uL (1.3-7.7); Neutrophils % (A) 43 %; Platelet Count 275 k/uL (150-450); RBC 3.91 m/uL (4.30-5.90); RDW 15.2 % (11.5-15.5); WBC 5.5 k/uL (3.8-10.6)
[2024-07-08 15:43] LABS: Partial Thromboplastin Time 23.2 sec (22.0-30.0); Prothrombin Time 10.9 sec (10.0-12.5)
[2024-07-08 15:44] LABS: ALT 17 U/L (4-49); AST 35 U/L (17-59); African American GFR (CKD) >90 (>60 ml/min/1.73 sqM); Albumin 2.8 g/dL (3.5-5.0); Alkaline Phosphatase 86 U/L (38-126); Anion Gap 12 mmol/L; Blood Urea Nitrogen 3 mg/dL (9-20); Calcium 7.5 mg/dL (8.4-10.2); Carbon Dioxide 22 mmol/L (22-30); Chloride 101 mmol/L (98-107); Creatine Kinase 32 U/L (55-170); Glucose 222 mg/dL (74-99); Lipase 157 U/L (23-300); Magnesium 1.2 mg/dL (1.6-2.3); Non-African American GFR(CKD) >90 (>60 ml/min/1.73 sqM); Potassium 3.2 mmol/L (3.5-5.1); Sodium 135 mmol/L (137-145); Total Bilirubin 0.4 mg/dL (0.2-1.3)
--- NOTE | 2024-07-08 15:54 | XR ---
EXAMINATION TYPE: XR chest 2V DATE OF EXAM: 07/08/2024 CLINICAL INDICATION: Male, 59 years old with history of Chest Pain, TECHNIQUE: Frontal and lateral views of the chest are obtained. COMPARISON: Chest x-ray April 09, 2024 FINDINGS: Some underlying emphysematous change is present. There is no focal air space opacity, pleu ral effusion, or pneumothorax seen. The cardiac silhouette size is within normal limits. The osseo us structures are intact. IMPRESSION: No acute process. [facility], , 07/08/2024 3:51 PM
--- NOTE | 2024-07-08 15:55 | CT ---
EXAMINATION TYPE: CT brain wo con DATE OF EXAM: 07/08/2024 3:46 PM COMPARISON: 04/01/2024. CLINICAL INDICATION: Male, 59 years old with history of multiple falls, head injury, Multiple falls. TECHNIQUE: Brain: Axial CT images of the brain were obtained with coronal and sagittal reformats created and rev iewed. Contrast used: None. Oral contrast used: None. CT DLP: 1156.4 mGycm, Automated exposure control for dose reduction was used. FINDINGS: Brain: Extra-axial spaces: No abnormal extra-axial fluid collections. Ventricular system: Within normal limits Cerebral parenchyma: No acute intraparenchymal hemorrhage or mass effect. The berg-white junction is well differentiated. Cerebellum: Unremarkable. Mass effect: No evidence of midline shift. Intracranial vasculature: unremarkable Soft tissues: Normal. Calvarium/osseous structures: No depressed skull fracture. Paranasal sinuses and mastoid air cells: Mild scattered paranasal sinus disease. Visualized orbits: Orbital contents are intact. IMPRESSION: No acute intracranial process. [facility], , 07/08/2024 3:53 PM
[2024-07-08 15:59] LABS: Alcohol 235 mg/dL
[2024-07-08] MEDS: MAGNESIUM SULFATE-D5W PMX 1 GM in DEXTROSE/WATER 1 100ML.BAG IVPB SCH (18:08)
[2024-07-08] MEDS ORDERED: ACETAMINOPHEN TAB 325 MG TAB PO PRN (18:39)
[2024-07-08] MEDS ORDERED: NALOXONE 0.4 MG/ML 1 ML VIAL IV PRN (18:39)
[2024-07-08] MEDS ORDERED: ONDANSETRON 4 MG/2 ML VIAL IVP PRN (18:39)
[2024-07-08] MEDS ORDERED: MAG HYDROX/AL HYDROX/SIMETH 30 ML CUP PO PRN (18:39)
[2024-07-08] MEDS ORDERED: CALCIUM CARBONATE 500 MG CHEWABLE PO PRN (18:39)
[2024-07-08] MEDS ORDERED: LORazepam 1 MG TAB PO PRN (18:41)
[2024-07-08] MEDS: POTASSIUM CHLORIDE 20 MEQ in WATER FOR INJECTION 1 100ML.BAG IVPB STA (19:42)
[2024-07-08] MEDS: LORazepam 1 MG TAB PO PRN (19:55)
[2024-07-08] MEDS: DEXTROSE 5%-0.45% NACL 1,000 ML IV SCH (20:11)
[2024-07-08] MEDS: THIAMINE 100 MG/ML 2 ML VIAL IM STA (20:55)
[2024-07-08] MEDS: FAMOTIDINE 20 MG TAB PO SCH (20:55)
[2024-07-08] MEDS: MULTIVITAMINS, THERA 1 EACH TAB PO SCH (20:55)
[2024-07-09 07:44] LABS: African American GFR (CKD) >90 (>60 ml/min/1.73 sqM); Anion Gap 2 mmol/L; Blood Urea Nitrogen 3 mg/dL (9-20); Calcium 7.3 mg/dL (8.4-10.2); Carbon Dioxide 29 mmol/L (22-30); Chloride 96 mmol/L (98-107); Glucose 183 mg/dL (74-99); Magnesium 1.4 mg/dL (1.6-2.3); Non-African American GFR(CKD) >90 (>60 ml/min/1.73 sqM); Potassium 3.4 mmol/L (3.5-5.1); Sodium 127 mmol/L (137-145)
[2024-07-09 07:49] LABS: Basophils % (A) 0 %; Eosinophils % (A) 1 %; HCT 32.6 % (39.0-53.0); HGB 10.7 gm/dL (13.0-17.5); Lymphocytes # (A) 1.4 k/uL (1.0-4.8); Lymphocytes % (A) 26 %; MCH 33.1 pg (25.0-35.0); MCHC 32.9 g/dL (31.0-37.0); MCV 100.6 fL (80.0-100.0); Macrocytosis Slight; Mean Platelet Volume 9.1; Monocytes # (A) 0.4 k/uL (0-1.0); Monocytes % (A) 6 %; Neutrophils # (A) 3.7 k/uL (1.3-7.7); Neutrophils % (A) 66 %; Platelet Count 236 k/uL (150-450); RBC 3.24 m/uL (4.30-5.90); RDW 15.7 % (11.5-15.5); WBC 5.6 k/uL (3.8-10.6)
[2024-07-09] MEDS: FOLIC ACID 1 MG TAB PO SCH (08:10)
[2024-07-09] MEDS: THIAMINE 100 MG TAB PO SCH (08:10)
[2024-07-09] MEDS: LORazepam 2 MG/ML INJ IV PRN (08:16)
[2024-07-09] MEDS: POTASSIUM CHLORIDE ER 20 MEQ TAB.ER PO STA (13:54)
[2024-07-09] MEDS: MAGNESIUM SULFATE-D5W PMX 1 GM in DEXTROSE/WATER 1 100ML.BAG IVPB SCH (13:55)
[2024-07-09] MEDS: SODIUM CHLORIDE 0.9% 1,000 ML IV SCH (13:57)
[2024-07-09] MEDS: LORazepam 1 MG TAB PO PRN (20:19)
--- NOTE | 2024-07-09 21:18 | P.HPIM ---
History of Present Illness H&P Date: 07/08/24 Chief Complaint: Heavy alcohol abuse 59-year-old male with past medical history of depression, heavy alcohol abuse who presents emergency department after EMS was called to his home for a well check. They found him in bed and he states he has been there for 2 weeks. He has not been taking his medications. There was scattered alcohol containers all around the bed. He does admit that he drinks 1/5 of vodka daily as well as multiple beers. States that he is suicidal. Has several plans to commit suicide. Admits to some epigastric discomfort. Denies any nausea or vomiting currently but did have nausea and vomiting a couple of weeks ago. States has had multiple falls because of his intoxication. Does admit hitting his head. He denies any shortness of breath. No abdominal pain. No hematemesis. No black or bloody bowel movements. No other alleviating, precipitating or modifying factors Blood work completed in ED reveals a WBC of 5.6, hemoglobin of 10.7 and platelet count of 236, sodium 127, potassium 3.4, BUNs/creatinine of 3/0.39, magnesium of 1.0 and blood glucose of 183 Chest x-ray is negative for any acute process CT of the brain is negative for any acute intracranial process Review of Systems REVIEW OF SYSTEMS: CONSTITUTIONAL: No fever, no malaise, no fatigue. HEENT: No recent visual problems or hearing problems. Denied any sore throat. CARDIOVASCULAR: No chest pain, orthopnea, PND, no palpitations, no syncope. PULMONARY: No shortness of breath, no cough, no hemoptysis. GASTROINTESTINAL: No diarrhea, no nausea, no vomiting, no abdominal pain. NEUROLOGICAL: No headaches, no weakness, no numbness. HEMATOLOGICAL: Denies any bleeding or petechiae. GENITOURINARY: Denies any burning micturition, frequency, or urgency. MUSCULOSKELETAL/RHEUMATOLOGICAL: Denies any joint pain, swelling, or any muscle pain. ENDOCRINE: Denies any polyuria or polydipsia. The rest of the 14-point review of systems is negative. Past Medical History Past Medical History: Asthma, Diabetes Mellitus, Hypertension, Osteoarthritis (OA), Skin Disorder Additional Past Medical History / Comment(s): PSORIASIS, Back and bilat hip pain. Arthritis bilat hip. Bone spurs in spine. History of Any Multi-Drug Resistant Organisms: None Reported Additional Past Surgical History / Comment(s): HAND SURGERY AND NERVE GRAFT TO THUMB, CORTISONE INJECTIONS HIP. Past Anesthesia/Blood Transfusion Reactions: No Reported Reaction Past Psychological History: Anxiety, Bipolar, Depression Smoking Status: Current every day smoker Past Alcohol Use History: Abuse, Heavy Past Drug Use History: None Reported - Past Family History Father Family Medical History: Cancer Additional Family Medical History / Comment(s): LUNG CANCER Medications and Allergies Home Medications Medication Instructions Recorded Confirmed Type No Known Home Medications 07/08/24 07/08/24 History Allergies Allergy/AdvReac Type Severity Reaction Status Date / Time lisinopril AdvReac Unknown Cough Verified 07/08/24 15:44 Physical Exam Vitals: Vital Signs Temp Pulse BP Pulse Ox 07/08/24 12:41 98.4 F 94 139/84 98 Intake and Output 07/08/24 07/08/24 07/08/24 06:59 14:59 22:59 Other: Weight 58.967 kg General appearance: alert, in no apparent distress Head exam: Present: atraumatic, normocephalic, normal inspection Eye exam: Present: normal appearance, PERRL, EOMI. Absent: scleral icterus, conjunctival injection, periorbital swelling ENT exam: Present: normal exam, mucous membranes moist Neck exam: Present: normal inspection. Absent: tenderness, meningismus, lymphadenopathy Respiratory exam: Present: normal lung sounds bilaterally. Absent: respiratory distress, wheezes, rales, rhonchi, stridor Cardiovascular Exam: Present: regular rate, normal rhythm, normal heart sounds. Absent: systolic murmur, diastolic murmur, rubs, gallop, clicks GI/Abdominal exam: Present: soft, normal bowel sounds. Absent: distended, tenderness, guarding, rebound, rigid Extremities exam: Present: normal inspection, full ROM, normal capillary refill. Absent: tenderness, pedal edema, joint swelling, calf tenderness Back exam: Present: normal inspection Neurological exam: Present: alert, oriented X3, CN II-XII intact Results CBC & Chem 7: 07/09/24 06:25 07/09/24 06:25 Labs: Abnormal Lab Results - Last 24 Hours (Table) 07/08/24 07/08/24 07/08/24 Range/Units 12:36 15:19 15:19 RBC 3.91 L (4.30-5.90) m/uL Sodium 135 L (137-145) mmol/L Potassium 3.2 L (3.5-5.1) mmol/L BUN 3 L (9-20) mg/dL Creatinine 0.44 L (0.66-1.25) mg/dL Glucose 222 H (74-99) mg/dL Calcium 7.5 L (8.4-10.2) mg/dL Magnesium 1.2 L (1.6-2.3) mg/dL Creatine Kinase 32 L (55-170) U/L Total Protein 5.0 L (6.3-8.2) g/dL Albumin 2.8 L (3.5-5.0) g/dL Urine Protein Trace H (Negative) Urine Glucose (UA) 2+ H (Negative) Serum Alcohol 235 H* mg/dL Assessment and Plan Assessment: 1. Alcohol abuse/intoxication; blood alcohol level of 235 at time of admission -Patient has been placed on IV fluids; thiamine and folic acid -WA protocol with Ativan 2. Hypomagnesemia; magnesium level at 1.2 upon admission; patient received IV magnesium sulfate -Will repeat levels and make further recommendations 3. Hypokalemia; supplemented; monitor potassium levels 4. History of depression; patient is not on any antidepressants at this time DVT prophylaxis; SCDs CODE STATUS; full code
--- NOTE | 2024-07-09 21:22 | P.PN ---
Subjective Progress Note Date: 07/09/24 59-year-old male with past medical history of depression, heavy alcohol abuse who presents emergency department after EMS was called to his home for a well check. They found him in bed and he states he has been there for 2 weeks. He has not been taking his medications. There was scattered alcohol containers all around the bed. He does admit that he drinks 1/5 of vodka daily as well as multiple beers. States that he is suicidal. Has several plans to commit suicide. Admits to some epigastric discomfort. Denies any nausea or vomiting currently but did have nausea and vomiting a couple of weeks ago. States has had multiple falls because of his intoxication. Does admit hitting his head. He denies any shortness of breath. No abdominal pain. No hematemesis. No black or bloody bowel movements. No other alleviating, precipitating or modifying factors Blood work completed in ED reveals a WBC of 5.6, hemoglobin of 10.7 and platelet count of 236, sodium 127, potassium 3.4, BUNs/creatinine of 3/0.39, magnesium of 1.0 and blood glucose of 183 Chest x-ray is negative for any acute process CT of the brain is negative for any acute intracranial process --Patient is seen and evaluated; still on bed hold in ED -Patient reporting burning pain with ingestion of liquids or solids; reports has never had any heartburn -Will add IV Protonix; consult surgery Objective - Vital Signs Vital signs: Vital Signs Temp 98.4 F 07/08/24 12:41 Pulse 100 07/09/24 20:02 Resp 19 07/09/24 20:02 BP 111/81 07/09/24 20:02 Pulse Ox 98 07/09/24 20:02 FiO2 - Exam General appearance: alert, in no apparent distress Head exam: Present: atraumatic, normocephalic, normal inspection Eye exam: Present: normal appearance, PERRL, EOMI. Absent: scleral icterus, conjunctival injection, periorbital swelling ENT exam: Present: normal exam, mucous membranes moist Neck exam: Present: normal inspection. Absent: tenderness, meningismus, lymphadenopathy Respiratory exam: Present: normal lung sounds bilaterally. Absent: respiratory distress, wheezes, rales, rhonchi, stridor Cardiovascular Exam: Present: regular rate, normal rhythm, normal heart sounds. Absent: systolic murmur, diastolic murmur, rubs, gallop, clicks GI/Abdominal exam: Present: soft, normal bowel sounds. Absent: distended, tenderness, guarding, rebound, rigid Extremities exam: Present: normal inspection, full ROM, normal capillary refill. Absent: tenderness, pedal edema, joint swelling, calf tenderness Back exam: Present: normal inspection Neurological exam: Present: alert, oriented X3, CN II-XII intact - Labs CBC & Chem 7: 07/09/24 06:25 07/09/24 06:25 Labs: Abnormal Lab Results - Last 24 Hours (Table) 07/09/24 07/09/24 Range/Units 06:25 06:25 RBC 3.24 L (4.30-5.90) m/uL Hgb 10.7 L (13.0-17.5) gm/dL Hct 32.6 L (39.0-53.0) % MCV 100.6 H (80.0-100.0) fL RDW 15.7 H (11.5-15.5) % Sodium 127 L (137-145) mmol/L Potassium 3.4 L (3.5-5.1) mmol/L Chloride 96 L (98-107) mmol/L BUN 3 L (9-20) mg/dL Creatinine 0.39 L (0.66-1.25) mg/dL Glucose 183 H (74-99) mg/dL Calcium 7.3 L (8.4-10.2) mg/dL Magnesium 1.4 L (1.6-2.3) mg/dL Assessment and Plan Assessment: 1. Alcohol abuse/intoxication; blood alcohol level of 235 at time of admission -Patient has been placed on IV fluids; thiamine and folic acid -WA protocol with Ativan 2. Hypomagnesemia; magnesium level at 1.2 upon admission; patient received IV magnesium sulfate -Will repeat levels and make further recommendations 3. Hypokalemia; supplemented; monitor potassium levels 4. History of depression; patient is not on any antidepressants at this time DVT prophylaxis; SCDs CODE STATUS; full code
[2024-07-09] MEDS: PANTOPRAZOLE 40 MG/10 ML VIAL IVP SCH (22:33)
[2024-07-10] MEDS: LORazepam 0.5 MG TAB PO PRN (05:40)
[2024-07-10 07:19] LABS: Basophils % (A) 0 %; Eosinophils # (A) 0.1 k/uL (0-0.7); Eosinophils % (A) 2 %; HCT 34.4 % (39.0-53.0); HGB 10.9 gm/dL (13.0-17.5); Lymphocytes # (A) 1.6 k/uL (1.0-4.8); Lymphocytes % (A) 31 %; MCH 32.5 pg (25.0-35.0); MCHC 31.8 g/dL (31.0-37.0); MCV 102.3 fL (80.0-100.0); Macrocytosis Slight; Mean Platelet Volume 8.9; Monocytes # (A) 0.3 k/uL (0-1.0); Monocytes % (A) 7 %; Neutrophils % (A) 58 %; Platelet Count 229 k/uL (150-450); RBC 3.37 m/uL (4.30-5.90); RDW 15.5 % (11.5-15.5); WBC 5.1 k/uL (3.8-10.6)
[2024-07-10 07:46] LABS: African American GFR (CKD) >90 (>60 ml/min/1.73 sqM); Anion Gap 6 mmol/L; Blood Urea Nitrogen <2 mg/dL (9-20); Calcium 7.8 mg/dL (8.4-10.2); Carbon Dioxide 27 mmol/L (22-30); Chloride 96 mmol/L (98-107); Glucose 246 mg/dL (74-99); Magnesium 1.5 mg/dL (1.6-2.3); Non-African American GFR(CKD) >90 (>60 ml/min/1.73 sqM); Potassium 3.4 mmol/L (3.5-5.1); Sodium 129 mmol/L (137-145)
[2024-07-10] MEDS: MAGNESIUM SULFATE-D5W PMX 1 GM in DEXTROSE/WATER 1 100ML.BAG IVPB SCH (10:36)
[2024-07-10] MEDS: POTASSIUM CHLORIDE ER 20 MEQ TAB.ER PO STA (10:36)
[2024-07-10 12:14] VITALS: BP 172/92; PULSE 108; RESP 18; TEMP 97.6
[2024-07-10] MEDS: NICOTINE 21MG/24HR PATCH TRANSDERM SCH (12:44)
[2024-07-10] MEDS: LORazepam 1 MG TAB PO PRN (12:44)
[2024-07-10] MEDS: chlordiazePOXIDE 25 MG CAP PO PRN (13:05)
--- NOTE | 2024-07-10 13:07 | P.PN ---
Subjective Progress Note Date: 07/10/24 59-year-old male with past medical history of depression, heavy alcohol abuse who presents emergency department after EMS was called to his home for a well check. They found him in bed and he states he has been there for 2 weeks. He has not been taking his medications. There was scattered alcohol containers all around the bed. He does admit that he drinks 1/5 of vodka daily as well as multiple beers. States that he is suicidal. Has several plans to commit suicide. Admits to some epigastric discomfort. Denies any nausea or vomiting currently but did have nausea and vomiting a couple of weeks ago. States has had multiple falls because of his intoxication. Does admit hitting his head. He denies any shortness of breath. No abdominal pain. No hematemesis. No black or bloody bowel movements. No other alleviating, precipitating or modifying factors Blood work completed in ED reveals a WBC of 5.6, hemoglobin of 10.7 and platelet count of 236, sodium 127, potassium 3.4, BUNs/creatinine of 3/0.39, magnesium of 1.0 and blood glucose of 183 Chest x-ray is negative for any acute process CT of the brain is negative for any acute intracranial process --Patient is seen and evaluated; still on bed hold in ED -Patient reporting burning pain with ingestion of liquids or solids; reports has never had any heartburn -Will add IV Protonix; consult surgery 07/10/2024 Patient is seen and evaluated; remains in ICU as 6 N. overflow Vital signs are reviewed temperature 97.6 pulse 108, respiration 18 and blood pressure 172/92, O2 saturation 98% on room air Lab review shows sodium of 129 which is improved from 127 yesterday, potassium of 3.4, BUNs/creatinine stable at 2/0.40, magnesium remains low at 1.5 -Will place oral supplementation for potassium along with IV magnesium sulfate supplement -Patient is getting more agitated and restless; has talked about leaving AMA also; we will add Librium 50 mg p.o. 3 times daily Objective - Vital Signs Vital signs: Vital Signs Temp 97.6 F 07/10/24 11:35 Pulse 108 H 07/10/24 11:35 Resp 18 07/10/24 11:35 BP 172/92 07/10/24 11:35 Pulse Ox 99 07/10/24 11:35 FiO2 Intake & Output 07/09/24 07/10/24 07/10/24 18:59 06:59 18:59 Weight 58.967 kg - Exam General appearance: alert, in no apparent distress Head exam: Present: atraumatic, normocephalic, normal inspection Eye exam: Present: normal appearance, PERRL, EOMI. Absent: scleral icterus, conjunctival injection, periorbital swelling ENT exam: Present: normal exam, mucous membranes moist Neck exam: Present: normal inspection. Absent: tenderness, meningismus, lymphadenopathy Respiratory exam: Present: normal lung sounds bilaterally. Absent: respiratory distress, wheezes, rales, rhonchi, stridor Cardiovascular Exam: Present: regular rate, normal rhythm, normal heart sounds. Absent: systolic murmur, diastolic murmur, rubs, gallop, clicks GI/Abdominal exam: Present: soft, normal bowel sounds. Absent: distended, tende rness, guarding, rebound, rigid Extremities exam: Present: normal inspection, full ROM, normal capillary refill. Absent: tenderness, pedal edema, joint swelling, calf tenderness Back exam: Present: normal inspection Neurological exam: Present: alert, oriented X3, CN II-XII intact - Labs CBC & Chem 7: 07/10/24 06:45 07/10/24 06:45 Labs: Abnormal Lab Results - Last 24 Hours (Table) 07/10/24 07/10/24 Range/Units 06:45 06:45 RBC 3.37 L (4.30-5.90) m/uL Hgb 10.9 L (13.0-17.5) gm/dL Hct 34.4 L (39.0-53.0) % MCV 102.3 H (80.0-100.0) fL Sodium 129 L (137-145) mmol/L Potassium 3.4 L (3.5-5.1) mmol/L Chloride 96 L (98-107) mmol/L BUN <2 L (9-20) mg/dL Creatinine 0.40 L (0.66-1.25) mg/dL Glucose 246 H (74-99) mg/dL Calcium 7.8 L (8.4-10.2) mg/dL Magnesium 1.5 L (1.6-2.3) mg/dL Assessment and Plan Assessment: 1. Alcohol abuse/intoxication; blood alcohol level of 235 at time of admission -Patient has been placed on IV fluids; thiamine and folic acid -WA protocol with Ativan 2. Hypomagnesemia; magnesium level at 1.2 upon admission; patient received IV magnesium sulfate -Will repeat levels and make further recommendations 3. Hypokalemia; supplemented; monitor potassium levels 4. History of depression; patient is not on any antidepressants at this time DVT prophylaxis; SCDs CODE STATUS; full code
--- NOTE | 2024-07-11 07:34 | P.CON ---
Consult Note - . Consult date: 07/11/24 Assessment/Plan:: We were consulted on this patient however patient left AGAINST MEDICAL ADVICE before I saw him.
== END 2024-07-10 12:44 | disposition left against medical advice (07) ==
LOC: EC 12:19 → 6NMEDSUR 18:41 → UNDODISOB 07-10 13:40
PROVIDERS: ADMIT Hospitalist; ATTEND Hospitalist
DX: F10.129 Alcohol abuse with intoxication, unspecified (principal); Y90.7 Blood alcohol level of 200-239 mg/100 ml; E83.42 Hypomagnesemia; E87.6 Hypokalemia; R45.851 Suicidal ideations; E11.9 Type 2 diabetes mellitus without complications; F17.200 Nicotine dependence, unspecified, uncomplicated; F31.9 Bipolar disorder, unspecified; F41.9 Anxiety disorder, unspecified; I10 Essential (primary) hypertension; J45.909 Unspecified asthma, uncomplicated; R29.6 Repeated falls; Z91.148 Patient's other noncompliance with medication regimen for other reason; Z53.29 Procedure and treatment not carried out because of patient's decision for other reasons; Z88.8 Allergy status to other drugs, medicaments and biological substances
CPT/HCPCS: 96376; 82075; 96368; 96361 ×3; 96365; 96366 ×3; 96372; 96375 ×2; 99285; 36415; 93005; 80053; 80048 ×2; 82550; 83690; 83735 ×3; 84484; 85025 ×3; 85610; 85730; 81003; 71046; 70450; G0378 ×3; G0480; S4990; J2060; J3411; J3480; J2405; J3490; J3475 ×3; J2470 ×2; 80320

== ENCOUNTER 2024-07-10 15:50 | Inpatient (IN) | payer MEDICARE, OTHER ==
[2024-07-10] MEDS: LORazepam 2 MG/ML INJ IV STA ×3 (16:40→20:21)
--- NOTE | 2024-07-10 16:42 | ED ---
General Adult HPI - General Chief complaint: Fall Stated complaint: AMS Time Seen by Provider: 07/10/24 16:20 Source: patient, RN notes reviewed Mode of arrival: wheelchair Limitations: no limitations - History of Present Illness Initial comments: 59-year-old male presents to the emergency department for evaluation of fall with head injury. Patient just left against medical advice from the hospital and was walking in the parking when he tripped and fell. He struck his head on the ground. Patient is a poor historian and unable to provide much of his history. He does report a history of alcoholism and was admitted on CIWA protocol prior to leaving [place]. He denies any pain at this time. - Related Data Home Medications Medication Instructions Recorded Confirmed No Known Home Medications 07/08/24 07/10/24 Allergies Allergy/AdvReac Type Severity Reaction Status Date / Time lisinopril AdvReac Unknown Cough Verified 07/10/24 19:41 Review of Systems ROS Statement: Those systems with pertinent positive or pertinent negative responses have been documented in the HPI. ROS Other: All systems not noted in ROS Statement are negative. Past Medical History Past Medical History: Asthma, Diabetes Mellitus, Hypertension, Osteoarthritis (OA), Skin Disorder Additional Past Medical History / Comment(s): PSORIASIS, Back and bilat hip pain. Arthritis bilat hip. Bone spurs in spine. History of Any Multi-Drug Resistant Organisms: None Reported Additional Past Surgical History / Comment(s): HAND SURGERY AND NERVE GRAFT TO THUMB, CORTISONE INJECTIONS HIP. Past Anesthesia/Blood Transfusion Reactions: No Reported Reaction Past Psychological History: Anxiety, Bipolar, Depression Smoking Status: Current every day smoker Past Alcohol Use History: Abuse, Heavy Past Drug Use History: None Reported - Past Family History Father Family Medical History: Cancer Additional Family Medical History / Comment(s): LUNG CANCER General Exam Limitations: no limitations General appearance: alert, other (Agitated) Head exam: Present: other (Abrasion to the left forehead) Eye exam: Present: normal appearance, PERRL, EOMI. Absent: scleral icterus, conjunctival injection, periorbital swelling ENT exam: Present: normal exam, mucous membranes moist Neck exam: Present: normal inspection, full ROM. Absent: tenderness, meningismus, lymphadenopathy Respiratory exam: Present: normal lung sounds bilaterally. Absent: respiratory distress, wheezes, rales, rhonchi, stridor Cardiovascular Exam: Present: regular rate, normal rhythm, normal heart sounds. Absent: systolic murmur, diastolic murmur, rubs, gallop, clicks GI/Abdominal exam: Present: soft, normal bowel sounds. Absent: distended, tenderness, guarding, rebound, rigid Extremities exam: Present: normal inspection, full ROM, normal capillary refill. Absent: tenderness, pedal edema, joint swelling, calf tenderness Back exam: Present: normal inspection Neurological exam: Present: alert, altered, CN II-XII intact Psychiatric exam: Present: normal affect, normal mood Skin exam: Present: warm, dry, abrasion. Absent: intact Course Vital Signs 07/10/24 19:15 Temperature 98.4 F Pulse Rate 103 H Respiratory 20 Rate Blood Pressure 126/78 O2 Sat by Pulse 99 Oximetry Medical Decision Making - Medical Decision Making Was pt. sent in by a medical professional or institution ([facility], LITERACY SPECIALIST, urgent care, hospital, or jail...) When possible be specific @ -No Did you speak to anyone other than the patient for history (EMS, parent, family, police, friend...)? What history was obtained from this source @ -No Did you review nursing and triage notes (agree or disagree)? Why? @ -I reviewed and agree with nursing and triage notes Were old charts reviewed (outside hosp., previous admission, EMS record, old EKG, old radiological studies, urgent care reports/EKG's, jail records)? Report findings @ -No old charts were reviewed Differential Diagnosis (chest pain, altered mental status, abdominal pain women, abdominal pain men, vaginal bleeding, weakness, fever, dyspnea, syncope, headache, dizziness, GI bleed, back pain, seizure, CVA, palpatations, mental health, musculoskeletal)? @ -Concussion, intracranial hemorrhage, alcohol withdrawal, this list is not inclusive EKG interpreted by me (3pts min.). @ -None X-rays interpreted by me (1pt min.). @ -None done CT interpreted by me (1pt min.). @ -CT brain and C-spine shows no evidence of acute process U/S interpreted by me (1pt. min.). @ -None done What testing was considered but not performed or refused? (CT, X-rays, U/S, labs)? Why? @ -None What meds were considered but not given or refused? Why? @ -None Did you discuss the management of the patient with other professionals (professionals i.e. Dr., PA, LITERACY SPECIALIST, lab, RT, psych nurse, social staff worker, technical operations vice president, teacher, assistant chief nursing officer, case maker)? Give summary @ -No Was smoking cessation discussed for >3mins.? @ -No Was critical care preformed (if so, how long)? @ -No Were there social determinants of health that impacted care today? How? (Homelessness, low income, unemployed, alcoholism, drug addiction, transportation, low edu. Level, literacy, decrease access to med. care, correction, rehab)? @ -No Was there de-escalation of care discussed even if they declined (Discuss DNR or withdrawal of care, Hospice)? DNR status @ -No What co-morbidities impacted this encounter? (DM, HTN, Smoking, COPD, CAD, Cancer, CVA, ARF, Chemo, Hep., AIDS, mental health diagnosis, sleep apnea, morbid obesity)? @ -Alcoholism Was patient admitted / discharged? Hospital course, mention meds given and route, prescriptions, significant lab abnormalities, going to OR and other pertinent info. @ -Admitted. Patient presented to the emergency department after taking a fall following the AGAINST MEDICAL ADVICE just prior to the incident. Patient does not recall much of the incident due to his withdrawal. CT brain and C-spine obtained reveals no acute process. Laboratory studies obtained which are consistent with prior from this morning. Case was discussed with Dr. Grimm recommended neuro consultation. Psych was also consulted for prior statements of suicidal ideation. Case discussed with Dr. Helton Undiagnosed new problem with uncertain prognosis? @ -No Drug Therapy requiring intensive monitoring for toxicity (Heparin, Nitro, Insulin, Cardizem)? @ -No Were any procedures done? @ -No Diagnosis/symptom? @ -Delirium tremens Acute, or Chronic, or Acute on Chronic? @ -Acute Uncomplicated (without systemic symptoms) or Complicated (systemic symptoms)? @ -Complicated Side effects of treatment? @ -No Exacerbation, Progression, or Severe Exacerbation? @ -No Poses a threat to life or bodily function? How? (Chest pain, [place], [place], pneumonia, PE, COPD, DKA, ARF, appy, cholecystitis, CVA, Diverticulitis, Homicidal, Suicidal, threat to staff... and all critical care pts) @ -Yes alcohol withdrawal - Lab Data Result diagrams: 07/10/24 17:52 07/10/24 17:52 Lab Results 07/10/24 07/10/24 Range/Units 17:52 17:52 WBC 7.0 (3.8-10.6) k/uL RBC 3.17 L (4.30-5.90) m/uL Hgb 10.4 L (13.0-17.5) gm/dL Hct 31.3 L (39.0-53.0) % MCV 98.7 (80.0-100.0) fL MCH 32.9 (25.0-35.0) pg MCHC 33.4 (31.0-37.0) g/dL RDW 15.2 (11.5-15.5) % Plt Count 213 (150-450) k/uL MPV 8.5 Neutrophils % 60 % Lymphocytes % 30 % Monocytes % 6 % Eosinophils % 3 % Basophils % 0 % Neutrophils # 4.2 (1.3-7.7) k/uL Lymphocytes # 2.1 (1.0-4.8) k/uL Monocytes # 0.4 (0-1.0) k/uL Eosinophils # 0.2 (0-0.7) k/uL Basophils # 0.0 (0-0.2) k/uL Macrocytosis Slight Sodium 129 L (137-145) mmol/L Potassium 3.4 L (3.5-5.1) mmol/L Chloride 99 (98-107) mmol/L Carbon Dioxide 26 (22-30) mmol/L Anion Gap 4 mmol/L BUN <2 L (9-20) mg/dL Creatinine 0.42 L (0.66-1.25) mg/dL Est GFR (CKD-EPI)AfAm >90 (>60 ml/min/1.73 sqM) Est GFR (CKD-EPI)NonAf >90 (>60 ml/min/1.73 sqM) Glucose 223 H (74-99) mg/dL Calcium 7.9 L (8.4-10.2) mg/dL Phosphorus 1.7 L (2.5-4.5) mg/dL Magnesium 1.7 (1.6-2.3) mg/dL Total Bilirubin 0.7 (0.2-1.3) mg/dL AST 28 (17-59) U/L ALT 17 (4-49) U/L Alkaline Phosphatase 85 (38-126) U/L Total Protein 4.8 L (6.3-8.2) g/dL Albumin 2.6 L (3.5-5.0) g/dL Lipase 133 (23-300) U/L Serum Alcohol <10 mg/dL Disposition Clinical Impression: Alcohol withdrawal, Delirium tremens Disposition: ADMITTED IP TO THIS HOSP Condition: Stable Is patient prescribed a controlled substance at d/c from ED?: No
--- NOTE | 2024-07-10 17:09 | CT ---
EXAMINATION TYPE: CT brain cspine wo con CT DLP: 1430.5 mGycm, Automated exposure control for dose reduction was used. DATE OF EXAM: 07/10/2024 4:59 PM COMPARISON: CT brain 07/08/2024, MR C-spine L-spine 07/16/2015, cervical spine radiograph 01/15/2021. CLINICAL INDICATION:Male, 59 years old with history of fall; ams, fall, head lac, substance abuse, pa in TECHNIQUE: Brain: Multiple axial CT images of the brain were obtained without IV contrast. Cspine: Axial CT images from the skull base to the inferior aspect of T2 we obtained without intraven ous contrast. Coronal and sagittal reformatted images were also reviewed. FINDINGS: Brain: Extra-axial spaces: No abnormal extra-axial fluid collections. Ventricular system: Within normal limits Cerebral parenchyma: No acute intraparenchymal hemorrhage or mass effect. The berg-white junction is well differentiated. Scattered hypoattenuating areas are seen within the white matter. Cerebellum: Unremarkable. Mass effect: No evidence of midline shift. Intracranial vasculature: Atherosclerotic calcifications of the intracranial vessels. Soft tissues: Normal. Calvarium/osseous structures: No depressed skull fracture. Paranasal sinuses and mastoid air cells: Clear. Visualized orbits: Orbital contents are intact. Cervical spine: Fracture: None. Osseous structures: Multilevel degenerative disc disease changes with endplate spurring and disc oste ophyte complex's. Multilevel facet arthropathy. Vertebral alignment: Within normal limits. Spinal canal/Neural Foramina: Disc osteophyte complexes at C5-C6, C6-C7, and C7-T1 with at least mild spinal canal stenosis. Facet joint uncovertebral joint arthropathy scattered throughout the cervical spine with varying degrees of neural foraminal stenosis. Neck soft tissues: Prevertebral soft tissues are within normal limits. Other: The airway is patent. Bilateral carotid bulb calcifications. Paraseptal emphysematous changes. IMPRESSION: 1. No acute intracranial process. 2. Nonspecific minimal white matter changes, likely secondary to chronic small vessel ischemic disea se. 3. No evidence of cervical spine fracture. 4. Mild to moderate multilevel degenerative disc disease. [facility], , 07/10/2024 5:06 PM
[2024-07-10] MEDS ORDERED: LORazepam 2 MG/ML INJ IV PRN (17:22)
[2024-07-10] MEDS ORDERED: LORazepam 0.5 MG TAB PO PRN (17:22)
[2024-07-10] MEDS: SODIUM CHLORIDE 0.9% 1,000 ML IV STA (17:31)
[2024-07-10] MEDS: LORazepam 2 MG/ML INJ IV PRN ×2 (17:38→19:33)
[2024-07-10 18:00] LABS: Basophils % (A) 0 %; Eosinophils # (A) 0.2 k/uL (0-0.7); Eosinophils % (A) 3 %; HCT 31.3 % (39.0-53.0); HGB 10.4 gm/dL (13.0-17.5); Lymphocytes # (A) 2.1 k/uL (1.0-4.8); Lymphocytes % (A) 30 %; MCH 32.9 pg (25.0-35.0); MCHC 33.4 g/dL (31.0-37.0); MCV 98.7 fL (80.0-100.0); Macrocytosis Slight; Mean Platelet Volume 8.5; Monocytes # (A) 0.4 k/uL (0-1.0); Monocytes % (A) 6 %; Neutrophils # (A) 4.2 k/uL (1.3-7.7); Neutrophils % (A) 60 %; Platelet Count 213 k/uL (150-450); RBC 3.17 m/uL (4.30-5.90); RDW 15.2 % (11.5-15.5)
[2024-07-10] MEDS ORDERED: NALOXONE 0.4 MG/ML 1 ML VIAL IV PRN (18:00)
[2024-07-10 18:11] LABS: ALT 17 U/L (4-49); AST 28 U/L (17-59); African American GFR (CKD) >90 (>60 ml/min/1.73 sqM); Albumin 2.6 g/dL (3.5-5.0); Alcohol <10 mg/dL; Alkaline Phosphatase 85 U/L (38-126); Anion Gap 4 mmol/L; Blood Urea Nitrogen <2 mg/dL (9-20); Calcium 7.9 mg/dL (8.4-10.2); Carbon Dioxide 26 mmol/L (22-30); Chloride 99 mmol/L (98-107); Glucose 223 mg/dL (74-99); Lipase 133 U/L (23-300); Magnesium 1.7 mg/dL (1.6-2.3); Non-African American GFR(CKD) >90 (>60 ml/min/1.73 sqM); Phosphorus 1.7 mg/dL (2.5-4.5); Potassium 3.4 mmol/L (3.5-5.1); Sodium 129 mmol/L (137-145); Total Bilirubin 0.7 mg/dL (0.2-1.3); Total Protein 4.8 g/dL (6.3-8.2)
[2024-07-10] MEDS: DIPH,PERTUS(ACELL)TETVAC-LF 0.5 ML VIAL IM ONE (20:23)
[2024-07-10] MEDS: DEXMEDETOMIDINE/0.9% NACL(PMX) 400 MCG in EMPTY BAG 1 BAG IV SCH (20:45)
[2024-07-10] MEDS: HALOPERIDOL LACTATE 5 MG/ML 1 ML VIAL IVP ONE (20:47)
[2024-07-10] MEDS ORDERED: IPRATROPIUM-ALBUTEROL 3 ML NEB INHALATION PRN (21:02)
[2024-07-10] MEDS ORDERED: DEXTROSE 50% SYRINGE 50 ML IVP PRN ×2 (21:03)
[2024-07-10 21:16] LABS: Glucose,Whole Blood 210 mg/dL (70-110)
[2024-07-10 21:41] LABS: Glucose,Whole Blood 195 mg/dL (70-110)
[2024-07-10] MEDS ORDERED: LORazepam 1 MG/0.5 ML VIAL IV PRN (23:12)
[2024-07-11] MEDS ORDERED: Potassium Replacement Protocol 1 EACH MISC MISCELLANE PRN (04:12)
[2024-07-11] MEDS ORDERED: Magnesium Replacement Protocol 1 EACH MISC MISCELLANE PRN (04:12)
[2024-07-11 05:07] LABS: Basophils % (A) 0 %; Eosinophils # (A) 0.3 k/uL (0-0.7); Eosinophils % (A) 4 %; HCT 36.4 % (39.0-53.0); HGB 12.1 gm/dL (13.0-17.5); Lymphocytes # (A) 1.7 k/uL (1.0-4.8); Lymphocytes % (A) 23 %; MCH 33.9 pg (25.0-35.0); MCHC 33.4 g/dL (31.0-37.0); MCV 101.6 fL (80.0-100.0); Macrocytosis Slight; Mean Platelet Volume 8.4; Monocytes # (A) 0.3 k/uL (0-1.0); Monocytes % (A) 4 %; Neutrophils % (A) 67 %; Platelet Count 215 k/uL (150-450); RBC 3.58 m/uL (4.30-5.90); RDW 15.2 % (11.5-15.5); WBC 7.5 k/uL (3.8-10.6)
[2024-07-11 05:40] LABS: ALT 18 U/L (4-49); AST 29 U/L (17-59); African American GFR (CKD) >90 (>60 ml/min/1.73 sqM); Albumin 2.6 g/dL (3.5-5.0); Alkaline Phosphatase 81 U/L (38-126); Anion Gap 5 mmol/L; Blood Urea Nitrogen <2 mg/dL (9-20); Calcium 8.2 mg/dL (8.4-10.2); Carbon Dioxide 25 mmol/L (22-30); Chloride 103 mmol/L (98-107); Glucose 216 mg/dL (74-99); Non-African American GFR(CKD) >90 (>60 ml/min/1.73 sqM); Sodium 133 mmol/L (137-145); Total Bilirubin 0.7 mg/dL (0.2-1.3)
[2024-07-11 05:54] LABS: Potassium 3.4 mmol/L (3.5-5.1)
[2024-07-11] MEDS: POTASSIUM CHLORIDE 10 MEQ in WATER FOR INJECTION 1 100ML.BAG IVPB SCH (06:49)
[2024-07-11 07:51] LABS: Glucose,Whole Blood 188 mg/dL (70-110)
[2024-07-11] MEDS: IPRATROPIUM-ALBUTEROL 3 ML NEB INHALATION SCH (08:05)
[2024-07-11] MEDS: INSULIN LISPRO (HumaLOG) 100 UNIT/ML 10 mL VL SQ SCH (08:06)
[2024-07-11] MEDS: PANTOPRAZOLE 40 MG/10 ML VIAL IV SCH (08:06)
[2024-07-11] MEDS ORDERED: DEXTROSE 5%-0.9% NACL 1,000 ML IV SCH (09:45)
[2024-07-11] MEDS: MAGNESIUM SULFATE-D5W PMX 1 GM in DEXTROSE/WATER 1 100ML.BAG IVPB SCH (10:04)
[2024-07-11] MEDS: LORazepam 1 MG/0.5 ML VIAL IV PRN (10:04)
[2024-07-11] MEDS: SODIUM CHLORIDE 0.9% 1,000 ML IV SCH (10:07)
[2024-07-11] MEDS: THIAMINE 100 MG/ML 2 ML VIAL IM STA (10:38)
[2024-07-11] MEDS: NICOTINE 21MG/24HR PATCH TRANSDERM SCH (10:40)
[2024-07-11] MEDS: FOLIC ACID 1 MG TAB PO SCH (10:51)
[2024-07-11] MEDS: THIAMINE 100 MG TAB PO SCH (10:51)
[2024-07-11 12:25] LABS: Glucose,Whole Blood 123 mg/dL (70-110)
--- NOTE | 2024-07-11 14:21 | HP ---
HISTORY AND PHYSICAL CHIEF COMPLAINT: Fall and change in mental status. HISTORY OF PRESENT ILLNESS: This is a 59-year-old gentleman with a past medical history of multiple medical problems, who recently admitted with alcohol withdrawal and delirium tremens. Apparently, the patient left the hospital and again, this patient had a fall in the parking lot, and the patient became combative, restless, and the patient is unable to give a coherent history. Initially, the CAT scan was normal. The patient was given Ativan. Because of lack of improvement, the patient will be transferred to ICU with Precedex drip at this time. There is no history of any fever, rigors, or chills at this time. PAST MEDICAL HISTORY: Reviewed and includes asthma, diabetes mellitus, and hypertension. Rest of the history and rest of the chart is also reviewed. HOME MEDICATIONS: Reviewed and include from the chart, none. ALLERGIES: Lisinopril. FAMILY HISTORY: From the chart, lung cancer. SOCIAL HISTORY: History of smoking and alcohol abuse. REVIEW OF SYSTEMS: 14-point review of system could not be taken because of the change in mental status. PHYSICAL EXAMINATION: VITAL SIGNS: Pulse 103, blood pressure 120/70, respirations 20. HEENT: Conjunctivae normal. NECK: No JVD. CARDIOVASCULAR: S1, S2 normal. RESPIRATORY: Few scattered rhonchi. ABDOMEN: Soft. LEGS: No edema. NERVOUS SYSTEM: The patient is restless. Moves all 4 limbs. Some excoriation in the left holiness present. No neck stiffness. Otherwise, nervous system could not be examined. SKIN: Normal. LABORATORY DATA: Reviewed. Potassium 3.4, sodium 110. ASSESSMENT: 1. Acute delirium tremens. 2. Fall and possible confusion. 3. History of EtOH. 4. Diabetes mellitus, type 2. 5. Hypokalemia. 6. Hypocalcemia. 7. Hypertension history. 8. History of psoriasis. 9. Anxiety and bipolar depression. RECOMMENDATIONS: This 59-year-old gentleman presented with multiple complex medical issues. We will monitor the patient closely. I would recommend to continue with CIWA protocol, Precedex drip, monitor in the ICU. Monitor blood sugars closely. Psychiatric consultation. Neurology consultation, intensive care consultation. Otherwise, prognosis is guarded because of multiple complex medical issues. Further recommendations to follow. See orders for details. MMODL / IJN: [id number] /
--- NOTE | 2024-07-11 15:00 | P.CNPUL ---
History of Present Illness Consult date: 07/11/24 Chief complaint: Alcoholism History of present illness: This is a 59-year-old male patient, known history of alcoholism, presented emerged department after a fall and head injury. Noted, the patient was in the hospital on 07/08/2024 as the patient was found in bed at home for more than 2 weeks and he has been taking his medication and there were scattered alcohol containers all around the bed. He was still drinking alcohol approximately 1/5 of vodka on a daily basis in addition to multiple bottles of beer. Based on that, the patient was hospitalized. During his last admission, he was in acute alcohol intoxication in the blood alcohol was 235 at time of admission. He had also electrolyte imbalance and depression. The patient apparently left the hospital AMA without having a psychiatric evaluation. After leaving the hospital, the patient fell and he was brought back to the hospital. The patient was in acute delirium tremens. Since his admission, the patient received a total of 12 mg of Ativan he was also started on Precedex which is currently running at 0.5 mcg/kg/h. The patient is resting comfortably in bed. No signifi cant agitation at this point although he was quite agitated and combative at time of his admission. CBC is within normal limits. BUN is 20 with a creatinine of 0.28 and sodium levels at 133. The patient had a HbA1c of 9. LFTs are normal. Amylase and lipase were within normal limits. The toxicology screen was done. Alcohol level was less than 10. Hemodynamically stable. No other significant events overnight. Resting comfortably in bed, currently on 2 L of oxygen by nasal cannula. No reported aspiration. No reported respiratory distress. CAT scan of the head and spine was done and it showed no acute abnormalities. Chest x-ray on 07/08/2024 showed no acute process. Review of Systems ROS unobtainable: due to mental status Past Medical History Past Medical History: Asthma, Diabetes Mellitus, Hypertension, Osteoarthritis (OA), Skin Disorder Additional Past Medical History / Comment(s): PSORIASIS, Back and bilat hip pain. Arthritis bilat hip. Bone spurs in spine. History of Any Multi-Drug Resistant Organisms: Unobtainable Past Surgical History: Unable to Obtain Additional Past Surgical History / Comment(s): HAND SURGERY AND NERVE GRAFT TO THUMB, CORTISONE INJECTIONS HIP. Past Anesthesia/Blood Transfusion Reactions: Unable to Obtain Past Psychological History: Anxiety, Bipolar, Depression Smoking Status: Current every day smoker, Heavy tobacco smoker Past Alcohol Use History: Abuse, Heavy Additional Past Alcohol Use History / Comment(s): SMOKES <1PPD, SMOKING FOR 40 YEARS. Patient in ER stated he drinks 1/5th of Vodka daily along with multiple beers. Past Drug Use History: None Reported - Past Family History Father Family Medical History: Cancer Additional Family Medical History / Comment(s): LUNG CANCER Medications and Allergies Home Medications Medication Instructions Recorded Confirmed Type No Known Home Medications 07/08/24 07/10/24 History Allergies Allergy/AdvReac Type Severity Reaction Status Date / Time lisinopril AdvReac Unknown Cough Verified 07/10/24 19:41 Physical Exam Vitals: Vital Signs Temp Pulse Pulse Resp BP BP Pulse Ox 07/11/24 07:00 67 20 97 07/11/24 06:30 66 20 125/81 97 07/11/24 06:00 66 20 97 07/11/24 05:30 67 20 97 07/11/24 05:00 71 15 100 07/11/24 04:30 71 17 99 07/11/24 04:20 67 18 99 07/11/24 04:10 69 15 139/88 99 07/11/24 04:00 96.6 F L 67 17 99 07/11/24 03:50 66 16 99 07/11/24 03:40 67 21 99 07/11/24 03:30 69 20 98 07/11/24 03:20 67 22 98 07/11/24 03:10 68 21 120/77 98 07/11/24 03:00 68 21 98 07/11/24 02:50 67 19 98 07/11/24 02:40 68 18 98 07/11/24 02:30 67 19 98 07/11/24 02:20 68 18 98 07/11/24 02:10 68 18 98 07/11/24 02:00 67 18 98 07/11/24 01:50 67 19 98 07/11/24 01:40 66 18 98 07/11/24 01:30 67 18 98 07/11/24 01:20 67 19 98 07/11/24 01:10 66 19 123/84 98 07/11/24 01:00 67 18 98 07/11/24 00:50 67 17 98 07/11/24 00:40 67 17 98 07/11/24 00:30 67 18 98 07/11/24 00:20 67 18 98 07/11/24 00:10 67 18 98 07/11/24 00:07 68 18 114/74 98 07/11/24 00:00 97.0 F L 67 19 99 07/10/24 23:50 68 18 98 07/10/24 23:40 68 17 99 07/10/24 23:30 68 18 98 07/10/24 23:20 68 18 98 07/10/24 23:10 69 19 97/60 98 07/10/24 23:00 69 17 98 07/10/24 22:50 70 18 98 07/10/24 22:40 71 18 98 07/10/24 22:30 72 18 98 07/10/24 22:20 74 18 98 07/10/24 22:10 75 18 112/71 98 07/10/24 22:00 76 18 98 07/10/24 21:50 80 40 H 134/80 96 07/10/24 21:40 25 H 97 07/10/24 21:30 98 22 150/92 98 07/10/24 21:15 113 H 22 137/111 100 07/10/24 21:00 106 H 20 145/90 100 07/10/24 20:50 108 H 22 141/93 100 07/10/24 20:39 86 25 H 138/49 97 07/10/24 19:15 98.4 F 103 H 20 126/78 99 Intake and Output 07/10/24 07/11/24 07/11/24 22:59 06:59 14:59 Intake Total 20.689 641.068 75 Output Total 1200 2150 80 Balance -1179.311 -1508.932 -5 Intake: IV 525 75 0.9% 525 75 Intake, IV Titration 20.689 116.068 Amount Dexmedetomidine/0.9% NaCl 20.689 116.068 (Pmx) 400 mcg In Empty Bag 1 bag @ 0.2 MCG/KG/HR 2.948 mls/hr IV .Q24H [facility] Rx#:[id number] Output: Urine 1200 2150 80 Other: Voiding Method Indwelling Catheter Weight 64.7 kg 64.7 kg Results - Laboratory Findings CBC and BMP: 07/11/24 04:45 07/11/24 04:45 Abnormal lab findings: Abnormal Labs 07/10/24 07/10/24 07/10/24 17:52 17:52 21:14 RBC 3.17 L Hgb 10.4 L Hct 31.3 L MCV Sodium 129 L Potassium 3.4 L BUN <2 L Creatinine 0.42 L Glucose 223 H POC Glucose (mg/dL) 210 H Calcium 7.9 L Phosphorus 1.7 L Magnesium Total Protein 4.8 L Albumin 2.6 L 07/10/24 07/11/24 07/11/24 21:40 04:45 04:45 RBC 3.58 L Hgb 12.1 L Hct 36.4 L MCV 101.6 H Sodium 133 L Potassium 3.4 L BUN <2 L Creatinine 0.28 L Glucose 216 H POC Glucose (mg/dL) 195 H Calcium 8.2 L Phosphorus Magnesium Total Protein 5.0 L Albumin 2.6 L 07/11/24 07/11/24 04:45 07:49 RBC Hgb Hct MCV Sodium Potassium BUN Creatinine Glucose POC Glucose (mg/dL) 188 H Calcium Phosphorus Magnesium 1.5 L Total Protein Albumin Assessment and Plan Plan: Delirium tremens with secondary altered mentation. Alcohol level less than 10. The patient was quite agitated at time of admission. Received a total of 12 mg of Ativan and currently is on Precedex drip. Most recent CIWA scale is at 11 Alcoholism Diabetes mellitus type 2, HbA1c is at 9 Hypertension Degenerative arthritis History of depression Plan Keep the patient in the intensive care unit IV fluids normal saline at rate of 75 cc an hour Thiamine 100 mg IV every 24 hours Ativan per CIWA protocol Wean off Precedex Monitor oxygenation Psychiatric evaluation IV Protonix Sliding scale insulin coverage for blood sugar control Monitor mental status Will continue to follow Time with Patient: Greater than 30
--- NOTE | 2024-07-11 16:44 | P.PN ---
Subjective Progress Note Date: 07/11/24 Interval History: 59-year-old male patient with known history of alcoholism who presented to ER w ith a complaint of fall and head injury. Patient was recently hospitalized on 3 12/08/2024, was found to be in bed at home for more than 2 weeks and was not taking his meds, was noted to have scattered alcohol containers all around the bed, was drinking 1/5 of vodka on daily basis, patient left to me at that time. Now presented with fall and head injury. Patient was noted to be in delirium tremens on presentation was also having suicidal ideations. Required Precedex drip in the ICU. Admitted hospital for further evaluation and management of alcohol withdrawal syndrome, debility/generalized weakness, suicidal ideations. ICU, neurology and psychiatry consulted. Assessment and plan: Delirium tremens Alcohol withdrawal syndrome: Alcohol use disorder Acute metabolic encephalopathy: Recently admitted for admitted for alcohol withdrawal, found in the bed for more than 2 weeks, history of drinking 1/5 of vodka daily basis, left AMA, now presented after a fall, head injury CT head and cervical spine was negative for acute process Chest x-ray was negative for acute process LFTs amylase and lipase unremarkable. Alcohol level was less than 10 Became agitated and combative in the ED, required Precedex drip and transferred to ICU Continue Precedex drip, as needed Ativan per CIVA protocol Thiamine, folic acid, multivitamin Neurology consult ICU consult Suicidal ideations Depression: Suicide precautions Psychiatry consult Diabetes mellitus: HbA1c 9 Accu-Cheks, diabetic diet Sliding-scale insulin Debility: Generalized weakness Fall precautions-PT/OT consult Hypertension Psoriasis DVT prophylaxis: Subcu heparin Monitor vital signs and labs Labs and medication were reviewed. Continue same treatment. Further recommendations as per clinical course of the patient PHYSICAL EXAMINATION: GENERAL: The patient is A&O x2-3, NAD HEENT: EOMI, Sclerae anicteric, Moist Mucous membranes Neck: Supple, Non tender, No JVD PULMONARY: Equal breath souds B/L, No wheezing, No crackles. CARDIOVASCULAR: S1, S2 present. No murmurs, rubs, or gallops. ABDOMEN: Soft, nontender, nondistended, normoactive bowel sounds. No guarding or rebound tenderness. MUSCULOSKELETAL: No edema, No cyanosis. No clubbing. Normal ROM. Intact peripheral pulses. NEUROLOGICAL: CN 2-12 grossly intact. No FND Skin: No Rash REVIEW OF SYSTEMS: Limited review system due to confusion and lethargy. Dictation was produced using [employer]en[employer] dictation software. please excuse any grammatical, word or spelling errors. Objective - Vital Signs Vital signs: Vital Signs Temp 97.4 F L 07/11/24 08:00 Pulse 73 07/11/24 16:00 Resp 16 07/11/24 16:00 BP 107/71 07/11/24 16:00 Pulse Ox 96 07/11/24 16:00 FiO2 Intake & Output 07/10/24 07/11/24 07/11/24 18:59 06:59 18:59 Intake Total 768.432 0535.973 Output Total 3350 525 Balance -2688.243 482.973 Weight 58.967 kg 64.7 kg Intake: IV 525 375 0.9% 525 375 Intake, IV Titration 136.757 632.973 Amount Dexmedetomidine/0.9% NaCl 136.757 32.973 (Pmx) 400 mcg In Empty Bag 1 bag @ 0.2 MCG/KG/HR 2.948 mls/hr IV .Q24H [facility] Rx#:[id number] Magnesium Sulfate-D5w Pmx 200 1 gm In Dextrose/Water 1 100ml.bag @ 100 mls/hr IVPB Q1H [facility] Rx#: [id number] Potassium Chloride 10 meq 400 In Water For Injection 1 100ml.bag @ 100 mls/hr IVPB Q1HR [facility] Rx#: [id number] Output: Urine 3350 525 Other: Voiding Method Indwelling Catheter Indwelling Catheter - Labs CBC & Chem 7: 07/11/24 04:45 07/11/24 14:42 Labs: Abnormal Lab Results - Last 24 Hours (Table) 07/10/24 07/10/24 07/10/24 Range/Units 17:52 17:52 21:14 RBC 3.17 L (4.30-5.90) m/uL Hgb 10.4 L (13.0-17.5) gm/dL Hct 31.3 L (39.0-53.0) % MCV (80.0-100.0) fL Sodium 129 L (137-145) mmol/L Potassium 3.4 L (3.5-5.1) mmol/L BUN <2 L (9-20) mg/dL Creatinine 0.42 L (0.66-1.25) mg/dL Glucose 223 H (74-99) mg/dL POC Glucose (mg/dL) 210 H (70-110) mg/dL Hemoglobin A1c (<=6.0) % Calcium 7.9 L (8.4-10.2) mg/dL Phosphorus 1.7 L (2.5-4.5) mg/dL Magnesium (1.6-2.3) mg/dL Total Protein 4.8 L (6.3-8.2) g/dL Albumin 2.6 L (3.5-5.0) g/dL 07/10/24 07/11/24 07/11/24 Range/Units 21:40 04:45 04:45 RBC 3.58 L (4.30-5.90) m/uL Hgb 12.1 L (13.0-17.5) gm/dL Hct 36.4 L (39.0-53.0) % MCV 101.6 H (80.0-100.0) fL Sodium (137-145) mmol/L Potassium (3.5-5.1) mmol/L BUN (9-20) mg/dL Creatinine (0.66-1.25) mg/dL Glucose (74-99) mg/dL POC Glucose (mg/dL) 195 H (70-110) mg/dL Hemoglobin A1c 9.0 H (<=6.0) % Calcium (8.4-10.2) mg/dL Phosphorus (2.5-4.5) mg/dL Magnesium (1.6-2.3) mg/dL Total Protein (6.3-8.2) g/dL Albumin (3.5-5.0) g/dL 07/11/24 07/11/24 07/11/24 Range/Units 04:45 04:45 07:49 RBC (4.30-5.90) m/uL Hgb (13.0-17.5) gm/dL Hct (39.0-53.0) % MCV (80.0-100.0) fL Sodium 133 L (137-145) mmol/L Potassium 3.4 L (3.5-5.1) mmol/L BUN <2 L (9-20) mg/dL Creatinine 0.28 L (0.66-1.25) mg/dL Glucose 216 H (74-99) mg/dL POC Glucose (mg/dL) 188 H (70-110) mg/dL Hemoglobin A1c (<=6.0) % Calcium 8.2 L (8.4-10.2) mg/dL Phosphorus (2.5-4.5) mg/dL Magnesium 1.5 L (1.6-2.3) mg/dL Total Protein 5.0 L (6.3-8.2) g/dL Albumin 2.6 L (3.5-5.0) g/dL 07/11/24 Range/Units 12:24 RBC (4.30-5.90) m/uL Hgb (13.0-17.5) gm/dL Hct (39.0-53.0) % MCV (80.0-100.0) fL Sodium (137-145) mmol/L Potassium (3.5-5.1) mmol/L BUN (9-20) mg/dL Creatinine (0.66-1.25) mg/dL Glucose (74-99) mg/dL POC Glucose (mg/dL) 123 H (70-110) mg/dL Hemoglobin A1c (<=6.0) % Calcium (8.4-10.2) mg/dL Phosphorus (2.5-4.5) mg/dL Magnesium (1.6-2.3) mg/dL Total Protein (6.3-8.2) g/dL Albumin (3.5-5.0) g/dL
[2024-07-11] MEDS: THIAMINE 500 MG in SODIUM CHLORIDE 0.9% 50 ML IVPB SCH (17:58)
[2024-07-11 19:00] LABS: Urine Alcohol Negative (Negative); Urine Barbiturate Negative (Negative); Urine Cocaine Negative (Negative); Urine Methadone Negative (Negative); Urine Opiates Negative (Negative); Urine Phencyclidine Negative (Negative)
[2024-07-11 19:52] LABS: Glucose,Whole Blood 129 mg/dL (70-110)
[2024-07-11] MEDS: HEPARIN SODIUM,PORCINE 5,000 UNIT/ML 1 ML VIAL SQ SCH (21:18)
[2024-07-12] MEDS: LORazepam 1 MG TAB PO PRN ×2 (05:54→09:53)
[2024-07-12 06:09] LABS: Basophils % (A) 0 %; Eosinophils # (A) 0.2 k/uL (0-0.7); Eosinophils % (A) 3 %; HCT 37.5 % (39.0-53.0); HGB 11.4 gm/dL (13.0-17.5); Lymphocytes # (A) 1.4 k/uL (1.0-4.8); Lymphocytes % (A) 15 %; MCH 32.5 pg (25.0-35.0); MCHC 30.5 g/dL (31.0-37.0); MCV 106.3 fL (80.0-100.0); Macrocytosis Moderate; Mean Platelet Volume 9.4; Monocytes # (A) 0.5 k/uL (0-1.0); Monocytes % (A) 5 %; Neutrophils % (A) 76 %; Platelet Count 208 k/uL (150-450); RBC 3.52 m/uL (4.30-5.90); RDW 15.9 % (11.5-15.5); WBC 9.3 k/uL (3.8-10.6)
[2024-07-12 06:30] LABS: ALT 18 U/L (4-49); AST 39 U/L (17-59); African American GFR (CKD) >90 (>60 ml/min/1.73 sqM); Albumin 2.4 g/dL (3.5-5.0); Alkaline Phosphatase 77 U/L (38-126); Anion Gap 11 mmol/L; Blood Urea Nitrogen 6 mg/dL (9-20); Calcium 7.9 mg/dL (8.4-10.2); Carbon Dioxide 18 mmol/L (22-30); Chloride 103 mmol/L (98-107); Glucose 118 mg/dL (74-99); Magnesium 1.5 mg/dL (1.6-2.3); Non-African American GFR(CKD) >90 (>60 ml/min/1.73 sqM); Sodium 132 mmol/L (137-145); Total Bilirubin 0.9 mg/dL (0.2-1.3); Total Protein 4.7 g/dL (6.3-8.2)
[2024-07-12 06:34] LABS: Potassium 4.2 mmol/L (3.5-5.1)
[2024-07-12 07:01] LABS: Glucose,Whole Blood 109 mg/dL (70-110)
[2024-07-12] MEDS ORDERED: THIAMINE 100 MG TAB PO SCH (09:00)
--- NOTE | 2024-07-12 10:39 | P.CNNES ---
History of Present Illness Consult date: 07/11/24 Requesting physician: Nicole Reed Reason for Consult: Altered mental status History of Present Illness: Patient is a 59-year-old male came to the hospital yesterday at 3:50 PM for altered mental status. Patient not able to provide any history as he is seated on Precedex 0.4 g/kg/hour. Per nursing report, patient has history of alcoholism, currently on CIWA protocol. Per nurse he has sometimes been acting mean, aggressive. He is on 2 point restraints. Per nurse, he tries to climb out of the bed, thrashes around. Sometimes he threatens. Nurse also reports that it was reported to her that patient has history of heavy alcoholism. He just orders food and alcohol, crawls down to open the door, and then just eat just eats small amount of food and drinks alcohol. Apparently patient came to the hospital on 07/08/2024 by ambulance at 12:19 PM. As per EMS flow sheet, EMS was called for of well-being check by a family friend. Per family, the patient has been in bed for weeks doing nothing but d rinking alcohol. Patient states he has been depressed about family issues. Patient states suicidal ideation but no attempts. Patient states he drinks a lot of alcohol every day, very little food or water due to increased abdominal pain. Patient denied any chest pain or shortness of breath. Denied any vomiting or diarrhea. Patient's vitals at the scene was blood pressure 167/112, pulse rate 1:15, blood sugar 255. Saturation 98%. Patient's CBC, PT/PTT normal. Sodium 135 potassium 3.2, renal functions and hepatic panel were normal. UA negative, blood alcohol level 235. Patient was seen by general surgery but it appears that patient signed out AGAINST MEDICAL ADVICE. He was in the parking lot when he tripped and fell. He struck his head on the ground. He was brought back to the hospital same day. Vital signs on arrival blood pressure 126/78, pulse rate 103, temperature 98.4. Patient has been afebrile. Blood test shows normal WBC hemoglobin 10.4, normal platelets. Sodium 129 potassium 3.4, renal functions are normal hepatic panel normal. Blood alcohol level less than 10. Lipase is normal. CT head showed no acute intracranial process. Nonspecific minimal white matter changes, likely secondary to chronic small vessel ischemic disease. No evidence of cervical spine fracture. Mild to moderate multilevel degenerative disc disease. I did review CT head, and agree with the findings. Home medications include none. Review of Systems ROS unobtainable: due to mental status Past Medical History Past Medical History: Asthma, Diabetes Mellitus, Hypertension, Osteoarthritis (OA), Skin Disorder Additional Past Medical History / Comment(s): PSORIASIS, Back and bilat hip pain. Arthritis bilat hip. Bone spurs in spine. History of Any Multi-Drug Resistant Organisms: Unobtainable Past Surgical History: Unable to Obtain Additional Past Surgical History / Comment(s): HAND SURGERY AND NERVE GRAFT TO THUMB, CORTISONE INJECTIONS HIP. Past Anesthesia/Blood Transfusion Reactions: Unable to Obtain Past Psychological History: Anxiety, Bipolar, Depression Smoking Status: Current every day smoker, Heavy tobacco smoker Past Alcohol Use History: Abuse, Heavy Additional Past Alcohol Use History / Comment(s): SMOKES <1PPD, SMOKING FOR 40 YEARS. Patient in ER stated he drinks 1/5th of Vodka daily along with multiple beers. Past Drug Use History: None Reported - Past Family History Father Family Medical History: Cancer Additional Family Medical History / Comment(s): LUNG CANCER Medications and Allergies Home Medications Medication Instructions Recorded Confirmed Type No Known Home Medications 07/08/24 07/10/24 History Allergies Allergy/AdvReac Type Severity Reaction Status Date / Time lisinopril AdvReac Unknown Cough Verified 07/10/24 19:41 Physical Examination - Vital Signs Vital Signs: Vital Signs Temp Pulse Pulse Resp BP BP Pulse Ox 07/11/24 12:00 75 16 79/57 100 07/11/24 11:36 70 07/11/24 11:30 70 07/11/24 11:00 70 20 106/73 96 07/11/24 10:00 70 16 89/63 100 07/11/24 09:00 72 17 116/74 96 07/11/24 08:00 97.4 F L 70 19 129/79 97 07/11/24 07:00 67 20 97 07/11/24 06:30 66 20 125/81 97 07/11/24 06:00 66 20 97 07/11/24 05:30 67 20 97 07/11/24 05:00 71 15 100 07/11/24 04:30 71 17 99 07/11/24 04:20 67 18 99 07/11/24 04:10 69 15 139/88 99 07/11/24 04:00 96.6 F L 67 17 99 07/11/24 03:50 66 16 99 07/11/24 03:40 67 21 99 07/11/24 03:30 69 20 98 07/11/24 03:20 67 22 98 07/11/24 03:10 68 21 120/77 98 07/11/24 03:00 68 21 98 07/11/24 02:50 67 19 98 07/11/24 02:40 68 18 98 07/11/24 02:30 67 19 98 07/11/24 02:20 68 18 98 07/11/24 02:10 68 18 98 07/11/24 02:00 67 18 98 07/11/24 01:50 67 19 98 07/11/24 01:40 66 18 98 07/11/24 01:30 67 18 98 07/11/24 01:20 67 19 98 07/11/24 01:10 66 19 123/84 98 07/11/24 01:00 67 18 98 07/11/24 00:50 67 17 98 07/11/24 00:40 67 17 98 07/11/24 00:30 67 18 98 07/11/24 00:20 67 18 98 07/11/24 00:10 67 18 98 07/11/24 00:07 68 18 114/74 98 07/11/24 00:00 97.0 F L 67 19 99 07/10/24 23:50 68 18 98 07/10/24 23:40 68 17 99 07/10/24 23:30 68 18 98 07/10/24 23:20 68 18 98 07/10/24 23:10 69 19 97/60 98 07/10/24 23:00 69 17 98 07/10/24 22:50 70 18 98 07/10/24 22:40 71 18 98 07/10/24 22:30 72 18 98 07/10/24 22:20 74 18 98 07/10/24 22:10 75 18 112/71 98 07/10/24 22:00 76 18 98 07/10/24 21:50 80 40 H 134/80 96 07/10/24 21:40 25 H 97 07/10/24 21:30 98 22 150/92 98 07/10/24 21:15 113 H 22 137/111 100 07/10/24 21:00 106 H 20 145/90 100 07/10/24 20:50 108 H 22 141/93 100 07/10/24 20:39 86 25 H 138/49 97 07/10/24 19:15 98.4 F 103 H 20 126/78 99 Intake and Output 07/10/24 07/11/24 07/11/24 22:59 06:59 14:59 Intake Total 20.689 641.068 782.973 Output Total 1200 2150 435 Balance -1179.311 -1508.932 347.973 Intake: IV 525 150 0.9% 525 150 Intake, IV Titration 20.689 116.068 632.973 Amount Dexmedetomidine/0.9% NaCl 20.689 116.068 32.973 (Pmx) 400 mcg In Empty Bag 1 bag @ 0.2 MCG/KG/HR 2.948 mls/hr IV .Q24H [facility] Rx#:[id number] Magnesium Sulfate-D5w Pmx 200 1 gm In Dextrose/Water 1 100ml.bag @ 100 mls/hr IVPB Q1H [facility] Rx#: [id number] Potassium Chloride 10 meq 400 In Water For Injection 1 100ml.bag @ 100 mls/hr IVPB Q1HR [facility] Rx#: [id number] Output: Urine 1200 2150 435 Other: Voiding Method Indwelling Catheter Indwelling Catheter Weight 64.7 kg 64.7 kg Patient is a middle aged male, laying in the bed, appears somewhat obtunded. He is sedated on this index 0.4 mcg/kg/h. Patient is on CIWA protocol. He is seated. Pupils are equal, round and reactive to light, oculocephalics are present. Face appears symmetric. He does have some abrasion over the left eyebrow. Per nurse report, sometimes he acts nicely, sometimes becomes more aggressive or mean. He sometimes tries to climb out of bed. Patient is on 2 point restraint. His financial center manager was equal bilaterally, normal. He did cooperate with some examination. Patient wiggles his toes and feet on command. No obvious focality. Reflexes are diminished. Sensations are equal. Cerebellar functions could not be tested. Patient appears somewhat malnutrition. Neck is supple. Abdomen is soft. No peripheral edema. Patient despite being sedated, is somewhat responding appropriately. Patient nodded "no" for any headache. Results - Laboratory Findings CBC and BMP: 07/12/24 05:29 07/12/24 05:29 Abnormal Lab Findings: Abnormal Labs 07/10/24 07/10/24 07/10/24 17:52 17:52 21:14 RBC 3.17 L Hgb 10.4 L Hct 31.3 L MCV Sodium 129 L Potassium 3.4 L BUN <2 L Creatinine 0.42 L Glucose 223 H POC Glucose (mg/dL) 210 H Hemoglobin A1c Calcium 7.9 L Phosphorus 1.7 L Magnesium Total Protein 4.8 L Albumin 2.6 L 07/10/24 07/11/24 07/11/24 21:40 04:45 04:45 RBC 3.58 L Hgb 12.1 L Hct 36.4 L MCV 101.6 H Sodium Potassium BUN Creatinine Glucose POC Glucose (mg/dL) 195 H Hemoglobin A1c 9.0 H Calcium Phosphorus Magnesium Total Protein Albumin 07/11/24 07/11/24 07/11/24 04:45 04:45 07:49 RBC Hgb Hct MCV Sodium 133 L Potassium 3.4 L BUN <2 L Creatinine 0.28 L Glucose 216 H POC Glucose (mg/dL) 188 H Hemoglobin A1c Calcium 8.2 L Phosphorus Magnesium 1.5 L Total Protein 5.0 L Albumin 2.6 L 07/11/24 12:24 RBC Hgb Hct MCV Sodium Potassium BUN Creatinine Glucose POC Glucose (mg/dL) 123 H Hemoglobin A1c Calcium Phosphorus Magnesium Total Protein Albumin Assessment and Plan Assessment: * Altered mental status, likely due to alcohol withdrawal. * Delirium tremens. * Chronic alcoholism * Suicidal ideation * Depression * Diabetes * Generalized weakness * Hypertension Plan: * Continue treatment of delirium tremens with CIWA protocol. Patient is responding appropriately despite being quite sedated. He denies headache by nodding "no". * Psychiatry following for depression/suicidal ideation. * Continue thiamine, folic acid * Hemoglobin A1c 9.0. Recommend optimize control of diabetes to target A1c < 7.0. * PT, OT, when patient able to tolerate. * Other medical management as per IM and critical care. * B12, folate, TSH, RPR. * Neurology will follow clinically. * Thank you for the consult.
[2024-07-12 11:10] LABS: Glucose,Whole Blood 198 mg/dL (70-110)
[2024-07-12] MEDS: NYSTATIN 100,000 UNIT/ML SUSP 500,000 UNIT/5 ML CUP PO SCH (13:30)
--- NOTE | 2024-07-12 13:34 | P.CN ---
Psychiatric Consult - . Consult date: 07/12/24 Consult:: 07/12/24 12:52 IDENTIFYING DATA: Patient is a single, unemployed, 59-year-old male with significant history of bipolar disorder, anxiety, alcohol use disorder, he is single has 1 daughter, recently evicted and is now homeless. Collects SSD Reason for consultation: Suicidal ideations HPI: Patient presented to the hospital on 07/10 to the ER for evaluation after a fall and head injury. Patient left the hospital AMA prior to this event. Patient has a health history of bipolar disorder, alcohol use disorder severe. Patient's sodium was 129, potassium was 3.4. Blood alcohol level was negative on admission. Patient was admitted to the ICU for history of delirium tremens and treatment, suicidal ideations. Patient had a CT scan of his head which did not show any acute changes. Patient was seen today had a one-to-one sitter at his side. He was initially irritable with medical writer however attempting to cooperate. Somewhat tired during the interview, but rather poor historian, minimizing him being in the hospital. He correctly knew his name age, believes that it was "[birth year] July today which is around, knew that he was in the hospital. He claims that he had recently been evicted from his house on , states t hat there are "a bunch of stuff" going on in his life however was fairly vague about it. He claims that there is "razor blades" feeling in his throat and is upset because this has been going on for the past 2 months and he has not had treatment for it. Claims that he is finding it difficult to swallow. He claims that he is having some mild depression, denies any suicidal homicidal ideations intent or plan today. Claims that he wants to live for his life and future. He claims that "I want to do well". He claims that his sleep has been on and off appetite has been poor at this time due to throat pain. Denies any auditory or visual hallucinations. States that he is having minor withdrawal symptoms including mild tremors in his hands, does have a history of DTs, no withdrawal seizures. Claims that he was drinking a half a gallon of vodka every other day. Claims that his last drink was about 3 or 4 days ago. Also smokes cigarettes. Denies any other recreational drug use. PAST PSYCHIATRIC HISTORY: Patient has previous diagnoses of alcohol use disorder, bipolar disorder, and anxiety. The patient was previously on Remeron, Vivitrol, Zoloft, doxepin, trazodone, and Seroquel, however claims that he has been off his psychiatric medications for over a year now. He was last hospitalized on 08/2022. He has been nonadherent with outpatient care, claims that his case is closed at [facility]. He has had 2 prior attempts at suicide by walking into traffic. PMH: Past Medical History: Diabetes Mellitus, Hypertension, Osteoarthritis (OA), Skin Disorder Additional Past Medical History / Comment(s): PSORIASIS, Back and bilat hip pain. Arthritis bilat hip. Bone spurs in spine. History of Any Multi-Drug Resistant Organisms: None Reported Additional Past Surgical History / Comment(s): HAND SURGERY AND NERVE GRAFT TO THUMB, CORTISONE INJECTIONS HIP. Past Anesthesia/Blood Transfusion Reactions: No Reported Reaction Past Psychological History: Anxiety, Depression Smoking Status: Current every day smoker Past Alcohol Use History: Abuse, Heavy Past Drug Use History: None Reported ALLERGIES: Lisinopril CHEMICAL DEPENDENCY HISTORY: As per HPI FAMILY PSYCHIATRIC/SUBSTANCE USE HISTORY: The patient reports that his mother had panic attacks. The patient's maternal aunt attempted suicide. The patient's brother is an alcoholic. SOCIAL HISTORY: Claims that he was recently evicted now is homeless. He is also unemployed, currently collecting SSD. Patient was born and raised in [place], [place]. He is single , not at this time. He has an adult daughter from a previous relationship. He attended some college. He denies any legal issues, service, and although was raised Jehovah'S Witness denies any current moravian. MENTAL STATUS EXAM: General Appearance: Patient appears to be stated age is bald, somewhat tired, directable, somewhat evasive and guarded. Patient appears to have fair hygiene and grooming. Balding, bearded Behavior: Patient is seated without any agitated behavior. Normal psychomotor activity. Mildly irritable Speech: Patient's speech is fluent and nonpressured. Rambles at times Mood/Affect: Patient reports their mood is " a bit depressed", affect is congruent Suicidality/Homicidality: Patient is currently denying any suicidal or homicidal ideation. Perceptions: Patient denies any visual hallucinations and denies any auditory hallucinations Though content/process: There is no evidence of any delusional thought content and thought process is linear and goal-directed. Rambles at times, focused on his swallowing. Memory and concentration: AOX2, does not know today's date, grossly intact for the purposes of this session. Cannot spell "WORLD" backwards Judgment and insight: Poor IMPRESSIONS: Alcohol use disorder, severe dependence Bipolar 2 disorder Generalized anxiety disorder Tobacco use disorder PLAN: -At this time patient DOES NOT meet criteria for inpatient psychiatric admission. -Would recommend the following medication changes/additions: Zyprexa 2.5 mg nightly for mood stabilization/sleep, lithium 300 mg nightly for mood stabilization/suicidal thoughts. Librium 20 mg 3 times daily scheduled, this can be titrated down/off within the next 2 to 3 days for alcohol withdrawal. Associate Dean Of Women offered patient anticraving medications however he declined. -CIWA protocol with PRN Ativan for alcohol withdrawal. Continue to monitor vital signs. -Can discontinue 1:1 sitter at this time as patient is not currently an imminent threat to themselves -clay worker to provide patient with outpatient mental health/psychiatry [facility] for appropriate follow up upon discharge -Associate Dean Of Women spoke with patient about substance abuse and the harmful effects on medical and mental health, patient verbally understood and agreed. -clay worker to provide patient substance use treatment resources including AA/NA meetings in the community. -clay worker to provide patient with access line number to call for inpatient substance rehab -Communicated plan to patient's nurse -Will continue to follow along only as needed -Please contact with any questions. 07/12/24 13:25
--- NOTE | 2024-07-12 14:02 | P.PN ---
Subjective Progress Note Date: 07/12/24 This is a 59-year-old male patient, known history of alcoholism, presented [facility] department after a fall and head injury. Noted, the patient was in the hospital on 07/08/2024 as the patient was found in bed at home for more than 2 weeks and he has been taking his medication and there were scattered alcohol containers all around the bed. He was still drinking alcohol approximately 1/5 of vodka on a daily basis in addition to multiple bottles of beer. Based on that, the patient was hospitalized. During his last admission, he was in acute alcohol intoxication in the blood alcohol was 235 at time of admission. He had also electrolyte imbalance and depression. The patient apparently left the hospital AMA without having a psychiatric evaluation. After leaving the [facility], the patient fell and he was brought back to the hospital. The patient was in acute delirium tremens. Since his admission, the patient received a total of 12 mg of Ativan he was also started on Precedex which is currently running at 0.5 mcg/kg/h. The patient is resting comfortably in bed. No significant agitation at this point although he was quite agitated and combative at time of his admission. CBC is within normal limits. BUN is 20 with a creatinine of 0.28 and sodium levels at 133. The patient had a HbA1c of 9. LFTs are normal. Amylase and lipase were within normal limits. The toxicology screen was done. Alcohol level was less than 10. Hemodynamically stable. No other significant events overnight. Resting comfortably in bed, currently on 2 L of oxygen by nasal cannula. No reported aspiration. No reported respiratory distress. CAT scan of the head and spine was done and it showed no acute abnormalities. Chest x-ray on 07/08/2024 showed no acute process. On 07/12/2024, the patient is being seen for a follow-up. The patient remains a bit restless and slightly confused. He remains on Precedex which is currently running at 0.3 mcg/kg/h. Overnight, the patient was given 1 mg of Ativan. He is on normal saline at 75 cc an hour. Hemodynamically stable. White cell count of 9.3 with a hemoglobin 11.4 and a platelet count of 208. Sodium is at 132, potassium is at 4.2, BUN is 6 with a creatinine of 0.4. LFTs are within normal limits. No focal neurological deficit. Psychiatric consultation has been requested and the patient was seen by psychiatry and he was started on Zyprexa 2.5 mg at bedtime and Librium 20 mg p.o. 3 times daily. No other significant events overnight. Remains on heparin subcu for DVT prophylaxis. Based on psychiatric evaluation, the patient does not meet criteria for inpatient psychiatric admission. Objective - Vital Signs Vital signs: Vital Signs Temp 98 F 07/12/24 08:00 Pulse 104 H 07/12/24 09:00 Resp 25 H 07/12/24 09:00 BP 113/66 07/12/24 09:00 Pulse Ox 95 07/12/24 09:00 FiO2 Intake & Output 07/11/24 07/12/24 07/12/24 18:59 06:59 18:59 Intake Total 1321.304 990.827 325 Output Total 645 350 115 Balance 676.304 640.827 210 Weight 65.2 kg Intake: IV 600 925 325 0.9% 600 825 225 Thiamine 500 mg In Sodium 100 100 Chloride 0.9% 50 ml @ 100 mls/hr IVPB TID LUTHER Rx#:[id number] Intake, IV Titration 721.304 65.827 Amount Dexmedetomidine/0.9% NaCl 71.304 65.827 (Pmx) 400 mcg In Empty Bag 1 bag @ 0.2 MCG/KG/HR 2.948 mls/hr IV .Q24H LUTHER Rx#:[id number] Magnesium Sulfate-D5w Pmx 200 1 gm In Dextrose/Water 1 100ml.bag @ 100 mls/hr IVPB Q1H LUTHER Rx#: [id number] Potassium Chloride 10 meq 400 In Water For Injection 1 100ml.bag @ 100 mls/hr IVPB Q1HR LUTHER Rx#: [id number] Thiamine 500 mg In Sodium 50 Chloride 0.9% 50 ml @ 100 mls/hr IVPB TID LUTHER Rx#:[id number] Output: Urine 645 350 115 Other: Voiding Method Indwelling Catheter Indwelling Catheter Indwelling Catheter # Bowel Movements 1 - Exam The patient appeared well nourished and normally developed. Vital signs as documented. The patient is currently on Precedex, calm and comfortable. No sig nificant agitation. Head exam is unremarkable. No scleral icterus or corneal arcus noted. Neck is without jugular venous distension, thyromegaly, or carotid bruits. Carotid upstrokes are brisk bilaterally. Lungs are clear to auscultation and percussion. Cardiac exam reveals the PMI to be normally sized and situated. Rhythm is regular. First and second heart sounds normal. No murmurs, rubs or gallops. Abdominal exam reveals normal bowel sounds, no masses, no organomegaly and no aortic enlargement. Extremities are nonedematous and both femoral and pedal pulses are normal. Examination of the skin revealed no evidence of significant rashes, suspicious appearing nevi or other concerning lesions. Neurologically, the patient is awake and alert and the patient does not have any focal neurological deficit. Cranial nerves are essentially intact. - Labs CBC & Chem 7: 07/12/24 05:29 07/12/24 05:29 Labs: Abnormal Lab Results - Last 24 Hours (Table) 07/11/24 07/11/24 07/11/24 Range/Units 04:45 12:24 12:53 RBC (4.30-5.90) m/uL Hgb (13.0-17.5) gm/dL Hct (39.0-53.0) % MCV (80.0-100.0) fL MCHC (31.0-37.0) g/dL RDW (11.5-15.5) % Sodium (137-145) mmol/L Carbon Dioxide (22-30) mmol/L BUN (9-20) mg/dL Creatinine (0.66-1.25) mg/dL Glucose (74-99) mg/dL POC Glucose (mg/dL) 123 H (70-110) mg/dL Hemoglobin A1c 9.0 H (<=6.0) % Calcium (8.4-10.2) mg/dL Magnesium (1.6-2.3) mg/dL Total Protein (6.3-8.2) g/dL Albumin (3.5-5.0) g/dL U Benzodiazepines Scrn Positive A (Negative) 07/11/24 07/12/24 07/12/24 Range/Units 19:50 05:29 05:29 RBC 3.52 L (4.30-5.90) m/uL Hgb 11.4 L (13.0-17.5) gm/dL Hct 37.5 L (39.0-53.0) % MCV 106.3 H (80.0-100.0) fL MCHC 30.5 L (31.0-37.0) g/dL RDW 15.9 H (11.5-15.5) % Sodium 132 L (137-145) mmol/L Carbon Dioxide 18 L (22-30) mmol/L BUN 6 L (9-20) mg/dL Creatinine 0.41 L (0.66-1.25) mg/dL Glucose 118 H (74-99) mg/dL POC Glucose (mg/dL) 129 H (70-110) mg/dL Hemoglobin A1c (<=6.0) % Calcium 7.9 L (8.4-10.2) mg/dL Magnesium 1.5 L (1.6-2.3) mg/dL Total Protein 4.7 L (6.3-8.2) g/dL Albumin 2.4 L (3.5-5.0) g/dL U Benzodiazepines Scrn (Negative) Assessment and Plan Plan: Delirium tremens stable on Precedex. Librium was also added to the regimen. Receiving Ativan per CIWA protocol. Hemodynamically stable. Precedex is running at 0.2 mcg/kg/h. Alcoholism Diabetes mellitus type 2, HbA1c is at 9 Hypertension Degenerative arthritis History of depression Plan Titrate the Precedex and monitor the mental status. Medication can be potentially discontinued over the next few hours. Continue Zyprexa Continue Librium Ativan per CIWA protocol IV fluids normal saline at rate of 75 cc an hour Thiamine 100 mg IV every 24 hours Not a candidate for inpatient psychiatric evaluation Monitor oxygenation Psychiatric evaluation is appreciated IV Protonix Sliding scale insulin coverage for blood sugar control Monitor mental status Will continue to follow
--- NOTE | 2024-07-12 15:05 | P.PN ---
Subjective Interval History: 59-year-old male patient with known history of alcoholism who presented to ER with a complaint of fall and head injury. Patient was recently hospitalized on 3 12/08/2024, was found to be in bed at home for more than 2 weeks and was not taking his meds, was noted to have scattered alcohol containers all around the bed, was drinking 1/5 of vodka on daily basis, patient left to me at that time. Now presented with fall and head injury. Patient was noted to be in delirium tremens on presentation was also having suicidal ideations. Required Precedex drip in the ICU. Admitted hospital for further evaluation and management of alcohol withdrawal syndrome, debility/generalized weakness, suicidal ideations. ICU, neurology and psychiatry consulted. 07/12--- patient was seen and examined today. Alert oriented x 3. Calm and cooperative today. Denied any suicidal or homicidal ideations. Psychiatry evaluated the patient, recommended to discontinue sitter, patient not currently imminent threat to self. Recommended Zyprexa, lithium, Librium. Patient had low-grade fever 99.9, heart rate 97, respiratory rate 20, blood pressure 105/68, saturating 94% on room air. WBCs 9.3 hemoglobin 11.4 platelet 208. BMP unr emarkable. TSH and folate normal. Assessment and plan: Delirium tremens Alcohol withdrawal syndrome: Alcohol use disorder Acute metabolic encephalopathy: Recently admitted for admitted for alcohol withdrawal, found in the bed for more than 2 weeks, history of drinking 1/5 of vodka daily basis, left AMA, now presented after a fall, head injury CT head and cervical spine was negative for acute process Chest x-ray was negative for acute process LFTs amylase and lipase unremarkable. Alcohol level was less than 10 Became agitated and combative in the ED, required Precedex drip and transferred to ICU Continue Precedex drip, as needed Ativan per [facility] protocol Thiamine, folic acid, multivitamin Neurology consult ICU consulted Depression: Psychiatry consultedrecommended Zyprexa 2.5 mg nightly for mood stabilization, lithium 300 mg nightly for mood stabilization, Librium 20 mg 3 times daily to be titrated off Psychiatry recommended to discontinue one-to-one sitter for suicide precautions that patient not currently imminent threat to self. Diabetes mellitus: HbA1c 9 Accu-Cheks, diabetic diet Sliding-scale in sulin Debility: Generalized weakness Fall precautions-PT/OT consult Hypertension Psoriasis DVT prophylaxis: Subcu heparin Monitor vital signs and labs Labs and medication were reviewed. Continue same treatment. Further recommendations as per clinical course of the patient PHYSICAL EXAMINATION: GENERAL: The patient is A&O x3,, NAD HEENT: EOMI, Sclerae anicteric, Moist Mucous membranes Neck: Supple, Non tender, No JVD PULMONARY: Equal breath souds B/L, No wheezing, No crackles. CARDIOVASCULAR: S1, S2 present. No murmurs, rubs, or gallops. ABDOMEN: Soft, nontender, nondistended, normoactive bowel sounds. No guarding or rebound tenderness. MUSCULOSKELETAL: No edema, No cyanosis. No clubbing. Normal ROM. Intact peripheral pulses. NEUROLOGICAL: CN 2-12 grossly intact. No FND Skin: No Rash REVIEW OF SYSTEMS: Limited review system due to confusion and lethargy. Dictation was produced using [employer] dictation software. please excuse any grammatical, word or spelling errors. Objective - Vital Signs Vital signs: Vital Signs Temp 99.9 F H 07/12/24 12:00 Pulse 97 07/12/24 14:00 Resp 20 07/12/24 14:00 BP 105/68 07/12/24 14:00 Pulse Ox 94 L 07/12/24 14:00 FiO2 Intake & Output 07/11/24 07/12/24 07/12/24 18:59 06:59 18:59 Intake Total 1321.304 773.918 3464.923 Output Total 645 350 265 Balance 676.304 640.827 897.923 Weight 65.2 kg Intake: IV 600 925 700 0.9% 600 825 600 Thiamine 500 mg In Sodium 100 100 Chloride 0.9% 50 ml @ 100 mls/hr IVPB TID LUTHER Rx#:[id number] Intake, IV Titration 721.304 65.827 12.923 Amount Dexmedetomidine/0.9% NaCl 71.304 65.827 12.923 (Pmx) 400 mcg In Empty Bag 1 bag @ 0.2 MCG/KG/HR 2.948 mls/hr IV .Q24H [facility]HER Rx#:[id number] Magnesium Sulfate-D5w Pmx 200 1 gm In Dextrose/Water 1 100ml.bag @ 100 mls/hr IVPB Q1H L[facility]HER Rx#: [id number] Potassium Chloride 10 meq 400 In Water For Injection 1 100ml.bag @ 100 mls/hr IVPB Q1HR L[facility]HER Rx#: [id number] Thiamine 500 mg In Sodium 50 Chloride 0.9% 50 ml @ 100 mls/hr IVPB TID LUTHER Rx#:[id number] Oral 450 Output: Urine 645 350 265 Other: Voiding Method Indwelling Catheter Indwelling Catheter Indwelling Catheter # Bowel Movements 1 - Labs CBC & Chem 7: 07/12/24 05:29 07/12/24 05:29 Labs: Abnormal Lab Results - Last 24 Hours (Table) 07/11/24 07/11/24 07/12/24 Range/Units 12:53 19:50 05:29 RBC (4.30-5.90) m/uL Hgb (13.0-17.5) gm/dL Hct (39.0-53.0) % MCV (80.0-100.0) fL MCHC (31.0-37.0) g/dL RDW (11.5-15.5) % Sodium 132 L (137-145) mmol/L Carbon Dioxide 18 L (22-30) mmol/L BUN 6 L (9-20) mg/dL Creatinine 0.41 L (0.66-1.25) mg/dL Glucose 118 H (74-99) mg/dL POC Glucose (mg/dL) 129 H (70-110) mg/dL Calcium 7.9 L (8.4-10.2) mg/dL Magnesium 1.5 L (1.6-2.3) mg/dL Total Protein 4.7 L (6.3-8.2) g/dL Albumin 2.4 L (3.5-5.0) g/dL U Benzodiazepines Scrn Positive A (Negative) 07/12/24 07/12/24 Range/Units 05:29 11:09 RBC 3.52 L (4.30-5.90) m/uL Hgb 11.4 L (13.0-17.5) gm/dL Hct 37.5 L (39.0-53.0) % MCV 106.3 H (80.0-100.0) fL MCHC 30.5 L (31.0-37.0) g/dL RDW 15.9 H (11.5-15.5) % Sodium (137-145) mmol/L Carbon Dioxide (22-30) mmol/L BUN (9-20) mg/dL Creatinine (0.66-1.25) mg/dL Glucose (74-99) mg/dL POC Glucose (mg/dL) 198 H (70-110) mg/dL Calcium (8.4-10.2) mg/dL Magnesium (1.6-2.3) mg/dL Total Protein (6.3-8.2) g/dL Albumin (3.5-5.0) g/dL U Benzodiazepines Scrn (Negative)
--- NOTE | 2024-07-12 15:28 | P.GSCN ---
History of Present Illness Consult date: 07/12/24 Reason for Consult: Dysphagia History of present illness: We were consulted on this patient over the weekend. He left AGAINST MEDICAL ADVICE. Apparently he fell in the ER parking lot and came back in because of that. We were consulted again because of dysphagia. Patient is slightly lethargic today. Says this has been going on for quite some time. Mostly to solids but even liquids recently. Patient is unaware of any previous EGD. I do not see any records of any upper GI workup in the computer. Denies abdominal pain. Patient with many years of heavy alcohol use. Review of Systems The patient denies any acute changes in vision or hearing,no chest pain or shortness of breath, no dysuria or hematuria, no headache, no runny nose, no rectal bleeding or melena, no unexplained weight loss Past Medical History Past Medical History: Asthma, Diabetes Mellitus, Hypertension, Osteoarthritis (OA), Skin Disorder Additional Past Medical History / Comment(s): PSORIASIS, Back and bilat hip pain. Arthritis bilat hip. Bone spurs in spine. History of Any Multi-Drug Resistant Organisms: Unobtainable Past Surgical History: Unable to Obtain Additional Past Surgical History / Comment(s): HAND SURGERY AND NERVE GRAFT TO THUMB, CORTISONE INJECTIONS HIP. Past Anesthesia/Blood Transfusion Reactions: Unable to Obtain Past Psychological History: Anxiety, Bipolar, Depression Smoking Status: Current every day smoker, Heavy tobacco smoker Past Alcohol Use History: Abuse, Heavy Additional Past Alcohol Use History / Comment(s): SMOKES <1PPD, SMOKING FOR 40 YEARS. Patient in ER stated he drinks 1/5th of Vodka daily along with multiple beers. Past Drug Use History: None Reported - Past Family History Father Family Medical History: Cancer Additional Family Medical History / Comment(s): LUNG CANCER Medications and Allergies Home Medications Medication Instructions Recorded Confirmed Type No Known Home Medications 07/08/24 07/10/24 History Allergies Allergy/AdvReac Type Severity Reaction Status Date / Time lisinopril AdvReac Unknown Cough Verified 07/10/24 19:41 Surgical - Exam Vital Signs Temp Pulse Resp BP Pulse Ox 98.4 F 103 H 20 126/78 99 07/10/24 19:15 07/10/24 19:15 07/10/24 19:15 07/10/24 19:15 07/10/24 19:15 Physical exam: General: Well-developed, well-nourished HEENT: Bruise above left eyebrow with abrasion there, sclerae nonicteric Abdomen: Nontender, nondistended Extremities: No edema Neuro: Alert and oriented Results - Labs 07/12/24 05:29 07/12/24 05:29 Abnormal Lab Results - Last 24 Hours (Table) 07/11/24 07/11/24 07/12/24 Range/Units 12:53 19:50 05:29 RBC (4.30-5.90) m/uL Hgb (13.0-17.5) gm/dL Hct (39.0-53.0) % MCV (80.0-100.0) fL MCHC (31.0-37.0) g/dL RDW (11.5-15.5) % Sodium 132 L (137-145) mmol/L Carbon Dioxide 18 L (22-30) mmol/L BUN 6 L (9-20) mg/dL Creatinine 0.41 L (0.66-1.25) mg/dL Glucose 118 H (74-99) mg/dL POC Glucose (mg/dL) 129 H (70-110) mg/dL Calcium 7.9 L (8.4-10.2) mg/dL Magnesium 1.5 L (1.6-2.3) mg/dL Total Protein 4.7 L (6.3-8.2) g/dL Albumin 2.4 L (3.5-5.0) g/dL U Benzodiazepines Scrn Positive A (Negative) 07/12/24 07/12/24 Range/Units 05:29 11:09 RBC 3.52 L (4.30-5.90) m/uL Hgb 11.4 L (13.0-17.5) gm/dL Hct 37.5 L (39.0-53.0) % MCV 106.3 H (80.0-100.0) fL MCHC 30.5 L (31.0-37.0) g/dL RDW 15.9 H (11.5-15.5) % Sodium (137-145) mmol/L Carbon Dioxide (22-30) mmol/L BUN (9-20) mg/dL Creatinine (0.66-1.25) mg/dL Glucose (74-99) mg/dL POC Glucose (mg/dL) 198 H (70-110) mg/dL Calcium (8.4-10.2) mg/dL Magnesium (1.6-2.3) mg/dL Total Protein (6.3-8.2) g/dL Albumin (3.5-5.0) g/dL U Benzodiazepines Scrn (Negative) Diabetes panel 07/12/24 Range/Units 05:29 Sodium 132 L (137-145) mmol/L Potassium 4.2 (3.5-5.1) mmol/L Chloride 103 (98-107) mmol/L Carbon Dioxide 18 L (22-30) mmol/L BUN 6 L (9-20) mg/dL Creatinine 0.41 L (0.66-1.25) mg/dL Glucose 118 H (74-99) mg/dL Calcium 7.9 L (8.4-10.2) mg/dL AST 39 (17-59) U/L ALT 18 (4-49) U/L Alkaline Phosphatase 77 (38-126) U/L Total Protein 4.7 L (6.3-8.2) g/dL Albumin 2.4 L (3.5-5.0) g/dL Thyroid panel 07/12/24 Range/Units 05:34 TSH 2.440 (0.465-4.680) mIU/L Calcium panel 07/12/24 Range/Units 05:29 Calcium 7.9 L (8.4-10.2) mg/dL Albumin 2.4 L (3.5-5.0) g/dL Pituitary panel 07/12/24 07/12/24 Range/Units 05:29 05:34 Sodium 132 L (137-145) mmol/L Potassium 4.2 (3.5-5.1) mmol/L Chloride 103 (98-107) mmol/L Carbon Dioxide 18 L (22-30) mmol/L BUN 6 L (9-20) mg/dL Creatinine 0.41 L (0.66-1.25) mg/dL Glucose 118 H (74-99) mg/dL Calcium 7.9 L (8.4-10.2) mg/dL TSH 2.440 (0.465-4.680) mIU/L Adrenal panel 07/12/24 Range/Units 05:29 Sodium 132 L (137-145) mmol/L Potassium 4.2 (3.5-5.1) mmol/L Chloride 103 (98-107) mmol/L Carbon Dioxide 18 L (22-30) mmol/L BUN 6 L (9-20) mg/dL Creatinine 0.41 L (0.66-1.25) mg/dL Glucose 118 H (74-99) mg/dL Calcium 7.9 L (8.4-10.2) mg/dL Total Bilirubin 0.9 (0.2-1.3) mg/dL AST 39 (17-59) U/L ALT 18 (4-49) U/L Alkaline Phosphatase 77 (38-126) U/L Total Protein 4.7 L (6.3-8.2) g/dL Albumin 2.4 L (3.5-5.0) g/dL Assessment and Plan (1) Dysphagia Narrative/Plan: 59-year-old male with significant alcohol use history and dysphagia. Will proceed tentatively with EGD on if medically cleared. Current Visit: Yes Status: Acute Code(s): R13.10 - DYSPHAGIA, UNSPECIFIED SNOMED Code(s): 93953993
[2024-07-12 16:01] LABS: Glucose,Whole Blood 309 mg/dL (70-110)
[2024-07-12 20:04] LABS: Glucose,Whole Blood 269 mg/dL (70-110)
[2024-07-12] MEDS: LITHIUM CARBONATE 300 MG CAP PO SCH (20:07)
[2024-07-12] MEDS: OLANZapine 2.5 MG TAB PO SCH (20:07)
[2024-07-13] MEDS: LORazepam 1 MG TAB PO PRN (00:17)
[2024-07-13 06:23] LABS: Glucose,Whole Blood 260 mg/dL (70-110)
[2024-07-13 06:37] LABS: ALT 15 U/L (4-49); AST 22 U/L (17-59); African American GFR (CKD) >90 (>60 ml/min/1.73 sqM); Albumin 2.5 g/dL (3.5-5.0); Alkaline Phosphatase 101 U/L (38-126); Anion Gap 7 mmol/L; Blood Urea Nitrogen 4 mg/dL (9-20); Calcium 7.9 mg/dL (8.4-10.2); Carbon Dioxide 21 mmol/L (22-30); Chloride 103 mmol/L (98-107); Glucose 221 mg/dL (74-99); Non-African American GFR(CKD) >90 (>60 ml/min/1.73 sqM); Potassium 3.3 mmol/L (3.5-5.1); Sodium 131 mmol/L (137-145); Total Bilirubin 0.6 mg/dL (0.2-1.3); Total Protein 4.8 g/dL (6.3-8.2)
[2024-07-13] MEDS: POTASSIUM CHLORIDE 10 MEQ in WATER FOR INJECTION 1 100ML.BAG IVPB SCH ×2 (06:54→21:36)
[2024-07-13] MEDS: atenoloL 25 MG TAB PO SCH (10:06)
[2024-07-13 11:10] LABS: Anisocytosis Slight; Basophils % (A) 0 %; Eosinophils # (A) 0.1 k/uL (0-0.7); Eosinophils % (A) 1 %; HGB 10.5 gm/dL (13.0-17.5); Lymphocytes # (A) 1.3 k/uL (1.0-4.8); Lymphocytes % (A) 15 %; MCH 32.3 pg (25.0-35.0); MCHC 30.8 g/dL (31.0-37.0); MCV 104.9 fL (80.0-100.0); Macrocytosis Moderate; Mean Platelet Volume 9.4; Monocytes # (A) 0.6 k/uL (0-1.0); Monocytes % (A) 7 %; Neutrophils # (A) 6.4 k/uL (1.3-7.7); Neutrophils % (A) 75 %; Platelet Count 222 k/uL (150-450); RBC 3.25 m/uL (4.30-5.90); WBC 8.5 k/uL (3.8-10.6)
[2024-07-13 11:13] LABS: Glucose,Whole Blood 237 mg/dL (70-110)
[2024-07-13 11:26] VITALS: BMI 22.4
--- NOTE | 2024-07-13 12:16 | P.PN ---
Subjective Progress Note Date: 07/13/24 SURGICAL PROGRESS NOTE CHIEF COMPLAINT: Dysphagia HISTORY OF PRESENT ILLNESS: Patient is currently MedSurg overflow in the ICU. He complains of painful swallowing. He reports that it feels like razor by leads in his throat when he swallows both liquids or solids. He was mildly tachycardic and patient started on atenolol. History of alcohol abuse. He is currently on oral Ativan for the CIWA protocol and librium. Afebrile. WBC 8.5 Hgb 10.5 platelets 222 sodium 131 potassium 3.3 PHYSICAL EXAM: VITAL SIGNS: Reviewed. GENERAL: Well-developed in no acute distress. HEENT: No sclera icterus. Extraocular movements grossly intact. Moist buccal mucosa. Head is atraumatic, normocephalic. ABDOMEN: Soft. Nondistended. Nontender. NEUROLOGIC: Alert and oriented. Cranial nerves II through XII grossly intact. ASSESSMENT: 1. Dysphagia and odynophagia 2. EtOH withdrawal 3. Hypokalemia and hypomagnesemia PLAN: -Patient tentatively scheduled for EGD tomorrow if medically cleared -N.p.o. after midnight -Continue to correct electrolytes -Recheck magnesium and replace as needed Physician Meat Molder note has been reviewed by physician. Signing provider agrees with the documented findings, assessment, and plan of care. Objective - Vital Signs Vital signs: Vital Signs Temp 99.5 F 07/13/24 08:00 Pulse 100 07/13/24 11:52 Resp 17 07/13/24 10:00 BP 129/78 07/13/24 10:00 Pulse Ox 97 07/13/24 09:00 FiO2 Intake & Output 07/12/24 07/13/24 07/13/24 18:59 06:59 18:59 Intake Total 1901.254 963.756 425 Output Total 385 795 700 Balance 1516.254 168.756 -275 Weight 68.8 kg 68.8 kg Intake: IV 1100 950 425 0.9% 900 900 225 Potassium Chloride 10 meq 200 In Water For Injection 1 100ml.bag @ 100 mls/hr IVPB Q1HR [facility] Rx#: [id number] Thiamine 500 mg In Sodium 200 50 Chloride 0.9% 50 ml @ 100 mls/hr IVPB TID [facility] Rx#:[id number] Intake, IV Titration 51.254 13.756 Amount Dexmedetomidine/0.9% NaCl 51.254 13.756 (Pmx) 400 mcg In Empty Bag 1 bag @ 0.2 MCG/KG/HR 2.948 mls/hr IV .Q24H [facility] Rx#:[id number] Oral 750 Output: Urine 385 795 700 Other: Voiding Method Indwelling Catheter Indwelling Catheter Indwelling Catheter # Bowel Movements 1 - Labs CBC & Chem 7: 07/13/24 09:43 07/13/24 06:05 Labs: Abnormal Lab Results - Last 24 Hours (Table) 07/12/24 07/12/24 07/13/24 Range/Units 15:59 20:02 06:05 RBC (4.30-5.90) m/uL Hgb (13.0-17.5) gm/dL Hct (39.0-53.0) % MCV (80.0-100.0) fL MCHC (31.0-37.0) g/dL RDW (11.5-15.5) % Sodium 131 L (137-145) mmol/L Potassium 3.3 L (3.5-5.1) mmol/L Carbon Dioxide 21 L (22-30) mmol/L BUN 4 L (9-20) mg/dL Creatinine 0.43 L (0.66-1.25) mg/dL Glucose 221 H (74-99) mg/dL POC Glucose (mg/dL) 309 H 269 H (70-110) mg/dL Calcium 7.9 L (8.4-10.2) mg/dL Total Protein 4.8 L (6.3-8.2) g/dL Albumin 2.5 L (3.5-5.0) g/dL 07/13/24 07/13/24 07/13/24 Range/Units 06:22 09:43 11:11 RBC 3.25 L (4.30-5.90) m/uL Hgb 10.5 L (13.0-17.5) gm/dL Hct 34.0 L (39.0-53.0) % MCV 104.9 H (80.0-100.0) fL MCHC 30.8 L (31.0-37.0) g/dL RDW 16.0 H (11.5-15.5) % Sodium (137-145) mmol/L Potassium (3.5-5.1) mmol/L Carbon Dioxide (22-30) mmol/L BUN (9-20) mg/dL Creatinine (0.66-1.25) mg/dL Glucose (74-99) mg/dL POC Glucose (mg/dL) 260 H 237 H (70-110) mg/dL Calcium (8.4-10.2) mg/dL Total Protein (6.3-8.2) g/dL Albumin (3.5-5.0) g/dL
--- NOTE | 2024-07-13 14:13 | P.PN ---
Subjective Interval History: 59-year-old male patient with known history of alcoholism who presented to ER with a complaint of fall and head injury. Patient was recently hospitalized on 3 12/08/2024, was found to be in bed at home for more than 2 weeks and was not taking his meds, was noted to have scattered alcohol containers all around the bed, was drinking 1/5 of vodka on daily basis, patient left to me at that time. Now presented with fall and head injury. Patient was noted to be in delirium tremens on presentation was also having suicidal ideations. Required Precedex drip in the ICU. Admitted hospital for further evaluation and management of alcohol withdrawal syndrome, debility/generalized weakness, suicidal ideations. ICU, neurology and psychiatry consulted. 07/12--- patient was seen and examined today. Alert oriented x 3. Calm and cooperative today. Denied any suicidal or homicidal ideations. Psychiatry evaluated the patient, recommended to discontinue sitter, patient not currently imminent threat to self. Recommended Zyprexa, lithium, Librium. Patient had low-grade fever 99.9, heart rate 97, respiratory rate 20, blood pressure 105/68, saturating 94% on room air. WBCs 9.3 hemoglobin 11.4 platelet 208. BMP unr emarkable. TSH and folate normal. 07/13--- patient was seen and examined today. Patient feeling better today. Patient off Precedex drip. Denied any suicidal or homicidal ideations. Vital stable, WBCs 8.5, hemoglobin 10.5, platelet 222. Continues complain of burning sensation with swallowing and drinking. General surgery following, plan for EGD tomorrow. Assessment and plan: Delirium tremens Alcohol withdrawal syndrome: Alcohol use disorder Acute metabolic encephalopathy: Recently admitted for admitted for alcohol withdrawal, found in the bed for more than 2 weeks, history of drinking 1/5 of vodka daily basis, left AMA, now presented after a fall, head injury CT head and cervical spine was negative for acute process Chest x-ray was negative for acute process LFTs amylase and lipase unremarkable. Alcohol level was less than 10 Became agitated and combative in the ED, required Precedex drip and transferred to ICU Continue Precedex drip, as needed Ativan per [facility] protocol Thiamine, folic acid, multivitamin Neurology consult ICU consulted Dysphagia/odynophagia: PPI General Surgery consultedplan for EGD/3. Depression: Psychiatry consultedrecommended Zyprexa 2.5 mg nightly for mood stabilization, lithium 300 mg nightly for mood stabilization, Librium 20 mg 3 times daily to be titrated off Psychiatry recommended to discontinue one-to-one sitter for suicide precautions that patient not currently imminent threat to self. Diabetes mellitus: HbA1c 9 Accu-Cheks, diabetic diet Sliding-scale insulin Debility: Generalized weakness Fall precautions-PT/OT consult Hypertension Psoriasis DVT prophylaxis: Subcu heparin Monitor vital signs and labs Labs and medication were reviewed. Continue same treatment. Further recommendations as per clinical course of the patient PHYSICAL EXAMINATION: GENERAL: The patient is A&O x3,, NAD HEENT: EOMI, Sclerae anicteric, Moist Mucous membranes Neck: Supple, Non tender, No JVD PULMONARY: Equal breath souds B/L, No wheezing, No crackles. CARDIOVASCULAR: S1, S2 present. No murmurs, rubs, or gallops. ABDOMEN: Soft, nontender, nondistended, normoactive bowel sounds. No guarding or rebound tenderness. MUSCULOSKELETAL: No edema, No cyanosis. No clubbing. Normal ROM. Intact peripheral pulses. NEUROLOGICAL: CN 2-12 grossly intact. No FND Skin: No Rash REVIEW OF SYSTEMS: GI: No nauscea, vomiting or diarrhea. : No dysuria or retention. Cardiovascular: Denies any chest pain, palpitations Pulmonary: Denied any shortness breath, cough. NERVOUS SYSTEM: No numbness or weakness. ALLERGY/IMMUNOLOGY: No asthma or hay fever. MUSCULOSKELETAL: As mentioned earlier. HEMATOLOGY/ONCOLOGY: No history of anemia. ENDOCRINE: No history of diabetes or hypothyroidism. CONSTITUTIONAL: Complains of fatigue. DERMATOLOGY: Negative. RHEUMATOLOGY: Negative. Dictation was produced using [employer] dictation software. please excuse any grammatical, word or spelling errors. Objective - Vital Signs Vital signs: Vital Signs Temp 99.5 F 07/13/24 08:00 Pulse 94 07/13/24 14:00 Resp 16 07/13/24 14:00 BP 120/61 07/13/24 14:00 Pulse Ox 97 07/13/24 14:00 FiO2 Intake & Output 07/12/24 07/13/24 07/13/24 18:59 06:59 18:59 Intake Total 1901.254 313.142 2876 Output Total 207 027 6637 Balance 1516.254 168.756 600 Weight 68.8 kg 68.8 kg Intake: IV 5856 393 4536 0.9% 944 868 5201 Potassium Chloride 10 meq 400 In Water For Injection 1 100ml.bag @ 100 mls/hr IVPB Q1HR [facility] Rx#: [id number] Thiamine 500 mg In Sodium 200 50 50 Chloride 0.9% 50 ml @ 100 mls/hr IVPB TID [facility] Rx#:[id number] Intake, IV Titration 51.254 13.756 Amount Dexmedetomidine/0.9% NaCl 51.254 13.756 (Pmx) 400 mcg In Empty Bag 1 bag @ 0.2 MCG/KG/HR 2.948 mls/hr IV .Q24H [facility] Rx#:[id number] Oral 750 Output: Urine 846 566 6310 Other: Voiding Method Indwelling Catheter Indwelling Catheter Indwelling Catheter # Bowel Movements 1 - Labs CBC & Chem 7: 07/13/24 09:43 07/13/24 06:05 Labs: Abnormal Lab Results - Last 24 Hours (Table) 07/12/24 07/12/24 07/13/24 Range/Units 15:59 20:02 06:05 RBC (4.30-5.90) m/uL Hgb (13.0-17.5) gm/dL Hct (39.0-53.0) % MCV (80.0-100.0) fL MCHC (31.0-37.0) g/dL RDW (11.5-15.5) % Sodium 131 L (137-145) mmol/L Potassium 3.3 L (3.5-5.1) mmol/L Carbon Dioxide 21 L (22-30) mmol/L BUN 4 L (9-20) mg/dL Creatinine 0.43 L (0.66-1.25) mg/dL Glucose 221 H (74-99) mg/dL POC Glucose (mg/dL) 309 H 269 H (70-110) mg/dL Calcium 7.9 L (8.4-10.2) mg/dL Total Protein 4.8 L (6.3-8.2) g/dL Albumin 2.5 L (3.5-5.0) g/dL 07/13/24 07/13/2407/13/25 Range/Units 06:22 09:43 11:11 RBC 3.25 L (4.30-5.90) m/uL Hgb 10.5 L (13.0-17.5) gm/dL Hct 34.0 L (39.0-53.0) % MCV 104.9 H (80.0-100.0) fL MCHC 30.8 L (31.0-37.0) g/dL RDW 16.0 H (11.5-15.5) % Sodium (137-145) mmol/L Potassium (3.5-5.1) mmol/L Carbon Dioxide (22-30) mmol/L BUN (9-20) mg/dL Creatinine (0.66-1.25) mg/dL Glucose (74-99) mg/dL POC Glucose (mg/dL) 260 H 237 H (70-110) mg/dL Calcium (8.4-10.2) mg/dL Total Protein (6.3-8.2) g/dL Albumin (3.5-5.0) g/dL
--- NOTE | 2024-07-13 14:52 | P.PN ---
Subjective Progress Note Date: 07/13/24 This is a 59-year-old male patient, known history of alcoholism, presented [facility] after a fall and head injury. Noted, the patient was in the hospital on 07/08/2024 as the patient was found in bed at home for more than 2 weeks and he has been taking his medication and there were scattered alcohol containers all around the bed. He was still drinking alcohol approximately 1/5 of vodka on a daily basis in addition to multiple bottles of beer. Based on that, the patient was hospitalized. During his last admission, he was in acute alcohol intoxication in the blood alcohol was 235 at time of admission. He had also electrolyte imbalance and depression. The patient apparently left the hospital AMA without having a psychiatric evaluation. After leaving the [facility], the patient fell and he was brought back to the hospital. The patient was in acute delirium tremens. Since his admission, the patient received a total of 12 mg of Ativan he was also started on Precedex which is currently running at 0.5 mcg/kg/h. The patient is resting comfortably in bed. No significant agitation at this point although he was quite agitated and combative at time of his admission. CBC is within normal limits. BUN is 20 with a creatinine of 0.28 and sodium levels at 133. The patient had a HbA1c of 9. LFTs are normal. Amylase and lipase were within normal limits. The toxicology screen was done. Alcohol level was less than 10. Hemodynamically stable. No other significant events overnight. Resting comfortably in bed, currently on 2 L of oxygen by nasal cannula. No reported aspiration. No reported respiratory distress. CAT scan of the head and spine was done and it showed no acute abnormalities. Chest x-ray on 07/08/2024 showed no acute process. On 07/12/2024, the patient is being seen for a follow-up. The patient remains a bit restless and slightly confused. He remains on Precedex which is currently running at 0.3 mcg/kg/h. Overnight, the patient was given 1 mg of Ativan. He is on normal saline at 75 cc an hour. Hemodynamically stable. White cell count of 9.3 with a hemoglobin 11.4 and a platelet count of 208. Sodium is at 132, potassium is at 4.2, BUN is 6 with a creatinine of 0.4. LFTs are within normal limits. No focal neurological deficit. Psychiatric consultation has been requested and the patient was seen by psychiatry and he was started on Zyprexa 2.5 mg at bedtime and Librium 20 mg p.o. 3 times daily. No other significant events overnight. Remains on heparin subcu for DVT prophylaxis. Based on psychiatric evaluation, the patient does not meet criteria for inpatient psychiatric admission. On 07/13/2024, patient is being seen for a follow-up. The patient is doing well with no specific complaints. Resting comfortably in bed. Continues to have some mild sinus tachycardia. Otherwise, no significant agitation. He is off the Precedex drip as of 8:30 PM yesterday. No altered mentation. Tolerating diet. No nausea. No vomiting. No abdominal pain. No emesis. He is on Zyprexa and Librium. He has not required Ativan overnight. Remains on IV fluids. White cell count of 8.5 with a heme of 10.5 and a platelet count of 222. Sodium is at 131, but potassium is at 3.3, BUN is 4 with a creatinine of 0.3. LFTs are normal. Total protein is at 4.8 with an albumin level of 2.5. No other significant events overnight. He remains on room air oxygen. No agitation. No seizure activity. Objective - Vital Signs Vital signs: Vital Signs Temp 99.5 F 07/13/24 08:00 Pulse 118 H 07/13/24 09:00 Resp 29 H 07/13/24 09:00 BP 147/91 07/13/24 09:00 Pulse Ox 97 07/13/24 09:00 FiO2 Intake & Output 07/12/24 07/13/24 07/13/24 18:59 06:59 18:59 Intake Total 1901.254 963.756 350 Output Total 385 795 350 Balance 1516.254 168.756 0 Weight 68.8 kg Intake: IV 1100 950 350 0.9% 900 900 150 Potassium Chloride 10 meq 200 In Water For Injection 1 100ml.bag @ 100 mls/hr IVPB Q1HR [facility] Rx#: [id number] Thiamine 500 mg In Sodium 200 50 Chloride 0.9% 50 ml @ 100 mls/hr IVPB TID [facility] Rx#:[id number] Intake, IV Titration 51.254 13.756 Amount Dexmedetomidine/0.9% NaCl 51.254 13.756 (Pmx) 400 mcg In Empty Bag 1 bag @ 0.2 MCG/KG/HR 2.948 mls/hr IV .Q24H [facility] Rx#:[id number] Oral 750 Output: Urine 385 795 350 Other: Voiding Method Indwelling Catheter Indwelling Catheter # Bowel Movements 1 - Exam The patient appeared well nourished and normally developed. Vital signs as documented. The patient is currently on Precedex, calm and comfortable. No significant agitation. Head exam is unremarkable. No scleral icterus or corneal arcus noted. Neck is without jugular venous distension, thyromegaly, or carotid bruits. Carotid upstrokes are brisk bilaterally. Lungs are clear to auscultation and percussion. Cardiac exam reveals the PMI to be normally sized and situated. Rhythm is regular. First and second heart sounds normal. No murmurs, rubs or gallops. Abdominal exam reveals normal bowel sounds, no masses, no organomegaly and no aortic enlargement. Extremities are nonedematous and both femoral and pedal pulses are normal. Examination of the skin revealed no evidence of significant rashes, suspicious appearing nevi or other concerning lesions. Neurologically, the patient is awake and alert and the patient does not have any focal neurological deficit. Cranial nerves are essentially intact. - Labs CBC & Chem 7: 07/13/24 09:43 07/13/24 06:05 Labs: Abnormal Lab Results - Last 24 Hours (Table) 07/12/24 07/12/24 07/12/24 Range/Units 11:09 15:59 20:02 Sodium (137-145) mmol/L Potassium (3.5-5.1) mmol/L Carbon Dioxide (22-30) mmol/L BUN (9-20) mg/dL Creatinine (0.66-1.25) mg/dL Glucose (74-99) mg/dL POC Glucose (mg/dL) 198 H 309 H 269 H (70-110) mg/dL Calcium (8.4-10.2) mg/dL Total Protein (6.3-8.2) g/dL Albumin (3.5-5.0) g/dL 07/13/24 07/13/24 Range/Units 06:05 06:22 Sodium 131 L (137-145) mmol/L Potassium 3.3 L (3.5-5.1) mmol/L Carbon Dioxide 21 L (22-30) mmol/L BUN 4 L (9-20) mg/dL Creatinine 0.43 L (0.66-1.25) mg/dL Glucose 221 H (74-99) mg/dL POC Glucose (mg/dL) 260 H (70-110) mg/dL Calcium 7.9 L (8.4-10.2) mg/dL Total Protein 4.8 L (6.3-8.2) g/dL Albumin 2.5 L (3.5-5.0) g/dL Assessment and Plan Plan: Delirium tremens improved and the patient is currently off Precedex. The patient remains on a combination of Zyprexa and Librium. Remains on a CIMO protocol for delirium tremens. Alcoholism Diabetes mellitus type 2, HbA1c is at 9 Hypertension Degenerative arthritis History of depression Sinus tachycardia Plan Patient is currently off Precedex Continue Zyprexa Continue Librium Ativan per CIWA protocol IV fluids normal saline at rate of 75 cc an hour Start the patient on atenolol 25 mg regarding his sinus tachycardia. Monitor the heart rate. Thiamine 100 mg IV every 24 hours Not a candidate for inpatient psychiatric evaluation Monitor oxygenation Psychiatric evaluation is appreciated IV Protonix Sliding scale insulin coverage for blood sugar control Monitor mental status Will continue to follow, the patient can be transferred to medical surgical floor.
[2024-07-13 16:31] LABS: Glucose,Whole Blood 157 mg/dL (70-110)
[2024-07-13 19:37] LABS: Glucose,Whole Blood 214 mg/dL (70-110)
[2024-07-13 21:30] LABS: Magnesium 1.4 mg/dL (1.6-2.3); Potassium 3.4 mmol/L (3.5-5.1)
[2024-07-13] MEDS: MAGNESIUM SULFATE-D5W PMX 1 GM in DEXTROSE/WATER 1 100ML.BAG IVPB SCH (21:36)
[2024-07-14 03:10] LABS: Anisocytosis Slight; HGB 10.7 gm/dL (13.0-17.5); MCH 34.6 pg (25.0-35.0); MCHC 32.4 g/dL (31.0-37.0); MCV 106.6 fL (80.0-100.0); Macrocytosis Moderate; Platelet Count 236 k/uL (150-450); RBC 3.09 m/uL (4.30-5.90); WBC 7.8 k/uL (3.8-10.6)
[2024-07-14 03:30] LABS: African American GFR (CKD) >90 (>60 ml/min/1.73 sqM); Anion Gap 4 mmol/L; Blood Urea Nitrogen 2 mg/dL (9-20); Calcium 7.9 mg/dL (8.4-10.2); Carbon Dioxide 22 mmol/L (22-30); Chloride 106 mmol/L (98-107); Glucose 212 mg/dL (74-99); Magnesium 1.8 mg/dL (1.6-2.3); Non-African American GFR(CKD) >90 (>60 ml/min/1.73 sqM); Potassium 4.3 mmol/L (3.5-5.1); Sodium 132 mmol/L (137-145)
[2024-07-14] MEDS: MAGNESIUM SULFATE-D5W PMX 1 GM in DEXTROSE/WATER 1 100ML.BAG IVPB ONE (03:43)
[2024-07-14 06:11] LABS: Glucose,Whole Blood 195 mg/dL (70-110)
--- NOTE | 2024-07-14 09:37 | P.PN ---
Subjective Progress Note Date: 07/13/24 Patient was seen for a follow-up. Patient has remarkably improved. He is able to participate in normal conversation. Patient states he has lost 50 pounds. He takes a bite and feels like razor going through his chest, pointing to the epigastric region. Patient does admit to drinking "a lot" for last 4 years. He drinks about 5 days a week. Patient denies any history of seizures. Objective - Vital Signs Vital signs: Vital Signs Temp 99.5 F 07/13/24 08:00 Pulse 94 07/13/24 14:00 Resp 16 07/13/24 14:00 BP 120/61 07/13/24 14:00 Pulse Ox 97 07/13/24 14:00 FiO2 Intake & Output 07/12/24 07/13/24 07/13/24 18:59 06:59 18:59 Intake Total 1901.254 815.880 0897 Output Total 119 205 0799 Balance 1516.254 168.756 150 Weight 68.8 kg 68.8 kg Intake: IV 4922 102 1913 0.9% 096 458 6187 Potassium Chloride 10 meq 400 In Water For Injection 1 100ml.bag @ 100 mls/hr IVPB Q1HR [facility] Rx#: [id number] Thiamine 500 mg In Sodium 200 50 100 Chloride 0.9% 50 ml @ 100 mls/hr IVPB TID [facility] Rx#:[id number] Intake, IV Titration 51.254 13.756 Amount Dexmedetomidine/0.9% NaCl 51.254 13.756 (Pmx) 400 mcg In Empty Bag 1 bag @ 0.2 MCG/KG/HR 2.948 mls/hr IV .Q24H [facility] Rx#:[id number] Oral 750 Output: Urine 521 556 5750 Other: Voiding Method Indwelling Catheter Indwelling Catheter Indwelling Catheter # Bowel Movements 1 - Exam Mental status, speech and language functions are completely normal. No aphasia or dysarthria. Patient knows it is July and the year is and that he is in [facility] in [facility]. Cranial nerves are normal. Visual quitnero are full. Face is symmetric. Tongue protrudes to the midline. On muscle strength testing there is no pronator drift and the strength is normal in arms and legs. Sensory to touch is equal with no neglect. - Labs CBC & Chem 7: 07/14/24 02:46 07/14/24 02:46 Labs: Abnormal Lab Results - Last 24 Hours (Table) 07/12/24 07/13/24 07/13/24 Range/Units 20:02 06:05 06:05 RBC (4.30-5.90) m/uL Hgb (13.0-17.5) gm/dL Hct (39.0-53.0) % MCV (80.0-100.0) fL MCHC (31.0-37.0) g/dL RDW (11.5-15.5) % Sodium 131 L (137-145) mmol/L Potassium 3.3 L (3.5-5.1) mmol/L Carbon Dioxide 21 L (22-30) mmol/L BUN 4 L (9-20) mg/dL Creatinine 0.43 L (0.66-1.25) mg/dL Glucose 221 H (74-99) mg/dL POC Glucose (mg/dL) 269 H (70-110) mg/dL Calcium 7.9 L (8.4-10.2) mg/dL Magnesium 1.4 L (1.6-2.3) mg/dL Total Protein 4.8 L (6.3-8.2) g/dL Albumin 2.5 L (3.5-5.0) g/dL 07/13/24 07/13/24 07/13/24 Range/Units 06:22 09:43 11:11 RBC 3.25 L (4.30-5.90) m/uL Hgb 10.5 L (13.0-17.5) gm/dL Hct 34.0 L (39.0-53.0) % MCV 104.9 H (80.0-100.0) fL MCHC 30.8 L (31.0-37.0) g/dL RDW 16.0 H (11.5-15.5) % Sodium (137-145) mmol/L Potassium (3.5-5.1) mmol/L Carbon Dioxide (22-30) mmol/L BUN (9-20) mg/dL Creatinine (0.66-1.25) mg/dL Glucose (74-99) mg/dL POC Glucose (mg/dL) 260 H 237 H (70-110) mg/dL Calcium (8.4-10.2) mg/dL Magnesium (1.6-2.3) mg/dL Total Protein (6.3-8.2) g/dL Albumin (3.5-5.0) g/dL 07/13/24 Range/Units 16:29 RBC (4.30-5.90) m/uL Hgb (13.0-17.5) gm/dL Hct (39.0-53.0) % MCV (80.0-100.0) fL MCHC (31.0-37.0) g/dL RDW (11.5-15.5) % Sodium (137-145) mmol/L Potassium (3.5-5.1) mmol/L Carbon Dioxide (22-30) mmol/L BUN (9-20) mg/dL Creatinine (0.66-1.25) mg/dL Glucose (74-99) mg/dL POC Glucose (mg/dL) 157 H (70-110) mg/dL Calcium (8.4-10.2) mg/dL Magnesium (1.6-2.3) mg/dL Total Protein (6.3-8.2) g/dL Albumin (3.5-5.0) g/dL Assessment and Plan Assessment: * Altered mental status, likely due to alcohol withdrawal. Mentation back to normal. * Status post Delirium tremens, resolved. * Chronic alcoholism * Suicidal ideation * Depression * Diabetes * Generalized weakness * Hypertension Plan: * Patient's mentation is completely back to normal. Examination is nonfocal. * Patient is status post DTs. * Psychiatry following for depression/suicidal ideation. * Continue thiamine, folic acid * Hemoglobin A1c 9.0. Recommend optimize control of diabetes to target A1c < 7.0. * PT, OT, when patient able to tolerate. * Other medical management as per IM and critical care. * B12 742, folate 8.70, TSH 2.44. Patient on folate replacement. * Patient undergoing EGD in the morning. * Neurologically the patient is clear. We will sign off. Please reconsult if any concerns.
--- NOTE | 2024-07-14 12:06 | P.PN ---
Progress Note - Text Progress Note Date: 07/14/24 Interval history: Patient was seen today for psychiatric follow-up. Patient is currently waiting for EGD today. Currently is NPO. Patient has been taking his medications. Claims that his withdrawal symptoms have improved significantly. Claims that his anxiety and mood are also improving mildly. Claims that he is happy that he started back on his bipolar medications. He claims that he wants to follow-up at [facility] and also a new primary care physician. He is anxious to hear the results of the studies and Egd today as he is still having burning in his throat. Claims that he is sleeping fairly at nighttime, denies any issues with appetite besides discomfort when swallowing. Denies any auditory or visual hallucinations denies any suicidal homicidal ideations intent or plan. MENTAL STATUS EXAM: General Appearance: Patient appears to be stated age is bald, more alert, directable, somewhat evasive and guarded. Patient appears to have fair hygiene and grooming. Balding, bearded Behavior: Patient is seated without any agitated behavior. Normal psychomotor activity. More cooperative today Speech: Patient's speech is fluent and nonpressured. Rambles at times, improving mildly Mood/Affect: Patient reports their mood is " better", affect is congruent Suicidality/Homicidality: Patient is currently denying any suicidal or homicidal ideation. Perceptions: Patient denies any visual hallucinations and denies any auditory hallucinations Though content/process: There is no evidence of any delusional thought content and thought process is linear and goal-directed. Rambles at times, improving Memory and concentration: AOX2, does not know today's date, grossly intact for the purposes of this session. Judgment and insight: Improving mildly IMPRESSIONS: Alcohol use disorder, severe dependence Bipolar 2 disorder Generalized anxiety disorder Tobacco use disorder PLAN: -At this time patient DOES NOT meet criteria for inpatient psychiatric admission. -Would recommend the following medication changes/additions: increase Zyprexa 5 mg nightly for mood stabilization/sleep, lithium 300 mg nightly for mood stabilization/suicidal thoughts. decrease/taper off Librium, last dose will be tomorrow night. [employer] offered patient anticraving medications however he declined. -CIWA protocol with PRN Ativan for alcohol withdrawal. Continue to monitor vital signs. -mental health social worker to provide patient with outpatient mental health/psychiatry resources for appropriate follow up upon discharge. patient will also need primary care follow up once discharged. -[employer] spoke with patient about substance abuse and the harmful effects on medical and mental health, patient verbally understood and agreed. -mental health social worker to provide patient substance use treatment resources including AA/NA meetings in the community. -mental health social worker to provide patient with access line number to call for inpatient substance rehab -Communicated plan to patient's nurse -at this time psychiatry will sign off -Please contact with any questions.
[2024-07-14 12:16] LABS: Glucose,Whole Blood 173 mg/dL (70-110)
[2024-07-14] MEDS ORDERED: PROPOFOL 10 MG/ML 20 ML VIAL IV ONE (12:36)
[2024-07-14] MEDS ORDERED: LIDOCAINE 1% INJ 10MG/ML (20 ML MDV) ONE (12:36)
[2024-07-14] MEDS: IV FLUID CONTINUATION 1,000 ML IV ONE ×2 (12:42→12:50)
--- NOTE | 2024-07-14 13:34 | P.PCN ---
Date of Procedure: 07/14/24 Procedure(s) Performed: Preoperative Dx: Dysphagia/odynophagia Postoperative Dx: Severe erosive esophagitis, small hiatal hernia, mild gastritis, mild duodenitis Procedure: EGD with Bx Anesthesia: Sedation Endoscopist: Dr. Smith Specimens: Duodenum, antrum, esophagus Endoscopic Procedure: The patient was on the endoscopy table in the left decubitus position. The Olympus gastroscope was inserted into the oropharynx and passed to the mid esophagus. Starting approximately 1/3-1/2 the distance of the esophagus we encountered a circumferential area of erosive esophagitis. There was a fibrinous peel that was present that was able to be suctioned off. Some fresh oozing of blood was noted from the mucosal surfaces. No deep ulcerations or neoplastic changes were present. Interestingly the distal 1 cm of the esophagus proximal to the GE junction appeared free of inflammation. The scope was passed into the duodenum. The second and third portion of the duodenum appeared normal. In the first portion of the duodenum there was mild duodenitis present without ulcerations. A biopsy took place. The pylorus was patent. The stomach was inspected. The patient had a mild gastritis present with a few small superficial erosions. Biopsies were taken. Retroflexion revealed a 1.5 cm hiatal hernia. The esophagus was inspected once again. Multiple biopsies were taken of this area. Etiology unclear given the sparing at the GE junction. The patient was then taken to the recovery room in stable condition per anesthesia guidelines. Recommendations: Await biopsy results. Continue antiacid therapy. Add Carafate. Patient with significant heavy alcohol use which could be the underlying etiology. At the very least it is contributing to the significant inflammation seen. Recommend short-term follow-up repeat upper endoscopy in 2 to 3 months after appropriate treatment. Resume diet.
--- NOTE | 2024-07-14 14:16 | P.PN ---
Subjective Interval History: 59-year-old male patient with known history of alcoholism who presented to ER with a complaint of fall and head injury. Patient was recently hospitalized on 3 12/08/2024, was found to be in bed at home for more than 2 weeks and was not taking his meds, was noted to have scattered alcohol containers all around the bed, was drinking 1/5 of vodka on daily basis, patient left to me at that time. Now presented with fall and head injury. Patient was noted to be in delirium tremens on presentation was also having suicidal ideations. Required Precedex drip in the ICU. Admitted hospital for further evaluation and management of alcohol withdrawal syndrome, debility/generalized weakness, suicidal ideations. ICU, neurology and psychiatry consulted. 07/12--- patient was seen and examined today. Alert oriented x 3. Calm and cooperative today. Denied any suicidal or homicidal ideations. Psychiatry evaluated the patient, recommended to discontinue sitter, patient not currently imminent threat to self. Recommended Zyprexa, lithium, Librium. Patient had low-grade fever 99.9, heart rate 97, respiratory rate 20, blood pressure 105/68, saturating 94% on room air. WBCs 9.3 hemoglobin 11.4 platelet 208. BMP unr emarkable. TSH and folate normal. 07/13--- patient was seen and examined today. Patient feeling better today. Patient off Precedex drip. Denied any suicidal or homicidal ideations. Vital stable, WBCs 8.5, hemoglobin 10.5, platelet 222. Continues complain of burning sensation with swallowing and drinking. General surgery following, plan for EGD tomorrow. 07/14--patient was seen and examined today. Psychiatry evaluated the patient, signed off, recommended to increase Zyprexa to 5 mg nightly, lithium 300 mg nightly, decrease/taper of Librium last dose tomorrow night. Recommended outpatient follow-up. Patient underwent EGD with biopsy today, showed severe erosive esophagitis small hiatal hernia, mild gastritis, mild duodenitis. Patient received 2 mg Ativan last night for withdrawal. Assessment and plan: Delirium tremens Alcohol withdrawal syndrome: Alcohol use disorder Acute metabolic encephalopathy: Recently admitted for admitted for alcohol withdrawal, found in the bed for more than 2 weeks, history of drinking 1/5 of vodka daily basis, left AMA, now presented after a fall, head injury CT head and cervical spine was negative for acute process Chest x-ray was negative for acute process LFTs amylase and lipase unremarkable. Alcohol level was less than 10 Became agitated and combative in the ED, required Precedex drip and transferred to ICU Initially received Precedex drip, as needed Ativan per [facility] protocol Thiamine, folic acid, multivitamin Neurology consulted--- appreciate recs. Mentation improved, neurology signed off. ICU consulted Dysphagia/odynophagia: Severe erosive esophagitis, small hiatal hernia, mild gastritis and duodenitis: General Surgery consultedstatus post EGD 07/14 that showed severe erosive esophagitis mild hiatal hernia, mild gastritis Continue PPI, Carafate Outpatient repeat EGD in 2 to 3 months. Depression: Psychiatry consultedrecommended Zyprexa 5 mg nightly for mood stabilization, lithium 300 mg nightly for mood stabilization, Librium 20 mg 3 times daily to be titrated off Psychiatry recommended to discontinue one-to-one sitter for suicide precautions that patient not currently imminent threat to self. Diabetes mellitus: HbA1c 9 Accu-Cheks, diabetic diet Sliding-scale insulin Debility: Generalized weakness: Severe PCM: Fall precautions-PT/OT consult Case management consult for outpatient resources. Hypertension Psoriasis DVT prophylaxis: Subcu heparin Monitor vital signs and labs Labs and medication were reviewed. Continue same treatment. Further recommendations as per clinical course of the patient PHYSICAL EXAMINATION: GENERAL: The patient is A&O x3, NAD HEENT: EOMI, Sclerae anicteric, Moist Mucous membranes Neck: Supple, Non tender, No JVD PULMONARY: Equal breath souds B/L, No wheezing, No crackles. CARDIOVASCULAR: S1, S2 present. No murmurs, rubs, or gallops. ABDOMEN: Soft, nontender, nondistended, normoactive bowel sounds. No guarding or rebound tenderness. MUSCULOSKELETAL: No edema, No cyanosis. No clubbing. Normal ROM. Intact peripheral pulses. NEUROLOGICAL: CN 2-12 grossly intact. No FND Skin: No Rash REVIEW OF SYSTEMS: GI: No nauscea, vomiting or diarrhea. : No dysuria or retention. Cardiovascular: Denies any chest pain, palpitations Pulmonary: Denied any shortness breath, cough. NERVOUS SYSTEM: No numbness or weakness. ALLERGY/IMMUNOLOGY: No asthma or hay fever. MUSCULOSKELETAL: As mentioned earlier. HEMATOLOGY/ONCOLOGY: No history of anemia. ENDOCRINE: No history of diabetes or hypothyroidism. CONSTITUTIONAL: Complains of fatigue. DERMATOLOGY: Negative. RHEUMATOLOGY: Negative. Dictation was produced using [employer] dictation software. please excuse any grammatical, word or spelling errors. Objective - Vital Signs Vital signs: Vital Signs Temp 98.2 F 07/14/24 12:36 Pulse 72 07/14/24 12:36 Resp 18 07/14/24 12:36 BP 130/77 07/14/24 12:36 Pulse Ox 96 07/14/24 12:36 FiO2 Intake & Output 07/13/24 07/14/24 07/14/24 18:59 06:59 18:59 Intake Total 1950 1650 200 Output Total 1800 3200 Balance 150 -1550 200 Weight 68.8 kg 66.8 kg Intake: IV 1950 1650 200 0.9% 1450 900 Magnesium Sulfate-D5w Pmx 300 1 gm In Dextrose/Water 1 100ml.bag @ 100 mls/hr IVPB Q1H [facility] Rx#: [id number] Potassium Chloride 10 meq 400 400 In Water For Injection 1 100ml.bag @ 100 mls/hr IVPB Q1HR [facility] Rx#: [id number] Thiamine 500 mg In Sodium 100 50 Chloride 0.9% 50 ml @ 100 mls/hr IVPB TID [facility] Rx#:[id number] Output: Urine 1800 3200 Other: Voiding Method Indwelling Catheter Indwelling Catheter - Labs CBC & Chem 7: 07/14/24 02:46 07/14/24 02:46 Labs: Abnormal Lab Results - Last 24 Hours (Table) 07/13/24 07/13/24 07/13/24 Range/Units 06:05 16:29 19:35 RBC (4.30-5.90) m/uL Hgb (13.0-17.5) gm/dL Hct (39.0-53.0) % MCV (80.0-100.0) fL RDW (11.5-15.5) % Sodium (137-145) mmol/L Potassium (3.5-5.1) mmol/L BUN (9-20) mg/dL Creatinine (0.66-1.25) mg/dL Glucose (74-99) mg/dL POC Glucose (mg/dL) 157 H 214 H (70-110) mg/dL Calcium (8.4-10.2) mg/dL Magnesium 1.4 L (1.6-2.3) mg/dL 07/13/24 07/14/24 07/14/24 Range/Units 21:01 02:46 02:46 RBC 3.09 L (4.30-5.90) m/uL Hgb 10.7 L (13.0-17.5) gm/dL Hct 33.0 L (39.0-53.0) % MCV 106.6 H (80.0-100.0) fL RDW 16.0 H (11.5-15.5) % Sodium 132 L (137-145) mmol/L Potassium 3.4 L (3.5-5.1) mmol/L BUN 2 L (9-20) mg/dL Creatinine 0.47 L (0.66-1.25) mg/dL Glucose 212 H (74-99) mg/dL POC Glucose (mg/dL) (70-110) mg/dL Calcium 7.9 L (8.4-10.2) mg/dL Magnesium 1.4 L (1.6-2.3) mg/dL 07/14/24 07/14/24 Range/Units 06:10 12:03 RBC (4.30-5.90) m/uL Hgb (13.0-17.5) gm/dL Hct (39.0-53.0) % MCV (80.0-100.0) fL RDW (11.5-15.5) % Sodium (137-145) mmol/L Potassium (3.5-5.1) mmol/L BUN (9-20) mg/dL Creatinine (0.66-1.25) mg/dL Glucose (74-99) mg/dL POC Glucose (mg/dL) 195 H 173 H (70-110) mg/dL Calcium (8.4-10.2) mg/dL Magnesium (1.6-2.3) mg/dL
[2024-07-14 17:15] LABS: Glucose,Whole Blood 165 mg/dL (70-110)
[2024-07-14] MEDS: THIAMINE 100 MG TAB PO SCH (17:23)
[2024-07-14] MEDS: PANTOPRAZOLE 40 MG TABLET PO SCH (17:23)
[2024-07-14] MEDS: SUCRALFATE 1 GM TAB PO SCH (17:24)
[2024-07-14 20:12] LABS: Glucose,Whole Blood 262 mg/dL (70-110)
[2024-07-14] MEDS: OLANZapine 5 MG TAB PO SCH (20:22)
--- NOTE | 2024-07-15 00:02 | P.PN ---
Subjective Progress Note Date: 07/14/24 This is a 59-year-old male patient, known history of alcoholism, presented [facility] after a fall and head injury. Noted, the patient was in the hospital on 07/08/2024 as the patient was found in bed at home for more than 2 weeks and he has been taking his medication and there were scattered alcohol containers all around the bed. He was still drinking alcohol approximately 1/5 of vodka on a daily basis in addition to multiple bottles of beer. Based on that, the patient was hospitalized. During his last admission, he was in acute alcohol intoxication in the blood alcohol was 235 at time of admission. He had also electrolyte imbalance and depression. The patient apparently left the hospital AMA without having a psychiatric evaluation. After leaving the [facility], the patient fell and he was brought back to the hospital. The patient was in acute delirium tremens. Since his admission, the patient received a total of 12 mg of Ativan he was also started on Precedex which is currently running at 0.5 mcg/kg/h. The patient is resting comfortably in bed. No significant agitation at this point although he was quite agitated and combative at time of his admission. CBC is within normal limits. BUN is 20 with a creatinine of 0.28 and sodium levels at 133. The patient had a HbA1c of 9. LFTs are normal. Amylase and lipase were within normal limits. The toxicology screen was done. Alcohol level was less than 10. Hemodynamically stable. No other significant events overnight. Resting comfortably in bed, currently on 2 L of oxygen by nasal cannula. No reported aspiration. No reported respiratory distress. CAT scan of the head and spine was done and it showed no acute abnormalities. Chest x-ray on 07/08/2024 showed no acute process. On 07/12/2024, the patient is being seen for a follow-up. The patient remains a bit restless and slightly confused. He remains on Precedex which is currently running at 0.3 mcg/kg/h. Overnight, the patient was given 1 mg of Ativan. He is on normal saline at 75 cc an hour. Hemodynamically stable. White cell count of 9.3 with a hemoglobin 11.4 and a platelet count of 208. Sodium is at 132, potassium is at 4.2, BUN is 6 with a creatinine of 0.4. LFTs are within normal limits. No focal neurological deficit. Psychiatric consultation has been requested and the patient was seen by psychiatry and he was started on Zyprexa 2.5 mg at bedtime and Librium 20 mg p.o. 3 times daily. No other significant events overnight. Remains on heparin subcu for DVT prophylaxis. Based on psychiatric evaluation, the patient does not meet criteria for inpatient psychiatric admission. On 07/13/2024, patient is being seen for a follow-up. The patient is doing well with no specific complaints. Resting comfortably in bed. Continues to have some mild sinus tachycardia. Otherwise, no significant agitation. He is off the Precedex drip as of 8:30 PM yesterday. No altered mentation. Tolerating diet. No nausea. No vomiting. No abdominal pain. No emesis. He is on Zyprexa and Librium. He has not required Ativan overnight. Remains on IV fluids. White cell count of 8.5 with a heme of 10.5 and a platelet count of 222. Sodium is at 131, but potassium is at 3.3, BUN is 4 with a creatinine of 0.3. LFTs are normal. Total protein is at 4.8 with an albumin level of 2.5. No other significant events overnight. He remains on room air oxygen. No agitation. No seizure activity. On 07/14/2024, the patient is being seen for a follow-up. The patient is calm and comfortable. Underwent EGD and the patient was found to have erosive esophagitis and small hiatal hernia and mild gastritis. He did receive a total of 2 mg of Ativan last night. Currently on Zyprexa 5 mg p.o. daily, lithium 300 mg p.o. daily. No significant agitation. Hemoglobin is at 10.7 with a white cell count of 7.8. BUN is 2 with a creatinine 0.4 and sodium level is at 142. He is currently on room air oxygen with a pulse ox of 97%. No other significant events overnight. Objective - Vital Signs Vital signs: Vital Signs Temp 98.7 F 07/14/24 19:29 Pulse 89 07/14/24 19:29 Resp 17 07/14/24 19:29 BP 104/67 07/14/24 19:29 Pulse Ox 97 07/14/24 19:29 FiO2 Intake & Output 07/14/24 07/14/24 07/15/24 06:59 18:59 06:59 Intake Total 1650 2300 Output Total 3200 1000 800 Balance -1550 1300 -800 Weight 66.8 kg Intake: IV 1650 200 0.9% 900 Magnesium Sulfate-D5w Pmx 300 1 gm In Dextrose/Water 1 100ml.bag @ 100 mls/hr IVPB Q1H [facility] Rx#: [id number] Potassium Chloride 10 meq 400 In Water For Injection 1 100ml.bag @ 100 mls/hr IVPB Q1HR [facility] Rx#: [id number] Thiamine 500 mg In Sodium 50 Chloride 0.9% 50 ml @ 100 mls/hr IVPB TID [facility] Rx#:[id number] Oral 2100 Output: Urine 3200 1000 800 Uretheral (Burr) 800 Other: Voiding Method Indwelling Catheter Indwelling Catheter # Voids 5 1 # Bowel Movements 1 - Exam The patient appeared well nourished and normally developed. Vital signs as documented. The patient is currently on Precedex, calm and comfortable. No significant agitation. Head exam is unremarkable. No scleral icterus or corneal arcus noted. Neck is without jugular venous distension, thyromegaly, or carotid bruits. Carotid upstrokes are brisk bilaterally. Lungs are clear to auscultation and percussion. Cardiac exam reveals the PMI to be normally sized and situated. Rhythm is regular. First and second heart sounds normal. No murmurs, rubs or gallops. Abdominal exam reveals normal bowel sounds, no masses, no organomegaly and no aortic enlargement. Extremities are nonedematous and both femoral and pedal pulses are normal. Examination of the skin revealed no evidence of significant rashes, suspicious appearing nevi or other concerning lesions. Neurologically, the patient is awake and alert and the patient does not have any focal neurological deficit. Cranial nerves are essentially intact. - Labs CBC & Chem 7: 07/14/24 02:46 07/14/24 02:46 Labs: Abnormal Lab Results - Last 24 Hours (Table) 07/14/24 07/14/24 07/14/24 Range/Units 02:46 02:46 06:10 RBC 3.09 L (4.30-5.90) m/uL Hgb 10.7 L (13.0-17.5) gm/dL Hct 33.0 L (39.0-53.0) % MCV 106.6 H (80.0-100.0) fL RDW 16.0 H (11.5-15.5) % Sodium 132 L (137-145) mmol/L BUN 2 L (9-20) mg/dL Creatinine 0.47 L (0.66-1.25) mg/dL Glucose 212 H (74-99) mg/dL POC Glucose (mg/dL) 195 H (70-110) mg/dL Calcium 7.9 L (8.4-10.2) mg/dL 07/14/24 07/14/24 07/14/24 Range/Units 12:03 17:14 20:10 RBC (4.30-5.90) m/uL Hgb (13.0-17.5) gm/dL Hct (39.0-53.0) % MCV (80.0-100.0) fL RDW (11.5-15.5) % Sodium (137-145) mmol/L BUN (9-20) mg/dL Creatinine (0.66-1.25) mg/dL Glucose (74-99) mg/dL POC Glucose (mg/dL) 173 H 165 H 262 H (70-110) mg/dL Calcium (8.4-10.2) mg/dL Assessment and Plan Plan: Delirium tremens improved and the patient is currently on Librium and Zyprexa. Patient is transferred out of the intensive care unit. Alcoholism Diabetes mellitus type 2, HbA1c is at 9 Hypertension Degenerative arthritis History of depression Sinus tachycardia Erosive esophagitis and some mild gastritis based on EGD findings. Plan Continue Zyprexa 5 mg p.o. daily Continue Librium 10 mg p.o. 3 times daily Ativan per CIWA protocol IV fluids normal saline at rate of 75 cc an hour Continue atenolol 25 mg p.o. daily Thiamine 100 mg IV every 24 hours Not a candidate for inpatient psychiatric evaluation Monitor oxygenation Psychiatric evaluation is appreciated IV Protonix Sliding scale insulin coverage for blood sugar control Monitor mental status Will continue to follow
[2024-07-15 07:11] LABS: Glucose,Whole Blood 239 mg/dL (70-110)
[2024-07-15] MEDS: PANTOPRAZOLE 40 MG TABLET PO SCH (09:10)
--- NOTE | 2024-07-15 11:58 | P.PN ---
Subjective Progress Note Date: 07/15/24 SURGICAL PROGRESS NOTE CHIEF COMPLAINT: Dysphagia HISTORY OF PRESENT ILLNESS: Patient is postop day #1 status post EGD reporting severe erosive gastritis, small hiatal hernia, mild gastritis and mild duod enitis. Patient reports that he is able to tolerate diet if he cuts it into very small pieces. He still does have some pain with swallowing. No nausea or vomiting. Afebrile. PHYSICAL EXAM: VITAL SIGNS: Reviewed. GENERAL: Well-developed in no acute distress. HEENT: No sclera icterus. Extraocular movements grossly intact. Moist buccal mucosa. Head is atraumatic, normocephalic. ABDOMEN: Soft. Nondistended. Nontender. NEUROLOGIC: Alert and oriented. Cranial nerves II through XII grossly intact. ASSESSMENT: 1. Dysphagia and odynophagia status post EGD reporting severe erosive gastri tis, small helical hernia, mild gastritis and mild duodenitis 2. EtOH abuse PLAN: -Continue PPI BID and Carafate -Recommend repeat EGD in 2 to 3 months -Continue regular diet -Educated patient on alcohol cessation Physician Bicycle Inspector note has been reviewed by physician. Signing provider agrees with the documented findings, assessment, and plan of care. I have personally seen and examined the patient, reviewed the [employer]OMPER /PAs history, exam and MDM and agree with the assessment and plan as written. Based on total visit time, I have performed more than 50% of the visit. As above: Patient seems to be doing a bit better. Significant esophagitis seen on yesterday's study. Continue antiacid therapy. Continue diet as tolerated. Follow-up as outpatient to discuss repeat endoscopy 2 to 3 months. Will sign off. Please call if needed. Objective - Vital Signs Vital signs: Vital Signs Temp 98.2 F 07/15/24 07:00 Pulse 84 07/15/24 09:25 Resp 16 07/15/24 07:00 BP 97/64 07/15/24 07:00 Pulse Ox 98 07/15/24 07:00 FiO2 Intake & Output 07/14/24 07/15/24 07/15/24 18:59 06:59 18:59 Intake Total 2300 Output Total 1000 1025 Balance 1300 -1025 Weight 63.5 kg Intake: IV 200 Oral 2100 Output: Urine 1000 1025 Uretheral (Burr) 800 Other: Voiding Method Indwelling Catheter Toilet Toilet Urinal Urinal # Voids 5 1 # Bowel Movements 1 - Labs CBC & Chem 7: 07/14/24 02:46 07/14/24 02:46 Labs: Abnormal Lab Results - Last 24 Hours (Table) 07/14/24 07/14/24 07/14/24 Range/Units 12:03 17:14 20:10 POC Glucose (mg/dL) 173 H 165 H 262 H (70-110) mg/dL 07/15/24 Range/Units 07:02 POC Glucose (mg/dL) 239 H (70-110) mg/dL
[2024-07-15 12:28] LABS: Glucose,Whole Blood 269 mg/dL (70-110)
--- NOTE | 2024-07-15 13:49 | P.PN ---
Subjective Interval History: 59-year-old male patient with known history of alcoholism who presented to ER with a complaint of fall and head injury. Patient was recently hospitalized on 3 12/08/2024, was found to be in bed at home for more than 2 weeks and was not taking his meds, was noted to have scattered alcohol containers all around the bed, was drinking 1/5 of vodka on daily basis, patient left to me at that time. Now presented with fall and head injury. Patient was noted to be in delirium tremens on presentation was also having suicidal ideations. Required Precedex drip in the ICU. Admitted hospital for further evaluation and management of alcohol withdrawal syndrome, debility/generalized weakness, suicidal ideations. ICU, neurology and psychiatry consulted. 07/12--- patient was seen and examined today. Alert oriented x 3. Calm and cooperative today. Denied any suicidal or homicidal ideations. Psychiatry evaluated the patient, recommended to discontinue sitter, patient not currently imminent threat to self. Recommended Zyprexa, lithium, Librium. Patient had low-grade fever 99.9, heart rate 97, respiratory rate 20, blood pressure 105/68, saturating 94% on room air. WBCs 9.3 hemoglobin 11.4 platelet 208. BMP unr emarkable. TSH and folate normal. 07/13--- patient was seen and examined today. Patient feeling better today. Patient off Precedex drip. Denied any suicidal or homicidal ideations. Vital stable, WBCs 8.5, hemoglobin 10.5, platelet 222. Continues complain of burning sensation with swallowing and drinking. General surgery following, plan for EGD tomorrow. 07/14--patient was seen and examined today. Psychiatry evaluated the patient, signed off, recommended to increase Zyprexa to 5 mg nightly, lithium 300 mg nightly, decrease/taper of Librium last dose tomorrow night. Recommended outpatient follow-up. Patient underwent EGD with biopsy today, showed severe erosive esophagitis small hiatal hernia, mild gastritis, mild duodenitis. Patient received 2 mg Ativan last night for withdrawal. 07/15--patient was seen and examined today. No issues overnight. Withdrawal symptoms improved. Patient still complaining of heartburn, remains on PPI and Carafate. General surgery recommended to continue PPI, Carafate, repeat EGD in 2 to 3 months. Patient on regular diet. PT/OT recommended subacute rehab, awaiting placement. Assessment and plan: Delirium tremens Alcohol withdrawal syndrome: Alcohol use disorder Acute metabolic encephalopathy: Recently admitted for admitted for alcohol withdrawal, found in the bed for more than 2 weeks, history of drinking 1/5 of vodka daily basis, left AMA, now presented after a fall, head injury CT head and cervical spine was negative for acute process Chest x-ray was negative for acute process LFTs amylase and lipase unremarkable. Alcohol level was less than 10 Became agitated and combative in the ED, required Precedex drip and transferred to ICU Initially received Precedex drip, as needed Ativan per [facility] protocol Thiamine, folic acid, multivitamin Neurology consulted--- appreciate recs. Mentation improved, neurology signed off. ICU consulted Dysphagia/odynophagia: Severe erosive esophagitis, small hiatal hernia, mild gastritis and duodenitis: General Surgery consultedstatus post EGD 07/14 that showed severe erosive esophagitis mild hiatal hernia, mild gastritis Continue PPI, Carafate Outpatient repeat EGD in 2 to 3 months. Depression: Psychiatry consultedrecommended Zyprexa 5 mg nightly for mood stabilization, lithium 300 mg nightly for mood stabilization, Librium 20 mg 3 times daily to be titrated off Psychiatry recommended to discontinue one-to-one sitter for suicide precautions that patient not currently imminent threat to self. Diabetes mellitus: HbA1c 9 Accu-Cheks, diabetic diet Sliding-scale insulin Debility: Generalized weakness: Severe PCM: Fall precautions-PT/OT consult Case management consult for outpatient resources. Hypertension Psoriasis DVT prophylaxis: Subcu heparin Disposition: Subacute rehab, awaiting placement. Monitor vital signs and labs Labs and medication were reviewed. Continue same treatment. Further recommendations as per clinical course of the patient PHYSICAL EXAMINATION: GENERAL: The patient is A&O x3, NAD HEENT: EOMI, Sclerae anicteric, Moist Mucous membranes Neck: Supple, Non tender, No JVD PULMONARY: Equal breath souds B/L, No wheezing, No crackles. CARDIOVASCULAR: S1, S2 present. No murmurs, rubs, or gallops. ABDOMEN: Soft, nontender, nondistended, normoactive bowel sounds. No guarding or rebound tenderness. MUSCULOSKELETAL: No edema, No cyanosis. No clubbing. Normal ROM. Intact peripheral pulses. NEUROLOGICAL: CN 2-12 grossly intact. No FND Skin: No Rash REVIEW OF SYSTEMS: GI: No nauscea, vomiting or diarrhea. : No dysuria or retention. Cardiovascular: Denies any chest pain, palpitations Pulmonary: Denied any shortness breath, cough. NERVOUS SYSTEM: No numbness or weakness. ALLERGY/IMMUNOLOGY: No asthma or hay fever. MUSCULOSKELETAL: As mentioned earlier. HEMATOLOGY/ONCOLOGY: No history of anemia. ENDOCRINE: No history of diabetes or hypothyroidism. CONSTITUTIONAL: Complains of fatigue. DERMATOLOGY: Negative. RHEUMATOLOGY: Negative. Dictation was produced using [employer] dictation software. please excuse any grammatical, word or spelling errors. Objective - Vital Signs Vital signs: Vital Signs Temp 98.3 F 07/15/24 12:00 Pulse 85 07/15/24 12:00 Resp 16 07/15/24 12:00 BP 98/61 07/15/24 12:00 Pulse Ox 96 07/15/24 12:00 FiO2 Intake & Output 07/14/24 07/15/24 07/15/24 18:59 06:59 18:59 Intake Total 2300 Output Total 1000 1025 Balance 1300 -1025 Weight 63.5 kg Intake: IV 200 Oral 2100 Output: Urine 1000 1025 Uretheral (Burr) 800 Other: Voiding Method Indwelling Catheter Toilet Toilet Urinal Urinal # Voids 5 1 # Bowel Movements 1 - Labs CBC & Chem 7: 07/14/24 02:46 07/14/24 02:46 Labs: Abnormal Lab Results - Last 24 Hours (Table) 07/14/24 07/14/24 07/15/24 Range/Units 17:14 20:10 07:02 POC Glucose (mg/dL) 165 H 262 H 239 H (70-110) mg/dL 07/15/24 Range/Units 12:06 POC Glucose (mg/dL) 269 H (70-110) mg/dL
--- NOTE | 2024-07-15 17:39 | P.PN ---
Subjective Progress Note Date: 07/15/24 This is a 59-year-old male patient, known history of alcoholism, presented [facility] after a fall and head injury. Noted, the patient was in the hospital on 07/08/2024 as the patient was found in bed at home for more than 2 weeks and he has been taking his medication and there were scattered alcohol containers all around the bed. He was still drinking alcohol approximately 1/5 of vodka on a daily basis in addition to multiple bottles of beer. Based on that, the patient was hospitalized. During his last admission, he was in acute alcohol intoxication in the blood alcohol was 235 at time of admission. He had also electrolyte imbalance and depression. The patient apparently left the hospital AMA without having a psychiatric evaluation. After leaving the [facility], the patient fell and he was brought back to the hospital. The patient was in acute delirium tremens. Since his admission, the patient received a total of 12 mg of Ativan he was also started on Precedex which is currently running at 0.5 mcg/kg/h. The patient is resting comfortably in bed. No significant agitation at this point although he was quite agitated and combative at time of his admission. CBC is within normal limits. BUN is 20 with a creatinine of 0.28 and sodium levels at 133. The patient had a HbA1c of 9. LFTs are normal. Amylase and lipase were within normal limits. The toxicology screen was done. Alcohol level was less than 10. Hemodynamically stable. No other significant events overnight. Resting comfortably in bed, currently on 2 L of oxygen by nasal cannula. No reported aspiration. No reported respiratory distress. CAT scan of the head and spine was done and it showed no acute abnormalities. Chest x-ray on 07/08/2024 showed no acute process. On 07/12/2024, the patient is being seen for a follow-up. The patient remains a bit restless and slightly confused. He remains on Precedex which is currently running at 0.3 mcg/kg/h. Overnight, the patient was given 1 mg of Ativan. He is on normal saline at 75 cc an hour. Hemodynamically stable. White cell count of 9.3 with a hemoglobin 11.4 and a platelet count of 208. Sodium is at 132, potassium is at 4.2, BUN is 6 with a creatinine of 0.4. LFTs are within normal limits. No focal neurological deficit. Psychiatric consultation has been requested and the patient was seen by psychiatry and he was started on Zyprexa 2.5 mg at bedtime and Librium 20 mg p.o. 3 times daily. No other significant events overnight. Remains on heparin subcu for DVT prophylaxis. Based on psychiatric evaluation, the patient does not meet criteria for inpatient psychiatric admission. On 07/13/2024, patient is being seen for a follow-up. The patient is doing well with no specific complaints. Resting comfortably in bed. Continues to have some mild sinus tachycardia. Otherwise, no significant agitation. He is off the Precedex drip as of 8:30 PM yesterday. No altered mentation. Tolerating diet. No nausea. No vomiting. No abdominal pain. No emesis. He is on Zyprexa and Librium. He has not required Ativan overnight. Remains on IV fluids. White cell count of 8.5 with a heme of 10.5 and a platelet count of 222. Sodium is at 131, but potassium is at 3.3, BUN is 4 with a creatinine of 0.3. LFTs are normal. Total protein is at 4.8 with an albumin level of 2.5. No other significant events overnight. He remains on room air oxygen. No agitation. No seizure activity. On 07/14/2024, the patient is being seen for a follow-up. The patient is calm and comfortable. Underwent EGD and the patient was found to have erosive esophagitis and small hiatal hernia and mild gastritis. He did receive a total of 2 mg of Ativan last night. Currently on Zyprexa 5 mg p.o. daily, lithium 300 mg p.o. daily. No significant agitation. Hemoglobin is at 10.7 with a white cell count of 7.8. BUN is 2 with a creatinine 0.4 and sodium level is at 142. He is currently on room air oxygen with a pulse ox of 97%. No other significant events overnight. 07/15/2024, no new complaints the patient is doing well. Maintained on Librium 10 mg p.o. 3 times daily. Ativan as needed and the patient has not received any additional doses. Remains on Zyprexa 5 mg p.o. daily. Remains on room air oxygen. Hemodynamically stable. No chest pain. No shortness of breath. He has severe erosive esophagitis and the patient is currently on oral Protonix 40 mg p.o. twice a day. Remains on Carafate. Remains on thiamine. He is also on lithium 300 mg at bedtime. He remains on subcu heparin for DVT prophylaxis. No new labs are available from today. Hemodynamically stable. No respiratory complaints. He remains on room air oxygen. IV fluids are currently at A KVO Objective - Vital Signs Vital signs: Vital Signs Temp 98.2 F 07/15/24 07:00 Pulse 80 07/15/24 07:00 Resp 16 07/15/24 07:00 BP 97/64 07/15/24 07:00 Pulse Ox 98 07/15/24 07:00 FiO2 Intake & Output 07/14/24 07/15/24 07/15/24 18:59 06:59 18:59 Intake Total 2300 Output Total 1000 1025 Balance 1300 -1025 Weight 63.5 kg Intake: IV 200 Oral 2100 Output: Urine 1000 1025 Uretheral (Burr) 800 Other: Voiding Method Indwelling Catheter Toilet Urinal # Voids 5 1 # Bowel Movements 1 - Exam The patient appeared well nourished and normally developed. Vital signs as documented. The patient is currently on Precedex, calm and comfortable. No significant agitation. Head exam is unremarkable. No scleral icterus or corneal arcus noted. Neck is without jugular venous distension, thyromegaly, or carotid bruits. Carotid upstrokes are brisk bilaterally. Lungs are clear to auscultation and percussion. Cardiac exam reveals the PMI to be normally sized and situated. Rhythm is regular. First and second heart sounds normal. No murmurs, rubs or gallops. Abdominal exam reveals normal bowel sounds, no masses, no organomegaly and no aortic enlargement. Extremities are nonedematous and both femoral and pedal pulses are normal. Examination of the skin revealed no evidence of significant rashes, suspicious appearing nevi or other concerning lesions. Neurologically, the patient is awake and alert and the patient does not have any focal neurological deficit. Cranial nerves are essentially intact. - Labs CBC & Chem 7: 07/14/24 02:46 07/14/24 02:46 Labs: Abnormal Lab Results - Last 24 Hours (Table) 07/14/24 07/14/24 07/14/24 Range/Units 12:03 17:14 20:10 POC Glucose (mg/dL) 173 H 165 H 262 H (70-110) mg/dL 07/15/24 Range/Units 07:02 POC Glucose (mg/dL) 239 H (70-110) mg/dL Assessment and Plan Plan: Delirium tremens improved and the patient is currently on Librium and Zyprexa. Patient is transferred out of the intensive care unit. Alcoholism Diabetes mellitus type 2, HbA1c is at 9 Hypertension Degenerative arthritis History of depression Sinus tachycardia Erosive esophagitis and some mild gastritis based on EGD findings. Plan Continue Zyprexa 5 mg p.o. daily Continue Librium 10 mg p.o. 3 times daily Continue lithium 300 mg at bedtime Ativan per CIWA protocol IV fluids to KVO Continue atenolol 25 mg p.o. daily Thiamine 100 mg IV every 24 hours Not a candidate for inpatient psychiatric evaluation Monitor oxygenation Psychiatric evaluation is appreciated IV Protonix and Carafate Sliding scale insulin coverage for blood sugar control Monitor mental status and current mental status is back to normal Pulmonary critical care services will sign off
[2024-07-15 18:35] LABS: Glucose,Whole Blood 183 mg/dL (70-110)
[2024-07-15 20:03] LABS: Glucose,Whole Blood 217 mg/dL (70-110)
[2024-07-15] MEDS: HYDROcodone/APAP 5-325MG 1 EACH TAB PO PRN (20:08)
[2024-07-15] MEDS: MELATONIN 3 MG TABLET PO PRN (21:27)
[2024-07-16 07:13] LABS: Glucose,Whole Blood 183 mg/dL (70-110)
[2024-07-16 12:19] LABS: Glucose,Whole Blood 325 mg/dL (70-110)
--- NOTE | 2024-07-16 14:12 | P.PN ---
Subjective Progress Note Date: 07/16/24 59-year-old male patient with known history of alcoholism who presented to ER with a complaint of fall and head injury. Patient was recently hospitalized on 3 12/08/2024, was found to be in bed at home for more than 2 weeks and was not taking his meds, was noted to have scattered alcohol containers all around the bed, was drinking 1/5 of vodka on daily basis, patient left to me at that time. Now presented with fall and head injury. Patient was noted to be in delirium tremens on presentation was also having suicidal ideations. Required Precedex drip in the ICU. Admitted hospital for further evaluation and management of alcohol withdrawal syndrome, debility/generalized weakness, suicidal ideations. ICU, neurology and psychiatry consulted. 07/12--- patient was seen and examined today. Alert oriented x 3. Calm and cooperative today. Denied any suicidal or homicidal ideations. Psychiatry evaluated the patient, recommended to discontinue sitter, patient not currently imminent threat to self. Recommended Zyprexa, lithium, Librium. Patient had low-grade fever 99.9, heart rate 97, respiratory rate 20, blood pressure 105/68, saturating 94% on room air. WBCs 9.3 hemoglobin 11.4 platelet 208. BMP unremarkable. TSH and folate normal. 07/13--- patient was seen and examined today. Patient feeling better today. Patient off Precedex drip. Denied any suicidal or homicidal ideations. Vital stable, WBCs 8.5, hemoglobin 10.5, platelet 222. Continues complain of burning sensation with swallowing and drinking. General surgery following, plan for EGD tomorrow. 07/14--patient was seen and examined today. Psychiatry evaluated the patient, signed off, recommended to increase Zyprexa to 5 mg nightly, lithium 300 mg nightly, decrease/taper of Librium last dose tomorrow night. Recommended outpatient follow-up. Patient underwent EGD with biopsy today, showed severe erosive esophagitis small hiatal hernia, mild gastritis, mild duodenitis. Patient received 2 mg Ativan last night for withdrawal. 07/15--patient was seen and examined today. No issues overnight. Withdrawal symptoms improved. Patient still complaining of heartburn, remains on PPI and Carafate. General surgery recommended to continue PPI, Carafate, repeat EGD in 2 to 3 months. Patient on regular diet. PT/OT recommended subacute rehab, awaiting placement. 07/16. Patient seen and examined. No acute issue overnight. Vital signs this morning temperature 98.1, heart rate 102, respirations 16, blood pressure 112/69. Denies any lightheaded dizziness. CIWA scores have been 0 REVIEW OF SYSTEMS: CONSTITUTIONAL: No fever, no malaise,. CARDIOVASCULAR: No chest pain, no palpitations, no syncope. PULMONARY: No shortness of breath, no cough, GASTROINTESTINAL: No diarrhea, no nausea, no vomiting, no abdominal pain. NEUROLOGICAL: No headaches, no weakness, PHYSICAL EXAMINATION: GENERAL: The patient is alert and oriented x3, not in any acute distress. Well developed, well nourished. HEENT: Pupils are round and equally reacting to light. EOMI. No scleral icterus. No conjunctival pallor. Normocephalic, atraumatic. No pharyngeal erythema. No thyromegaly. CARDIOVASCULAR: S1 and S2 present. No murmurs, rubs, or gallops. PULMONARY: Chest is clear to auscultation, no wheezing or crackles. ABDOMEN: Soft, nontender, nondistended, normoactive bowel sounds. No palpable organomegaly. MUSCULOSKELETAL: No joint swelling or deformity. EXTREMITIES: No cyanosis, clubbing, or pedal edema. NEUROLOGICAL: Gross neurological examination did not reveal any focal deficits. SKIN: No rashes. Assessment and plan Delirium tremens Alcohol withdrawal syndrome: Alcohol use disorder Acute metabolic encephalopathy: Recently admitted for admitted for alcohol withdrawal, found in the bed for more than 2 weeks, history of drinking 1/5 of vodka daily basis, left AMA, now presented after a fall, head injury CT head and cervical spine was negative for acute process Chest x-ray was negative for acute process LFTs amylase and lipase unremarkable. Alcohol level was less than 10 Became agitated and combative in the ED, required Precedex drip and transferred to ICU Initially received Precedex drip, as needed Ativan per [facility] protocol Thiamine, folic acid, multivitamin Neurology consulted--- appreciate recs. Mentation improved, neurology signed off. Dysphagia/odynophagia: Severe erosive esophagitis, small hiatal hernia, mild gastritis and duodenitis: General Surgery consultedstatus post EGD 07/14 that showed severe erosive esoph agitis mild hiatal hernia, mild gastritis Continue PPI, Carafate Outpatient repeat EGD in 2 to 3 months. Depression: Psychiatry consultedrecommended Zyprexa 5 mg nightly for mood stabilization, lithium 300 mg nightly for mood stabilization, Librium 20 mg 3 times daily to be titrated off Psychiatry recommended to discontinue one-to-one sitter for suicide precautions that patient not currently imminent threat to self. Diabetes mellitus: HbA1c 9 Accu-Cheks, diabetic diet Sliding-scale insulin Debility: Generalized weakness: Severe PCM: Fall precautions-PT/OT consult Case management consult for outpatient resources. Hypertension Psoriasis Labs and medication were reviewed.. Continue same treatment. Continue with symptomatic treatment. Resume home medication. Monitor labs and vitals. DVT and GI prophylaxis. Further recommendations as per clinical course of the patient Dictation was produced using [employer] dictation software. please excuse any grammatical, word or spelling errors. Objective - Vital Signs Vital signs: Vital Signs Temp 98.1 F 07/16/24 11:50 Pulse 86 07/16/24 12:34 Resp 16 07/16/24 11:50 BP 112/69 07/16/24 11:50 Pulse Ox 96 07/16/24 11:50 FiO2 Intake & Output 07/15/24 07/16/24 07/16/24 18:59 06:59 18:59 Intake Total 540 480 Balance 540 480 Weight 62.5 kg Intake: Oral 540 480 Other: Voiding Method Toilet Toilet Toilet Urinal Urinal Urinal # Voids 5 4 - Labs CBC & Chem 7: 07/14/24 02:46 07/14/24 02:46 Labs: Abnormal Lab Results - Last 24 Hours (Table) 07/15/24 07/15/24 07/16/24 Range/Units 18:33 20:02 07:11 POC Glucose (mg/dL) 183 H 217 H 183 H (70-110) mg/dL 07/16/24 Range/Units 12:18 POC Glucose (mg/dL) 325 H (70-110) mg/dL
[2024-07-16 17:14] LABS: Glucose,Whole Blood 231 mg/dL (70-110)
[2024-07-16 20:04] LABS: Glucose,Whole Blood 289 mg/dL (70-110)
[2024-07-17 07:21] LABS: Glucose,Whole Blood 265 mg/dL (70-110)
[2024-07-17 12:12] LABS: Glucose,Whole Blood 208 mg/dL (70-110)
--- NOTE | 2024-07-17 13:22 | P.PN ---
Subjective Progress Note Date: 07/17/24 59-year-old male patient with known history of alcoholism who presented to ER with a complaint of fall and head injury. Patient was recently hospitalized on 3 12/08/2024, was found to be in bed at home for more than 2 weeks and was not taking his meds, was noted to have scattered alcohol containers all around the bed, was drinking 1/5 of vodka on daily basis, patient left to me at that time. Now presented with fall and head injury. Patient was noted to be in delirium tremens on presentation was also having suicidal ideations. Required Precedex drip in the ICU. Admitted hospital for further evaluation and management of alcohol withdrawal syndrome, debility/generalized weakness, suicidal ideations. ICU, neurology and psychiatry consulted. 07/12--- patient was seen and examined today. Alert oriented x 3. Calm and cooperative today. Denied any suicidal or homicidal ideations. Psychiatry evaluated the patient, recommended to discontinue sitter, patient not currently imminent threat to self. Recommended Zyprexa, lithium, Librium. Patient had low-grade fever 99.9, heart rate 97, respiratory rate 20, blood pressure 105/68, saturating 94% on room air. WBCs 9.3 hemoglobin 11.4 platelet 208. BMP unremarkable. TSH and folate normal. 07/13--- patient was seen and examined today. Patient feeling better today. Patient off Precedex drip. Denied any suicidal or homicidal ideations. Vital stable, WBCs 8.5, hemoglobin 10.5, platelet 222. Continues complain of burning sensation with swallowing and drinking. General surgery following, plan for EGD tomorrow. 07/14--patient was seen and examined today. Psychiatry evaluated the patient, signed off, recommended to increase Zyprexa to 5 mg nightly, lithium 300 mg nightly, decrease/taper of Librium last dose tomorrow night. Recommended outpatient follow-up. Patient underwent EGD with biopsy today, showed severe erosive esophagitis small hiatal hernia, mild gastritis, mild duodenitis. Patient received 2 mg Ativan last night for withdrawal. 07/15--patient was seen and examined today. No issues overnight. Withdrawal symptoms improved. Patient still complaining of heartburn, remains on PPI and Carafate. General surgery recommended to continue PPI, Carafate, repeat EGD in 2 to 3 months. Patient on regular diet. PT/OT recommended subacute rehab, awaiting placement. 07/16. Patient seen and examined. No acute issue overnight. Vital signs this morning temperature 98.1, heart rate 102, respirations 16, blood pressure 112/69. Denies any lightheaded dizziness. CIWA scores have been 0 /6. Patient seen examined. Complaining of lethargy. Had episode of vomiting this morning. No acute issue overnight. REVIEW OF SYSTEMS: CONSTITUTIONAL: No fever, no malaise,. CARDIOVASCULAR: No chest pain, no palpitations, no syncope. PULMONARY: No shortness of breath, no cough, GASTROINTESTINAL: As mentioned above NEUROLOGICAL: No headaches, no weakness, PHYSICAL EXAMINATION: GENERAL: The patient is alert and oriented x3, not in any acute distress. Well developed, well nourished. HEENT: Pupils are round and equally reacting to light. EOMI. No scleral icterus. No conjunctival pallor. Normocephalic, atraumatic. No pharyngeal erythema. No thyromegaly. CARDIOVASCULAR: S1 and S2 present. No murmurs, rubs, or gallops. PULMONARY: Chest is clear to auscultation, no wheezing or crackles. ABDOMEN: Soft, nontender, nondistended, normoactive bowel sounds. No palpable organomegaly. MUSCULOSKELETAL: No joint swelling or deformity. EXTREMITIES: No cyanosis, clubbing, or pedal edema. NEUROLOGICAL: Gross neurological examination did not reveal any focal deficits. SKIN: No rashes. Assessment and plan Delirium tremens Alcohol withdrawal syndrome: Alcohol use disorder Acute metabolic encephalopathy: Recently admitted for admitted for alcohol withdrawal, found in the bed for more than 2 weeks, history of drinking 1/5 of vodka daily basis, left AMA, now presented after a fall, head injury CT head and cervical spine was negative for acute process Chest x-ray was negative for acute process LFTs amylase and lipase unremarkable. Alcohol level was less than 10 Became agitated and combative in the ED, required Precedex drip and transferred to ICU Initially received Precedex drip, as needed Ativan per [facility] protocol Thiamine, folic acid, multivitamin Neurology consulted--- appreciate recs. Mentation improved, neurology signed off. Dysphagia/odynophagia: Severe erosive esophagitis, small hiatal hernia, mild gastritis and duodenitis: General Surgery consultedstatus post EGD 07/14 that showed severe erosive esophagitis mild hiatal hernia, mild gastritis Continue PPI, Carafate Outpatient repeat EGD in 2 to 3 months. Depression: Psychiatry consultedrecommended Zyprexa 5 mg nightly for mood stabilization, lithium 300 mg nightly for mood stabilization, Librium 20 mg 3 times daily to be titrated off Psychiatry recommended to discontinue one-to-one sitter for suicide precautions that patient not currently imminent threat to self. Diabetes mellitus: HbA1c 9 Accu-Cheks, diabetic diet Sliding-scale insulin Debility: Generalized weakness: Severe PCM: Fall precautions-PT/OT consult Case management consult for outpatient resources. Hypertension Psoriasis Labs and medication were reviewed.. Continue same treatment. Continue with symptomatic treatment. Resume home medication. Monitor labs and vitals. DVT and GI prophylaxis. Further recommendations as per clinical course of the patient Dictation was produced using [employer] dictation software. please excuse any grammatical, word or spelling errors. Objective - Vital Signs Vital signs: Vital Signs Temp 98.8 F 07/17/24 11:47 Pulse 86 07/17/24 12:11 Resp 16 07/17/24 11:47 BP 118/80 07/17/24 11:47 Pulse Ox 96 07/17/24 11:47 FiO2 Intake & Output 07/16/24 07/17/24 07/17/24 18:59 06:59 18:59 Intake Total 2280 540 480 Balance 2280 540 480 Weight 63 kg Intake: Oral 2280 540 480 Other: Voiding Method Toilet Toilet Toilet Urinal Urinal Urinal # Voids 5 2 # Bowel Movements 1 - Labs CBC & Chem 7: 07/14/24 02:46 07/14/24 02:46 Labs: Abnormal Lab Results - Last 24 Hours (Table) 07/16/24 07/16/24 07/17/24 Range/Units 17:12 20:03 07:19 POC Glucose (mg/dL) 231 H 289 H 265 H (70-110) mg/dL 07/17/24 Range/Units 12:11 POC Glucose (mg/dL) 208 H (70-110) mg/dL
[2024-07-17 16:52] LABS: Basophils # (A) 0.1 k/uL (0-0.2); Basophils % (A) 1 %; Eosinophils # (A) 0.1 k/uL (0-0.7); Eosinophils % (A) 1 %; HCT 32.8 % (39.0-53.0); HGB 10.3 gm/dL (13.0-17.5); Lymphocytes # (A) 1.7 k/uL (1.0-4.8); Lymphocytes % (A) 28 %; MCH 33.1 pg (25.0-35.0); MCHC 31.3 g/dL (31.0-37.0); MCV 105.7 fL (80.0-100.0); Macrocytosis Moderate; Mean Platelet Volume 8.5; Monocytes # (A) 0.7 k/uL (0-1.0); Monocytes % (A) 11 %; Neutrophils # (A) 3.6 k/uL (1.3-7.7); Neutrophils % (A) 57 %; RDW 15.7 % (11.5-15.5); WBC 6.3 k/uL (3.8-10.6)
[2024-07-17 16:53] LABS: Platelet Count 501 k/uL (150-450)
[2024-07-17 17:08] LABS: Glucose,Whole Blood 310 mg/dL (70-110)
[2024-07-17 20:51] LABS: Glucose,Whole Blood 289 mg/dL (70-110)
[2024-07-17 23:27] LABS: Appearance,Urine Clear (Clear); Bilirubin,Urine Negative (Negative); Blood,Urine Negative (Negative); Color,Urine Colorless; Glucose,Urine (UA) 4+ (Negative); Ketones,Urine Negative (Negative); Leukocyte Esterase,Urine Negative (Negative); Nitrite,Urine Negative (Negative); PH, Urine 5.5 (5.0-8.0); Protein,Urine Negative (Negative); Specific Gravity,Urine 1.018 (1.001-1.035); Urobilinogen,Urine <2.0 mg/dL (<2.0)
[2024-07-17 23:47] LABS: Influenza A Not Detected (Not Detectd); Influenza B Not Detected (Not Detectd); RSV Not Detected (Not Detectd)
--- NOTE | 2024-07-18 02:54 | XR ---
EXAM: XR Chest, 1 View CLINICAL HISTORY: ITS.REASON XR Reason: rule out sepsis TECHNIQUE: Frontal view of the chest. COMPARISON: No relevant prior studies available. FINDINGS: Lungs: No consolidation or mass. Pleural space: No acute findings. Heart: No cardiomegaly. Bones/joints: No acute findings. IMPRESSION: No acute cardiopulmonary process.
[2024-07-18 02:55] LABS: ALT 11 U/L (4-49); AST 14 U/L (17-59); African American GFR (CKD) >90 (>60 ml/min/1.73 sqM); Albumin 2.2 g/dL (3.5-5.0); Alkaline Phosphatase 76 U/L (38-126); Anion Gap 2 mmol/L; Basophils % (A) 1 %; Blood Urea Nitrogen 6 mg/dL (9-20); Calcium 8.5 mg/dL (8.4-10.2); Carbon Dioxide 27 mmol/L (22-30); Chloride 102 mmol/L (98-107); Eosinophils # (A) 0.1 k/uL (0-0.7); Eosinophils % (A) 2 %; Globulin 2.2 g/dL; Glucose 242 mg/dL (74-99); HCT 30.9 % (39.0-53.0); HGB 9.7 gm/dL (13.0-17.5); Lymphocytes # (A) 2.3 k/uL (1.0-4.8); Lymphocytes % (A) 33 %; MCH 32.9 pg (25.0-35.0); MCHC 31.3 g/dL (31.0-37.0); MCV 105.3 fL (80.0-100.0); Macrocytosis Moderate; Mean Platelet Volume 8.2; Monocytes # (A) 0.6 k/uL (0-1.0); Monocytes % (A) 8 %; Neutrophils # (A) 3.7 k/uL (1.3-7.7); Neutrophils % (A) 53 %; Non-African American GFR(CKD) >90 (>60 ml/min/1.73 sqM); Platelet Count 490 k/uL (150-450); Potassium 4.3 mmol/L (3.5-5.1); RBC 2.94 m/uL (4.30-5.90); RDW 15.7 % (11.5-15.5); Sodium 131 mmol/L (137-145); Total Bilirubin 0.2 mg/dL (0.2-1.3); Total Protein 4.4 g/dL (6.3-8.2); WBC 6.9 k/uL (3.8-10.6)
[2024-07-18 07:07] LABS: Glucose,Whole Blood 184 mg/dL (70-110)
[2024-07-18 07:35] VITALS: RESP 18
[2024-07-18 12:19] LABS: Glucose,Whole Blood 219 mg/dL (70-110)
[2024-07-18 12:47] VITALS: BP 119/76; PULSE 82; TEMP 98.1
--- NOTE | 2024-07-18 13:00 | P.DS ---
Providers Date of admission: 07/10/24 18:15 Expected date of discharge: 07/18/24 Attending physician: Jen Grimm MD Consults: 07/10/24 18:00 Consult Physician Routine Consulting Provider: Psychiatry - [facility] Psychiatry Consult Reason/Comments: SI Do you want consulting provider notified?: Yes Consult Physician Routine Consulting Provider: Darya Pritchard Consult Reason/Comments: AMS Do you want consulting provider notified?: Yes 07/10/24 21:58 Consult Physician Stat Consulting Provider: Duglas Lei Consult Reason/Comments: ICU management Do you want consulting provider notified?: Already Contacted Primary care physician: Stated None Hospital Course: Discharge diagnoses; Delirium tremens Alcohol withdrawal syndrome: Alcohol use disorder Acute metabolic encephalopathy: Recently admitted for admitted for alcohol withdrawal, found in the bed for more than 2 weeks, history of drinking 1/5 of vodka daily basis, left AMA, now presented after a fall, head injury CT head and cervical spine was negative for acute process Chest x-ray was negative for acute process LFTs amylase and lipase unremarkable. Alcohol level was less than 10 Became agitated and combative in the ED, required Precedex drip and transferred to ICU Initially received Precedex drip, as needed Ativan per [facility] protocol Thiamine, folic acid, multivitamin Neurology consulted--- appreciate recs. Mentation improved, neurology signed off. Dysphagia/odynophagia: Severe erosive esophagitis, small hiatal hernia, mild gastritis and duodenitis: General Surgery consultedstatus post EGD 07/14 that showed severe erosive esophagitis mild hiatal hernia, mild gastritis Continue PPI, Carafate Outpatient repeat EGD in 2 to 3 months. Depression: Psychiatry consultedrecommended Zyprexa 5 mg nightly for mood stabilization, lithium 300 mg nightly for mood stabilization, Librium 20 mg 3 times daily to be titrated off Psychiatry recommended to discontinue one-to-one sitter for suicide precautions that patient not currently imminent threat to self. Diabetes mellitus: HbA1c 9 Accu-Cheks, diabetic diet Sliding-scale insulin Debility: Generalized weakness: Severe PCM: Being discharged to rehab in stable condition Hypertension Psoriasis Hospital course; 59-year-old male patient with known history of alcoholism who presented to ER with a complaint of fall and head injury. Patient was recently hospitalized on 3 12/08/2024, was found to be in bed at home for more than 2 weeks and was not taking his meds, was noted to have scattered alcohol containers all around the bed, was drinking 1/5 of vodka on daily basis, patient left to me at that time. Now presented with fall and head injury. Patient was noted to be in delirium tremens on presentation was also having suicidal ideations. Required Precedex drip in the ICU. Admitted hospital for further evaluation and management of alcohol withdrawal syndrome, debility/generalized weakness, suicidal ideations. ICU, neurology and psychiatry consulted. 07/12--- patient was seen and examined today. Alert oriented x 3. Calm and cooperative today. Denied any suicidal or homicidal ideations. Psychiatry evaluated the patient, recommended to discontinue sitter, patient not currently imminent threat to self. Recommended Zyprexa, lithium, Librium. Patient had low-grade fever 99.9, heart rate 97, respiratory rate 20, blood pressure 105/68, saturating 94% on room air. WBCs 9.3 hemoglobin 11.4 platelet 208. BMP unremarkable. TSH and folate normal. 07/13--- patient was seen and examined today. Patient feeling better today. Patient off Precedex drip. Denied any suicidal or homicidal ideations. Vital stable, WBCs 8.5, hemoglobin 10.5, platelet 222. Continues complain of burning sensation with swallowing and drinking. General surgery following, plan for EGD tomorrow. 07/14--patient was seen and examined today. Psychiatry evaluated the patient, signed off, recommended to increase Zyprexa to 5 mg nightly, lithium 300 mg nightly, decrease/taper of Librium last dose tomorrow night. Recommended outpatient follow-up. Patient underwent EGD with biopsy today, showed severe erosive esophagitis small hiatal hernia, mild gastritis, mild duodenitis. Patient received 2 mg Ativan last night for withdrawal. 07/15--patient was seen and examined today. No issues overnight. Withdrawal symptoms improved. Patient still complaining of heartburn, remains on PPI and Carafate. General surgery recommended to continue PPI, Carafate, repeat EGD in 2 to 3 months. Patient on regular diet. PT/OT recommended subacute rehab, awaiting placement. 07/16. Patient seen and examined. No acute issue overnight. Vital signs this morning temperature 98.1, heart rate 102, respirations 16, blood pressure 112/69. Denies any lightheaded dizziness. CIWA scores have been 0 07/17. Patient seen examined. Complaining of lethargy. Had episode of vomiting this morning. No acute issue overnight. 07/18. Patient seen and examined. No acute issues overnight. Being discharged to rehab facility in stable condition PHYSICAL EXAMINATION: GENERAL: The patient is alert and oriented x3, not in any acute distress. Well developed, well nourished. HEENT: Pupils are round and equally reacting to light. EOMI. No scleral icterus. No conjunctival pallor. Normocephalic, atraumatic. No pharyngeal erythema. No thyromegaly. CARDIOVASCULAR: S1 and S2 present. No murmurs, rubs, or gallops. PULMONARY: Chest is clear to auscultation, no wheezing or crackles. ABDOMEN: Soft, nontender, nondistended, normoactive bowel sounds. No palpable organomegaly. MUSCULOSKELETAL: No joint swelling or deformity. EXTREMITIES: No cyanosis, clubbing, or pedal edema. NEUROLOGICAL: Gross neurological examination did not reveal any focal deficits. SKIN: No rashes. Dictation was produced using [employer] dictation software. please excuse any grammatical, word or spelling errors. Patient Condition at Discharge: Stable Plan - Discharge Summary Discharge Rx Participant: Yes New Discharge Prescriptions: New Sucralfate [Carafate] 1 gm PO AC-TID 30 Days #90 tab Pantoprazole [Protonix] 40 mg PO BID 30 Days #60 tab Thiamine [Vitamin B-1] 100 mg PO DAILY 30 Days #30 tab OLANZapine [ZyPREXA] 5 mg PO HS 30 Days #30 tab Folic Acid 1 mg PO DAILY 30 Days #30 tab [place] Carbonate 300 mg PO HS 30 Days #30 cap atenoloL [Tenormin] 25 mg PO DAILY 30 Days #30 tab Discharge Medication List Folic Acid 1 mg PO DAILY 30 Days #30 tab 07/18/24 [Rx] [place] Carbonate 300 mg PO HS 30 Days #30 cap 07/18/24 [Rx] OLANZapine [ZyPREXA] 5 mg PO HS 30 Days #30 tab 07/18/24 [Rx] Pantoprazole [Protonix] 40 mg PO BID 30 Days #60 tab 07/18/24 [Rx] Sucralfate [Carafate] 1 gm PO AC-TID 30 Days #90 tab 07/18/24 [Rx] Thiamine [Vitamin B-1] 100 mg PO DAILY 30 Days #30 tab 07/18/24 [Rx] atenoloL [Tenormin] 25 mg PO DAILY 30 Days #30 tab 07/18/24 [Rx] metFORMIN HCL 500 mg PO BID 30 Days #60 tablet 07/18/24 [Rx] Follow up Appointment(s)/Referral(s): Olivier Smith MD [Medical Doctor] - 2 Weeks None,Stated [Primary Care Provider] - 1-2 days Patient Instructions/Handouts: Sucralfate (By mouth), Chlorthalidone (By mouth), Abuse of Alcohol (DC), Alcohol Withdrawal (DC), Upper Endoscopy (DC) Activity/Diet/Wound Care/Special Instructions: [facility] follow-up at discharge. [facility] for PCP Discharge/Stand Alone Forms: AA Meetings [place], [facility], Outpatient Counseling, Inp Substance Abuse Facilities Discharge Disposition: TRANSFER TO SNF/ECF
--- NOTE | 2024-07-20 08:53 | CDI ---
Documentation Clarification Form Date: 07/20/2024 08:42:31 AM From: Yara Mercado Phone: Admit Date: 07/10/2024 06:15:00 PM Patient Name: Remy Danielson Visit Number: [id number] Discharge Date: 07/18/2024 04:41:00 PM ATTENTION: The Clinical Documentation Specialists (CDI) and [facility] Coding Staff appreciate your assistance in clarifying documentation. Please respond to the clarification below the line at the bottom and electronically sign. The CDI & [facility] Coding staff will review the response and follow-up if needed. Please note: Queries are made part of the Legal Health Record. If you have any questions, please contact the author of this message via ITS. Doctor/Provider: Jean Paul Cotto Your patient has an abnormal lab value: HbA1c is at 9. Please clarify if there is an additional diagnosis and/or clinical significance related to this value. History/Risk Factors: 59yo M, dysphagia/odynophagia, severeerosive esophagitis, smallhiatal hernia, mildalcoholic gastritisandduodenitis, BPD mild, EMELY, DMII, debility, generalized weakness, severe PCM, HTN, psoriasis Clinical indicators: Glucose 07/10 223 07/11 216 4/1 118 4/2 221 /3 212 / 242 Treatment: Sliding scale insulin coverage for blood sugar control Is there an additional diagnosis and/or clinical significance related to the above lab result/information? [ x] Diabetes Mellitus Type 2 with hyperglycemia [ ] Diabetes Mellitus Type 2 no complications [ ] No additional diagnosis/Not clinically significant [ ] Other, please specify [ ] Unable to determine (Template Last Revised: May 2020) MTDD
== END 2024-07-18 16:41 | disposition home or self-care (01) | DRG 896 ==
LOC: EC 15:50 → 3SCARD 18:15 → 2SICU 20:40 → 5NMEDONC 07-14 08:20
PROVIDERS: ADMIT Internal Medicine; ATTEND Internal Medicine
PROC: 0DB78ZX Excision of Stomach, Pylorus, Via Natural or Artificial Opening Endoscopic, Diagnostic (ICD-10-PCS; 2024-07-14)
PROC: 0DB58ZX Excision of Esophagus, Via Natural or Artificial Opening Endoscopic, Diagnostic (ICD-10-PCS; 2024-07-14)
PROC: 0DB98ZX Excision of Duodenum, Via Natural or Artificial Opening Endoscopic, Diagnostic (ICD-10-PCS; principal; 2024-07-14 07:30)
DX: F10.231 Alcohol dependence with withdrawal delirium (principal); E43 Unspecified severe protein-calorie malnutrition; G93.41 Metabolic encephalopathy; K22.10 Ulcer of esophagus without bleeding; F31.30 Bipolar disorder, current episode depressed, mild or moderate severity, unspecified; E83.51 Hypocalcemia; K29.80 Duodenitis without bleeding; E11.65 Type 2 diabetes mellitus with hyperglycemia; K29.20 Alcoholic gastritis without bleeding; I10 Essential (primary) hypertension; R45.851 Suicidal ideations; Z78.1 Physical restraint status; F17.210 Nicotine dependence, cigarettes, uncomplicated; S00.81XA Abrasion of other part of head, initial encounter; K44.9 Diaphragmatic hernia without obstruction or gangrene; E87.6 Hypokalemia; L40.9 Psoriasis, unspecified; F41.1 Generalized anxiety disorder; E83.42 Hypomagnesemia; R53.81 Other malaise; W01.198A Fall on same level from slipping, tripping and stumbling with subsequent striking against other object, initial encounter; Y93.01 Activity, walking, marching and hiking; Y92.238 Other place in hospital as the place of occurrence of the external cause; Z68.21 Body mass index [BMI] 21.0-21.9, adult
CPT/HCPCS: 36415; 43239; 70450; 71045; 72125; 80048; 80053; 80306; 80320; 81003; 82607; 82746; 83036; 83605; 83690; 83735; 84100; 84132; 84443; 85025; 85027; 87040; 87636; 88305; 90471; 90715; 94640; 96361; 96365; 96375; 96376; 99285

== ENCOUNTER 2024-07-28 09:48 | Emergency (ER) | payer MEDICARE ==
--- NOTE | 2024-07-28 10:28 | ED ---
Skin/Abscess/FB HPI - General Chief complaint: Skin/Abscess/Foreign Body Stated complaint: rash,poss bed bugs Time Seen by Provider: 07/28/24 09:59 Source: patient, RN notes reviewed Mode of arrival: ambulatory Limitations: no limitations - History of Present Illness Initial comments: This is a 59-year-old male who presents to the emergency department for a rash. Patient went to check into [facility] today, however he had a rash on him and they sent him here for evaluation to see if this looks like anything that is communicable such as scabies. Patient states that he was staying with a friend for a couple of days and that his friend's house was very dirty. They had multiple other people staying there along with multiple pets and there were v isible bedbugs, cockroaches, and other insects in the area. He states that this caused him to get bites on his wrists and ankles. These initially were very itchy, however that has since started to subside. He has not been to that house in 3 days. States that [facility] needs documentation saying that the rash does not appear communicable in order for him to go there. MD complaint: rash - Related Data Previous Rx's Medication Instructions Recorded Folic Acid 1 mg PO DAILY 30 Days #30 tab 07/18/24 [place] Carbonate 300 mg PO HS 30 Days #30 cap 07/18/24 OLANZapine [ZyPREXA] 5 mg PO HS 30 Days #30 tab 07/18/24 Pantoprazole [Protonix] 40 mg PO BID 30 Days #60 tab 07/18/24 Sucralfate [Carafate] 1 gm PO AC-TID 30 Days #90 tab 07/18/24 Thiamine [Vitamin B-1] 100 mg PO DAILY 30 Days #30 tab 07/18/24 atenoloL [Tenormin] 25 mg PO DAILY 30 Days #30 tab 07/18/24 metFORMIN HCL 500 mg PO BID 30 Days #60 tablet 07/18/24 Allergies Allergy/AdvReac Type Severity Reaction Status Date / Time lisinopril AdvReac Unknown Cough Verified 07/10/24 19:41 Review of Systems ROS Statement: Those systems with pertinent positive or pertinent negative responses have been documented in the HPI. ROS Other: All systems not noted in ROS Statement are negative. Past Medical History Past Medical History: Asthma, Diabetes Mellitus, Hypertension, Osteoarthritis (OA), Skin Disorder Additional Past Medical History / Comment(s): PSORIASIS, Back and bilat hip pain. Arthritis bilat hip. Bone spurs in spine. History of Any Multi-Drug Resistant Organisms: Unobtainable Past Surgical History: Unable to Obtain Additional Past Surgical History / Comment(s): HAND SURGERY AND NERVE GRAFT TO THUMB, CORTISONE INJECTIONS HIP. Past Anesthesia/Blood Transfusion Reactions: Unable to Obtain Past Psychological History: Anxiety, Bipolar, Depression Smoking Status: Current every day smoker, Heavy tobacco smoker Past Alcohol Use History: Abuse - Past Family History Father Family Medical History: Cancer Additional Family Medical History / Comment(s): LUNG CANCER General Exam Limitations: no limitations General appearance: alert, in no apparent distress Head exam: Present: atraumatic, normocephalic, normal inspection Respiratory exam: Present: normal lung sounds bilaterally. Absent: respiratory distress, wheezes, rales, rhonchi, stridor Cardiovascular Exam: Present: regular rate, normal rhythm Neurological exam: Present: alert, oriented X3, CN II-XII intact Psychiatric exam: Present: normal affect, normal mood Skin exam: Present: other (Circumferential erythematous maculopapular rash on the bilateral wrists and ankles. No involvement in the webspaces of the hands or feet.) Course Vital Signs 07/28/24 07/28/24 09:50 10:54 Temperature 97.7 F 97.9 F Pulse Rate 110 H 101 H Respiratory 20 18 Rate Blood Pressure 179/109 154/86 O2 Sat by Pulse 98 98 Oximetry Medical Decision Making - Medical Decision Making This is a 59-year-old male who presents to the emergency department for a rash. Was pt. sent in by a medical professional or institution? @ -No Did you speak to anyone other than the patient for history? @ -No Did you review nursing and triage notes? @ -Yes, and I agree, it is accurate with regards to the patient's symptoms. Were old charts reviewed? @ -No Differential Diagnosis? @ -Roseola, measles, Lyme disease, erythema multiforme, cellulitis, toxic shock syndrome, Danie Julio César syndrome, Kawasaki disease, celestina mountain spotted fever, contact dermatitis, allergic dermatitis, measles, mumps, rubella, varicella, meningococcal disease, drug reaction, coxsackievirus, This is not meant to be an all-inclusive list. EKG interpreted by me (3pts min.)? @ -Not obtained X-rays interpreted by me (1pt min.)? @ -Not obtained CT interpreted by me (1pt min.)? @ -Not obtained U/S interpreted by me (1pt. min.)? @ -Not obtained What testing was considered but not performed? (CT, X-rays, U/S, labs)? Why? @ -None What meds were considered but not given? Why? @ -None Did you discuss the management of the patient with other professionals? @ -No Did you reconcile home meds? @ -No Was smoking cessation discussed for >3mins.? @ -No Was critical care preformed (if so, how long)? @ -No Were there social determinants of health that impacted care today? How? (Homelessness, low income, unemployed, alcoholism, drug addiction, transportation, low edu. Level, literacy, decrease access to med. care, assisted, rehab)? @ -Rehab, who requested the patient come here for evaluation Was there de-escalation of care discussed even if they declined? (Discuss DNR or withdrawal of care, Hospice)? @ -No What co-morbidities impacted this encounter? (DM, HTN, Smoking, COPD, CAD, Cancer, CVA, Hep., AIDS, mental health diagnosis, sleep apnea, morbid obesity)? @ -None Was patient admitted / discharged? @ -Discharged. Patient had lesions on his bilateral wrists and ankles with circumferential involvement. The pattern seemed more consistent with something like fleas. He did not have any lesions in the webspaces of his fingers or elsewhere to suggest scabies. Bedbugs would also typically cover his whole body. While we cannot definitively say whether or not this is something communicable, it appears highly unlikely. Advised that we can treat him with permethrin cream in the event it is something communicable like scabies. Patient is in agreement and he was sent home with the cream. Advised he use an [id number] antihistamine like Benadryl or hydrocortisone cream to help with the itching. Patient discharged home in stable condition. Case discussed with ED attending Dr. Ruiz. Return precautions reviewed in depth, the patient is instructed to return to the emergency department with any new, worsening, or concerning symptoms. Patient verbalized understanding. Undiagnosed new problem with uncertain prognosis? @ -None Drug Therapy requiring intensive monitoring for toxicity (Heparin, Nitro, Insulin, Cardizem)? @ -None Were any procedures done? @ -None Diagnosis/symptom? @ -Rash Acute, or Chronic, or Acute on Chronic? @ -Acute Uncomplicated (without systemic symptoms) or Complicated (systemic symptoms)? @ -Uncomplicated Side effects of treatment? @ -None Exacerbation, Progression, or Severe Exacerbation] @ -Not applicable Poses a threat to life or bodily function? @ -No Disposition Clinical Impression: Skin rash Disposition: HOME SELF-CARE Instructions (If sedation given, give patient instructions): Bed Bugs (ED), Acute Rash (ED) Additional Instructions: Return to the emergency department with any new, worsening, or concerning symptoms. The rash does not appear communicable. However, if there is any concern you can use the permethrin cream which is applied from the neck down and washed off in 8 to 12 hours. You can take an antihistamine like Benadryl to help with itching. You can also apply the hydrocortisone cream for itching. Is patient prescribed a controlled substance at d/c from ED?: No Referrals: None,Stated [Primary Care Provider] - 1-2 days Time of Disposition: 10:28
[2024-07-28] MEDS: HYDROCORTISONE 1% CREAM 30 GM TUBE TOPICAL STA (10:48)
[2024-07-28] MEDS: PERMETHRIN 5% CREAM 60 GM TUBE TOPICAL ONE (10:49)
[2024-07-28 10:57] VITALS: BP 154/86; PULSE 101; RESP 18; TEMP 97.9
== END 2024-07-28 10:57 | disposition home or self-care (01) ==
LOC: EC 09:48
DX: R21 Rash and other nonspecific skin eruption (principal); F17.200 Nicotine dependence, unspecified, uncomplicated; Z88.8 Allergy status to other drugs, medicaments and biological substances
CPT/HCPCS: 99282